=== PATIENT | male | born 1950 | race Hispanic/Latino ===

== ENCOUNTER 2023-05-03 08:29 | Emergency (ER) | payer OTHER ==
--- OUTSIDE RECORDS SUMMARY | 2023-05-03 08:41 | XMS REPORT | Continuity of Care Document ---
:1950 Author Organization [facility] t Address [address] [address]. [address] [place] [address] Care Team Providers Name Role Phone MAGUI ZAFAR Primary Care Physician Unavailable HEMAL BARRIOS Attending Clinician Unavailable Rubi Chan Attending Clinician Unavailable Zuleika Adan MD Attending Clinician Malaika Cotter Attending Clinician Unavailable KURT MONTALVO Attending Clinician Unavailable Kurt Wray Attending Clinician Anthony BULLARD, Day Benavides Attending Clinician Unavailable Bam Gonzales MD Attending Clinician BAM GONZALES Attending Clinician Unavailable Naomi Cruz MD Attending Clinician [phone] NAOMI CRUZ Attending Clinician Unavailable Veronica Crespo Attending Clinician Unavailable Lisa Sheffield Attending Clinician Unavailable MARCELO ROBERTS Attending Clinician Unavailable Nurse, Adc Pob Immunization Attending Clinician Unavailable Marcelo Roberts DO Attending Clinician Catarina KAYE, León Mcdermotth Attending Clinician Marc Rodriguez MD Attending Clinician MARC RODRIGUEZ Attending Clinician Unavailable MATEUSZ CACERES Attending Clinician Unavailable Only, Adc Test Attending Clinician Unavailable Jacobo Hester MD Attending Clinician JACOBO HESTER Attending Clinician Unavailable Doctor Unassigned, Balta Attending Clinician Unavailable Bui_Q Attending Clinician Unavailable Rajesh Attending Clinician Unavailable Bui_Q_WAG Attending Clinician Unavailable LITA HYMAN Attending Clinician Unavailable HEMAL BARRIOS Admitting Clinician Unavailable NAOMI CRUZ Admitting Clinician Unavailable MARC RODRIGUEZ Admitting Clinician Unavailable Bui_Q Admitting Clinician Unavailable Tino_JESUS Admitting Clinician Unavailable Bui_Q_WAG Admitting Clinician Unavailable Payers Payer Name Policy Type Policy Number Effective Date Expiration Date S erik MEDICARE A B [id number] 2016 00:00:00 MEDICARE PART A [id number] 2016 \\T\\ B 00:00:00 [place]IC[place] B-[place]: [id number] [address] 00:00:00 Problems Condition Condition Condition Status Onset Resolution Last Treating Co mments Source Name Details Category Date Date Treatment Clinician Date Arrhythmia Arrhythmia Disease Active 2021-[address] [facility] Atrial Atrial Disease Active [facility] fibrillati fibrillati 3-29 [facility] on 00:00: Hospita 00 l CHF CHF Disease Recurre 2020-[address] exacerbati exacerbati nce 2-27 Samreen kes on on 00:00: Medical 00 Hallie COVID-19 COVID-19 Disease Active 2019[facility]10 [facility] Pneumonia Pneumonia Disease Active 2019-[address] [facility] [address] [facility] 00 [facility] Depressive Depressive Problem Active [facility] disorder Disorder 10-27 Family 00:00: Practic 00 e Hypertensi Hypertensi Problem Active [facility] ve heart ve Heart 10-27 Family disease Disease 00:00: Practic without without 00 e congestive Congestive heart Heart failure Failure Edema of Edema of Problem Active [facility] lower Lower 1-23 Family extremity Extremity 00:00: Prac tic 00 e CHF CHF Disease Recurre 2018-[address] [facility] [address] (congestiv (congestiv nce 2-13 Samreen kes e heart e heart 00:00: Medical failure) failure) 00 Center SOB SOB Disease Active 2018-[address] [facility] (shortness (shortness 2-13 Samreen kes of breath) of breath) 00:00: Me dical 00 Center Acute Acute Disease Active 2018-[address] [facility] chest pain chest pain 2-12 Samreen kes 00:00: Medical 00 Center Morbid Morbid Problem [facility] obesity Obesity 0-11 Family 00:00: Practic 00 e History of History of Problem Active 2018-10 [facility] myocardial Myocardial 0-11 Fa kaz infarction Infarction 00:00: Pr actic 00 e Chronic Chronic Problem Active [facility] kidney Kidney 6-22 Family disease Disease 00:00: Practic stage 3 Stage 3 00 e Prediabete Prediabete Problem Active 2017-10 [facility] s s 1-29 Family 00:00: Practic 00 e Osteoarthr Osteoarthr Problem Active [facility] itis of itis of 6-04 Family knee Knee 00:00: Practic 00 e Slow Slow Disease Active 2016-10 [facility] transit transit 0-05 st constipati constipati 00:00: Ho spita on on 00 l 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[facility] post total post total 0-04 st right knee right knee 00:00: Ho spita replacemen replacemen 00 l t t Essential Essential Disease Active 2016-10 Met [facility]odi hypertensi hypertensi 0-04 st on on 00:00: Hospita 00 l Acute on Acute on Disease Active 2016-10 Meth[facility] di chronic chronic 0-04 st systolic systolic 00:00: Hospit a CHF CHF 00 l (congestiv (congestiv e heart e heart failure) failure) Coronary Coronary Disease Active 2016-10 [facility] di artery artery 0-04 st disease disease 00:00: Hospita involving involving 00 l augustine augustine coronary coronary artery of artery of augustine augustine heart heart without without angina angina pectoris pectoris Coronary Coronary Disease Active 2016-10 [facility] di artery artery 0-04 st disease disease 00:00: Hospita involving involving 00 l augustine augustine coronary coronary artery of artery of augustine augustine heart heart without without angina angina pectoris pectoris Primary Primary Disease Active Overview: Meth alex osteoarthr osteoarthr 8-[address] itis of itis of 00:00: g of this Hospi ta right knee right knee 00 note l might be different from the original. Added automatic ally from request for surgery [id number] Hyperlipid Hyperlipid Problem Active [facility] emia emia 8-18 Family 00:00: Practic 00 e Hypokalemi Hypokalemi Problem Active [facility] a a 8-18 Family 00:00: Practic 00 e Body mass Body Mass Problem Active Sujit andrew index 30+ Index 30+ 8-18 Fami ly - obesity - Obesity 00:00: Prac tic 00 e Stented Stented Problem Active [facility] coronary Coronary 05-22 Family artery Artery 00:00: Practic 00 e Cellulitis Cellulitis Disease Active U [facility]ivers 4-29 ity of 00:00: [place] [facility] Cellulitis Cellulitis Disease Active U nivers and and 4-27 ity of abscess of [place] leg[place] leg, 00 Medical except except Branch foot foot CAD CAD Disease Active [facility] (coronary (coronary 3-13 Luke s artery artery 00:00: Medical disease) disease) 00 Center Cardiomyop Cardiomyop Disease Active [facility] athy athy 3-13 [facility] Shortness Shortness Disease Active [facility] of breath of breath 1-13 Luke s 00:00: Medical 00 Center Cough Cough Disease Active [facility] 1[facility] Center Chest pain Chest pain Disease Active [facility] 1[facility]13 [facility] 00 Center Allergies, Adverse Reactions, Alerts Allergy Allergy Status Severity Reaction(s) Onset Inactive Treating Comm ents Source Name Type Date Date Clinician NO KNOWN Drug Active Univers ALLERGIE Class ity of S [facility] NO KNOWN Allergy Active [facility] ALLERGIE S Family History Family Member Diagnosis Comments Start Date Stop Date Source Natural brother Cancer [facility] Natural brother Cancer [facility] Natural father Asthma [facility] Natural father No Known Problems Met [facility] Natural mother No Known Problems Met [facility] sister Lupus [facility] Natural sister Rheum arthritis [facility] Social History Social Habit Start Date Stop Date Quantity Comments Source History of tobacco Current smoker [facility] History SDOH [facility] Std Drinks Hospit al History SDOH [facility] Binge Hospital History SDOH Worship Alcohol Frequency Hospita l History of Social 2022-12-29 2022-12-[address] function 00:00:00 00:00:00 Hospital Alcohol intake 2022-09-12 2022-09-[address] [facility] 00:00:00 00:00:00 non-drinker of Medical Ce nter alcohol (finding) Tobacco use and 2022-07-18 2022-07-18 Smokeless tobacco [facility]odist exposure 00:00:00 00:00:00 non-user Hospital Alcohol Comment 2017-07-01 2017-07-01 stopped heavy Method ist 00:00:00 00:00:00 drinking 2007- Hospital occasional drink now Tobacco Comment 2016-01-30 2016-01-30 quit 20 yrs ago Univ ersity of 00:00:00 00:00:00 [facility] Sex Ass[birth year] At [birth year] BLU Khanna kes 00:00:00 00:00:00 Medical Center Smoking Status Start Date Stop Date Source Ex-smoker 2022-07-18 00:00:00 2022-07-18 00:00:00 [facility] Medications Ordered Filled Start Stop Current Ordering Indication Dosage Frequency Signature Comments Components Source Medication Medication Date Date Medication? Clinician (SIG) Name Name potassium Yes Take 1 Method i chloride 04-[address] (K-DUR) 20 00:00: mouth once H ospita MEQ CR 00 daily l tablet atorvastati Yes Take 1 Meth alex n (LIPITOR) 04-[address] 40 mg 00:00: mouth once Hospit a tablet 00 daily l HYDROcodone 2022- No 1{tbl} 1 tablet, Univers -acetaminop 04-03 Oral, ity of hen (NORCO 19:30: 18:46 ONCE, 1 Valentín as 5) 5-325 mg 00 :00 dose, On Medi kristin tablet 1 Fri Branch tablet 04/03/23 at 1430, Routine traMADoL 50 Yes [id number] 50mg Take 1 Univ ers mg tablet 6-30 tablet by ity o f 00:00: mouth [place] 00 every 6 Medical (six) Branch hours as needed for Pain (scale 7-10). Indication s: acute pain amoxicillin 2022- Yes [id number] 1{tbl} Take 1 Univers -clavulanat 6-30 07-08 tablet by it y of e 875-125 00:00: 04:59 mouth [place] mg per 00 :00 every 12 Medical tablet (twelve) Branch hours for 7 days. valsartan Yes Take [address] [facility] (DIOVAN) 40 6-01 tablet by Michelle es MG tablet 00:00: mouth once Me dical 00 daily for Center 90 days torsemide Yes Take [address] [facility] (DEMADEX) 6-01 tablet by [facility] 20 MG 00:00: mouth once Medica l tablet 00 daily for Center 90 days valsartan Yes Take [address] [facility] (DIOVAN) 40 6-01 tablet by Michelle es MG tablet 00:00: mouth once Me dical 00 daily for Center 90 days torsemide Yes Take [address] (DEMADEX) 6-01 tablet by [facility] 20 MG 00:00: mouth once Medica l tablet 00 daily for Center 90 days torsemide 2022- Yes 20mg QD Take 1 [facility] t (DEMADEX) 6- 08-30 tablet (20 Michelle es 20 MG 00:00: 23:59 mg total) Medica l tablet 00 :00 by mouth Center in the morning for 90 days. valsartan 2022- Yes 40mg QD Take 1 [facility] (DIOVAN) 40 6- 08-30 tablet (40 L ukes MG tablet 00:00: 23:59 mg total) Me dical 00 :00 by mouth Center in the morning for 90 days. torsemide 2022- Yes 20mg QD Take 1 [facility] (DEMADEX) 6- 08-30 tablet (20 Michelle es 20 MG 00:00: 23:59 mg total) Medica l tablet 00 :00 by mouth Center in the morning for 90 days. valsartan 2022- Yes 40mg QD Take 1 [facility] (DIOVAN) 40 6- 08-30 tablet (40 L ukes MG tablet 00:00: 23:59 mg total) Me dical 00 :00 by mouth Center in the morning for 90 days. valsartan 2023-0 Yes 40mg QD Take 1 Method i (DIOVAN) 40 3-27 tablet (40 st MG tablet 09:43: mg total) Hos luly 08 by mouth l daily. torsemide 2023-0 Yes 20mg Q.5D Take 1 Method i (DEMADEX) 3-27 tablet (20 st 20 MG 09:41: mg total) Hospita tablet 59 by mouth 2 l (two) times a day. furosemide 2023-0 2023- No 40mg Q.5D Take [address] [facility] (LASIX) 20 2-24 02-24 by mouth 2 Samreen kes MG tablet 11:00: 00:00 (two) Medica l 00 :00 times Center daily. furosemide 2023-0 2023- No 40mg Q.5D Take [address] [facility] (LASIX) 20 2-24 02-24 by mouth 2 Samreen kes MG tablet 11:00: 00:00 (two) Medica l 00 :00 times Center daily. warfarin 2023-0 Yes 5mg QD Take [address] (COUMADIN, 2-24 by mouth [facility] JANTOVEN) 5 10:29: daily. Medi kristin MG tablet 51 Center warfarin 3-0 Yes 5mg QD Take [address] (COUMADIN, 2-24 by mouth [facility] JANTOVEN) 5 10:29: daily. Medi kristin MG tablet 51 Center valsartan 2023-0 2023- No 40mg QD Take 1 [facility] (DIOVAN) 40 2-24 06-01 tablet (40 L ukes MG tablet 00:00: 00:00 mg total) Me dical 00 :00 by mouth Center daily for 90 days. torsemide 2023-0 2023- No 20mg QD Take 1 [facility] (DEMADEX) 2-24 06-01 tablet (20 Michelle es 20 MG 00:00: 00:00 mg total) Medica l tablet 00 :00 by mouth Center daily for 90 days. valsartan 2023-0 2023- No 40mg QD Take 1 [facility] (DIOVAN) 40 2-24 06-01 tablet (40 L ukes MG tablet 00:00: 00:00 mg total) Me dical 00 :00 by mouth Center daily for 90 days. torsemide 2022-0 2023- No 20mg QD Take 1 [facility] (DEMADEX) 11-28 tablet (20 Michelle es 20 MG 00:00: 00:00 mg total) Medica l tablet 00 :00 by mouth Center daily for 90 days. pantoprazol 2022-0 2023- No 40mg QD Take [address] [facility] e -25 02-25 tablet (40 [facility] (PROTONIX) 00:00: 23:59 mg total) M edical 40 MG 00 :00 by mouth Center tablet daily for 90 days. pantoprazol 2022-0 2023- No 40mg QD Take [address] [facility] e 11-28 05-25 tablet (40 [facility] (PROTONIX) 00:00: 23:59 mg total) M edical 40 MG 00 :00 by mouth Center tablet daily for 90 days. metoclopram 2022-0 2023- No 10mg Take [address] ayah HCl 11-28- tablet (10 [facility] (Reglan) 10 00:00: 23:59 mg total) Medical MG tablet 00 :00 by mouth 4 Cent er (four) times daily as needed for Nausea for up to 30 days. metoclopram 2022-0 3- No 10mg Take [address] ayah HCl 11-28- tablet (10 [facility] (Reglan) 10 00:00: 23:59 mg total) Medical MG tablet 00 :00 by mouth 4 Cent er (four) times daily as needed for Nausea for up to 30 days. mINOCYCLine 2022-0 2023- No 100mg Q.5D Take [address] (Minocin) 11-28- capsule [facility] 100 MG 00:00: 23:59 (100 mg Medical capsule 00 :00 total) by Center mouth 2 (two) times daily for 5 days. mINOCYCLine 2023-0 2023- No 100mg Q.5D Take [address] (Minocin) -26 12- capsule [facility] 100 MG 00:00: 23:59 (100 mg Medical capsule 00 :00 total) by Center mouth 2 (two) times daily for 5 days. sacubitriL- 2022-0 Yes 1{tbl} Q.5D Take [address] valsartan 2-13 tablet by [facility] (Entresto) 00:00: mouth 2 Medi kristin 49-51 mg 00 (two) Center tablet times daily. sacubitriL- Yes 1{tbl} Q.5D Take [address] valsartan 2-13 tablet by [facility] (Entresto) 00:00: mouth 2 Medi kristin 49-51 mg 00 (two) Center tablet times daily. sacubitriL- 2022- No 1{tbl} Q.5D Take 1 M ethodi valsartan 2-15 12-[address] (Entresto) 00:00: 00:00 mouth 2 Hos luly 49-51 mg 00 :00 (two) l tablet per times a tablet day. apixaban 2022- No 5mg Q.5D Take 1 Method i (Eliquis) 5 11-17-16 tablet (5 st mg tablet 00:00: 04:59 mg total) Ho spita 00 :00 by mouth 2 l (two) times a day for 30 days. mINOCYCLine 2021-10- No 100mg Q.5D Take [address] (MINOCIN,DY 1-30 12-09 capsule Luke s NACIN) 100 00:00: 00:00 (100 mg Med ical MG capsule 00 :00 total) by Cent er mouth 2 (two) times daily. mINOCYCLine 2021-10- No 100mg Take [address] (MINOCIN,DY 1-30 12-09 capsule Luke s NACIN) 100 00:00: 00:00 (100 mg Med ical MG capsule 00 :00 total) by Cent er mouth every 12 (twelve) hours. mINOCYCLine 2021-10- No 100mg Q.5D Take [address] (MINOCIN,DY 1-30 12-09 capsule Luke s NACIN) 100 00:00: 00:00 (100 mg Med ical MG capsule 00 :00 total) by Cent er mouth 2 (two) times daily. mINOCYCLine 2021-10- No 100mg Take [address] (MINOCIN,DY 1-30 12-09 capsule Luke s NACIN) 100 00:00: 00:00 (100 mg Med ical MG capsule 00 :00 total) by Cent er mouth every 12 (twelve) hours. warfarin 2021-10 Yes 5mg QD Take [address] (COUMADIN, 1-29 by mouth [facility] JANTOVEN) 5 10:01: daily. Medi kristin MG tablet 24 Center potassium 2021-10 Yes 20meq QD Take [address] chloride SA 1-22 mEq by [facility]ukes (K-DUR,KLOR 00:00: mouth Medic al -CON-M) 20 00 daily. Center MEQ tablet potassium 2021-10 Yes 20meq QD Take [address] chloride SA 1-22 mEq by [facility]ukes (K-DUR,KLOR 00:00: mouth Medic al -CON-M) 20 00 daily. Center MEQ tablet metoprolol 2021-10 Yes 25mg Q.5D Take 1 Metho di tartrate 1-22 tablet (25 st (LOPRESSOR) 00:00: mg total) H ospita 25 mg 00 by mouth 2 l tablet (two) times a day. potassium 2021-10 No Take 1 Metho di chloride -22 07-[address] (K-DUR) 20 00:00: 00:00 mouth once Hospita MEQ CR 00 :00 daily l tablet atorvastati 2021-10- No 40mg QD Take 1 Met hodi n (LIPITOR) 1-22 07-06 tablet (40 s t 40 mg 00:00: 00:00 mg total) Hospit a tablet 00 :00 by mouth l daily. furosemide 2021-10- No 40mg Q.5D Take 1 Meth alex (LASIX) 40 1-10 03-27 tablet (40 st mg tablet 00:00: 00:00 mg total) Ho spita 00 :00 by mouth 2 l (two) times a day. furosemide 2021-10- No 40mg Q.5D Take 1 Meth alex (LASIX) 40 1-09 11-10 tablet (40 st mg tablet 00:00: 00:00 mg total) Ho spita 00 :00 by mouth 2 l (two) times a day. And 20mg in the evening. furosemide 2021-10- No 40mg QD Take 2 Meth alex (LASIX) 20 0-14 11-[address] mg tablet 00:00: 00:00 (40 mg Hospi ta 00 :00 total) by l mouth every morning. And 20mg in the evening. warfarin 2021-10- No Take 2 Method i (COUMADIN) 0-10 02-[address] 2.5 MG 00:00: 00:00 (5mg) on Hospit a tablet 00 :00 Mon. & l 2.5mg the rest of the week as directed by Physician. furosemide 2021-10- No 20mg QD Take 1 Meth alex (LASIX) 20 0-10 10-14 tablet (20 st mg tablet 00:00: 00:00 mg total) Ho spita 00 :00 by mouth l every morning. losartan 2022- No 100mg QD Take [address] (COZAAR) 9-26 02-24 mg by [facility] 100 MG 00:00: 00:00 mouth Medical tablet 00 :00 daily. Center losartan 2021-2022- No 100mg QD Take [address] (COZAAR) 9-26 02-24 mg by [facility] 100 MG 00:00: 00:00 mouth Medical tablet 00 :00 daily. Hallie warfarin 2021- No Take 2 Method i (COUMADIN) 7-21 10-[address] 2.5 MG 00:00: 00:00 (5mg) on Hospit a tablet 00 :00 Mon. & l 2.5mg the rest of the week as directed by Physician. furosemide 2020-10- No 40mg QD Take [address] (LASIX) 40 2-31 12-31 tablet (40 Samreen kes MG tablet 00:00: 23:59 mg total) Me dical 00 :00 by mouth Center daily. furosemide 2020-10- No 40mg QD Take [address] (LASIX) 40 2-31 12-31 tablet (40 Samreen kes MG tablet 00:00: 23:59 mg total) Me dical 00 :00 by mouth Center daily. furosemide 2020-10- No 40mg QD Take [address] (LASIX) 40 2-31 12-31 tablet (40 Samreen kes MG tablet 00:00: 23:59 mg total) Me dical 00 :00 by mouth Center daily. furosemide 2020-10- No 40mg QD Take [address] (LASIX) 40 2-31 12-31 tablet (40 Samreen kes MG tablet 00:00: 23:59 mg total) Me dical 00 :00 by mouth Center daily. furosemide 2020-10- No 40mg QD Take [address] (LASIX) 40 2-31 12-31 tablet (40 Samreen kes MG tablet 00:00: 23:59 mg total) Me dical 00 :00 by mouth Center daily. furosemide 2020-10- No 40mg QD Take [address] (LASIX) 40 2-31 12-31 tablet (40 Samreen kes MG tablet 00:00: 23:59 mg total) Me dical 00 :00 by mouth Center daily. furosemide 2020-10- No 40mg QD Take [address] (LASIX) 40 2-31 12-31 tablet (40 Samreen kes MG tablet 00:00: 23:59 mg total) Me dical 00 :00 by mouth Center daily. warfarin 2020-10 Yes 5mg QD Take [address] (COUMADIN, 2-30 by mouth [facility] JANTOVEN) 5 11:37: daily. Medi kristin MG tablet 08 Hallie warfarin 2020-10 Yes 5mg QD Take [address] (COUMADIN, 2-30 by mouth [facility] JANTOVEN) 5 11:37: daily. Medi kristin MG tablet 08 Hallie warfarin 2020-10 Yes 5mg QD Take [address] (COUMADIN, 2-30 by mouth [facility] JANTOVEN) 5 11:37: daily. Medi kristin MG tablet 08 Hallie warfarin 2020-10 Yes 5mg QD Take [address] (COUMADIN, 2-30 by mouth [facility] JANTOVEN) 5 11:37: daily. Medi kristin MG tablet 08 Hallie furosemide 2018-10- No 20mg QD Take [address] [address] (LASIX) 20 2-14 12-30 tablet (20 Samreen kes MG tablet 00:00: 00:00 mg total) Me dical 00 :00 by mouth Center daily. furosemide 2018-10- No 20mg QD Take [address] (LASIX) 20 2-14 12-30 tablet (20 Samreen kes MG tablet 00:00: 00:00 mg total) Me dical 00 :00 by mouth Center daily. furosemide 2018-10- No 20mg QD Take [address] (LASIX) 20 2-14 12-30 tablet (20 Samreen kes MG tablet 00:00: 00:00 mg total) Me dical 00 :00 by mouth Center daily. furosemide 2018-10- No 20mg QD Take [address] (LASIX) 20 2-14 12-30 tablet (20 Samreen kes MG tablet 00:00: 00:00 mg total) Me dical 00 :00 by mouth Center daily. furosemide 2018-10- No 20mg QD Take [address] (LASIX) 20 2-14 12-30 tablet (20 Samreen kes MG tablet 00:00: 00:00 mg total) Me dical 00 :00 by mouth Center daily. aspirin 2016-10 Yes Resume Methodi (ECOTRIN) 0-[address] 81 MG 00:00: tablet Hospita enteric 00 daily l coated after you tablet have completed taking the 325 mg aspirin dosing given to you by orthopedic surgery aspirin 2016-10 Yes Resume Methodi (ECOTRIN) 0-[address] 81 MG 00:00: tablet Hospita enteric 00 daily l coated after you tablet have completed taking the 325 mg aspirin dosing given to you by orthopedic surgery polyethylen 2016-10 Yes Take 17 g M ethodi e glycol 0-04 1-[address] (MIRALAX) 00:00: a day, per Ho spita 17 gram 00 package l packet instructio ns. Is over-the-c ounter. magnesium 2016-10 Yes Use as Method i hydroxide 0-[address] 400 mg/5 mL 00:00: package Hos luly suspension 00 instructio l ns. Is over-the-c ounter. aspirin 2016-10 Yes Resume Methodi (ECOTRIN) 0-[address] 81 MG 00:00: tablet Hospita enteric 00 daily l coated after you tablet have completed taking the 325 mg aspirin dosing given to you by orthopedic surgery polyethylen 2016-10 Yes Take 17 g M ethodi e glycol 0-04 1-[address] (MIRALAX) 00:00: a day, per Ho spita 17 gram 00 package l packet instructio ns. Is over-the-c ounter. magnesium 2016-10 Yes Use as Method i hydroxide 0-[address] 400 mg/5 mL 00:00: package Hos luly suspension 00 instructio l ns. Is over-the-c ounter. polyethylen 2016-10- No Take 17 g Methodi e glycol 0-04 02-13 1-[address] (MIRALAX) 00:00: 00:00 a day, per H ospita 17 gram 00 :00 package l packet instructio ns. Is over-the-c ounter. magnesium 2016-10- No Use as Metho di hydroxide 11-[address] 400 mg/5 mL 00:00: 00:00 package Ho spita suspension 00 :00 instructio l ns. Is over-the-c ounter. metoprolol Yes 25mg Take 25 mg U nivers succinate 6-29 by mouth ity of XL (TOPROL 19:36: daily. [place] XL) 25 mg 38 Medical 24 hr Branch tablet lovastatin Yes 40mg Take 40 mg U nivers (MEVACOR) 6-29 by mouth ity of 40 mg 19:36: at [place] tablet 38 bedtime. [facility] Branch losartan Yes 50mg Take 50 mg Uni vers (COZAAR) 50 6-29 by mouth ity of mg tablet 19:36: daily. [address] POTASSIUM Yes Univers CHLORIDE, 6-29 ity of BULK, MISC 19:36: [address] aspirin 81 Yes 81mg Take 81 mg U nivers mg chewable 6-29 by mouth ity of tablet 19:36: daily. [address] metoprolol Yes 25mg Take 25 mg U nivers succinate 6-29 by mouth ity of XL (TOPROL 19:36: daily. [place] XL) 25 mg 38 Medical 24 hr Branch tablet lovastatin Yes 40mg Take 40 mg U nivers (MEVACOR) 6-29 by mouth ity of 40 mg 19:36: at [place] tablet 38 bedtime. [facility] losartan Yes 50mg Take 50 mg Uni vers (COZAAR) 50 6-29 by mouth ity of mg tablet 19:36: daily. [address] POTASSIUM 2016-0 Yes Univers CHLORIDE, 6-29 ity of BULK, MISC 19:36: [address] aspirin 81 Yes 81mg Take 81 mg U nivers mg chewable 6-29 by mouth ity of tablet 19:36: daily. [address] metoprolol Yes 25mg Take 25 mg U nivers succinate 6-29 by mouth ity of XL (TOPROL 14:36: daily. [place] XL) 25 mg 38 Medical 24 hr Branch tablet lovastatin 2017 Yes 40mg Take 40 mg U nivers (MEVACOR) 6-29 by mouth ity of 40 mg 14:36: at [place] tablet 38 bedtime. Medical Branch losartan Yes 50mg Take 50 mg Uni vers (COZAAR) 50 6-29 by mouth ity of mg tablet 14:36: daily. [address] POTASSIUM Yes Univers CHLORIDE, 6-29 ity of BULK, MISC 14:36: [address] aspirin 81 Yes 81mg Take 81 mg U nivers mg chewable 6-29 by mouth ity of tablet 14:36: daily. [address] metoprolol Yes 25mg Take 25 mg U nivers succinate 6-29 by mouth ity of XL (TOPROL 14:36: daily. [place] XL) 25 mg 38 Medical 24 hr Branch tablet lovastatin Yes 40mg Take 40 mg U nivers (MEVACOR) 6-29 by mouth ity of 40 mg 14:36: at [place] tablet 38 bedtime. [facility] Branch losartan Yes 50mg Take 50 mg Uni vers (COZAAR) 50 6-29 by mouth ity of mg tablet 14:36: daily. [address] POTASSIUM Yes Univers CHLORIDE, 6-29 ity of BULK, MISC 14:36: [address] aspirin 81 Yes 81mg Take 81 mg U nivers mg chewable 6-29 by mouth ity of tablet 14:36: daily. [address] potassium Yes 8meq QD Take 8 mEq Me thodi chloride 1-[address] (KLOR-CON) 00:00: daily. Hospi ta 8 MEQ CR 00 l tablet atorvastati Yes 40mg Take 40 mg Methodi n (LIPITOR) 1-[address] 40 MG 00:00: Hospita tablet 00 l furosemide Yes 20mg QD Take 20 mg M ethodi (LASIX) 20 1-[address] mg tablet 00:00: every Hospita 00 morning. l atorvastati Yes 40mg QD Take [address] n (LIPITOR) 1-11 tablet (40 Samreen kes 40 MG 00:00: mg total) Medical tablet 00 by mouth Center daily. metoprolol 2017 Yes 25mg Q.5D Take 1 [facility]-11 tablet (25 Samreen kes 25 MG 00:00: mg total) Medical tablet 00 by mouth 2 Center (two) times daily. aspirin 81 Yes 81mg QD Take 1 [facility] -[facility] ([facility] 00:[facility]: mg total) Medica l 00 by mouth Center daily. losartan Yes 50mg QD Take 50 mg [facility] (COZAAR) 50 1-[address] MG tablet 00:00: every Hospita 00 morning. l metoprolol Yes 25mg Q.5D Take 25 mg M ethodi tartrate -[address] (LOPRESSOR) 00:00: (two) Hospi ta 25 mg 00 times a l tablet day. potassium Yes 8meq QD Take 8 mEq Me thodi chloride [address] (KLOR-CON) 00:00: daily. Hospi ta 8 MEQ CR 00 l tablet aspirin,buf aspirin,buf No 81mg aspirin,bu [place] [facility] fered 11 ffered Family (calcium (calcium 00:00: (calcium P ractic carb-mag-al carb-mag-al 00 carb-mag-a e uminum) 81 uminum) 81 luminum) mg oral del mg oral del 81 mg oral rel tablet rel tablet del rel 81 mg by 81 mg by tablet 81 oral route. oral route. mg by oral route. potassium potassium No 8meq potassium [facility] chloride ER chloride ER 11 chloride Family 8 mEq 8 mEq 00:00: ER 8 mEq Practic tablet,exte tablet,exte 00 tablet,ext e nded nded ended release 8 release 8 release 8 milliequiva milliequiva milliequiv lents by alfredo by ronald by oral route. oral route. oral route. losartan Yes 50mg QD Take [address] [facility] [address] (COZAAR) 50 1-11 tablet (50 Samreen kes MG tablet 00:00: mg total) Med ical 00 by mouth Center daily. atorvastati Yes 40mg QD Take [address] [facility] [facility] (LIPITOR) 1-11 tablet (40 Samreen kes 40 MG 00:00: mg total) Medical tablet 00 by mouth Center daily. metoprolol 2017-0 Yes 25mg Q.5D Take 1 [facility] 1-11 tablet (25 Samreen kes 25 MG 00:00: mg total) Medical tablet 00 by mouth 2 Center (two) times daily. potassium 2017-0 Yes 8meq QD Take [address] [facility] [address] chloride 1-11 tablet (8 [facility] (KLOR-CON) 00:00: mEq total) M edical 8 MEQ CR 00 by mouth Center tablet daily. aspirin 81 2017-0 Yes 81mg QD Take 1 [facility] 1-[facility] tablet (81 [facility] tablet 00:00: mg total) Medica l 00 by mouth Center daily. losartan 2017-0 Yes 50mg QD Take [address] [facility] [address] (COZAAR) 50 1-11 tablet (50 Samreen kes MG tablet 00:00: mg total) Med ical 00 by mouth Center daily. atorvastati 2017-0 Yes 40mg QD Take [address] [facility] [address] [facility] (LIPITOR) 1-11 tablet (40 Samreen kes 40 MG 00:00: mg total) Medical tablet 00 by mouth Center daily. metoprolol 2017-0 Yes 25mg Q.5D Take [facility] 1-11 tablet (25 Samreen kes 25 MG 00:00: mg total) Medical tablet 00 by mouth 2 Center (two) times daily. potassium 2017-0 Yes 8meq QD Take [address] [facility] [address] chloride 1-11 tablet (8 [facility] (KLOR-CON) 00:00: mEq total) M edical 8 MEQ CR 00 by mouth Center tablet daily. aspirin 81 2017-0 Yes 81mg QD Take 1 [facility] 1-[facility] tablet (81 [facility] tablet 00:00: mg total) Medica l 00 by mouth Center daily. losartan 2017-0 Yes 50mg QD Take [address] [facility] [address] (COZAAR) 50 1-11 tablet (50 Samreen kes MG tablet 00:00: mg total) Med ical 00 by mouth Center daily. atorvastati 2017-0 Yes 40mg QD Take [address] [facility] [address] [facility] (LIPITOR) 1-11 tablet (40 Samreen kes 40 MG 00:00: mg total) Medical tablet 00 by mouth Center daily. metoprolol 2017-0 Yes 25mg Q.5D Take 1 [facility] 1-11 tablet (25 Samreen kes 25 MG 00:00: mg total) Medical tablet 00 by mouth 2 Center (two) times daily. potassium 2017-0 Yes 8meq QD Take [address] [facility] chloride 1-11 tablet (8 [facility] (KLOR-CON) 00:00: mEq total) M edical 8 MEQ CR 00 by mouth Center tablet daily. aspirin 81 2017-0 Yes 81mg QD Take 1 [facility] 1-[facility] tablet (81 [facility] 00:00: mg total) Medica l 00 by mouth Center daily. losartan 2017-0 Yes 50mg QD Take [address] [facility] [address] (COZAAR) 50 1-11 tablet (50 Samreen kes MG tablet 00:00: mg total) Med ical 00 by mouth Center daily. atorvastati 2017-0 Yes 40mg QD Take [address] [facility] [address] [facility] (LIPITOR) 1-11 tablet (40 Samreen kes 40 MG 00:00: mg total) Medical tablet 00 by mouth Center daily. metoprolol 2017-0 Yes 25mg Q.5D Take 1 [facility] ([facility] 1-11 tablet (25 Samreen kes 25 MG 00:00: mg total) Medical tablet 00 by mouth 2 Center (two) times daily. potassium 2017-0 Yes 8meq QD Take [address] [facility] [address] chloride 1-11 tablet (8 [facility] (KLOR-CON) 00:00: mEq total) M edical 8 MEQ CR 00 by mouth Center tablet daily. aspirin 81 2017-0 Yes 81mg QD Take 1 [facility] 1-[facility] tablet (81 [facility] tablet 00:00: mg total) Medica l 00 by mouth Center daily. losartan 2017-0 Yes 50mg QD Take [address] [facility] [address] (COZAAR) 50 1-11 tablet (50 Samreen kes MG tablet 00:00: mg total) Med ical 00 by mouth Center daily. atorvastati 2017-0 Yes 40mg QD Take [address] [facility] (LIPITOR) 1-11 tablet (40 Samreen kes 40 MG 00:00: mg total) Medical tablet 00 by mouth Center daily. metoprolol 2017-0 Yes 25mg Q.5D Take 1 [facility] ([facility] 1-11 tablet (25 Samreen kes 25 MG 00:00: mg total) Medical tablet 00 by mouth 2 Center (two) times daily. potassium 2017- Yes 8meq QD Take [address] [facility] [address] chloride 1-11 tablet (8 [facility] (KLOR-CON) 00:00: mEq total) M edical 8 MEQ CR 00 by mouth Center tablet daily. aspirin 81 20170 Yes 81mg QD Take 1 [facility] 1-[facility] (81 [facility] 00:00: mg total) Medica l 00 by mouth Center daily. atorvastati 2017-0 Yes 40mg QD Take [address] [facility] [address] [facility] (LIPITOR) 1-11 tablet (40 Samreen kes 40 MG 00:00: mg total) Medical tablet 00 by mouth Center daily. metoprolol 2017 Yes 25mg Q.5D Take 1 [facility] ([facility] 1-11 tablet (25 Samreen kes 25 MG 00:00: mg total) Medical tablet 00 by mouth 2 Center (two) times daily. aspirin 81 2016- Yes 81mg QD Take 1 [facility] 1-[facility] (81 [facility] 00:00: mg total) Medica l 00 by mouth Center daily. atorvastati 20170 Yes 40mg Take 40 mg [facility] (LIPITOR) 1-[address] 40 MG 00:00: Hospita tablet 00 l furosemide 2016- Yes 20mg QD Take 20 mg M ethodi (LASIX) 20 -[address] mg tablet 00:00: every Hospita 00 morning. l losartan Yes 50mg QD Take 50 mg [facility] (COZAAR) 50 -[address] MG tablet 00:00: every Hospita 00 morning. l metoprolol 2017 Yes 25mg Q.5D Take 25 mg M ethodi tartrate -[address] (LOPRESSOR) 00:00: (two) Hospi ta 25 mg 00 times a l tablet day. losartan 2022- No 50mg QD Take 1 Method i (COZAAR) 50 10-15 tablet (50 s t MG tablet 00:00: 00:00 mg total) Ho spita 00 :00 by mouth l every morning. potassium 2016-2022- No 8meq QD Take 1 [facility] chloride 10-15- tablet (8 st (KLOR-CON) 00:00: 00:00 mEq total) Hospita 8 MEQ CR 00 :00 by mouth l tablet daily. losartan 2021- No 50mg QD Take [address] [facility] [address] (COZAAR) 50 10-15 tablet (50 L [facility] MG tablet 00:00: 00:00 mg total) Me dical 00 :00 by mouth Center daily. potassium 2021- No 8meq QD Take 1 [facility] chloride 10-15 tablet (8 [facility] (KLOR-CON) 00:00: 00:00 mEq total) Medical 8 MEQ CR 00 :00 by mouth Center tablet daily. losartan 2021- No 50mg QD Take [address] [facility] (COZAAR) 50 10-15 tablet (50 [facility] MG tablet 00:00: 00:00 mg total) Me dical 00 :00 by mouth Center daily. potassium No 8meq QD Take 1 [facility] chloride 10-15 tablet (8 [facility] (KLOR-CON) 00:00: 00:00 mEq total) Medical 8 MEQ CR 00 :00 by mouth Center tablet daily. atorvastati 2021- No 40mg Take 40 mg [facility] (LIPITOR) 10-[address] 40 MG 00:00: 00:00 Hospita tablet 00 :00 l metoprolol 2021- No 25mg Q.5D Take 25 mg [facility] tartrate 10-[address] (LOPRESSOR) 00:00: 00:00 (two) Hosp eunice 25 mg 00 :00 times a l tablet day. furosemide 2021- No 20mg QD Take 20 mg [facility] (LASIX) 20 10-[address] mg tablet 00:00: 00:00 every Hospit a 00 :00 morning. l HYDROcodone Yes 1{tbl} Take 1 Un gabbie -acetaminop 5-04 tablet by ity aguilar coronel (NORCO 00:00: mouth [place] 5) 5-325 mg 00 every 4 Medic al tablet (four) Branch hours as needed for Pain (scale 4-6) or Pain (scale 7-10). ondansetron Yes 4mg Take 1 Univ ers (ZOFRAN) 4 5-04 tablet by ity of mg tablet 00:00: mouth [place] 00 every 6 Medical (six) Branch hours as needed for Nausea and Vomiting (N/V). HYDROcodone 2016-0 Yes 1{tbl} Take 1 Un gabbie -acetaminop 5-04 tablet by ity of hen (NORCO 00:00: mouth [place] 5) 5-325 mg 00 every 4 Medic al tablet (four) Branch hours as needed for Pain (scale 4-6) or Pain (scale 7-10). ondansetron 2016-0 Yes 4mg Take 1 Univ ers (ZOFRAN) 4 5-04 tablet by ity of mg tablet 00:00: mouth [place] 00 every 6 Medical (six) Branch hours as needed for Nausea and Vomiting (N/V). HYDROcodone 2016-0 Yes 1{tbl} Take 1 Un gabbie -acetaminop 5-04 tablet by ity of hen (NORCO 00:00: mouth [place] 5) 5-325 mg 00 every 4 Medic al tablet (four) Branch hours as needed for Pain (scale 4-6) or Pain (scale 7-10). ondansetron 2016-0 Yes 4mg Take 1 Univ ers (ZOFRAN) 4 5-04 tablet by ity of mg tablet 00:00: mouth [place] 00 every 6 Medical (six) Branch hours as needed for Nausea and Vomiting (N/V). HYDROcodone 2016-0 Yes 1{tbl} Take 1 Un gabbie -acetaminop 5-04 tablet by ity of hen (NORCO 00:00: mouth [place] 5) 5-325 mg 00 every 4 Medic al tablet (four) Branch hours as needed for Pain (scale 4-6) or Pain (scale 7-10). ondansetron 2016-0 Yes 4mg Take 1 Univ ers (ZOFRAN) 4 5-04 tablet by ity of mg tablet 00:00: mouth [place] 00 every 6 Medical (six) Branch hours as needed for Nausea and Vomiting (N/V). atorvastati atorvastati No atorvastat [place] n 40 mg n 40 mg in 40 mg Famil y tablet TAKE tablet TAKE tablet Practic 1 TABLET BY 1 TABLET BY TAKE 1 e MOUTH ONCE MOUTH ONCE TABLET BY DAILY IN DAILY IN MOUTH ONCE THE EVENING THE EVENING DAILY IN THE EVENING cyclobenzap cyclobenzap No cyclobenza [place] rine 10 mg rine 10 mg elizabeth 10 Family tablet Take tablet Take mg tablet Practic 1/2 - 1 1/2 - 1 Take 1/2 - e tablet po tablet po 1 tablet bid PRN and bid PRN and po bid PRN q bedtime q bedtime and q may cause may cause bedtime drowsiness drowsiness may cause drowsiness escitalopra escitalopra No 1 Q1D escitalopr [facility] m 10 mg m 10 mg am 10 mg Famil y tablet Take tablet Take tablet Practic 1 tablet 1 tablet Take 1 e every day every day tablet by oral by oral every day route. route. by oral route. ibuprofen ibuprofen No 1 TID ibuprofen [facility] 600 mg 600 mg 600 mg Family tablet Take tablet Take tablet Practic 1 tablet 3 1 tablet 3 Take 1 e times a day times a day tablet 3 by oral by oral times a route with route with day by meals. as meals. as oral route needed for needed for with pain, pain, meals. as needed for pain, Klor-Con 10 Klor-Con 10 No 1 Q1D Klor-Con [facility] mEq mEq 10 mEq Family tablet,exte tablet,exte tablet,ext Practic nded nded ended e release release release Take 1 Take 1 Take 1 tablet tablet tablet every day every day every day by oral by oral by oral route. due route. due route. due for appt for appt for appt 09/2019 ProAir HFA ProAir HFA No 2puff(s Q4H ProAir HFA [facility] 90 90 ) 90 Family mcg/actuati mcg/actuati mcg/actuat Practic on aerosol on aerosol ion e inhaler inhaler aerosol Inhale 2 Inhale 2 inhaler puffs every puffs every Inhale 2 4 hours by 4 hours by puffs inhalation inhalation every 4 route as route as hours by needed. needed. inhalation route as needed. Immunizations Ordered Immunization Filled Immunization Date Status Commen ts Source Name Name SARS-COV-2 COVID-2021-10-29 Completed Unive rsity of MODERNA [facility]ER 00:00:00 [place] [facility] VACCINE [facility] SARS-COV-2 COVID-19 2021-10-29 Completed Unive rsity of MODERNA 0.25ML 00:00:00 [place] Medi kristin BOOSTER VACCINE Branch SARS-COV-2 COVID-19 2020-12-04 Completed Unive rsity of MODERNA VACCINE 00:00:00 [facility] SARS-COV-2 COVID-19 2020-12-04 Completed Unive rsity of MODERNA 12+ YRS 00:00:00 [facility] SARS-COV-2 COVID-19 2020-11-06 Completed Unive rsity of MODERNA VACCINE 00:00:00 [facility] SARS-COV-2 COVID-19 2020-11-06 Completed Unive rsity of MODERNA 12+ YRS 00:00:00 [facility] INFLUENZA TRIVALENT 2019-09-17 [facility] 00:00:00 [facility] INFLUENZA TRIVALENT 2019-09-17 [facility] 00:00:00 [facility] INFLUENZA TRIVALENT 2019-09-17 [facility] 00:00:00 [facility] INFLUENZA TRIVALENT 2019-09-17 [facility] 00:00:00 [facility] INFLUENZA TRIVALENT 2019-09-17 [facility] 00:00:00 [facility] INFLUENZA TRIVALENT 2019-09-17 [facility] 00:00:00 [facility] INFLUENZA TRIVALENT 2019-09-17 [facility] 00:00:00 [facility] influenza, high dose influenza, high dose 2018-09-01 Completed [facility] seasonal seasonal 16:05:00 Practice pneumococcal pneumococcal 2018-09-01 Completed [facility] polysaccharide PPV23 polysaccharide PPV23 16:05:00 Practice influenza, high dose influenza, high dose 2017-06-22 Completed [facility] seasonal seasonal 13:03:00 Practice pneumococcal pneumococcal 2017-05-22 Completed [facility] conjugate PCV 13 conjugate PCV 13 13:33:33 Pr actice Influenza TIV (IM) 2014-12-[address] [facility] 00:00:00 [facility] Influenza TIV (IM) 2014-12-[address] [facility] 00:00:00 [facility] Influenza TIV (IM) 2014-12-[address] [facility] 00:00:00 [facility] Influenza TIV (IM) 2014-12-[address] [facility] 00:00:00 [facility] Influenza TIV (IM) 2014-12-[address] [facility] 00:00:00 [facility] Influenza TIV (IM) 2014-12-[address] [facility] 00:00:00 [facility] Influenza TIV (IM) 2014-12-[address] [facility] 00:00:00 [facility] Vital Signs Vital Name Observation Time Observation Value Comments Source HEIGHT 2020-10-04 00:00:00 172.7 cm WEIGHT 2020-10-04 00:00:00 113.4 kg Systolic blood 2023-04-03 18:14:00 143 mm[Hg] [facility] Diastolic blood 2023-04-03 18:14:00 77 mm[Hg] Unive rsity [facility] Heart rate 2023-04-03 18:14:00 102 /min [facility] Body temperature 2023-04-03 18:14:00 37.22 Gabriela [facility] Res[facility] 2023-04-03 18:14:00 18 /min [facility] Body weight 2023-04-03 18:14:00 110.678 kg [facility] BMI 2023-04-03 18:14:00 37.10 kg/m2 [facility] Oxygen saturation in 2023-04-03 18:14:00 99 /min [facility] blood by [facility] Pulse oximetry Branch HEIGHT 2022-11-28 10:25:00 172.7 cm WEIGHT 2022-11-28 10:25:00 102.513 kg HEIGHT 2022-11-28 10:25:00 172.7 cm WEIGHT 2022-11-28 10:25:00 102.513 kg HEIGHT 2022-11-28 10:25:00 172.7 cm WEIGHT 2022-11-28 10:25:00 102.513 kg HEIGHT 2022-09-12 11:17:00 172.7 cm WEIGHT 2022-09-12 11:17:00 104.781 kg HEIGHT 2022-09-12 11:17:00 172.7 cm WEIGHT 2022-09-12 11:17:00 104.781 kg HEIGHT 2022-09-12 11:17:00 172.7 cm WEIGHT 2022-09-12 11:17:00 104.781 kg HEIGHT 2022-09-02 05:22:00 172.7 cm WEIGHT 2022-09-02 05:22:00 104.327 kg HEIGHT 2022-09-02 05:22:00 172.7 cm WEIGHT 2022-09-02 05:22:00 104.327 kg HEIGHT 2022-09-02 05:22:00 172.7 cm WEIGHT 2022-09-02 05:22:00 104.327 kg HEIGHT 2021-09-30 11:23:00 162.6 cm WEIGHT 2021-09-30 11:23:00 111.585 kg HEIGHT 2021-09-30 11:23:00 162.6 cm WEIGHT 2021-09-30 11:23:00 111.585 kg HEIGHT 2020-10-04 00:00:00 172.7 cm WEIGHT 2020-10-04 00:00:00 113.4 kg BP Diastolic 2019-10-27 00:00:00 92 mm[Hg] [facility] Height 2019-10-27 00:00:00 67.5 [in_i] [facility] BMI (Body Mass 2019-10-27 00:00:00 [facility] BP Systolic 2019-10-27 00:00:00 132 mm[Hg] [facility] Body Weight 2019-10-27 00:00:00 242 [lb_av] [facility] BP Diastolic 2019-03-25 00:00:00 70 mm[Hg] [facility] Height 2019-03-25 00:00:00 67.5 [in_i] [facility] BMI (Body Mass 2019-03-25 00:00:00 37.8 kg/m2 [facility] e Family Index) Practice BP Systolic 2019-03-25 00:00:00 122 mm[Hg] [facility] Body Weight 2019-03-25 00:00:00 245 [lb_av] [facility] Systolic blood 2022-12-29 14:15:00 126 mm[Hg] [facility] pressure Diastolic blood 2022-12-29 14:15:00 92 mm[Hg] [facility] pressure Heart rate 2022-12-29 14:15:00 116 /min [facility] Respiratory rate 2022-12-29 14:15:00 12 /min [facility] Body height 2022-12-29 14:15:00 172.7 cm [facility] Body weight 2022-12-29 14:15:00 102.241 kg [facility] BMI 2022-12-29 14:15:00 34.27 kg/m2 [facility] Oxygen saturation in 2022-12-29 14:15:00 98 /min [facility] Arterial blood by Pulse oximetry Systolic blood 2022-11-28 10:25:00 150 mm[Hg] [facility] Diastolic blood 2022-11-28 10:25:00 71 mm[Hg] [facility] Heart rate 2022-11-28 10:25:00 94 /min [facility] Body temperature 2022-11-28 10:25:00 36.56 Gabriela [facility] Respiratory rate 2022-11-28 10:25:00 20 /min [facility] Body height 2022-11-28 10:25:00 172.7 cm [facility] Body weight 2022-11-28 10:25:00 102.513 kg [facility] BMI 2022-11-28 10:25:00 34.36 kg/m2 [facility] Oxygen saturation in 2022-11-28 10:25:00 95 /min [facility] Arterial blood by Medical Ce nter Pulse oximetry Heart rate 2022-09-02 11:59:00 80 /min [facility] Systolic blood 2022-09-02 11:54:00 121 mm[Hg] [facility] Diastolic blood 2022-09-02 11:54:00 81 mm[Hg] [facility] Body temperature 2022-09-02 11:54:00 36.22 Gabriela [facility] Respiratory rate 2022-09-02 11:54:00 18 /min [facility] Oxygen saturation in 2022-09-02 11:54:00 97 /min [facility] Arterial blood by Medical Ce nter Pulse oximetry Body height 2022-09-02 05:22:00 172.7 cm [facility] Body weight 2022-09-02 05:22:00 104.327 kg [facility] BMI 2022-09-02 05:22:00 34.97 kg/m2 [facility] Systolic blood 2021-10-03 10:50:00 145 mm[Hg] [facility] Diastolic blood 2021-10-03 10:50:00 87 mm[Hg] [facility] Heart rate 2021-10-03 10:50:00 85 /min [facility] Body temperature 2021-10-03 10:50:00 36.5 Gabriela [facility] Respiratory rate 2021-10-03 10:50:00 17 /min [facility] Oxygen saturation in 2021-10-03 10:50:00 95 /min [facility] Arterial blood by Medical Ce nter Pulse oximetry Body height 2021-09-30 11:23:00 162.6 cm [facility] Body weight 2021-09-30 11:23:00 111.585 kg [facility] BMI 2021-09-30 11:23:00 42.23 kg/m2 [facility] Procedures Procedure Date / Time Performing Source Performed Clinician PROTHROMBIN TIME WITH INR 2023-04-28 Zuleika Adan 17:46:00 Hospital PROTHROMBIN TIME WITH INR 2023-04-20 Zuleika Adan 19:05:00 Hospital PROTHROMBIN TIME WITH INR 2023-04-13 Zuleika Adan 14:05:00 Hospital ASSIGNMENT OF BENEFITS 2023-04-03 Doctor Mumtaz [facility] miranda of 19:03:59 Balta [facility] CONSENT/REFUSAL FOR DIAGNOSIS AND 2023-04-03 Doctor Ev young [facility] 18:10:35 Balta [facility] PROTHROMBIN TIME WITH INR 2023-03-30 Zuleika Adan 13:56:00 Hospital PROTHROMBIN TIME WITH INR 2023-03-05 Zuleika Adan 14:16:00 Hospital PROTHROMBIN TIME WITH INR 2023-02-06 Zuleika Adan 14:09:00 Hospital PROTHROMBIN TIME WITH INR 2023-01-19 Younis, Zuleika A. [facility] 14:35:00 Hospital PROTHROMBIN TIME WITH INR 2023-01-05 Zuleika Adan [facility] 15:10:00 Hospital PROTHROMBIN TIME WITH INR 2022-12-22 Zuleika Adan [facility]ist 14:32:00 Hospital PROTHROMBIN TIME WITH INR 2022-12-15 Zuleika Adan [facility]ist 14:09:00 Hospital PROTHROMBIN TIME WITH INR 2022-12-08 Zuleika Adan Meth [facility]ist 15:33:00 Hospital PROTHROMBIN TIME WITH INR 2022-12-01 Zuleika Adan Meth [facility]ist 15:07:00 Hospital PROTHROMBIN TIME WITH INR 2022-11-25 Zuleika Adan [facility]ist 15:05:00 Hospital ECG 12-LEAD 2022-11-17 Zuleika Adan [facility] 20:32:00 Hospital PROTHROMBIN TIME WITH INR 2022-11-14 Zuleika Adan [facility] 16:09:00 Hospital PROTHROMBIN TIME WITH INR 2022-10-24 Zuleika Adan Meth [facility]ist 15:45:00 Hospital PROTHROMBIN TIME WITH INR 2022-10-08 Zuleika Adan Meth [facility]ist 15:57:00 Hospital PROTHROMBIN TIME WITH INR 2022-09-23 Zuleika Adan [facility]ist 15:46:00 Hospital CBC W/PLT COUNT & AUTO 2022-09-12 Constantinmiaida, Bam [facility] DIFFERENTIAL 12:08:00 Medical Center COMPREHENSIVE METABOLIC PANEL 2022-09-12 [facility] 12:08:00 Medical Center HEMOGLOBIN A1C 2022-09-12 [facility] 12:08:00 Medical Center LIPID PANEL 2022-09-12 [facility], Bam [facility] 12:08:00 Medical Center URIC ACID 2022-09-12 Constantinmiaida, Bam [facility] 12:08:00 Medical Center TSH/FREE T4 IF INDICATED 2022-09-12 [facility] 12:08:00 Medical Center CBC W/PLT COUNT & AUTO 2022-09-12 [facility] DIFFERENTIAL 12:08:00 Medical Center PROTHROMBIN TIME WITH INR 2022-09-09 Zuleika Adan 15:27:00 Hospital XR CHEST 1 VIEW PORTABLE / BEDSIDE 2022-09-03 Arab [facility] 05:57:00 [facility] XR CHEST 1 VIEW PORTABLE / BEDSIDE 2022-09-02 Munguia [facility] 10:29:00 [facility] INSERTION, ELECTRODE LEAD AND 2022-09-02 Brett uGtiérrez, [facility] PULSE GENERATOR, ICD, WITH 07:52:00 [facility] FUNCTION TESTING PROTHROMBIN TIME/INR 2022-09-02 Munguia [facility] 06:11:00 [facility] ECG 12-LEAD 2022-09-02 Unknown, Hl7 [facility] 05:48:19 [facility] ECG 12-LEAD 2022-09-02 Arab [facility] 05:48:19 [facility] ECG 12-LEAD 2022-09-02 Unknown, Hl7 [facility] 05:48:19 [facility] ARRYTHMIA IMPLANT REPORT - SCAN 2022-09-02 Provider, Williaml t [facility] 00:00:00 [facility] CARDIAC CATH REPORT - SCAN 2022-09-02 Provider, Default [facility] 00:00:00 [facility] PROTHROMBIN TIME WITH INR 2022-08-21 Zuleika Adan 15:32:00 Hospital CBC HEMOGRAM 2022-08-21 Zuleika Adan 15:30:00 Hospital BASIC METABOLIC PANEL W/O EGFR 2022-08-21 Zuleika Adan 15:30:00 Hospital LIPID PANEL 2022-08-21 Zuleika Adan 15:30:00 Hospital TRANSTHORACIC ECHOCARDIOGRAM 2022-08-14 Zuleika Adan ethodist COMPLETE W CONT STRAIN 3D IF 15:46:29 Hos pital NEEDED PROTHROMBIN TIME WITH INR 2022-08-06 Zuleika Adan 13:59:00 Hospital CV CARDIAC PET MYOCARDIAL 2022-08-05 Zuleika Adan PERFUSION IMAGING 13:49:01 Hospital PROTHROMBIN TIME WITH INR 2022-07-28 Zuleika Adan 13:27:00 Hospital PROTHROMBIN TIME WITH INR 2022-07-16 Zuleika Adan [facility]ist 15:10:00 Hospital PROTHROMBIN TIME WITH INR 2022-07-02 Zuleika Adan Meth [facility]ist 14:10:00 Hospital PROTHROMBIN TIME WITH INR 2022-06-16 Zuleika Adan Meth [facility]ist 15:05:00 Hospital PROTHROMBIN TIME WITH INR 2022-06-02 Zuleika Adan Meth [facility]ist 19:14:00 Hospital PROTHROMBIN TIME WITH INR 2022-05-23 Zuleika Adan Meth [facility]ist 19:21:00 Hospital PROTHROMBIN TIME WITH INR 2022-05-12 Zuleika Adan [facility]ist 15:11:00 Hospital ESOPHAGOGASTRODUODENOSCOPY (EGD) 2021-11-28 Amaratyolanda [facility] 20:00:00 [facility] COLONOSCOPY 2021-11-28 Amaratungjoselo [facility]orship 20:00:00 [facility] SARS-COV-2 COVID-19 VACCINE 2021-10-29 Doctor Unassigned, U niversity of BOOSTER,0.25ML,IM (MODERNA) 18:50:23 Balta [facility] BASIC METABOLIC PANEL 2021-10-03 Michael, Marc [facility] 04:55:00 [facility] Center PROTHROMBIN TIME/INR 2021-10-[address] [facility] 04:55:[address] [facility] CT ABDOMEN/PELVIS WITHOUT IV 2021-10-[address] [facility] CONTRAST 22:26:00 [facility] US ABDOMEN COMPLETE 2021-10-[address] [facility] 08:10:00 [facility] Center PROTHROMBIN TIME/INR 2021-10-[address] [facility] 04:00:00 [facility] BASIC METABOLIC PANEL 2021-10-01 Rodriguez, Bernabean [facility] 19:[facility]:00 [facility] XR ABDOMEN/KUB 1 VIEW PORTABLE 2021-10-[address] [facility] 09[facility]35:00 [facility] CBC W/PLT COUNT & AUTO 2021-10-[address] [facility] DIFFERENTIAL 04:02:00 [facility] BASIC METABOLIC PANEL 2021-10-[address] [facility] 04:02:00 [facility] URIC ACID 2021-10-[address] [facility] 04:02:00 [facility] CBC W/PLT COUNT & AUTO 2021-10-[address] [facility] DIFFERENTIAL 04:02:00 [facility] SARS-COV2/RT-PCR ([facility]) 2021-09-30 Elmore, León Meg [facility] 17:40:00 [facility] ECG 12-LEAD 2021-09-30 Unknown, Hl7 [facility] 15:41:22 [facility] ECG 12-LEAD 2021-09-30 Unknown, Hl7 [facility] 15:41:22 [facility] COMPREHENSIVE METABOLIC PANEL 2021-09-30 Elmore, León Meg [facility] 15:32:00 [facility] LIPASE 2021-09-30 Elmore, León Meg [facility] 15:32:00 [facility] MAGNESIUM 2021-09-30 Elmore, León Meg [facility] 15:32:00 [facility] B-TYPE NATRIURETIC FACTOR (BNP) 2021-09-30 Elmore, León Meg [facility] 15:32:00 [facility] HIGH SENSITIVITY TROPONIN I 2021-09-30 Elmore, León Meg [facility] 15:32:00 [facility] CBC W/PLT COUNT & AUTO 2021-09-30 Elmore, León Meg [facility] DIFFERENTIAL 15:32:00 [facility] PROTHROMBIN TIME/INR 2021-09-30 Elmore, León Meg [facility] 15:32:00 [facility] CBC W/PLT COUNT & AUTO 2021-09-30 Elmore, León Meg [facility] DIFFERENTIAL 15:32:00 [facility] XR CHEST 1 VIEW PORTABLE / BEDSIDE 2021-09-30 Elmore, León Meg [facility] 13:20:00 [facility] XR FOOT 3 VIEWS LEFT 2021-09-30 Elmore, León Meg [facility] 13:20:00 [facility] EKG-SCANNED 2021-09-30 Provider, Default [facility] 00:00:00 [facility] Center ASSIGNMENT OF BENEFITS 2020-10-25 Doctor Unassigned, Univer sity of 15:34:28 [facility] Orthopedic Surgery 2016-10-05 [facility] Cardiac [facility] 2013-10-05 [facility] 2011-10-05 [facility]00 Practice Heart Revascularize (Tmr) Skinny joselo [facility] Practice Plan of Care Planned Activity Planned Date Details Comments Source Future Scheduled Test 2023-06-05 Influenza Vaccine (#1) [facility] 00:00:00 [code = Influenza Medical Ce nter Vaccine (#1)] Future Scheduled Test 2023-06-05 INFL[address]ZA VACC[address] [facility] 00:00:00 (Season Ended) [code = [facility] INFLUENZA VACCINE (Season Ended)] Future Scheduled Test 2023-05-01 Screening for Metho dist 11:42:32 malignant neoplasm of Hospit al colon (procedure) [code = 491470903] Future Scheduled Test 2023-05-01 Screening for Metho dist 11:42:32 malignant neoplasm of Hospit al colon (procedure) [code = 102015046] Future Scheduled Test 2023-05-01 Hepatitis C screening Worship 11:42:32 (procedure) [code = [facility] 609236338] Future Scheduled Test 2023-05-01 Screening for Metho dist 11:42:32 malignant neoplasm of Hospit al colon (procedure) [code = 128256134] Future Scheduled Test 2023-05-01 SHINGLES VACCINES (1 Worship 11:42:32 of 2) [code = SHINGLES Hospi nick VACCINES (1 of 2)] Future Scheduled Test 2023-05-01 COVID-19 VACCINE (4 - Worship 11:42:32 Moderna series) [code Hospit al = COVID-19 VACCINE (4 - Moderna series)] Future Scheduled Test 2023-05-01 Screening for Metho dist 11:42:32 malignant neoplasm of Hospit al colon (procedure) [code = 312040492] Future Scheduled Test 2023-05-01 Screening for Metho dist 11:42:32 malignant neoplasm of Hospit al colon (procedure) [code = 926657929] Future Scheduled Test 2023-05-01 INFLUENZA VACCINE M ethodist 11:42:32 [code = INFLUENZA Hospital VACCINE] Future Scheduled Test 2022-10-[address] [facility] 00:00:00 (12+) [code = Medical Center DEPRESSION SCREENING (12+)] Future Scheduled Test 2022-10-[address] [facility] 00:00:00 (12+) [code = Medical Center DEPRESSION SCREENING (12+)] Future Scheduled Test 2022-09-30 Tobacco Cessation [facility] 00:00:00 Counseling and Medical Cente r Screening (12+) [code = Tobacco Cessation Counseling and Screening (12+)] Future Scheduled Test 2022-06-05 INFLUENZA VACCINE (#1) [facility] 00:00:00 [code = INFLUENZA Medical Ce nter VACCINE (#1)] Future Scheduled Test 2022-06-05 INFLUENZA VACCINE (#1) [facility] 00:00:00 [code = INFLUENZA Medical Ce nter VACCINE (#1)] Future Scheduled Test 2022-06-05 INFLUENZA VACCINE (#1) [facility] 00:00:00 [code = INFLUENZA Medical Ce nter VACCINE (#1)] Future Scheduled Test 2022-02-26 COVID-19 VACCINE (4 - [facility] 00:00:00 Booster for [facility] series) [code = COVID-19 VACCINE (4 - Booster for Moderna series)] Future Scheduled Test 2021-12-24 COVID-19 VACCINE (4 - [facility] 00:00:00 [facility]oster for [facility] series) [code = COVID-19 VACCINE (4 - Booster for Moderna series)] Future Scheduled Test 2021-12-24 COVID-19 VACCINE (4 - [facility] 00:00:00 Booster for [facility] series) [code = COVID-19 VACCINE (4 - Booster for Moderna series)] Future Scheduled Test 2021-11-13 COVID-19 VACCINE (1) Worship 14:15:49 [code = COVID-19 Hospital VACCINE (1)] Future Scheduled Test 2021-11-13 Hepatitis C screening Worship 14:15:49 (procedure) [code = Hospital [id number]] Future Scheduled Test 2021-11-13 COLONOSCOPY SCREENING Worship 14:15:49 [code = COLONOSCOPY Hospital SCREENING] Future Scheduled Test 2021-11-13 SHINGLES VACCINES (#1) Worship 14:15:49 [code = SHINGLES Hospital VACCINES (#1)] Future Scheduled Test 2021-11-13 INFLUENZA VACCINE M ethodist 14:15:49 [code = INFLUENZA Hospital VACCINE] Future Scheduled Test 2021-10-[address] [facility] 00:00:00 (12+) [code = Medical Center DEPRESSION SCREENING (12+)] Future Scheduled Test 2021-10-05 FALLS RISK SCREENING [facility] 00:00:00 [code = FALLS RISK Medical C enter SCREENING] Future Scheduled Test 2021-10-[address] [facility] 00:00:00 (12+) [code = Medical Center DEPRESSION SCREENING (12+)] Future Scheduled Test 2021-10-05 FALLS RISK SCREENING [facility] 00:00:00 [code = FALLS RISK Medical C enter SCREENING] Future Scheduled Test 2021-10-[address] [facility] 00:00:00 (12+) [code = Medical Center DEPRESSION SCREENING (12+)] Future Scheduled Test 2021-10-05 FALLS RISK SCREENING [facility] 00:00:00 [code = FALLS RISK Medical C enter SCREENING] Future Scheduled Test 2021-10-[address] [facility] 00:00:00 (12+) [code = Medical Center DEPRESSION SCREENING (12+)] Future Scheduled Test 2021-10-05 F[address]S RISK SCREENING [facility] 00:00:00 [code = FALLS RISK Medical C enter SCREENING] Future Scheduled Test 2021-10-[address] [facility] 00:00:00 (12+) [code = Medical Center DEPRESSION SCREENING (12+)] Future Scheduled Test 2021-10-05 FALLS RISK SCREENING [facility] 00:00:00 [code = FALLS RISK Medical C enter SCREENING] Future Scheduled Test 2021-09-19 COVID-19 VACCINE (1) Worship 01:32:34 [code = COVID-19 Hospital VACCINE (1)] Future Scheduled Test 2021-09-19 Hepatitis C screening Worship 01:32:34 (procedure) [code = Hospital [id number]] Future Scheduled Test 2021-09-19 COLONOSCOPY SCREENING Worship 01:32:34 [code = COLONOSCOPY Hospital SCREENING] Future Scheduled Test 2021-09-19 SHINGLES VACCINES (#1) Worship 01:32:34 [code = SHINGLES Hospital VACCINES (#1)] Future Scheduled Test 2021-09-19 INFLUENZA VACCINE M ethodist 01:32:34 [code = INFLUENZA Hospital VACCINE] Future Scheduled Test 2021-06-06 COVID-19 VACCINE (3 - [facility] 00:00:00 Booster for [facility] series) [code = COVID-19 VACCINE (3 - Booster for Moderna series)] Future Scheduled Test 2021-06-06 COVID-19 VACCINE (3 - [facility] 00:00:00 Booster for [facility] series) [code = COVID-19 VACCINE (3 - Booster for Moderna series)] Future Scheduled Test 2021-06-05 INFLUENZA VACCINE (#1) [facility] 00:00:00 [code = INFLUENZA Medical Ce nter VACCINE (#1)] Future Scheduled Test 2021-06-05 INFLUENZA VACCINE (#1) [facility] 00:00:00 [code = INFLUENZA Medical Ce nter VACCINE (#1)] Future Scheduled Test 2021-05-06 COVID-19 VACCINE (3 - [facility] 00:00:00 Booster for [facility] series) [code = COVID-19 VACCINE (3 - Booster for Moderna series)] Future Scheduled Test 2021-05-06 COVID-19 VACCINE (3 - [facility] 00:00:00 Booster for [facility] series) [code = COVID-19 VACCINE (3 - Booster for Moderna series)] Diagnostic Test 2019-10-27 HbA1c (hemoglobin [facility] 00:00:00 A1c), blood [code = Practice HbA1c (hemoglobin A1c), blood] Diagnostic Test 2019-10-27 CMP, serum or plasma [facility] 00:00:00 [code = CMP, serum or Practi ce plasma] Diagnostic Test 2019-10-27 lipid panel, serum [facility] 00:00:00 [code = lipid panel, Practic e serum] Diagnostic Test 2019-10-27 PSA, serum or plasma [facility] 00:00:00 [code = PSA, serum or Practi ce plasma] Diagnostic Test 2019-10-27 colon cancer [facility] Pending 00:00:00 screening, stool [code Pract ice = colon cancer screening, stool] Diagnostic Test 2019-10-27 pro BNP (pro B-type [facility] Pending 00:00:00 natriuretic peptide), Practi ce serum or plasma [code = pro BNP (pro B-type natriuretic peptide), serum or plasma] Future Scheduled Test 2017-12-[address] [facility] 00:00:00 WELLNESS (YEAR 2 or Medical Center FIRST YEAR if no IPPE) [code = MEDICARE ANNUAL WELLNESS (YEAR 2 or FIRST YEAR if no IPPE)] Future Scheduled Test 2017-12-[address] [facility] 00:00:00 WELLNESS (YEAR 2 or Medical Center FIRST YEAR if no IPPE) [code = MEDICARE ANNUAL WELLNESS (YEAR 2 or FIRST YEAR if no IPPE)] Future Scheduled Test 2017-12-[address] [facility] 00:00:00 WELLNESS (YEAR 2 or Medical Center FIRST YEAR if no IPPE) [code = MEDICARE ANNUAL WELLNESS (YEAR 2 or FIRST YEAR if no IPPE)] Future Scheduled Test 2017-12-[address] [facility] 00:00:00 WELLNESS (YEAR 2 or Medical Center FIRST YEAR if no IPPE) [code = MEDICARE ANNUAL WELLNESS (YEAR 2 or FIRST YEAR if no IPPE)] Future Scheduled Test 2017-12-[address] [facility] 00:00:00 WELLNESS (YEAR 2 or Medical Center FIRST YEAR if no IPPE) [code = MEDICARE ANNUAL WELLNESS (YEAR 2 or FIRST YEAR if no IPPE)] Future Scheduled Test 2017-12-[address] [facility] 00:00:00 WELLNESS (YEAR 2 or Medical Center FIRST YEAR if no IPPE) [code = MEDICARE ANNUAL WELLNESS (YEAR 2 or FIRST YEAR if no IPPE)] Future Scheduled Test 2017-12-[address] [facility] 00:00:00 WELLNESS (YEAR 2 or Medical Center FIRST YEAR if no IPPE) [code = MEDICARE ANNUAL WELLNESS (YEAR 2 or FIRST YEAR if no IPPE)] Future Scheduled Test 2016-12-29 [facility] [facility] aneurysm screening Medical C enter (procedure) [code = 385960924] Future Scheduled Test 2016-12-[address] [facility]:00 aneurysm screening Medical C enter (procedure) [code = 009384604] Future Scheduled Test 2016-12-[address] [facility]:00 aneurysm screening Medical C enter (procedure) [code = 841178343] Future Scheduled Test 2016-12-[address] [facility]:00 aneurysm screening Medical C enter (procedure) [code = 799124236] Future Scheduled Test 2016-12-[address] [facility] 00:[facility]:00 aneurysm screening Medical C enter (procedure) [code = 802981281] Future Scheduled Test 2016-12-[address] [facility] 00:[facility]:00 aneurysm screening Medical C enter (procedure) [code = 650001050] Future Scheduled Test 2016-12-[address] [address] [facility] 00:[facility]:00 aneurysm screening Medical C enter (procedure) [code = 497002678] Future Scheduled Test 2001-12-29 SHINGLES VACCINES ([address] [facility] 00:00:00 of 2) [code = SHINGLES Medic al Center VACCINES (1 of 2)] Future Scheduled Test 2001-12-29 SHINGLES VACCINES ([address] [facility] 00:00:00 of 2) [code = SHINGLES Medic al Center VACCINES (1 of 2)] Future Scheduled Test 2001-12-29 SHINGLES VACCINES ([address] [facility] 00:00:00 of 2) [code = SHINGLES Medic al Center VACCINES (1 of 2)] Future Scheduled Test 2001-12-29 SHINGLES VACCINES ([address] [facility] 00:00:00 of 2) [code = SHINGLES Medic al Center VACCINES (1 of 2)] Future Scheduled Test 2001-12-29 SHINGLES VACCINES ([address] [facility] 00:00:00 of 2) [code = SHINGLES Medic al Center VACCINES (1 of 2)] Future Scheduled Test 2001-12-29 SHINGLES VACCINES ([address] [facility] 00:00:00 of 2) [code = SHINGLES Medic al Center VACCINES (1 of 2)] Future Scheduled Test 2001-12-29 SHINGLES VACCINES ([address] [facility] 00:00:00 of 2) [code = SHINGLES Medic al Center VACCINES (1 of 2)] Future Scheduled Test 1970-12-29 DTAP/TDAP/TD VACCINES [facility] 00:00:00 (1 - Tdap) [code = Medical C enter DTAP/TDAP/TD VACCINES (1 - Tdap)] Future Scheduled Test 1970-12-29 DTAP/TDAP/TD VACCINES [facility] 00:00:00 (1 - Tdap) [code = Medical C enter DTAP/TDAP/TD VACCINES (1 - Tdap)] Future Scheduled Test 1970-12-29 DTAP/TDAP/TD VACCINES [facility] 00:00:00 (1 - Tdap) [code = Medical C enter DTAP/TDAP/TD VACCINES (1 - Tdap)] Future Scheduled Test 1970-12-29 DTAP/TDAP/TD VACCINES [facility] 00:00:00 (1 - Tdap) [code = Medical C enter DTAP/TDAP/TD VACCINES (1 - Tdap)] Future Scheduled Test 1970-12-29 DTAP/TDAP/TD VACCINES [facility] 00:00:00 (1 - Tdap) [code = Medical C enter DTAP/TDAP/TD VACCINES (1 - Tdap)] Future Scheduled Test 1970-12-29 DTAP/TDAP/TD VACCINES [facility] 00:00:00 (1 - Tdap) [code = Medical C enter DTAP/TDAP/TD VACCINES (1 - Tdap)] Future Scheduled Test 1970-12-29 DTAP/TDAP/TD VACCINES [facility] 00:00:00 (1 - Tdap) [code = Medical C enter DTAP/TDAP/TD VACCINES (1 - Tdap)] Future Scheduled Test 1969-12-29 HEPATITIS C SCREENING [facility] 00:00:00 [code = HEPATITIS C Medical Center SCREENING] Future Scheduled Test 1969-12-29 HEPATITIS C SCREENING [facility] 00:00:00 [code = HEPATITIS C Medical Center SCREENING] Future Scheduled Test 1969-12-29 HEPATITIS C SCREENING [facility] 00:00:00 [code = HEPATITIS C Medical Center SCREENING] Future Scheduled Test 1969-12-29 HEPATITIS C SCREENING [facility] 00:00:00 [code = HEPATITIS C Medical Center SCREENING] Future Scheduled Test 1969-12-29 HEPATITIS C SCREENING [facility] 00:00:00 [code = HEPATITIS C Medical Center SCREENING] Future Scheduled Test 1969-12-29 HEPATITIS C SCREENING [facility] 00:00:00 [code = HEPATITIS C Medical Center SCREENING] Future Scheduled Test 1969-12-29 HEPATITIS C SCREENING [facility] 00:00:00 [code = HEPATITIS C Medical Center SCREENING] Future Scheduled Test [address] Cess[facility] 00:00:00 Counseling and Medical Cente r Screening (12+) [code = Tobacco Cessation Counseling and Screening (12+)] Future Scheduled Test [address] [facility] 00:00:00 Counseling and Medical Cente r Screening (12+) [code = Tobacco Cessation Counseling and Screening (12+)] Future Scheduled Test [address] [facility] 00:00:00 (combo) [code = CT Medical C enter Colonography (combo)] Future Scheduled Test [facility] malignant neoplasm of Medica l Center colon (procedure) [code = 835733508] Future Scheduled Test 1951 [facility] malignant neoplasm of Medica l Center colon (procedure) [code = 096206088] Future Scheduled Test 1951 [facility] malignant neoplasm of Medica l Center colon (procedure) [code = 103377663] Future Scheduled Test 1951 [facility] malignant neoplasm of Medica l Center colon (procedure) [code = 088606036] Future Scheduled Test 1951 Sigmoidoscopy [code = [facility] 00:00:00 Sigmoidoscopy] Medical Cente r Future Scheduled Test 1951 [facility] malignant neoplasm of Medica l Center colon (procedure) [code = 908849368] Future Scheduled Test [address] [facility] 00:00:00 (combo) [code = CT Medical C enter Colonography (combo)] Future Scheduled Test 1951 [facility] malignant neoplasm of Medica l Center colon (procedure) [code = 282438733] Future Scheduled Test 1951 [facility] malignant neoplasm of Medica l Center colon (procedure) [code = 451639822] Future Scheduled Test 1951 [facility] malignant neoplasm of Medica l Center colon (procedure) [code = 214719408] Future Scheduled Test 1951 [facility] malignant neoplasm of Medica l Center colon (procedure) [code = 283818185] Future Scheduled Test 1951 Sigmoidoscopy [code = [facility] 00:00:00 Sigmoidoscopy] Medical Chelsy galeana Future Scheduled Test [address] [facility] 00:00:00 (combo) [code = CT Medical C enter Colonography (combo)] Future Scheduled Test 1951 [facility] malignant neoplasm of Medica l Center colon (procedure) [code = 867521127] Future Scheduled Test 1951 [facility] malignant neoplasm of Medica l Center colon (procedure) [code = 123894062] Future Scheduled Test 1951 [facility] malignant neoplasm of Medica l Center colon (procedure) [code = 558368281] Future Scheduled Test 1951 [facility] malignant neoplasm of Medica l Center colon (procedure) [code = 557032182] Future Scheduled Test 1951 Sigmoidoscopy [code = [facility] 00:00:00 Sigmoidoscopy] Medical Chelsy r Future Scheduled Test [address] [facility] 00:00:00 (combo) [code = CT Medical C enter Colonography (combo)] Future Scheduled Test 1951 [facility] malignant neoplasm of Medica l Center colon (procedure) [code = 346067039] Future Scheduled Test 1951 [facility] malignant neoplasm of Medica l Center colon (procedure) [code = 962405270] Future Scheduled Test 1951 [facility] malignant neoplasm of Medica l Center colon (procedure) [code = 579129085] Future Scheduled Test 1951 [facility] malignant neoplasm of Medica l Center colon (procedure) [code = 078066628] Future Scheduled Test 1951 Sigmoidoscopy [code = [facility] 00:00:00 Sigmoidoscopy] Medical [facility] r Future Scheduled Test [address] [facility] 00:00:00 (combo) [code = CT Medical C enter Colonography (combo)] Future Scheduled Test 1951 [facility] malignant neoplasm of Medica l Center colon (procedure) [code = 646472757] Future Scheduled Test 1951 [facility] malignant neoplasm of Medica l Center colon (procedure) [code = 149058917] Future Scheduled Test 1951 [facility] malignant neoplasm of Medica l Center colon (procedure) [code = 568156136] Future Scheduled Test 1951 [facility] malignant neoplasm of Medica l Center colon (procedure) [code = 749827822] Future Scheduled Test 1951 Sigmoidoscopy [code = [facility] 00:00:00 Sigmoidoscopy] Medical [facility] r Future Scheduled Test 1951 [facility]:00 malignant neoplasm of Medica l Center colon (procedure) [code = 804054074] [facility] Encounters Start End Encounter Admission Attending Care Care Encounter Source Date/Time Date/Time Type Type Clinicians Facility Department ID 2020-09-28 Inpatient ER [facility] [id number] [facility] 18:26:00 [facility] 2023-04-29 2023-04-29 Telephone Rocio, 1.2.840.1 [id number] Sandra 00:00:00 00:00:[address] 3.430.2.7 Hospit a .3.571841 l .8 2023-04-28 2023-04-28 Telephone Loco, 1.2.840.1 [id number] Methodi 00:00:00 00:00:00 [address]Betina [address] 3.430.2.7 Hospit a .3.291054 l .8 2023-04-28 2023-04-28 Telephone Young, 1.2.840.1 [id number] Methodi 00:00:00 00:00:[address] 3.430.2.7 Hospit a .3.412790 l .8 2023-04-21 2023-04-21 Telephone Rocio, 1.2.840.1 [id number] Methodi 00:00:00 00:00:[address] 3.430.2.7 Hospit a .3.890309 l .8 2023-04-20 2023-04-20 Telephone Loco, 1.2.840.1 [id number] Methodi 00:00:00 00:00:00 Z[address]Betina [address] 3.430.2.7 Hospit a .3.784535 l .8 2023-04-14 2023-04-14 Telephone Giveon, 1.2.840.1 [id number] Methodi 00:00:00 00:00:[address] 3.430.2.7 Hospit a .3.238588 l .8 2023-04-09 2023-04-09 Refill Mary Anneandreea, 1.2.840.1 [id number] Methodi 00:00:00 00:00:00 Zuleika Lim 75206.1.[address] 3.430.2.7 Hospit a .3.489660 l .8 2023-04-03 2023-04-03 [email or web address] ERT [id number] Univers 13:15:00 14:36:00 KURT teran [facility] 2023-04-03 2023-04-03 [facility].114 [id number] [facility] 13:15:00 14:36:00 Kurt LOW 350.1.13.10 [facility] 4.2.7.2.686 [facility] [id number] [place] [address] [place] 2023-03-31 2023-03-31 Telephone Giveon, 1.2.840.1 [id number] Methodi 00:00:00 00:00:[address] 3.430.2.7 Hospit a .3.283999 l .8 2023-03-06 2023-03-06 Refill Cruz, [facility] [id number] 00:00:00 00:00:00 [facility] 2023-03-06 2023-03-06 Refill Cruz, [facility] [id number] 00:00:00 00:00:00 [facility] 2023-03-06 2023-03-06 Telephone Giveon, 1.2.840.1 [id number] Methodi 00:00:00 00:00:[address] 3.430.2.7 Hospit a .3.307576 l .8 2023-03-05 2023-03-05 Refill Cruz, [facility] [id number] 00:00:00 00:00:00 [facility] 2023-03-05 2023-03-05 Refill Cruz, [facility] [id number] 00:00:00 00:00:00 [facility] 2023-03-04 2023-03-04 Refill Cruz, [facility] [id number] 00:00:00 00:00:00 [facility] 2023-03-04 2023-03-04 Refill Cruz, [facility] [id number] 00:00:00 00:00:00 [facility] 2023-02-26 2023-02-26 Refill Janet, [facility] [id number] 00:00:00 00:00:00 [facility] 2023-02-26 2023-02-26 Refill Janet, [facility] [id number] 00:00:00 00:00:00 [facility] 2023-02-22 2023-02-22 Refill Janet, [facility] [id number] 00:00:00 00:00:00 [facility] 2023-02-22 2023-02-22 Refill Janet, [facility] [id number] 00:00:00 00:00:00 [facility] 2023-02-08 2023-02-08 Telephone Giveon, 1.2.840.1 [id number] Methodi 00:00:00 00:00:[address] 3.430.2.7 Hospit a .3.107493 l .8 2023-01-20 2023-01-20 Telephone Giveon, 1.2.840.1 [id number] Methodi 00:00:00 00:00:[address] 3.430.2.7 Hospit a .3.198363 l .8 2023-01-06 2023-01-06 Telephone Giveon, 1.2.840.1 [id number] Methodi 00:00:00 00:00:[address] 3.430.2.7 Hospit a .3.042675 l .8 2022-12-29 2022-12-29 Office Loco, 1.2.840.1 [id number] Methodi 09:20:00 09:47:10 Visit Zuleika Lim 19658.1.[address] 3.430.2.7 Hospit a .3.391230 l .8 2022-12-29 2022-12-29 Outpatient [facility] [id number] [place] 00:00:00 00:00:00 ZULEIKA Villegas [facility] 2022-12-29 2022-12-29 Travel 1.2.840.1 1.2.605.836 [id number] Methodi 00:00:00 00:00:[address] 3.430.2.7 0.2.7.3.698 Ho spita .3.505613 084.8 l .8 2022-12-26 2022-12-26 [facility] [id number] SLE 00:00:00 00:00:00 BAM 2022-12-23 2022-12-23 Telephone Giveon, 1.2.840.1 [id number] 21 [id number] Methodi 00:00:00 00:00:[address] 3.430.2.7 Hospit a .3.019137 l .8 2022-12-16 2022-12-16 Telephone Giveon, 1.2.840.1 [id number] 21 [id number] Methodi 00:00:00 00:00:[address] 3.430.2.7 Hospit a .3.139332 l .8 2022-12-09 2022-12-09 Telephone Giveon, 1.2.840.1 [id number] 21 [id number] Methodi 00:00:00 00:00:[address] 3.430.2.7 Hospit a .3.580427 l .8 2022-12-02 2022-12-02 Telephone Giveon, 1.2.840.1 [id number] 21 [id number] Methodi 00:00:00 00:00:[address] 3.430.2.7 Hospit a .3.399228 l .8 2022-11-28 2022-11-28 Office Janet [facility] [id number] [id number] 11:15:00 11:30:00 Visit [facility] 2022-11-28 2022-11-28 Office Janet [facility] [id number] 2055 [id number] [facility] St 11:15:00 11:30:00 Visit [facility] 2022-11-28 2022-11-28 Outpatient [facility] 2055 [id number] [facility] 10:16:44 10:16:44 BAM 2022-11-26 2022-11-26 Telephone Giveon, 1.2.840.1 [id number] Methodi 00:00:00 00:00:[address] 3.430.2.7 Hospit a .3.938242 l .8 2022-11-17 2022-11-17 Office Younandreea, 1.2.840.1 [id number] 2100 [id number] Methodi 14:00:00 15:10:26 Visit Zuleika Marshall50.1.[address] 3.430.2.7 Hospit a .3.925664 l .8 2022-11-17 2022-11-17 [facility] [id number] [address] [place] 00:00:00 00:00:00 ZULEIKA [address] 2022-11-17 2022-11-17 Travel 1.2.840.1 1.2.664.176 1059 [id number] Methodi 00:00:00 00:00:[address] 3.430.2.7 0.2.7.3.698 spita .3.052684 084.8 l .8 2022-11-17 2022-11-17 Telephone Giveon, 1.2.840.1 [id number] Methodi 00:00:00 00:00:[address] 3.430.2.7 Hospit a .3.821057 l .8 2022-10-25 2022-10-25 Telephone Giveon, 1.2.840.1 [id number] Methodi 00:00:00 00:00:[address] 3.430.2.7 Hospit a .3.725217 l .8 2022-10-09 2022-10-09 Telephone Giveon, 1.2.840.1 [id number] 21 [id number] Methodi 00:00:00 00:00:[address] 3.430.2.7 Hospit a .3.297043 l .8 2022-09-24 2022-09-24 Telephone Giveon, 1.2.840.1 [id number] Methodi 00:00:00 00:00:[address] 3.430.2.7 Hospit a .3.691862 l .8 2022-09-12 2022-09-12 [facility] [id number] [id number] 11:15:00 11:45:00 Visit [facility] 2022-09-12 2022-09-12 Office [facility] [id number] [facility] 11:15:00 11:45:00 Visit [facility] 2022-09-12 2022-09-12 [facility] [id number] [facility] 11:02:18 11:02:18 [facility] 2022-09-10 2022-09-10 Telephone Giveon, 1.2.840.1 [id number] Methodi 00:00:00 00:00:[address] 3.430.2.7 Hospit a .3.842068 l .8 2022-09-02 2022-09-03 [facility] [id number] 05:06:00 10:30:00 Encounter [facility] 2022-09-02 2022-09-03 [facility] [id number] [address] 05:06:00 10:30:00 Encounter [facility] 2022-09-02 2022-09-03 Outpatient [facility] [id number] SLE 05:06:00 10:30:00 NAOMI GUTIÉRREZ 2022-09-02 2022-09-02 Surgery [facility] [id number] [address] 07:35:00 10:49:00 [facility] 2022-09-02 2022-09-02 Surgery [facility] [id number] 07:35:00 10:49:00 [facility] 2022-09-02 2022-09-02 Orders [facility] [id number] [address] 00:00:00 00:00:00 Only [facility] 2022-09-02 2022-09-02 Orders [facility] [id number] [address] 00:00:00 00:00:00 Only [facility] 2022-08-26 2022-08-26 Refill Loco, 1.2.840.1 [id number] 2099 [id number] Methodi 00:00:00 00:00:00 Zuleika Lim [address]185.1.[address] 3.430.2.7 Hospit a .3.683904 l .8 2022-08-22 2022-08-22 Telephone Rocio, 1.2.840.1 [id number] 21 [id number] Methodi 00:00:00 00:00:[address] 3.430.2.7 Hospit a .3.192284 l .8 2022-08-15 2022-08-15 Telephone Rocio, 1.2.840.1 [id number] 21 [id number] Methodi 00:00:00 00:00:[address] 3.430.2.7 Hospit a .3.401805 l .8 2022-08-14 2022-08-14 Telephone Zak, 1.2.840.1 [id number] 21 [id number] Methodi 00:00:00 00:00:[address] 3.430.2.7 Hospit a .3.944899 l .8 2022-08-14 2022-08-14 Orders Younis, 1.2.840.1 [id number] 2099 [id number] Methodi 00:00:00 00:00:00 Only Zuleika Lim 41077.1.[address] 3.430.2.7 Hospit a .3.982126 l .8 2022-08-13 2022-08-13 Office Younis, 1.2.840.1 [id number] Methodi 11:20:00 12:00:14 Visit Zuleika Lim 93471.1.[address] 3.430.2.7 Hospit a .3.787100 l .8 2022-08-13 2022-08-13 Outpatient [facility] [id number] [address] [place] 00:00:00 00:00:[address] 2022-08-13 2022-08-13 Outpatient YOUNIS, [facility] [id number] [address] [place] 00:00:00 00:00:00 ZULEIKA [address] 2022-08-13 2022-08-13 Travel 1.2.840.1 1.2.135.343 0081 [id number] Methodi 00:00:00 00:00:[address] 3.430.2.7 0.2.7.3.698 Ho spita .3.232232 084.8 l .8 2022-08-07 2022-08-07 Telephone Rocio, 1.2.840.1 [id number] 21 [id number] Methodi 00:00:00 00:00:[address] 3.430.2.7 Hospit a .3.955566 l .8 2022-08-05 2022-08-05 Orders Younis, 1.2.840.1 [id number] 2100 [id number] Methodi 00:00:00 00:00:00 Only Zuleika Lim 91528.1.[address] 3.430.2.7 Hospit a .3.309619 l .8 2022-08-012022-08-01 Outpatient [facility] [id number] [address] [place] 00:00:00 00:00:[address] 2022-08-01 2022-08-01 Travel 1.2.840.1 1.2.312.623 6092 [id number] Methodi 00:00:00 00:00:[address] 3.430.2.7 0.2.7.3.698 Ho spita .3.674651 084.8 l .8 2022-07-29 2022-07-29 Telephone Giveon, 1.2.840.1 [id number] 21 [id number] Methodi 00:00:00 00:00:[address] 3.430.2.7 Hospit a .3.410983 l .8 2022-07-18 2022-07-18 Office Younandreea, 1.2.840.1 2099 037143 Methodi 14:40:00 15:55:20 Visit Zuleika Marshall50.1.[address] 3.430.2.7 Hospit a .3.934762 l .8 2022-07-18 2022-07-18 Outpatient [facility], [facility] [id number] [address] [place] 00:00:00 00:00:[address] 2022-07-18 2022-07-18 Travel 1.2.840.1 1.2.873.470 3340 [id number] Methodi 00:00:00 00:00:[address] 3.430.2.7 0.2.7.3.698 Ho spita .3.603952 084.8 l .8 2022-07-17 2022-07-17 Telephone Giveon, 1.2.840.1 [id number] 21 [id number] Methodi 00:00:00 00:00:[address] 3.430.2.7 Hospit a .3.623681 l .8 2022-07-14 2022-07-14 Travel 1.2.840.1 1.2.108.107 3851 [id number] Methodi 00:00:00 00:00:[address] 3.430.2.7 0.2.7.3.698 Ho spita .3.140463 084.8 l .8 2022-07-14 2022-07-14 Lisa Arora 1.2.840.1 [id number] Methodi 00:00:00 00:00:[address] 3.430.2.7 Hospit a .3.755995 l .8 2022-07-03 2022-07-03 Telephone Giveon, 1.2.840.1 [id number] Methodi 00:00:00 00:00:[address] 3.430.2.7 Hospit a .3.169539 l .8 2022-06-17 2022-06-17 Telephone Giveon, 1.2.840.1 [id number] 21 [id number] Methodi 00:00:00 00:00:[address] 3.430.2.7 Hospit a .3.373069 l .8 2022-06-03 2022-06-03 Telephone Giveon, 1.2.840.1 [id number] 21 [id number] Methodi 00:00:00 00:00:[address] 3.430.2.7 Hospit a .3.028287 l .8 2022-05-26 2022-05-26 Telephone Giveon, 1.2.840.1 [id number] 21 [id number] Methodi 00:00:00 00:00:[address] 3.430.2.7 Hospit a .3.002673 l .8 2022-05-13 2022-05-13 Telephone Giveon, 1.2.840.1 [id number] 21 [id number] Methodi 00:00:00 00:00:[address] 3.430.2.7 Hospit a .3.256659 l .8 2021-10-29 2021-10-29 Outpatient Kervin ROBERTS [facility] [id number] Univers 13:00:00 13:00:00 MARCELO pat [facility] 2021-10-29 2021-10-29 Imm/Inj Nurse, Adc Pob Immunization [facility] 1.2.840.114 [id number] Univers 13:00:00 13:00:00 Visit [facility] [id number] [address] 2021-09-30 2021-10-03 Hospital ER León Elmore [facility] [id number] 12:40:00 11:37:00 Encounter Marc Rodriguez [facility] 2021-09-30 2021-10-03 Inpatient ER MICHAEL [facility] Emergency [id number] [facility] 12:40:00 11:37:00 [facility] 2021-09-30 2021-09-30 Orders [facility] [id number] 00:00:00 00:00:00 Only [facility] 2021-09-30 2021-09-[address] [facility] [id number] [facility] 00:00:00 00:00:00 [facility] 2020-12-04 2020-12-04 Outpatient Kervin CACERES [facility] [id number] Univers 10:20:00 10:20:00 MATEUSZ [facility] 2020-11-06 2020-11-06 Outpatient Kervin CACERES [facility] [id number] Univers 10:20:00 10:20:00 [facility] 2020-10-25 2020-10-25 Laboratory Only, Jude Test [facility] 1.2.840. 114 [id number] Univers 09:35:36 09:50:36 Only [facility]2.686 [facility] [id number] [facility] [address] 2020-10-25 2020-10-25 Outpatient Kervin HESTER [facility] [id number] [facility] 09:30:00 09:30:00 JACOBO teran of [facility] 2020-10-25 2020-10-25 Orders Doctor LITA 1.2.840.114 [id number] Univers 00:00:00 00:00:00 Only Unassigned, FRANKIE 350.1.13.10 ity of Balta [facility] 4.2.7.2.686 [facility] [id number] [facility] [address] 2020-10-16 2020-10-16 Outpatient Bui_Q [facility]FP [facility] [id number] [facility] 04:14:00 04:14:00 55671 Family Practic e 2020-08-23 2020-08-23 Outpatient Ye_M_ VFP VFP 308 91 [facility] 09:49:00 09:49:00 [facility] [address] Family Practic e 2020-02-14 2020-02-14 Outpatient LOCO [facility] [id number] [address] [place] [address] 00:00:00 00:00:00 ZULEIKA [address] 2019-11-26 2019-11-26 Outpatient Bui_Q_WAG VFP VFP [id number] [facility] 01:41:00 01:41:00 41749 Family Practic e 2019-11-01 2019-11-01 Outpatient Bui_Q VFP VFP [id number] [address] [place] 01:59:00 01:59:00 42841 Family Practic e 2019-10-27 2019-10-27 Magui O Bui_Q_WAG VFP [place] - [id number] [facility] 00:00:00 00:00:00 [place] [address] Vianca ospina MD: [id number] Medical - Pract [facility] , [place] [address], ([facility]) [place] [address] , Ph. 2019-08-10 2019-08-10 Outpatient Bui_Q VFP VFP [id number] [facility] 11:20:00 11:20:00 09918 Family Practic e 2019-03-25 2019-03-25 Magui O VFP [place] - [id number] [place] [address] 00:00:00 00:00:00 Ye, [facility] [address] Vianca ospina MD: 0366 [facility] - e [address], [facility] [address] , Ph. Results Test Description Test Time Test Comments Results Result Comments Source Prothrombin time with INR 2023-04-29 07:54:00 Test Item Value Reference Range Interpretation Comme nts INR (test code = 1.2 H Reference R ramos 6301-6) 0.9-1.1Moderate -intensity Warfarin Therap y 2.0-3.0Higher-i ntensity Warfarin Therapy 3.0-4.0 Prothrombin time (test 12.3 See_Comm H For a dditional information, code = 5902-2) ent please refer tohttp://educat ion.SeeJay.com/faq/FAQ1 04(This link is being provided for informational/e ducational purposes only.) [Automated message] The sy stem which generated this result transmitted reference range : 9.0 - 11.5 sec. The reference r ramos was not used to interpret th is result as normal/abnormal . LIANA (test code = RAC) Performing Organization Information: Site ID: RGA Name: [facility] Address: [address] [place] [address] Director: Tesha Mann Lab Interpretation Abnormal (test code = 15567-2) [facility] [id number] 20:02:43 Test Item Value Reference Range Interpretation Comments HEMOGLOBIN A1C 5.8 % See_Comment H [Automated m essage] ELECTROPHORESIS (BEAKER) The system which (test code = 3811) generated this result transmitted ref erence range: <=5.6%. The reference range was not used to int erpret this result as normal/abnormal . "The A1c is measured using a NGSP-certified method. HbA1c value equal to or greater than 6.5% as thediagnosis cutoff for diabetes. An HbA1c value of 5.7- 6.4% indicates increased risk for diabetes (prediabetes)."Sliding Joint Maker ID - ADM TSH/FREE T4 IF [id number] 12:53:43 Test Item Value Reference Range Interpretation Comments THYROID STIMULATING HORMONE 1.506 uIU/mL 0.350-4.940 (BEAKER) (test code = 772) Sliding Joint Maker ID - MARCOCOMPREHENSIVE METABOLIC [id number] 12:34:20 Test Item Value Reference Range Interpretation Comments TOTAL PROTEIN 7.2 gm/dL 6.0-8.3 (BEAKER) (test code = 770) ALBUMIN (BEAKER) 4.1 g/dL 3.5-5.0 (test code = 1145) ALKALINE 36 U/L 40-150 L PHOSPHATASE (BEAKER) (test code = 346) BILIRUBIN TOTAL 1.2 mg/dL 0.2-1.2 (BEAKER) (test code = 377) SODIUM (BEAKER) 143 meq/L 136-145 (test code = 381) POTASSIUM (BEAKER) 4.4 meq/L 3.5-5.1 (test code = 379) CHLORIDE (BEAKER) 105 meq/L 98-107 (test code = 382) CO2 (BEAKER) (test 34 meq/L 22-29 H code = 355) BLOOD UREA 15 mg/dL 7-21 NITROGEN (BEAKER) (test code = 354) CREATININE 1.23 mg/dL 0.57-1.25 (BEAKER) (test code = 358) GLUCOSE RANDOM 91 mg/dL 70-105 (BEAKER) (test code = 652) CALCIUM (BEAKER) 9.2 mg/dL 8.4-10.2 (test code = 697) AST (SGOT) 26 U/L 5-34 (BEAKER) (test code = 353) ALT (SGPT) 24 U/L 6-55 (BEAKER) (test code = 347) EGFR (BEAKER) 64 Interpretatio n of eGFR (test code = 1092) mL/min/1.[address] age Description sq m Result G1 Marilyn l or high >=90 G2 Mildly decreased 60-89 G3a Mildl y to moderately 45-5 9 G3b Moderately to s everely 30-44 G4 Sever ly decreased 15-29 G5 Kidney failure <15Repo rted eGFR is based on the CKD-EPI 2020 equation t hat does not use a race coefficientEsti mated GFR is not as accur ate as Creatinine Radha renee in predicting glom erular filtration rate . Estimated GFR is not appl icable for dialysis patien ts Sliding Joint Maker ID - MARCOURIC [id number] 12:34:20 Test Item Value Reference Range Interpretation Comments URIC ACID (BEAKER) (test code = 8.9 mg/dL 2.6-7.2 H 773) Sliding Joint Maker ID - MARCOLIPID [id number] 12:34:20 Test Item Value Reference Range Interpretation Comments TRIGLYCERIDES (BEAKER) (test code = 74 mg/dL 540) CHOLESTEROL (BEAKER) (test code = 105 mg/dL 631) HDL CHOLESTEROL (BEAKER) (test code 30 mg/dL = 976) LDL CHOLESTEROL CALCULATED (BEAKER) 60 mg/dL (test code = 633) Triglyceride Reference Range: Low Risk <150 Borderline 150-199 High Risk 200- 499 Very High Risk >=500Cholesterol Reference Range: Low Risk <200 Borderline 200-239 High Risk >240HDL Cholesterol Reference Range: Low Risk >=60 High Risk <40LDL Cholesterol Reference Range: Optimal <100 Near Optimal 100-129 Borderline 130-159 High 160-189 Very High >=190 Sliding Joint Maker ID - MARCOCBC W/PLT COUNT & AUTO [id number] 12:15:33 Test Item Value Reference Range Interpretation Comments WHITE BLOOD CELL COUNT (BEAKER) 6.5 K/ L 3.5-10.5 (test code = 775) RED BLOOD CELL COUNT (BEAKER) 4.82 M/ L 4.63-6.08 (test code = 761) HEMOGLOBIN (BEAKER) (test code = 14.8 GM/DL 13.7-17.5 410) HEMATOCRIT (BEAKER) (test code = 46.5 % 40.1-51.0 411) MEAN CORPUSCULAR VOLUME (BEAKER) 97 fL 79-92 H (test code = 753) MEAN CORPUSCULAR HEMOGLOBIN 30.7 pg 25.7-32.2 (BEAKER) (test code = 751) MEAN CORPUSCULAR HEMOGLOBIN CONC 31.8 GM/DL 32.3-36.5 L (BEAKER) (test code = 752) RED CELL DISTRIBUTION WIDTH 14.3 % 11.6-14.4 (BEAKER) (test code = 412) PLATELET COUNT (BEAKER) (test 158 K/CU MM 150-450 code = 756) MEAN PLATELET VOLUME (BEAKER) 10.6 fL 9.4-12.4 (test code = 754) NUCLEATED RED BLOOD CELLS 0 /100 WBC 0-0 (BEAKER) (test code = 413) NEUTROPHILS RELATIVE PERCENT 56 % (BEAKER) (test code = 429) LYMPHOCYTES RELATIVE PERCENT 25 % (BEAKER) (test code = 430) MONOCYTES RELATIVE PERCENT 14 % (BEAKER) (test code = 431) EOSINOPHILS RELATIVE PERCENT 5 % (BEAKER) (test code = 432) BASOPHILS RELATIVE PERCENT 1 % (BEAKER) (test code = 437) NEUTROPHILS ABSOLUTE COUNT 3.62 K/ L 1.78-5.38 (BEAKER) (test code = 670) LYMPHOCYTES ABSOLUTE COUNT 1.59 K/ L 1.32-3.57 (BEAKER) (test code = 414) MONOCYTES ABSOLUTE COUNT (BEAKER) 0.89 K/ L 0.30-0.82 H (test code = 415) EOSINOPHILS ABSOLUTE COUNT 0.34 K/ L 0.04-0.54 (BEAKER) (test code = 416) BASOPHILS ABSOLUTE COUNT (BEAKER) 0.03 K/ L 0.01-0.08 (test code = 417) IMMATURE GRANULOCYTES-RELATIVE 0.20 % 0.00-1.00 PERCENT (BEAKER) (test code = 2801) RAD, CHEST, 1 VIEW, NON [id number] 09:51:00Reason for exam:->icdShould this be performed at the bedside?->Yes [facility] 1950 Sex: MFINAL REPORT RAD, CHEST, 1 VIEW, NON DEPT INDICATION: icd COMPARISON: Prior day's exam TECHNIQUE: Portable frontal view of the chest. FINDINGS: Support Lines and Devices: Stable. Lungsand pleura: Unchanged airspace and pleural opacities. No pneumothorax identified. Heart and mediastinum: Stable contours. Stable surgical changes. Additional findings: Mild spondylosis and facet arthropathy are present within the spine. IMPRESSION: 1.No significant change from prior exam.2.Blunting ofthe left costophrenic sulcus, which may represent pleural thickening/scarring or small pleural effusion.3.Stable cardiomegaly. Signed: Abhijit Lindsay Verified Date/Time: 09/03/2022 09:51:18 Reading Location: [address] Reading Room Electronically signed by: Radha SANCHEZ 09/03/2022 09:51 AMRAD, CHEST, 1 VIEW, NON [id number] 10:54:00Reason for exam:->icdShould this be performed at the bedside?->Yes[facility] Ruben : 1950 Sex: MFINAL REPORT Chest, 1 view, 09/02/2022 10:48 AM. History: ICD placement. Comparison: 09/30/2021. Discussion: The cardiac silhouette is enlarged but stable. Bilateral linear opacities are unchanged. A new left subclavian ICD is present. There is no pneumothorax or pleural effusion. Median sternotomy wires and mediastinal surgical clips are again noted. The soft tissues and osseous structures are intact. IMPRESSION: No evidence of complication post left subclavian ICD placement. Cardiomegaly and bilateral atelectasis are again noted. Signed: Chad Oliverepapoorva Verified Date/Time: 09/02/2022 10:54:38 Reading Location: [facility] Radiology Reading Room PROTHROMBIN [id number] 06:27:28 Test Item Value Reference Range Interpretation Comments PROTIME (BEAKER) 18.5 seconds 11.9-14.2 H (test code = 759) INR (BEAKER) (test 1.58 See_Comment [Automat ed message] code = 370) The system [employer] generated this result transmitted ref erence range: <=5.90. The reference range was not used to int erpret this result as normal/abnormal . RECOMMENDED COUMADIN/WARFARIN INR THERAPY RANGESSTANDARD DOSE: 2.0 - 3.0 Includes: PROPHYLAXIS for venous thrombosis, systemic embolization; TREATMENT for venous thrombosis and/or pulmonary embolus.HIGH RISK: Target INR is 2.5-3.5 for patients with mechanical heart valves.Lipid [id number] 04:17:00 Test Item Value Reference Range Interpretation Comments Cholesterol, total 98 mg/dL <=200 (test code = 2093-3) HDL cholesterol 31 mg/dL See_Comment L [Automated (test code = 2085-9) message ] The system which generated this result transmitted reference range : > OR = 40. The reference range was not used to interpret this result as normal/abnormal . Triglycerides (test 56 mg/dL <=150 code = 2571-8) LDL cholesterol 53 mg/dL (calc) Reference ra nge: calculated (test <100 Desira ble code = 95389-6) range <100 m g/dL for primary prevention; <70 mg/dL for patients with C HD or diabetic patients with > or = 2 CHD risk factors. LDL-C is now calculated using the Praneeth-Nemo calculation, which is a validated novel method levin g better accuracy than the Friedewald equation in the estimation of LDL-C. Praneeth Benavides S et al. GISSELLE. 2013;310(19): 3758-9064 (http://educati on .CyantoDiagnost9158 Julur.com .com/faq/THW760 ) Cholesterol/HDL 3.2 See_Comment [Automated ratio (test code = message] The 9830-1) system which generated this result transmitted reference range : <5.0 (calc). Th e reference range was not used to interpret this result as normal/abnormal . Non-HDL cholesterol 67 See_Comment For trung ents with (test code = diabetes plus 1 71446-1) major ASCVD ris k factor, treatin g to a non-HDL-C goal of <100 mg/dL (LDL-C of <70 mg/dL) is considered a therapeutic option. [Automated message] The system which generated this result transmitted reference range : <130 mg/dL (calc). The reference range was not used to interpret this result as normal/abnormal . PAWAN (test code = FASTING:YES PAWAN) FASTING: YES RAC (test code = Performing RAC) Organization Information: Site ID: [id number] Name: [facility] Address: [address] [place] [id number] Director: Stas Loco [facility] Interpretation Abnormal (test code = 13372-8) [facility] [id number] 04:17:00 Test Item Value Reference Range Interpretation Comments WBC (test code = 5.3 See_Comment [Automated 5787-2) message] The system which generated this result transmit gabrielle reference range : 3.8 - 10.8 Thousand/uL. Th e reference range was not used to interpret this result as normal/abnormal . RBC (test code = 4.80 See_Comment [Automated 033-8) message] The system which generated this result transmit gabrielle reference range : 4.20 - 5.80 Million/uL. The reference range was not used to interpret this result as normal/abnormal . HGB (test code = 15.1 g/dL 13.2-17.1 718-7) HCT (test code = 45.7 % 38.5-50.0 4544-3) MCV (test code = 95.2 fL 80.0-100.0 787-2) MCH (test code = 31.5 pg 27.0-33.0 785-6) MCHC (test code 33.0 g/dL 32.0-36.0 = 786-4) RDW (test code = 13.3 % 11.0-15.0 788-0) Platelet count 177 See_Comment [Automated (test code = message] The 777-3) system which generated this result transmit gabrielle reference range : 140 - 400 Thousand/uL. Th e reference range was not used to interpret this result as normal/abnormal . MPV (test code = 11.5 fL 7.5-12.5 776-5) PAWAN (test code = FASTING:YES FASTING: PAWAN) YES RAC (test code = Performing RAC) Organization Information: Site ID: A Name: [facility] Address: [address] [place] [id number] Director: Stas Loco [facility] metabolic panel w/o [id number] 04:17:00 Test Item Value Reference Interpretation Comments Range Glucose (test code 108 mg/dL 65-99 H Fasting reference = 2345-7) interval For so meone without known diabetes, a glu cose valuebetween 10 0 and 125 mg/dL is consistent withprediabetes and should be confi rmed with afollow-up test. BUN (test code = 19 mg/dL 7-25 3094-0) Creatinine (test 0.99 mg/dL 0.70-1.28 code = 2160-0) BUN/creatinine NOT APPLICABLE See_Comment [Automated message] ratio (test code = The syste m which 3097-3) generated this result transmit gabrielle reference range : 6 - 22 (calc). The reference range was not used to interpret this result as normal/abnormal . Sodium (test code = 144 mmol/L 904-779 1647-2) Potassium (test 4.7 mmol/L 3.5-5.3 code = 2823-3) Chloride (test code 110 mmol/L 98-110 = 2075-0) CO2 (test code = 27 mmol/L 20-32 2028-9) Calcium (test code 9.5 mg/dL 8.6-10.3 = 52737-9) PAWAN (test code = FASTING:YES PAWAN) FASTING: YES RAC (test code = Performing RAC) Organization Information: Site ID: RGA Name: [facility] Address: [address] [place] [id number] Director: Stas Loco Lab Interpretation Abnormal (test code = 75999-3) [facility], [id number] 09:54:00Unlisted Reason for Exam - Click Yes and Enter Reason Below->NoIs this for enterography?->NoWill this procedure require oral contrast?->Yes [facility] : 1950 Sex: MFINAL REPORT TECHNIQUE: CT of the abdomen and pelvis WITHOUT intravenous contrast and WITH oral contrast. Dose modulation, iterative reconstruction, and/or weight-based adjustment of the mA/kV was utilized to reduce the radiation dose to as low as reasonably achievable. INDICATION: 70-year-old man with abdominal pain. COMPARISON: Abdomen ultrasound from 14 hours prior, chest, abdomen, and pelvis CT 12/09/2014. FINDINGS: ABSENCE OF INTRAVENOUS CONTRAST DECREASES SENSITIVITY FOR DETECTION OF FOCAL LESIONS AND VASCULAR PATHOLOGY. LOWER THORAX: Cardiomegaly. HEPATOBILIARY: No focal hepatic lesion. Stones in the otherwise unremarkable gallbladder. No biliary ductal dilatation.SPLEEN: No splenomegaly.PANCREAS: No focal mass or ductal dilatation. ADRENALS: No adrenal nodule.KIDNEYS/URETERS: No hydronephrosis, calculus, or mass.PELVIC ORGANS/BLADDER: Prominent prostate. Bladder is underdistended. PERITONEUM/RETROPERITONEUM: No free air or fluid.LYMPH NODES: No lymphadenopathy.VESSELS: Atherosclerotic calcifications, most prominent in the abdominal aorta, without aneurysm. GI TRACT: No distention or wall thickening. Few colonic diverticula. Small periampullary duodenal diverticulum. Normal appendix. BONES AND SOFT TISSUES: No acute osseous abnormality. Degenerative changes of the visualized spine. Sacralization of L5. Mild subcutaneous fat stranding and emphysema in the left abdominalwall, likely related to recent medication injection. Small fat-containing umbilical hernia. IMPRESSION:No acute abnormality in the abdomen or pelvis. Cholelithiasis. Prostatomegaly. Signed: Jasson Doweport Verified Date/Time: 10/03/2021 09:54:17 Reading Location: [facility] Diagnostic Imaging Reading Room - [place] [address] 1129 Basic Metabolic Panel 2021-10-03 05:55:06 Test Item Value Reference Range Interpretation Comments Sodium (test code = 139 meq/L 361-205 9018-2) Potassium (test code = 4.2 meq/L 3.5-5.1 2823-3) Chloride (test code = 100 meq/L 98-107 5-0) CO2 (test code = 30 meq/L 22-29 H 2027-) BUN (test code = 29 mg/dL 7-21 H 3094-0) Creatinine (test code 1.13 mg/dL 0.57-1.25 = 2160-0) Glucose (test code = 164 mg/dL 70-105 H 2345-7) Calcium (test code = 9.6 mg/dL 8.4-10.2 52959-4) EGFR (test code = 64 mL/min/1.73 [place] [address]-0) NOT ACCURATE CREATININE CLEARANCE IN PREDICTING GLOMERULAR FILTRATION RATE . ESTIMATED GFR I S NOT APPLICABLE FOR DIALYSIS PATIENTS. PAWAN (test code = PAWAN) Sliding Joint Maker ID - PIAYA L Lab Interpretation Abnormal (test code = 71155-1) [facility] [id number] 05:55:06 Test Item Value Reference Range Interpretation Comments Sodium (test code = 139 meq/L 578-562 4080-2) Potassium (test code = 4.2 meq/L 3.5-5.1 2823-3) Chloride (test code = 100 meq/L 98-107 5-0) CO2 (test code = 30 meq/L 22-29 H 2027-9) BUN (test code = 29 mg/dL 7-21 H 3094-0) Creatinine (test code 1.13 mg/dL 0.57-1.25 = 2160-0) Glucose (test code = 164 mg/dL 70-105 H 2345-7) Calcium (test code = 9.6 mg/dL 8.4-10.2 12586-9) EGFR (test code = 64 mL/min/1.73 [place] [address]-6) NOT ACCURATE CREATININE CLEARANCE IN PREDICTING GLOMERULAR FILTRATION RATE . ESTIMATED GFR I S NOT APPLICABLE FOR DIALYSIS PATIENTS. PAWAN (test code = PAWAN) Sliding Joint Maker ID - PIAYA L Lab Interpretation Abnormal (test code = 51457-9) [facility] Metabolic [id number] 05:55:06 Test Item Value Reference Range Interpretation Comments Sodium (test code = 139 meq/L 600-740 1789-2) Potassium (test code = 4.2 meq/L 3.5-5.1 2823-3) Chloride (test code = 100 meq/L 98-107 5-0) CO2 (test code = 30 meq/L 22-29 H 2027-) BUN (test code = 29 mg/dL 7-21 H 3094-0) Creatinine (test code 1.13 mg/dL 0.57-1.25 = 2160-0) Glucose (test code = 164 mg/dL 70-105 H 2345-7) Calcium (test code = 9.6 mg/dL 8.4-10.2 52118-3) EGFR (test code = 64 mL/min/1.73 [place] [address]-8) NOT ACCURATE CREATININE CLEARANCE IN PREDICTING GLOMERULAR FILTRATION RATE . ESTIMATED GFR I S NOT APPLICABLE FOR DIALYSIS PATIENTS. PAWAN (test code = PAWAN) Sliding Joint Maker ID - PIAYA L Lab Interpretation Abnormal (test code = 31524-9) [facility] Metabolic [id number] 05:55:06 Test Item Value Reference Range Interpretation Comments Sodium (test code = 139 meq/L 480-788 1009-2) Potassium (test code = 4.2 meq/L 3.5-5.1 2823-3) Chloride (test code = 100 meq/L 98-107 5-0) CO2 (test code = 30 meq/L 22-29 H 2027-9) BUN (test code = 29 mg/dL 7-21 H 3094-0) Creatinine (test code 1.13 mg/dL 0.57-1.25 = 2160-0) Glucose (test code = 164 mg/dL 70-105 H 2345-7) Calcium (test code = 9.6 mg/dL 8.4-10.2 74017-1) EGFR (test code = 64 mL/min/1.73 [place] [address]-1) NOT ACCURATE CREATININE CLEARANCE IN PREDICTING GLOMERULAR FILTRATION RATE . ESTIMATED GFR I S NOT APPLICABLE FOR DIALYSIS PATIENTS. PAWAN (test code = PAWAN) Sliding Joint Maker ID - PIAYA L Lab Interpretation Abnormal (test code = 02149-9) [facility] Metabolic [id number] 05:55:06 Test Item Value Reference Range Interpretation Comments Sodium (test code = 139 meq/L 100-441 6341-2) Potassium (test code = 4.2 meq/L 3.5-5.1 2823-3) Chloride (test code = 100 meq/L 98-107 2075-0) CO2 (test code = 30 meq/L 22-29 H 8-9) BUN (test code = 29 mg/dL 7-21 H 3094-0) Creatinine (test code 1.13 mg/dL 0.57-1.25 = 2160-0) Glucose (test code = 164 mg/dL 70-105 H 2345-7) Calcium (test code = 9.6 mg/dL 8.4-10.2 77977-0) EGFR (test code = 64 mL/min/1.73 [place] [address]-8) NOT ACCURATE CREATININE CLEARANCE IN PREDICTING GLOMERULAR FILTRATION RATE . ESTIMATED GFR I S NOT APPLICABLE FOR DIALYSIS PATIENTS. PAWAN (test code = PAWAN) Sliding Joint Maker ID - PIAYA L Lab Interpretation Abnormal (test code = 41014-7) [facility] METABOLIC [id number] 05:55:06 Test Item Value Reference Range Interpretation Comments SODIUM (BEAKER) 139 meq/L 136-145 (test code = 381) POTASSIUM (BEAKER) 4.2 meq/L 3.5-5.1 (test code = 379) CHLORIDE (BEAKER) 100 meq/L 98-107 (test code = 382) CO2 (BEAKER) (test 30 meq/L 22-29 H code = 355) BLOOD UREA NITROGEN 29 mg/dL 7-21 H (BEAKER) (test code = 354) CREATININE (BEAKER) 1.13 mg/dL 0.57-1.25 (test code = 358) GLUCOSE RANDOM 164 mg/dL 70-105 H (BEAKER) (test code = 652) CALCIUM (BEAKER) 9.6 mg/dL 8.4-10.2 (test code = 697) EGFR (BEAKER) (test 64 mL/min/1.73 ESTIMA GABRIELLE GFR IS code = 1092) sq m NOT ACCURATE CREATININE CLEARANCE IN PREDICTING GLOMERULAR FILTRATION RATE . ESTIMATED GFR I S NOT APPLICABLE FOR DIALYSIS PATISHAHLA MEYERS. Sliding Joint Maker ID - PIAYA Kiesha Prothrombin time/INR while on [id number] 05:22:35 Test Item Value Reference Interpretation Comments Range Protime (test code = 26.7 See_Comment H [Autom ated 5902-2) message] The system which generated this result transmitted reference range : 11.9 - 14.2 seconds. The reference range was not used to interpret this result as normal/abnormal . INR (test code = 2.50 See_Comment [Automated 6301-6) message] The system which generated this result transmitted reference range : <=5.90. The reference range was not used to interpret this result as normal/abnormal . PAWAN (test code = RECOMMENDED PAWAN) COUMADIN/WARFARIN INR THERAPY RANGESSTANDARD DOSE: 2.0 - 3.0 Includes: PROPHYLAXIS for venous thrombosis, systemic embolization; TREATMENT for venous thrombosis and/or pulmonary embolus.HIGH RISK: Target INR is 2.5-3.5 for patients with mechanical heart valves. Lab Interpretation Abnormal (test code = 50913-9) [facility] Prothrombin time/INR while on warfarin 2021-10-03 05:22:35 Test Item Value Reference Interpretation Comments Range Protime (test code = 26.7 See_Comment H [Autom ated 5902-2) message] The system which generated this result transmitted reference range : 11.9 - 14.2 seconds. The reference range was not used to interpret this result as normal/abnormal . INR (test code = 2.50 See_Comment [Automated 6301-6) message] The system which generated this result transmitted reference range : <=5.90. The reference range was not used to interpret this result as normal/abnormal . PAWAN (test code = RECOMMENDED PAWAN) COUMADIN/WARFARIN INR THERAPY RANGESSTANDARD DOSE: 2.0 - 3.0 Includes: PROPHYLAXIS for venous thrombosis, systemic embolization; TREATMENT for venous thrombosis and/or pulmonary embolus.HIGH RISK: Target INR is 2.5-3.5 for patients with mechanical heart valves. Lab Interpretation Abnormal (test code = 42667-8) [facility] Prothrombin time/INR while on warfarin 2021-10-03 05:22:35 Test Item Value Reference Interpretation Comments Range Protime (test code = 26.7 See_Comment H [Autom ated 5902-2) message] The system which generated this result transmitted reference range : 11.9 - 14.2 seconds. The reference range was not used to interpret this result as normal/abnormal . INR (test code = 2.50 See_Comment [Automated 6301-6) message] The system which generated this result transmitted reference range : <=5.90. The reference range was not used to interpret this result as normal/abnormal . PAWAN (test code = RECOMMENDED PAWAN) COUMADIN/WARFARIN INR THERAPY RANGESSTANDARD DOSE: 2.0 - 3.0 Includes: PROPHYLAXIS for venous thrombosis, systemic embolization; TREATMENT for venous thrombosis and/or pulmonary embolus.HIGH RISK: Target INR is 2.5-3.5 for patients with mechanical heart valves. Lab Interpretation Abnormal (test code = 53682-8) [facility] Prothrombin time/INR while on warfarin 2021-10-03 05:22:35 Test Item Value Reference Interpretation Comments Range Protime (test code = 26.7 See_Comment H [Autom ated 5902-2) message] The system which generated this result transmitted reference range : 11.9 - 14.2 seconds. The reference range was not used to interpret this result as normal/abnormal . INR (test code = 2.50 See_Comment [Automated 6301-6) message] The system which generated this result transmitted reference range : <=5.90. The reference range was not used to interpret this result as normal/abnormal . PAWAN (test code = RECOMMENDED PAWAN) COUMADIN/WARFARIN INR THERAPY RANGESSTANDARD DOSE: 2.0 - 3.0 Includes: PROPHYLAXIS for venous thrombosis, systemic embolization; TREATMENT for venous thrombosis and/or pulmonary embolus.HIGH RISK: Target INR is 2.5-3.5 for patients with mechanical heart valves. Lab Interpretation Abnormal (test code = 46542-2) [facility]/[id number] 05:22:35 Test Item Value Reference Range Interpretation Comments PROTIME (HARIS) 26.7 seconds 11.9-14.2 H (test code = 759) INR (HARIS) (test 2.50 See_Comment [Automat ed message] code = 370) The system [employer] generated this result transmitted ref erence range: <=5.90. The reference range was not used to int erpret this result as normal/abnormal . RECOMMENDED COUMADIN/WARFARIN INR THERAPY RANGESSTANDARD DOSE: 2.0 - 3.0 Includes: PROPHYLAXIS for venous thrombosis, systemic embolization; TREATMENT for venous thrombosis and/or pulmonary embolus.HIGH RISK: Target INR is 2.5-3.5 for patients with mechanical heart valves.U/S, ABDOMINAL, [id number] 13:17:00Reason for exam:->post-prandial abdominal discomfort, bloating, in morbidly obese man [facility] Ruben : 1950 Sex: MFINAL REPORT TECHNIQUE: Grayscale ultrasound of the abdomen. INDICATION: post-prandial abdominal discomfort, bloating, in morbidly obese man COMPARISON: None. FINDINGS: MIDLINE VASCULATURE: The visualized inferior vena cava is patent. Portal vein is patent and measures 1.1 cm in diameter. The bowel aorta is obscured by overlying bowel gas. LIVER: The liver is normal in size and echogenicity with smooth contour. The liver measures 18.5 cm in length. No focal lesions. BILIARY:Gallbladder: Multiple calculi.. No gallbladder wall thickening, pericholecystic fluid, or distention. Negative sonographic Pa sign.Common bile duct measures 0.7 cm, within normal limits. No intrahepatic biliary ductal dilatation. PANCREAS: Obscured by overlying bowel gas.. SPLEEN: No splenomegaly. The spleen measures 9.3 cm in length. PERITONEUM: No free fluid. KIDNEYS: The kidneys are normal in size. No hydronephrosis. No sonographically evident solid mass lesion. The right kidney measures 10.1 cm in length. The left kidney measures 11.3 cm in length. IMPRESSION:Cholelithiasis without sonographic eviden ce of acute cholecystitis.. Signed: Gmóez Hernandez Verified Date/Time: 10/02/2021 13:17:45 PROTHROMBIN TIME/[id number] 04:52:29 Test Item Value Reference Range Interpretation Comments PROTIME (BEAKER) 22.3 seconds 11.9-14.2 H (test code = 759) INR (BEAKER) (test 1.99 See_Comment [Automat ed message] code = 370) The system [employer] generated this result transmitted ref erence range: <=5.90. The reference range was not used to int erpret this result as normal/abnormal . RECOMMENDED COUMADIN/WARFARIN INR THERAPY RANGESSTANDARD DOSE: 2.0 - 3.0 Includes: PROPHYLAXIS for venous thrombosis, systemic embolization; TREATMENT for venous thrombosis and/or pulmonary embolus.HIGH RISK: Target INR is 2.5-3.5 for patients with mechanical heart valves.BASIC METABOLIC [id number] 19:34:20 Test Item Value Reference Range Interpretation Comments SODIUM (BEAKER) 141 meq/L 136-145 (test code = 381) POTASSIUM (BEAKER) 4.3 meq/L 3.5-5.1 Specimen slightly (test code = 379) hemolyzed CHLORIDE (BEAKER) 103 meq/L 98-107 (test code = 382) CO2 (BEAKER) (test 28 meq/L - code = 355) BLOOD UREA NITROGEN 23 mg/dL 7-21 H (BEAKER) (test code = 354) CREATININE (BEAKER) 1.27 mg/dL 0.57-1.25 H Specimen slightly (test code = 358) hemolyzed GLUCOSE RANDOM 168 mg/dL 70-105 H (BEAKER) (test code = 652) CALCIUM (BEAKER) 9.8 mg/dL 8.4-10.2 (test code = 697) EGFR (BEAKER) (test 56 mL/min/1.73 ESTIMA GABRIELLE GFR IS code = 1092) sq m NOT ACCURATE CREATININE CLEARANCE IN PREDICTING GLOMERULAR FILTRATION RATE . ESTIMATED GFR I S NOT APPLICABLE FOR DIALYSIS PATIEN TS. Sliding Joint Maker ID - BSRAD, ABDOMEN/KUB, 1 VIEW [id number] 12:20:00Reason for exam:- >abdominal bloating [facility] : 1950 Sex: MFINAL REPORT RAD, ABDOMEN/KUB, 1 VIEW AP CLINICAL INDICATION: abdominal bloating COMPARISON: None TECHNIQUE: Single, frontal radiograph of the abdomen. IMPRESSION: The bowel gas pattern is nonspecific, but nonobstructive. Moderate colonic stool burden. No visible pneumatosis. The regional skeleton is intact. Signed: JR Garay Robert MDReport Verified Date/Time: 10/01/2021 12: 20:31 Reading Location: [facility] Radiology Reading Room Uric [id number] 11:54:13 Test Item Value Reference Range Interpretation Comments Uric Acid (test code = 9.7 mg/dL 2.6-7.2 H 3084-1) PAWAN (test code = PAWAN) Sliding Joint Maker ID - PIAYA LSpecimen slightly icteric Lab Interpretation (test Abnormal code = 63514-7) [facility] [id number] 11:54:13 Test Item Value Reference Range Interpretation Comments Uric Acid (test code = 9.7 mg/dL 2.6-7.2 H 3084-1) PAWAN (test code = PAWAN) Sliding Joint Maker ID - KAILA MARIEpecimen slightly icteric Lab Interpretation (test Abnormal code = 67076-0) [facility] [id number] 11:54:13 Test Item Value Reference Range Interpretation Comments Uric Acid (test code = 9.7 mg/dL 2.6-7.2 H 3084-1) PAWAN (test code = PAWAN) Sliding Joint Maker ID - KAILA LSpecimen slightly icteric Lab Interpretation (test Abnormal code = 25081-8) [facility] [id number] 11:54:13 Test Item Value Reference Range Interpretation Comments Uric Acid (test code = 9.7 mg/dL 2.6-7.2 H 3084-1) PAWAN (test code = PAWAN) Sliding Joint Maker ID - KAILA LSpecimen slightly icteric Lab Interpretation (test Abnormal code = 65105-5) [facility] [id number] 11:54:13 Test Item Value Reference Range Interpretation Comments Uric Acid (test code = 9.7 mg/dL 2.6-7.2 H 3084-1) PAWAN (test code = PAWAN) Sliding Joint Maker ID - KAILA LSpecimen slightly icteric Lab Interpretation (test Abnormal code = 70794-1) [facility] [id number] 11:54:13 Test Item Value Reference Range Interpretation Comments URIC ACID (BEAKER) (test code = 9.7 mg/dL 2.6-7.2 H 773) Sliding Joint Maker ID - KAILA LSpecimen slightly ictericBASIC METABOLIC [id number] 07:15:06 Test Item Value Reference Range Interpretation Comments SODIUM (BEAKER) 139 meq/L 136-145 (test code = 381) POTASSIUM (BEAKER) 4.2 meq/L 3.5-5.1 (test code = 379) CHLORIDE (BEAKER) 103 meq/L 98-107 (test code = 382) CO2 (BEAKER) (test 27 meq/L 22-29 code = 355) BLOOD UREA NITROGEN 21 mg/dL 7-21 (BEAKER) (test code = 354) CREATININE (BEAKER) 1.08 mg/dL 0.57-1.25 (test code = 358) GLUCOSE RANDOM 110 mg/dL 70-105 H (BEAKER) (test code = 652) CALCIUM (BEAKER) 8.8 mg/dL 8.4-10.2 (test code = 697) EGFR (BEAKER) (test 68 mL/min/1.73 ESTIMA GABRIELLE GFR IS code = 1092) sq m NOT ACCURATE CREATININE CLEARANCE IN PREDICTING GLOMERULAR FILTRATION RATE . ESTIMATED GFR I S NOT APPLICABLE FOR DIALYSIS PATIEN TS. Sliding Joint Maker ID - PIAYA LSpecimen slightly ictericCBC with platelet count + automated [id number] 04:56:53 Test Item Value Reference Range Interpretation Comments WBC (test code = 6690-2) 6.6 See_Comment [A utomated message] The system [employer] generated this result transmitted ref erence range: 3.5 - 10 .5 K/L. The refe rence range was not u sed to interpret this result as normal/abnor mal. RBC (test code = 789-8) 4.07 See_Comment L [Au tomated message] The system [employer] generated this result transmitted ref erence range: 4.63 - 6 .08 M/L. The refe rence range was not u sed to interpret this result as normal/abnor mal. MCHC (test code = 786-4) 32.3 See_Comment L [A utomated message] The system [employer] generated this result transmitted ref erence range: 32.3 - 3 6.5 GM/DL. The refe rence range was not u sed to interpret this result as normal/abnor mal. Hematocrit (test code = 38.7 % 40.1-51.0 L 4544-3) MCV (test code = 787-2) 95.1 fL 79.0-92.2 H MCH (test code = 785-6) 30.7 pg 25.7-32.2 RDW (test code = 788-0) 14.4 % 11.6-14.4 Platelets (test code = 160 See_Comment [Aut omated message] 257-3) The system [employer] generated this result transmitted ref erence range: 150 - 45 0 K/CU MM. The referen ce range was not u sed to interpret this result as normal/abnor mal. MPV (test code = 11.2 fL 9.4-12.4 43676-3) nRBC (test code = 413) 0 See_Comment [Aut omated message] The system [employer] generated this result transmitted ref erence range: 0 - 0 /1 00 WBC. The refere nce range was not u sed to interpret this result as normal/abnor mal. % Neutros (test code = 62 % 429) % Lymphs (test code = 19 % 430) % Monos (test code = 14 % 431) % Eos (test code = 432) 5 % % Baso (test code = 437) 0 % # Neutros (test code = 4.06 See_Comment [Aut omated message] 670) The system [employer] generated this result transmitted ref erence range: 1.78 - 5 .38 K/L. The refe rence range was not u sed to interpret this result as normal/abnor mal. # Lymphs (test code = 1.25 See_Comment L [Auto mated message] 414) The system [employer] generated this result transmitted ref erence range: 1.32 - 3 .57 K/L. The refe rence range was not u sed to interpret this result as normal/abnor mal. # Monos (test code = 0.90 See_Comment H [Autom ated message] 415) The system [employer] generated this result transmitted ref erence range: 0.30 - 0 .82 K/L. The refe rence range was not u sed to interpret this result as normal/abnor mal. # Eos (test code = 416) 0.36 See_Comment [Au tomated message] The system [employer] generated this result transmitted ref erence range: 0.04 - 0 .54 K/L. The refe rence range was not u sed to interpret this result as normal/abnor mal. # Baso (test code = 417) 0.02 See_Comment [A utomated message] The system [employer] generated this result transmitted ref erence range: 0.01 - 0 .08 K/L. The refe rence range was not u sed to interpret this result as normal/abnor mal. Immature 0 % 0-1 Granulocytes-Relative (test code = 2801) Lab Interpretation (test Abnormal code = 16628-1) [facility] with platelet count + automated [id number] 04:56:53 Test Item Value Reference Range Interpretation Comments WBC (test code = 6690-2) 6.6 See_Comment [A utomated message] The system [employer] generated this result transmitted ref erence range: 3.5 - 10 .5 K/L. The refe rence range was not u sed to interpret this result as normal/abnor mal. RBC (test code = 789-8) 4.07 See_Comment L [Au tomated message] The system [employer] generated this result transmitted ref erence range: 4.63 - 6 .08 M/L. The refe rence range was not u sed to interpret this result as normal/abnor mal. MCHC (test code = 786-4) 32.3 See_Comment L [A utomated message] The system [employer] generated this result transmitted ref erence range: 32.3 - 3 6.5 GM/DL. The refe rence range was not u sed to interpret this result as normal/abnor mal. Hematocrit (test code = 38.7 % 40.1-51.0 L 4544-3) MCV (test code = 787-2) 95.1 fL 79.0-92.2 H MCH (test code = 785-6) 30.7 pg 25.7-32.2 RDW (test code = 788-0) 14.4 % 11.6-14.4 Platelets (test code = 160 See_Comment [Aut omated message] 777-3) The system [employer] generated this result transmitted ref erence range: 150 - 45 0 K/CU MM. The referen ce range was not u sed to interpret this result as normal/abnor mal. MPV (test code = 11.2 fL 9.4-12.4 25514-8) nRBC (test code = 413) 0 See_Comment [Aut omated message] The system [employer] generated this result transmitted ref erence range: 0 - 0 /1 00 WBC. The refere nce range was not u sed to interpret this result as normal/abnor mal. % Neutros (test code = 62 % 429) % Lymphs (test code = 19 % 430) % Monos (test code = 14 % 431) % Eos (test code = 432) 5 % % Baso (test code = 437) 0 % # Neutros (test code = 4.06 See_Comment [Aut omated message] 670) The system [employer] generated this result transmitted ref erence range: 1.78 - 5 .38 K/L. The refe rence range was not u sed to interpret this result as normal/abnor mal. # Lymphs (test code = 1.25 See_Comment L [Auto mated message] 414) The system [employer] generated this result transmitted ref erence range: 1.32 - 3 .57 K/L. The refe rence range was not u sed to interpret this result as normal/abnor mal. # Monos (test code = 0.90 See_Comment H [Autom ated message] 415) The system [employer] generated this result transmitted ref erence range: 0.30 - 0 .82 K/L. The refe rence range was not u sed to interpret this result as normal/abnor mal. # Eos (test code = 416) 0.36 See_Comment [Au tomated message] The system [employer] generated this result transmitted ref erence range: 0.04 - 0 .54 K/L. The refe rence range was not u sed to interpret this result as normal/abnor mal. # Baso (test code = 417) 0.02 See_Comment [A utomated message] The system [employer] generated this result transmitted ref erence range: 0.01 - 0 .08 K/L. The refe rence range was not u sed to interpret this result as normal/abnor mal. Immature 0 % 0-1 Granulocytes-Relative (test code = 2801) Lab Interpretation (test Abnormal code = 23379-0) [facility] with platelet count + automated [id number] 04:56:53 Test Item Value Reference Range Interpretation Comments WBC (test code = 6690-2) 6.6 See_Comment [A utomated message] The system [employer] generated this result transmitted ref erence range: 3.5 - 10 .5 K/L. The refe rence range was not u sed to interpret this result as normal/abnor mal. RBC (test code = 789-8) 4.07 See_Comment L [Au tomated message] The system [employer] generated this result transmitted ref erence range: 4.63 - 6 .08 M/L. The refe rence range was not u sed to interpret this result as normal/abnor mal. MCHC (test code = 786-4) 32.3 See_Comment L [A utomated message] The system [employer] generated this result transmitted ref erence range: 32.3 - 3 6.5 GM/DL. The refe rence range was not u sed to interpret this result as normal/abnor mal. Hematocrit (test code = 38.7 % 40.1-51.0 L 4544-3) MCV (test code = 787-2) 95.1 fL 79.0-92.2 H MCH (test code = 785-6) 30.7 pg 25.7-32.2 RDW (test code = 788-0) 14.4 % 11.6-14.4 Platelets (test code = 160 See_Comment [Aut omated message] 777-3) The system [employer] generated this result transmitted ref erence range: 150 - 45 0 K/CU MM. The referen ce range was not u sed to interpret this result as normal/abnor mal. MPV (test code = 11.2 fL 9.4-12.4 23715-6) nRBC (test code = 413) 0 See_Comment [Aut omated message] The system [employer] generated this result transmitted ref erence range: 0 - 0 /1 00 WBC. The refere nce range was not u sed to interpret this result as normal/abnor mal. % Neutros (test code = 62 % 429) % Lymphs (test code = 19 % 430) % Monos (test code = 14 % 431) % Eos (test code = 432) 5 % % Baso (test code = 437) 0 % # Neutros (test code = 4.06 See_Comment [Aut omated message] 670) The system [employer] generated this result transmitted ref erence range: 1.78 - 5 .38 K/L. The refe rence range was not u sed to interpret this result as normal/abnor mal. # Lymphs (test code = 1.25 See_Comment L [Auto mated message] 414) The system [employer] generated this result transmitted ref erence range: 1.32 - 3 .57 K/L. The refe rence range was not u sed to interpret this result as normal/abnor mal. # Monos (test code = 0.90 See_Comment H [Autom ated message] 415) The system [employer] generated this result transmitted ref erence range: 0.30 - 0 .82 K/L. The refe rence range was not u sed to interpret this result as normal/abnor mal. # Eos (test code = 416) 0.36 See_Comment [Au tomated message] The system [employer] generated this result transmitted ref erence range: 0.04 - 0 .54 K/L. The refe rence range was not u sed to interpret this result as normal/abnor mal. # Baso (test code = 417) 0.02 See_Comment [A utomated message] The system [employer] generated this result transmitted ref erence range: 0.01 - 0 .08 K/L. The refe rence range was not u sed to interpret this result as normal/abnor mal. Immature 0 % 0-1 Granulocytes-Relative (test code = 2801) Lab Interpretation (test Abnormal code = 76714-1) [facility] with platelet count + automated [id number] 04:56:53 Test Item Value Reference Range Interpretation Comments WBC (test code = 6690-2) 6.6 See_Comment [A utomated message] The system [employer] generated this result transmitted ref erence range: 3.5 - 10 .5 K/L. The refe rence range was not u sed to interpret this result as normal/abnor mal. RBC (test code = 789-8) 4.07 See_Comment L [Au tomated message] The system [employer] generated this result transmitted ref erence range: 4.63 - 6 .08 M/L. The refe rence range was not u sed to interpret this result as normal/abnor mal. MCHC (test code = 786-4) 32.3 See_Comment L [A utomated message] The system [employer] generated this result transmitted ref erence range: 32.3 - 3 6.5 GM/DL. The refe rence range was not u sed to interpret this result as normal/abnor mal. Hematocrit (test code = 38.7 % 40.1-51.0 L 4544-3) MCV (test code = 787-2) 95.1 fL 79.0-92.2 H MCH (test code = 785-6) 30.7 pg 25.7-32.2 RDW (test code = 788-0) 14.4 % 11.6-14.4 Platelets (test code = 160 See_Comment [Aut omated message] 777-3) The system [employer] generated this result transmitted ref erence range: 150 - 45 0 K/CU MM. The referen ce range was not u sed to interpret this result as normal/abnor mal. MPV (test code = 11.2 fL 9.4-12.4 36421-1) nRBC (test code = 413) 0 See_Comment [Aut omated message] The system [employer] generated this result transmitted ref erence range: 0 - 0 /1 00 WBC. The refere nce range was not u sed to interpret this result as normal/abnor mal. % Neutros (test code = 62 % 429) % Lymphs (test code = 19 % 430) % Monos (test code = 14 % 431) % Eos (test code = 432) 5 % % Baso (test code = 437) 0 % # Neutros (test code = 4.06 See_Comment [Aut omated message] 670) The system [employer] generated this result transmitted ref erence range: 1.78 - 5 .38 K/L. The refe rence range was not u sed to interpret this result as normal/abnor mal. # Lymphs (test code = 1.25 See_Comment L [Auto mated message] 414) The system [employer] generated this result transmitted ref erence range: 1.32 - 3 .57 K/L. The refe rence range was not u sed to interpret this result as normal/abnor mal. # Monos (test code = 0.90 See_Comment H [Autom ated message] 415) The system [employer] generated this result transmitted ref erence range: 0.30 - 0 .82 K/L. The refe rence range was not u sed to interpret this result as normal/abnor mal. # Eos (test code = 416) 0.36 See_Comment [Au tomated message] The system [employer] generated this result transmitted ref erence range: 0.04 - 0 .54 K/L. The refe rence range was not u sed to interpret this result as normal/abnor mal. # Baso (test code = 417) 0.02 See_Comment [A utomated message] The system [employer] generated this result transmitted ref erence range: 0.01 - 0 .08 K/L. The refe rence range was not u sed to interpret this result as normal/abnor mal. Immature 0 % 0-1 Granulocytes-Relative (test code = 2801) Lab Interpretation (test Abnormal code = 06404-7) [facility] [id number] 04:56:53 Test Item Value Reference Range Interpretation Comments WBC (test code = 6690-2) 6.6 See_Comment [A utomated message] The system [employer] generated this result transmitted ref erence range: 3.5 - 10 .5 K/L. The refe rence range was not u sed to interpret this result as normal/abnor mal. RBC (test code = 789-8) 4.07 See_Comment L [Au tomated message] The system [employer] generated this result transmitted ref erence range: 4.63 - 6 .08 M/L. The refe rence range was not u sed to interpret this result as normal/abnor mal. MCHC (test code = 786-4) 32.3 See_Comment L [A utomated message] The system [employer] generated this result transmitted ref erence range: 32.3 - 3 6.5 GM/DL. The refe rence range was not u sed to interpret this result as normal/abnor mal. Hematocrit (test code = 38.7 % 40.1-51.0 L 4544-3) MCV (test code = 787-2) 95.1 fL 79.0-92.2 H MCH (test code = 785-6) 30.7 pg 25.7-32.2 RDW (test code = 788-0) 14.4 % 11.6-14.4 Platelets (test code = 160 See_Comment [Aut omated message] 777-3) The system [employer] generated this result transmitted ref erence range: 150 - 45 0 K/CU MM. The referen ce range was not u sed to interpret this result as normal/abnor mal. MPV (test code = 11.2 fL 9.4-12.4 95313-8) nRBC (test code = 413) 0 See_Comment [Aut omated message] The system [employer] generated this result transmitted ref erence range: 0 - 0 /1 00 WBC. The refere nce range was not u sed to interpret this result as normal/abnor mal. % Neutros (test code = 62 % 429) % Lymphs (test code = 19 % 430) % Monos (test code = 14 % 431) % Eos (test code = 432) 5 % % Baso (test code = 437) 0 % # Neutros (test code = 4.06 See_Comment [Aut omated message] 670) The system [employer] generated this result transmitted ref erence range: 1.78 - 5 .38 K/L. The refe rence range was not u sed to interpret this result as normal/abnor mal. # Lymphs (test code = 1.25 See_Comment L [Auto mated message] 414) The system [employer] generated this result transmitted ref erence range: 1.32 - 3 .57 K/L. The refe rence range was not u sed to interpret this result as normal/abnor mal. # Monos (test code = 0.90 See_Comment H [Autom ated message] 415) The system [employer] generated this result transmitted ref erence range: 0.30 - 0 .82 K/L. The refe rence range was not u sed to interpret this result as normal/abnor mal. # Eos (test code = 416) 0.36 See_Comment [Au tomated message] The system [employer] generated this result transmitted ref erence range: 0.04 - 0 .54 K/L. The refe rence range was not u sed to interpret this result as normal/abnor mal. # Baso (test code = 417) 0.02 See_Comment [A utomated message] The system [employer] generated this result transmitted ref erence range: 0.01 - 0 .08 K/L. The refe rence range was not u sed to interpret this result as normal/abnor mal. Immature 0 % 0-1 Granulocytes-Relative (test code = 2801) Lab Interpretation (test Abnormal code = 15479-9) [facility] W/PLT COUNT & AUTO [id number] 04:56:53 Test Item Value Reference Range Interpretation Comments WHITE BLOOD CELL COUNT (BEAKER) 6.6 K/ L 3.5-10.5 (test code = 775) RED BLOOD CELL COUNT (BEAKER) 4.07 M/ L 4.63-6.08 L (test code = 761) HEMOGLOBIN (BEAKER) (test code = 12.5 GM/DL 13.7-17.5 L 410) HEMATOCRIT (BEAKER) (test code = 38.7 % 40.1-51.0 L 411) MEAN CORPUSCULAR VOLUME (BEAKER) 95.1 fL 79.0-92.2 H (test code = 753) MEAN CORPUSCULAR HEMOGLOBIN 30.7 pg 25.7-32.2 (BEAKER) (test code = 751) MEAN CORPUSCULAR HEMOGLOBIN CONC 32.3 GM/DL 32.3-36.5 (BEAKER) (test code = 752) RED CELL DISTRIBUTION WIDTH 14.4 % 11.6-14.4 (BEAKER) (test code = 412) PLATELET COUNT (BEAKER) (test 160 K/CU MM 150-450 code = 756) MEAN PLATELET VOLUME (BEAKER) 11.2 fL 9.4-12.4 (test code = 754) NUCLEATED RED BLOOD CELLS 0 /100 WBC 0-0 (BEAKER) (test code = 413) NEUTROPHILS RELATIVE PERCENT 62 % (BEAKER) (test code = 429) LYMPHOCYTES RELATIVE PERCENT 19 % (BEAKER) (test code = 430) MONOCYTES RELATIVE PERCENT 14 % (BEAKER) (test code = 431) EOSINOPHILS RELATIVE PERCENT 5 % (BEAKER) (test code = 432) BASOPHILS RELATIVE PERCENT 0 % (BEAKER) (test code = 437) NEUTROPHILS ABSOLUTE COUNT 4.06 K/ L 1.78-5.38 (BEAKER) (test code = 670) LYMPHOCYTES ABSOLUTE COUNT 1.25 K/ L 1.32-3.57 L (BEAKER) (test code = 414) MONOCYTES ABSOLUTE COUNT (BEAKER) 0.90 K/ L 0.30-0.82 H (test code = 415) EOSINOPHILS ABSOLUTE COUNT 0.36 K/ L 0.04-0.54 (BEAKER) (test code = 416) BASOPHILS ABSOLUTE COUNT (BEAKER) 0.02 K/ L 0.01-0.08 (test code = 417) IMMATURE GRANULOCYTES-RELATIVE 0 % 0-1 PERCENT (BEAKER) (test code = 2801) SARS-CoV2/RT-PCR (Asymptomatic ONLY)2021-09-30 19:37:19 Test Item Value Reference Interpretation Comments Range SARS-COV2/RT-PCR Negative Negative The SARS-Co V-2 (test code = target nucleic 47810-3) acids are not detected in thi s specimen. Negat susan results do not preclude SARS-C oV-2 infection and should not be u sed as the sole bas is for patient management decisions. Nega tive results must be combined with clinical observations, patient history , and epidemiolog ical information. A false negative result may occu r if a specimen is improperly collected, transported or handled. This S ARS CoV-2 test is a rapid, real-ene e RT-PCR test intended for th e qualitative detection of nucleic acid fr om SARS-CoV-2 in a nasopharyngeal swab specimen [facility] from individual s suspected of COVID-19 by the ir healthcare provider. PAWAN (test code = This test has been PAWAN) authorized by FDA under an EUA for use by authorized laboratories. This test is only authorized for the duration of the declaration that circumstances exist justifying the authorization of emergency use of in vitro diagnostic tests for detection and/or diagnosis of COVID-19 under Section 564(b)(1) of the Federal Food, Drug and Cosmetic Act, 21 U.S.C. 360bbb-3(b)(1), unless the authorization is terminated or revoked sooner. Fact Sheet for Healthcare Providers: https://www.[employer]/Documents/Xp ert%20Xpress%20SAR S%20CoV-2/Fact%20S heets/302-3802%20S ARS-COV-2%20HEALTH CARE%20PROVIDERS%2 0FACT%20SHEET.pdf Fact Sheet for Healthcare Patients: https://www.[employer]/Documents/Xp ert%20Xpress%20SAR S%20CoV-2/Fact%20S heets/302-3801%20S ARS-COV-2%20PATIEN T%20FACT%20SHEET.p df Lab Interpretation Normal (test code = 71634-6) [facility] 19:37:19 Test Item Value Reference Interpretation Comments Range SARS-COV2/RT-PCR Negative Negative The SARS-Co V-2 (test code = target nucleic 29804-8) acids are not detected in thi s specimen. Negat susan results do not preclude SARS-C oV-2 infection and should not be u sed as the sole bas is for patient management decisions. Nega tive results must be combined with clinical observations, patient history , and epidemiolog ical information. A false negative result may occu r if a specimen is improperly collected, transported or handled. This S ARS CoV-2 test is a rapid, real-ene e RT-PCR test intended for th e qualitative detection of nucleic acid fr om SARS-CoV-2 in a nasopharyngeal swab specimen colle gabrielle from individual s suspected of COVID-19 by the ir healthcare provider. PAWAN (test code = This test has been PAWAN) authorized by FDA under an EUA for use by authorized laboratories. This test is only authorized for the duration of the declaration that circumstances exist justifying the authorization of emergency use of in vitro diagnostic tests for detection and/or diagnosis of COVID-19 under Section 564(b)(1) of the Federal Food, Drug and Cosmetic Act, 21 U.S.C. 360bbb-3(b)(1), unless the authorization is terminated or revoked sooner. Fact Sheet for Healthcare Providers: https://www.[employer]/Documents/Xp ert%20Xpress%20SAR S%20CoV-2/Fact%20S heets/302-3802%20S ARS-COV-2%20HEALTH CARE%20PROVIDERS%2 0FACT%20SHEET.pdf Fact Sheet for Healthcare Patients: https://www.[employer]/Documents/Xp ert%20Xpress%20SAR S%20CoV-2/Fact%20S heets/302-3801%20S ARS-COV-2%20PATIEN T%20FACT%20SHEET.p df Lab Interpretation Normal (test code = 56332-6) [facility]21[facility]30 19:37:19 Test Item Value Reference Interpretation Comments Range SARS-COV2/RT-PCR Negative Negative The SARS-Co V-2 (test code = target nucleic 91797-2) acids are not detected in thi s specimen. Negat susan results do not preclude SARS-C oV-2 infection and should not be u sed as the sole bas is for patient management decisions. Nega tive results must be combined with clinical observations, patient history , and epidemiolog ical information. A false negative result may occu r if a specimen is improperly collected, transported or handled. This S ARS CoV-2 test is a rapid, real-ene e RT-PCR test intended for th e qualitative detection of nucleic acid fr om SARS-CoV-2 in a nasopharyngeal swab specimen collec gabrielle from individual s suspected of COVID-19 by the ir healthcare provider. PAWAN (test code = This test has been PAWAN) authorized by FDA under an EUA for use by authorized laboratories. This test is only authorized for the duration of the declaration that circumstances exist justifying the authorization of emergency use of in vitro diagnostic tests for detection and/or diagnosis of COVID-19 under Section 564(b)(1) of the Federal Food, Drug and Cosmetic Act, 21 U.S.C. 360bbb-3(b)(1), unless the authorization is terminated or revoked sooner. Fact Sheet for Healthcare Providers: https://www.[employer]/Documents/Xp ert%20Xpress%20SAR S%20CoV-2/Fact%20S heets/302-3802%20S ARS-COV-2%20HEALTH CARE%20PROVIDERS%2 0FACT%20SHEET.pdf Fact Sheet for Healthcare Patients: https://www.[employer]/Documents/Xp ert%20Xpress%20SAR S%20CoV-2/Fact%20S heets/3023801%20S ARS-COV-2%20PATIEN T%20FACT%20SHEET.p df Lab Interpretation Normal (test code = 47264-9) [facility]21[facility]30 19:37:19 Test Item Value Reference Interpretation Comments Range SARS-COV2/RT-PCR Negative Negative The SARS-Co V-2 (test code = target nucleic 32628-2) acids are not detected in thi s specimen. Negat susan results do not preclude SARS-C oV-2 infection and should not be u sed as the sole bas is for patient management decisions. Nega tive results must be combined with clinical observations, patient history , and epidemiolog ical information. A false negative result may occu r if a specimen is improperly collected, transported or handled. This S ARS CoV-2 test is a rapid, real-ene e RT-PCR test intended for th e qualitative detection of nucleic acid fr om SARS-CoV-2 in a nasopharyngeal swab specimen colle gabrielle from individual s suspected of COVID-19 by the ir healthcare provider. PAWAN (test code = This test has been PAWAN) authorized by FDA under an EUA for use by authorized laboratories. This test is only authorized for the duration of the declaration that circumstances exist justifying the authorization of emergency use of in vitro diagnostic tests for detection and/or diagnosis of COVID-19 under Section 564(b)(1) of the Federal Food, Drug and Cosmetic Act, 21 U.S.C. 360bbb-3(b)(1), unless the authorization is terminated or revoked sooner. Fact Sheet for Healthcare Providers: https://www.[employer]/Documents/Xp ert%20Xpress%20SAR S%20CoV-2/Fact%20S heets/3023802%20S ARS-COV-2%20HEALTH CARE%20PROVIDERS%2 0FACT%20SHEET.pdf Fact Sheet for Healthcare Patients: https://www.[employer]/Documents/Xp ert%20Xpress%20SAR S%20CoV-2/Fact%20S heets/302-3801%20S ARS-COV-2%20PATIEN T%20FACT%20SHEET.p df Lab Interpretation Normal (test code = 27158-0) [facility]21[facility]30 19:37:19 Test Item Value Reference Interpretation Comments Range SARS-COV2/RT-PCR Negative Negative The SARS-Co V-2 (test code = target nucleic 12357-8) acids are not detected in thi s specimen. Negat susan results do not preclude SARS-C oV-2 infection and should not be u sed as the sole bas is for patient management decisions. Nega tive results must be combined with clinical observations, patient history , and epidemiolog ical information. A false negative result may occu r if a specimen is improperly collected, transported or handled. This S ARS CoV-2 test is a rapid, real-ene e RT-PCR test intended for th e qualitative detection of nucleic acid fr om SARS-CoV-2 in a nasopharyngeal swab specimen collec gabrielle from individual s suspected of COVID-19 by the ir healthcare provider. PAWAN (test code = This test has been PAWAN) authorized by FDA under an EUA for use by authorized laboratories. This test is only authorized for the duration of the declaration that circumstances exist justifying the authorization of emergency use of in vitro diagnostic tests for detection and/or diagnosis of COVID-19 under Section 564(b)(1) of the Federal Food, Drug and Cosmetic Act, 21 U.S.C. 360bbb-3(b)(1), unless the authorization is terminated or revoked sooner. Fact Sheet for Healthcare Providers: https://www.[employer]/Documents/Xp ert%20Xpress%20SAR S%20CoV-2/Fact%20S heets/302-3802%20S ARS-COV-2%20HEALTH CARE%20PROVIDERS%2 0FACT%20SHEET.pdf Fact Sheet for Healthcare Patients: https://www.[employer]/Documents/Xp ert%20Xpress%20SAR S%20CoV-2/Fact%20S heets/302-3801%20S ARS-COV-2%20PATIEN T%20FACT%20SHEET.p df Lab Interpretation Normal (test code = 72337-4) [facility]2021-09-30 19:37:19 Test Item Value Reference Range Interpretation Comments SARS-COV2/RT-PCR Negative Negative The SARS-Co V-2 target (test code = nucleic acids a re not 7617402) detected in thi s specimen. Negative result s do not preclude SARS-C oV-2 infection and s hould not be used as the patricia e basis for patient managem ent decisions. Nega tive results must be combine d with clinical observ ations, patient history , and epidemiological information. A false negativ e result may occur if a spec imen is improperly isreal ected, transported or handled. This SARS CoV-2 test is a rapid, real-time RT-PC R test intended for th e qualitative detection of nu cleic acid from SARS-CoV-2 in a nasopharyngeal swab specimen collected from individuals suspected of CO VID-19 by their healthcar e provider. This test has been authorized by FDA under an EUA for use by authorized laboratories. This test is only authorized for the duration of the declaration that circumstances exist justifying the authorization of emergency use of in vitro diagnostic tests for detection and/or diagnosis of COVID-19 under Section 564(b)(1) of the Federal Food, Drug and Cosmetic Act, 21 U.S.C. 360bbb-3(b)(1), unless the authorization is terminated or revoked sooner. Fact Sheet for Healthcare Providers: https://www.[employer].co m/Documents/Xpert%20Xpress%20SARS%20CoV-2/Fact%20Sheets/302-3802%11EXCP-SHK-3%20 HEALTHCARE%20PROVIDERS%20FACT%20SHEET.pdf Fact Sheet for Healthcare Patients: https://www.[employer]/Documents/Xpert%20Xp ress%20SARS%20CoV-2/Fact%20Sheets/302-3801%38DYJB-UFV-9%20PATIENT%20FACT%20SHEET .pdfHigh Sens Trop I ([facility] Only)2021-09-30 16:07:03 Test Item Value Reference Range Interpretation Comments Troponin I HS (test 12 pg/ml See_Comment [Automa gabrielle code = 39680-3) message] The system which generated this result transmitted reference range : <=35. The reference range was not used to interpret this result as normal/abnormal . PAWAN (test code = Sliding Joint Maker ID - PAWAN) FSEThe PROFESSOR OF MEDICINE STAT High Sensitivity Troponin-I results should be used in conjunction with other diagnostic information such as ECG, clinical observations and information, and patient symptoms to aid in the diagnosis of [place]. Lab Interpretation Normal (test code = 91139-4) [facility] 16:07:03 Test Item Value Reference Range Interpretation Comments Troponin I HS (test 12 pg/ml See_Comment [Automa gabrielle code = 33944-0) message] The system which generated this result transmitted reference range : <=35. The reference range was not used to interpret this result as normal/abnormal . PAWAN (test code = Sliding Joint Maker ID - PAWAN) FSEThe PROFESSOR OF MEDICINE STAT High Sensitivity Troponin-I results should be used in conjunction with other diagnostic information such as ECG, clinical observations and information, and patient symptoms to aid in the diagnosis of [place]. Lab Interpretation Normal (test code = 24976-8) [facility]2021-09-30 16:07:03 Test Item Value Reference Range Interpretation Comments Troponin I HS (test 12 pg/ml See_Comment [Automa gabrielle code = 83965-0) message] The system which generated this result transmitted reference range : <=35. The reference range was not used to interpret this result as normal/abnormal . PAWAN (test code = Sliding Joint Maker ID - PAWAN) FSEThe PROFESSOR OF MEDICINE STAT High Sensitivity Troponin-I results should be used in conjunction with other diagnostic information such as ECG, clinical observations and information, and patient symptoms to aid in the diagnosis of [place]. Lab Interpretation Normal (test code = 61865-6) [facility]2021-09-30 16:07:03 Test Item Value Reference Range Interpretation Comments Troponin I HS (test 12 pg/ml See_Comment [Automa gabrielle code = 92724-2) message] The system which generated this result transmitted reference range : <=35. The reference range was not used to interpret this result as normal/abnormal . PAWAN (test code = Sliding Joint Maker ID - PAWAN) FSEThe PROFESSOR OF MEDICINE STAT High Sensitivity Troponin-I results should be used in conjunction with other diagnostic information such as ECG, clinical observations and information, and patient symptoms to aid in the diagnosis of [place]. Lab Interpretation Normal (test code = 92075-6) [facility]2021-09-30 16:07:03 Test Item Value Reference Range Interpretation Comments Troponin I HS (test 12 pg/ml See_Comment [Automa gabrielle code = 22171-8) message] The system which generated this result transmitted reference range : <=35. The reference range was not used to interpret this result as normal/abnormal . PAWAN (test code = Sliding Joint Maker ID - PAWAN) FSEThe PROFESSOR OF MEDICINE STAT High Sensitivity Troponin-I results should be used in conjunction with other diagnostic information such as ECG, clinical observations and information, and patient symptoms to aid in the diagnosis of [place]. Lab Interpretation Normal (test code = 02330-0) [facility] TROPONIN [id number] 16:07:03 Test Item Value Reference Range Interpretation Comments HIGH SENSITIVITY 12 pg/ml See_Comment [Automated message] TROPONIN I (test code = The system which 4347861) generated this result transmitted ref erence range: <=35. Th e reference range was not used to int erpret this result as normal/abnormal . Sliding Joint Maker ID - FSEThe PROFESSOR OF MEDICINE STAT High Sensitivity Troponin-I results should be used in conjunction with other diagnostic information such as ECG, clinical observations and information, and patient symptoms to aid in the diagnosis of [place].B-type Natriuretic Factor (BNP)2021-09-30 16:06:38 Test Item Value Reference Range Interpretation Comments BNP (test code = 17927-5) 232 pg/mL 0-100 H PAWAN (test code = APWAN) Sliding Joint Maker ID - FSE Lab Interpretation (test Abnormal code = 70677-1) [facility]2021-09-30 16:06:38 Test Item Value Reference Range Interpretation Comments BNP (test code = 19478-6) 232 pg/mL 0-100 H PAWAN (test code = PAWAN) Sliding Joint Maker ID - FSE Lab Interpretation (test Abnormal code = 67045-7) [facility]2021-09-30 16:06:38 Test Item Value Reference Range Interpretation Comments BNP (test code = 53897-6) 232 pg/mL 0-100 H PAWAN (test code = PAWAN) Sliding Joint Maker ID - FSE Lab Interpretation (test Abnormal code = 57953-8) [facility]2021-09-30 16:06:38 Test Item Value Reference Range Interpretation Comments BNP (test code = 12679-2) 232 pg/mL 0-100 H PAWAN (test code = PAWAN) Sliding Joint Maker ID - FSE Lab Interpretation (test Abnormal code = 98706-1) [facility]2021-09-30 16:06:38 Test Item Value Reference Range Interpretation Comments BNP (test code = 58797-8) 232 pg/mL 0-100 H PAWAN (test code = PAWAN) Sliding Joint Maker ID - FSE Lab Interpretation (test Abnormal code = 81686-5) [facility] (BNP)2021-09-30 16:06:38 Test Item Value Reference Range Interpretation Comments B-TYPE NATRIURETIC PEPTIDE (BEAKER) 232 pg/mL 0-100 H (test code = 700) Sliding Joint Maker ID - FSEPROTHROMBIN TIME/[id number] 16:04:38 Test Item Value Reference Range Interpretation Comments PROTIME (BEAKER) 23.8 seconds 11.9-14.2 H (test code = 759) INR (BEAKER) (test 2.16 See_Comment [Automat ed message] code = 370) The system [employer] generated this result transmitted ref erence range: <=5.90. The reference range was not used to int erpret this result as normal/abnormal . RECOMMENDED COUMADIN/WARFARIN INR THERAPY RANGESSTANDARD DOSE: 2.0 - 3.0 Includes: PROPHYLAXIS for venous thrombosis, systemic embolization; TREATMENT for venous thrombosis and/or pulmonary embolus.HIGH RISK: Target INR is 2.5-3.5 for patients with mechanical heart valves.[id number] 16:04:00 Test Item Value Reference Range Interpretation Comments Lipase (test code = 3040-3) 60 U/L 8-78 PAWAN (test code = PAWAN) Sliding Joint Maker ID - FSE Lab Interpretation (test Normal code = 57641-1) [facility]2021[facility] 16:04:00 Test Item Value Reference Range Interpretation Comments Lipase (test code = 3040-3) 60 U/L 8-78 PAWAN (test code = PAWAN) Sliding Joint Maker ID - FSE Lab Interpretation (test Normal code = 21767-0) [facility]2021[facility] 16:04:00 Test Item Value Reference Range Interpretation Comments Lipase (test code = 3040-3) 60 U/L 8-78 PAWAN (test code = PAWAN) Sliding Joint Maker ID - FSE Lab Interpretation (test Normal code = 35406-1) [facility]21[facility] 16:04:00 Test Item Value Reference Range Interpretation Comments Lipase (test code = 3040-3) 60 U/L 8-78 PAWAN (test code = PAWAN) Sliding Joint Maker ID - FSE Lab Interpretation (test Normal code = 52363-9) [facility] 16:04:00 Test Item Value Reference Range Interpretation Comments Lipase (test code = 3040-3) 60 U/L 8-78 PAWAN (test code = PAWAN) Sliding Joint Maker ID - FSE Lab Interpretation (test Normal code = 03236-6) [facility] 16:04:00 Test Item Value Reference Range Interpretation Comments LIPASE (BEAKER) (test code = 749) 60 U/L 8-78 Sliding Joint Maker ID - FSEComprehensive metabolic [id number] 16:03:59 Test Item Value Reference Range Interpretation Comments Protein, Total (test 7.7 See_Comment Specime n code = 2885-2) moderately hemolyzed [Automated message] The system which generated this result transmit gabrielle reference range : 6.0 - 8.3 gm/dL . The reference range was not u sed to interpret th is result as normal/abnormal . Albumin (test code = 4.0 g/dL 3.5-5.0 [place] n [address]-7) moderately hemolyzed Alkaline Phosphatase 20 U/L 40-150 L (test code = 6768-6) Total Bilirubin (test 1.4 mg/dL 0.2-1.2 H Specim en code = 1974-) moderately hemolyzed Sodium (test code = 142 meq/L 221-903 5369-2) Potassium (test code 5.1 meq/L 3.5-5.1 Specime n = 2823-3) moderately hemolyzed Chloride (test code = 104 meq/L 98-107 2075-0) CO2 (test code = 29 meq/L 22-29 2027-9) BUN (test code = 23 mg/dL 7-21 H 3094-0) Creatinine (test code 1.27 mg/dL 0.57-1.25 H Specim en = 2160-0) moderately hemolyzed Glucose (test code = 93 mg/dL 70-105 2345-7) Calcium (test code = 9.2 mg/dL 8.4-10.2 42491-9) AST (test code = 29 U/L 5-34 Specimen 1920-8) moderately hemolyzed ALT (test code = 23 U/L 6-55 Specimen 1742-6) moderately hemolyzed EGFR (test code = 56 mL/min/1.73 [place] [address]-9) NOT ACCURATE CREATININE CLEARANCE IN PREDICTING GLOMERULAR FILTRATION RATE . ESTIMATED GFR I S NOT APPLICABLE FOR DIALYSIS PATIEN TS. PAWAN (test code = PAWAN) Sliding Joint Maker ID - FSE Lab Interpretation Abnormal (test code = 84542-0) [facility]Magnesium2021-[facility]-27 16:03:59 Test Item Value Reference Range Interpretation Comments Magnesium (test code = 2.3 mg/dL 1.6-2.6 Speci men 97211-8) moderately hemolyzed PAWAN (test code = PAWAN) Sliding Joint Maker ID - FSE Lab Interpretation Normal (test code = 31885-0) [facility] HospitalComprehensive metabolic [id number] 16:03:59 Test Item Value Reference Range Interpretation Comments Protein, Total (test 7.7 See_Comment Specime n code = 3965-2) moderately hemolyzed [Automated message] The system which generated this result transmit gabrielle reference range : 6.0 - 8.3 gm/dL . The reference range was not u sed to interpret th is result as normal/abnormal . Albumin (test code = 4.0 g/dL 3.5-5.0 [place] [address]-8) moderately hemolyzed Alkaline Phosphatase 20 U/L 40-150 L (test code = 6768-6) Total Bilirubin (test 1.4 mg/dL 0.2-1.2 H Specim en code = 1975-2) moderately hemolyzed Sodium (test code = 142 meq/L 197-548 0302-2) Potassium (test code 5.1 meq/L 3.5-5.1 Specime n = 2823-3) moderately hemolyzed Chloride (test code = 104 meq/L 98-107 2075-0) CO2 (test code = 29 meq/L 22-29 8-9) BUN (test code = 23 mg/dL 7-21 H 3094-0) Creatinine (test code 1.27 mg/dL 0.57-1.25 H Specim en = 2160-0) moderately hemolyzed Glucose (test code = 93 mg/dL 70-105 2345-7) Calcium (test code = 9.2 mg/dL 8.4-10.2 28686-6) AST (test code = 29 U/L 5-34 Specimen 1920-8) moderately hemolyzed ALT (test code = 23 U/L 6-55 Specimen 1742-6) moderately hemolyzed EGFR (test code = 56 mL/min/1.73 [place] [address]-1) NOT ACCURATE CREATININE CLEARANCE IN PREDICTING GLOMERULAR FILTRATION RATE . ESTIMATED GFR I S NOT APPLICABLE FOR DIALYSIS PATIEN TS. PAWAN (test code = PAWAN) Sliding Joint Maker ID - FSE Lab Interpretation Abnormal (test code = 34346-8) [facility] HospitalMagnesium2021-12-27 16:03:59 Test Item Value Reference Range Interpretation Comments Magnesium (test code = 2.3 mg/dL 1.6-2.6 Speci men 56855-4) moderately hemolyzed PAWAN (test code = PAWAN) Sliding Joint Maker ID - FSE Lab Interpretation Normal (test code = 21871-4) [facility]Com[facility] metabolic [id number] 16:03:59 Test Item Value Reference Range Interpretation Comments Protein, Total (test 7.7 See_Comment Specime n code = 2885-2) moderately hemolyzed [Automated message] The system which generated this result transmit gabrielle reference range : 6.0 - 8.3 gm/dL . The reference range was not u sed to interpret th is result as normal/abnormal . Albumin (test code = 4.0 g/dL 3.5-5.0 [place] [address]-4) moderately hemolyzed Alkaline Phosphatase 20 U/L 40-150 L (test code = 6768-6) Total Bilirubin (test 1.4 mg/dL 0.2-1.2 H Specim en code = 1974-2) moderately hemolyzed Sodium (test code = 142 meq/L 671-310 1333-2) Potassium (test code 5.1 meq/L 3.5-5.1 Specime n = 2823-3) moderately hemolyzed Chloride (test code = 104 meq/L 98-107 2075-0) CO2 (test code = 29 meq/L 22-29 8-9) BUN (test code = 23 mg/dL 7-21 H 3094-0) Creatinine (test code 1.27 mg/dL 0.57-1.25 H Specim en = 2160-0) moderately hemolyzed Glucose (test code = 93 mg/dL 70-105 2345-7) Calcium (test code = 9.2 mg/dL 8.4-10.2 29502-7) AST (test code = 29 U/L 5-34 Specimen 1920-8) moderately hemolyzed ALT (test code = 23 U/L 6-55 Specimen 1742-6) moderately hemolyzed EGFR (test code = 56 mL/min/1.73 [place] [address]-3) NOT ACCURATE CREATININE CLEARANCE IN PREDICTING GLOMERULAR FILTRATION RATE . ESTIMATED GFR I S NOT APPLICABLE FOR DIALYSIS PATIEN TS. PAWAN (test code = PAWAN) Sliding Joint Maker ID - FSE Lab Interpretation Abnormal (test code = 47192-1) [facility]esium2021-[facility] 16:03:59 Test Item Value Reference Range Interpretation Comments Magnesium (test code = 2.3 mg/dL 1.6-2.6 Speci men 96562-0) moderately hemolyzed PAWAN (test code = PAWAN) Sliding Joint Maker ID - FSE Lab Interpretation Normal (test code = 71552-1) [facility]Com[facility] metabolic [id number] 16:03:59 Test Item Value Reference Range Interpretation Comments Protein, Total (test 7.7 See_Comment Specime n code = 2885-2) moderately hemolyzed [Automated message] The system which generated this result transmit gabrielle reference range : 6.0 - 8.3 gm/dL . The reference range was not u sed to interpret th is result as normal/abnormal . Albumin (test code = 4.0 g/dL 3.5-5.0 [place] n [address]-1) moderately hemolyzed Alkaline Phosphatase 20 U/L 40-150 L (test code = 6768-6) Total Bilirubin (test 1.4 mg/dL 0.2-1.2 H Specim en code = 1975-2) moderately hemolyzed Sodium (test code = 142 meq/L 763-615 9950-2) Potassium (test code 5.1 meq/L 3.5-5.1 Specime n = 2823-3) moderately hemolyzed Chloride (test code = 104 meq/L 98-107 2075-0) CO2 (test code = 29 meq/L 22-29 2028-9) BUN (test code = 23 mg/dL 7-21 H 3094-0) Creatinine (test code 1.27 mg/dL 0.57-1.25 H Specim en = 2160-0) moderately hemolyzed Glucose (test code = 93 mg/dL 70-105 2345-7) Calcium (test code = 9.2 mg/dL 8.4-10.2 52025-5) AST (test code = 29 U/L 5-34 Specimen 1920-8) moderately hemolyzed ALT (test code = 23 U/L 6-55 Specimen 1742-6) moderately hemolyzed EGFR (test code = 56 mL/min/1.73 [place] [address]-7) NOT ACCURATE CREATININE CLEARANCE IN PREDICTING GLOMERULAR FILTRATION RATE . ESTIMATED GFR I S NOT APPLICABLE FOR DIALYSIS PATIEN TSBetina PAWAN (test code = PAWAN) Sliding Joint Maker ID - FSE Lab Interpretation Abnormal (test code = 48314-2) [facility]esium2021-[facility]27 16:03:59 Test Item Value Reference Range Interpretation Comments Magnesium (test code = 2.3 mg/dL 1.6-2.6 Speci men 88139-7) moderately hemolyzed PAWAN (test code = PAWAN) Sliding Joint Maker ID - FSE Lab Interpretation Normal (test code = 86491-8) [facility]Com[facility] [id number] 16:03:59 Test Item Value Reference Range Interpretation Comments Protein, Total (test 7.7 See_Comment Specime n code = 2885-2) moderately hemolyzed [Automated message] The system which generated this result transmit gabrielle reference range : 6.0 - 8.3 gm/dL . The reference range was not u sed to interpret th is result as normal/abnormal . Albumin (test code = 4.0 g/dL 3.5-5.0 [place] n [address]-2) moderately hemolyzed Alkaline Phosphatase 20 U/L 40-150 L (test code = 6768-6) Total Bilirubin (test 1.4 mg/dL 0.2-1.2 H Specim en code = 1974-2) moderately hemolyzed Sodium (test code = 142 meq/L 130-799 7074-2) Potassium (test code 5.1 meq/L 3.5-5.1 Specime n = 2823-3) moderately hemolyzed Chloride (test code = 104 meq/L 98-107 5-0) CO2 (test code = 29 meq/L 22-29 2027-9) BUN (test code = 23 mg/dL 7-21 H 3094-0) Creatinine (test code 1.27 mg/dL 0.57-1.25 H Specim en = 2160-0) moderately hemolyzed Glucose (test code = 93 mg/dL 70-105 2345-7) Calcium (test code = 9.2 mg/dL 8.4-10.2 95706-5) AST (test code = 29 U/L 5-34 Specimen 1920-8) moderately hemolyzed ALT (test code = 23 U/L 6-55 Specimen 1742-6) moderately hemolyzed EGFR (test code = 56 mL/min/1.73 [place] [address]-2) NOT ACCURATE CREATININE CLEARANCE IN PREDICTING GLOMERULAR FILTRATION RATE . ESTIMATED GFR I S NOT APPLICABLE FOR DIALYSIS PATIEN TS. PAWAN (test code = PAWAN) Sliding Joint Maker ID - FSE Lab Interpretation Abnormal (test code = 58500-4) [facility]esium2021[facility] 16:03:59 Test Item Value Reference Range Interpretation Comments Magnesium (test code = 2.3 mg/dL 1.6-2.6 Speci men 16845-0) moderately hemolyzed PAWAN (test code = PAWAN) Sliding Joint Maker ID - FSE Lab Interpretation Normal (test code = 60404-5) [facility]UM2021[facility] 16:03:59 Test Item Value Reference Range Interpretation Comments MAGNESIUM (BEAKER) 2.3 mg/dL 1.6-2.6 Specimen moderately (test code = 627) hemolyzed Sliding Joint Maker ID - FSECOMPREHENSIVE METABOLIC [id number] 16:03:59 Test Item Value Reference Range Interpretation Comments TOTAL PROTEIN 7.7 gm/dL 6.0-8.3 Specimen moder ately (BEAKER) (test code = hemoly zed 770) ALBUMIN (BEAKER) 4.0 g/dL 3.5-5.0 Specimen mo derately (test code = 1145) hemolyzed ALKALINE PHOSPHATASE 20 U/L 40-150 L (BEAKER) (test code = 346) BILIRUBIN TOTAL 1.4 mg/dL 0.2-1.2 H Specimen mod erately (BEAKER) (test code = hemoly zed 377) SODIUM (BEAKER) (test 142 meq/L 136-145 code = 381) POTASSIUM (BEAKER) 5.1 meq/L 3.5-5.1 Specimen moderately (test code = 379) hemolyzed CHLORIDE (BEAKER) 104 meq/L 98-107 (test code = 382) CO2 (BEAKER) (test 29 meq/L 22-29 code = 355) BLOOD UREA NITROGEN 23 mg/dL 7-21 H (BEAKER) (test code = 354) CREATININE (BEAKER) 1.27 mg/dL 0.57-1.25 H Specimen moderately (test code = 358) hemolyzed GLUCOSE RANDOM 93 mg/dL 70-105 (BEAKER) (test code = 652) CALCIUM (BEAKER) 9.2 mg/dL 8.4-10.2 (test code = 697) AST (SGOT) (BEAKER) 29 U/L 5-34 Specimen moderately (test code = 353) hemolyzed ALT (SGPT) (BEAKER) 23 U/L 6-55 Specimen moderately (test code = 347) hemolyzed EGFR (BEAKER) (test 56 mL/min/1.73 ESTIMA GABRIELLE GFR IS code = 1092) sq m NOT ACCURATE CREATININE CLEARANCE IN PREDICTING GLOMERULAR FILTRATION RATE . ESTIMATED GFR I S NOT APPLICABLE FOR DIALYSIS PATIEN TS. Sliding Joint Maker ID - FSECBC W/PLT COUNT & AUTO [id number] 15:46:55 Test Item Value Reference Range Interpretation Comments WHITE BLOOD CELL COUNT (BEAKER) 7.2 K/ L 3.5-10.5 (test code = 775) RED BLOOD CELL COUNT (BEAKER) 4.32 M/ L 4.63-6.08 L (test code = 761) HEMOGLOBIN (BEAKER) (test code = 13.2 GM/DL 13.7-17.5 L 410) HEMATOCRIT (BEAKER) (test code = 40.0 % 40.1-51.0 L 411) MEAN CORPUSCULAR VOLUME (BEAKER) 92.6 fL 79.0-92.2 H (test code = 753) MEAN CORPUSCULAR HEMOGLOBIN 30.6 pg 25.7-32.2 (BEAKER) (test code = 751) MEAN CORPUSCULAR HEMOGLOBIN CONC 33.0 GM/DL 32.3-36.5 (BEAKER) (test code = 752) RED CELL DISTRIBUTION WIDTH 14.5 % 11.6-14.4 H (BEAKER) (test code = 412) PLATELET COUNT (BEAKER) (test 170 K/CU MM 150-450 code = 756) MEAN PLATELET VOLUME (BEAKER) 10.6 fL 9.4-12.4 (test code = 754) NUCLEATED RED BLOOD CELLS 0 /100 WBC 0-0 (BEAKER) (test code = 413) NEUTROPHILS RELATIVE PERCENT 68 % (BEAKER) (test code = 429) LYMPHOCYTES RELATIVE PERCENT 16 % (BEAKER) (test code = 430) MONOCYTES RELATIVE PERCENT 13 % (BEAKER) (test code = 431) EOSINOPHILS RELATIVE PERCENT 3 % (BEAKER) (test code = 432) BASOPHILS RELATIVE PERCENT 0 % (BEAKER) (test code = 437) NEUTROPHILS ABSOLUTE COUNT 4.84 K/ L 1.78-5.38 (BEAKER) (test code = 670) LYMPHOCYTES ABSOLUTE COUNT 1.14 K/ L 1.32-3.57 L (BEAKER) (test code = 414) MONOCYTES ABSOLUTE COUNT (BEAKER) 0.94 K/ L 0.30-0.82 H (test code = 415) EOSINOPHILS ABSOLUTE COUNT 0.20 K/ L 0.04-0.54 (BEAKER) (test code = 416) BASOPHILS ABSOLUTE COUNT (BEAKER) 0.02 K/ L 0.01-0.08 (test code = 417) IMMATURE GRANULOCYTES-RELATIVE 0 % 0-1 PERCENT (BEAKER) (test code = 2801) RAD, FOOT, MIN 3 VIEWS, [id number] 13:41:00Reason for exam:->[facility] D[facility] Ruben : 1950 Sex: MFINAL REPORT RAD, FOOT, MIN 3 VIEWS, LEFT CLINICAL INDICATION: Left foot pain COMPARISON: None FINDINGS: Frontal, oblique and lateral views of the left foot. No fracture is identified.The joint spaces appear preserved. Surrounding soft tissues are unremarkable. IMPRESSION: No acute abnormality of the left foot. Signed: JR Garay Robert MDReport Verified Date/Time: 09/30/2021 13:41:30 Reading Location: [facility] Radiology Reading Room RAD, CHEST, 1 VIEW, NON [id number] 13:40:00Reason for exam:->Abdominal bloatingShould this be performed at the bedside?->Yes [facility]ENTERName[facility]FONZO DYER : 1950 Sex: MFINAL REPORT INDICATION: Abdominal bloating COMPARISON: None TECHNIQUE: Single frontal view of the chest. IMPRESSION:Lungs and pleura: Scattered interstitial congestion. No lobar consolidation. No effusion.Heart and mediastinum: Prominent cardiac size. Sternotomy wires are intact.Osseous structures: No acute abnormality.Other: None. Signed: JR Garay Robert MDReport Verified Date/Time: 09/30/2021 13:40:51 Reading Location: [facility] Radiology Reading Room POCT-GLUCOSE [id number] 11:51:00 Test Item Value Reference Range Interpretation Comments POC-GLUCOSE METER 113 mg/dL 70-110 H : TESTED A T [facility] 6720 (BEAKER) (test code [facility], = 1538) 80468: Sliding Joint Maker/Techni caden ID = [id number] for LEWI S, [place] POCT-GLUCOSE [id number] 07:37:00 Test Item Value Reference Range Interpretation Comments POC-GLUCOSE METER 100 mg/dL 70-110 : TESTED A T [facility] 67[facility] (BEAKER) (test code [facility], = 1538) 57714: Sliding Joint Maker/Techni caden ID = [id number] for LEWI S, [place] COMPREHENSIVE METABOLIC [id number] 06:13:00 Test Item Value Reference Range Interpretation Comments TOTAL PROTEIN 5.6 gm/dL 6.0-8.3 L (BEAKER) (test code = 770) ALBUMIN (BEAKER) 2.8 g/dL 3.5-5.0 L (test code = 1145) ALKALINE PHOSPHATASE 35 U/L 40-150 L (BEAKER) (test code = 346) BILIRUBIN TOTAL 0.5 mg/dL 0.2-1.2 (BEAKER) (test code = 377) SODIUM (BEAKER) (test 140 meq/L 136-145 code = 381) POTASSIUM (BEAKER) 4.6 meq/L 3.5-5.1 (test code = 379) CHLORIDE (BEAKER) 106 meq/L 98-107 (test code = 382) CO2 (BEAKER) (test 29 meq/L 22-29 code = 355) BLOOD UREA NITROGEN 16 mg/dL 7-21 (BEAKER) (test code = 354) CREATININE (BEAKER) 0.81 mg/dL 0.57-1.25 (test code = 358) GLUCOSE RANDOM 104 mg/dL 70-105 (BEAKER) (test code = 652) CALCIUM (BEAKER) 8.0 mg/dL 8.4-10.2 L (test code = 697) AST (SGOT) (BEAKER) 21 U/L 5-34 (test code = 353) ALT (SGPT) (BEAKER) 25 U/L 6-55 (test code = 347) EGFR (BEAKER) (test 95 mL/min/1.73 ESTIMA GABRIELLE GFR IS code = 1092) sq m NOT ACCURATE CREATININE CLEARANCE IN PREDICTING GLOMERULAR FILTRATION RATE . ESTIMATED GFR I S NOT APPLICABLE FOR DIALYSIS PATIEN TS. Sliding Joint Maker ID - [id number] 06:13:00 Test Item Value Reference Range Interpretation Comments MAGNESIUM (BEAKER) (test code = 2.2 mg/dL 1.6-2.6 627) Sliding Joint Maker ID - EDASIPROTHROMBIN TIME/[id number] 06:04:00 Test Item Value Reference Range Interpretation Comments PROTIME (BEAKER) (test code = 26.4 seconds 11.9-14.2 H 759) INR (BEAKER) (test code = 370) 2.53 <=5.90 Effective 03/02/2019: PT Reference Range ChangeNew: 11.9-14.2 Previous: 11.7- 14.7RECOMMENDED COUMADIN/WARFARIN INR THERAPY RANGESSTANDARD DOSE: 2.0-3.0 Includes: PROPHYLAXIS for venous thrombosis, systemic embolization; TREATMENT for venous thrombosis and/or pulmonary embolus.HIGH RISK: Target INR is 2.5-3.5 for patients wiht mechanical heart valves.While on warfarin.PROTHROMBIN TIME/INR 2020-10-14 06:04:00 Test Item Value Reference Range Interpretation Comments PROTIME (BEAKER) (test code = 26.5 seconds 11.9-14.2 H 759) INR (BEAKER) (test code = 370) 2.54 <=5.90 Effective 03/02/2019: PT Reference Range ChangeNew: 11.9-14.2 Previous: 11.7- 14.7RECOMMENDED COUMADIN/WARFARIN INR THERAPY RANGESSTANDARD DOSE: 2.0-3.0 Includes: PROPHYLAXIS for venous thrombosis, systemic embolization; TREATMENT for venous thrombosis and/or pulmonary embolus.HIGH RISK: Target INR is 2.5-3.5 for patients wiht mechanical heart valves.CBC W/PLT COUNT & AUTO [id number] 05:52:00 Test Item Value Reference Range Interpretation Comments WHITE BLOOD CELL COUNT (BEAKER) 6.4 K/ L 3.5-10.5 (test code = 775) RED BLOOD CELL COUNT (BEAKER) 3.87 M/ L 4.63-6.08 L (test code = 761) HEMOGLOBIN (BEAKER) (test code = 11.5 GM/DL 13.7-17.5 L 410) HEMATOCRIT (BEAKER) (test code = 36.2 % 40.1-51.0 L 411) MEAN CORPUSCULAR VOLUME (BEAKER) 93.5 fL 79.0-92.2 H (test code = 753) MEAN CORPUSCULAR HEMOGLOBIN 29.7 pg 25.7-32.2 (BEAKER) (test code = 751) MEAN CORPUSCULAR HEMOGLOBIN CONC 31.8 GM/DL 32.3-36.5 L (BEAKER) (test code = 752) RED CELL DISTRIBUTION WIDTH 14.4 % 11.6-14.4 (BEAKER) (test code = 412) PLATELET COUNT (BEAKER) (test 197 K/CU MM 150-450 code = 756) MEAN PLATELET VOLUME (BEAKER) 9.7 fL 9.4-12.4 (test code = 754) NUCLEATED RED BLOOD CELLS 0 /100 WBC 0-0 (BEAKER) (test code = 413) NEUTROPHILS RELATIVE PERCENT 64 % (BEAKER) (test code = 429) LYMPHOCYTES RELATIVE PERCENT 19 % (BEAKER) (test code = 430) MONOCYTES RELATIVE PERCENT 14 % (BEAKER) (test code = 431) EOSINOPHILS RELATIVE PERCENT 3 % (BEAKER) (test code = 432) BASOPHILS RELATIVE PERCENT 0 % (BEAKER) (test code = 437) NEUTROPHILS ABSOLUTE COUNT 4.11 K/ L 1.78-5.38 (BEAKER) (test code = 670) LYMPHOCYTES ABSOLUTE COUNT 1.21 K/ L 1.32-3.57 L (BEAKER) (test code = 414) MONOCYTES ABSOLUTE COUNT (BEAKER) 0.87 K/ L 0.30-0.82 H (test code = 415) EOSINOPHILS ABSOLUTE COUNT 0.16 K/ L 0.04-0.54 (BEAKER) (test code = 416) BASOPHILS ABSOLUTE COUNT (BEAKER) 0.01 K/ L 0.01-0.08 (test code = 417) IMMATURE GRANULOCYTES-RELATIVE 1 % 0-1 PERCENT (BEAKER) (test code = 2801) POCT-GLUCOSE [id number] 02:31:00 Test Item Value Reference Range Interpretation Comments POC-GLUCOSE METER 146 mg/dL 70-110 H : TESTED A T [facility] 6720 (BEAKER) (test code = [facility], 153) [id number]: Sliding Joint Maker/Techni caden ID = [id number] for ELIF SANCHEZ POCT-GLUCOSE [id number] 16:26:00 Test Item Value Reference Range Interpretation Comments POC-GLUCOSE METER 109 mg/dL 70-110 : TESTED A T [facility] 6720 (BEAKER) (test code = [facility], 153) 59628: Sliding Joint Maker/Techni caden ID = [id number] for ST [facility], NADA POCT-GLUCOSE [id number] 10:56:00 Test Item Value Reference Range Interpretation Comments POC-GLUCOSE METER 128 mg/dL 70-110 H : TESTED A T [facility] 6720 (BEAKER) (test code = [facility], 153) 41481: Sliding Joint Maker/Techni caden ID = [id number] for ST [facility]JC[facility], NADA POCT-GLUCOSE [id number] 07:27:00 Test Item Value Reference Range Interpretation Comments POC-GLUCOSE METER 102 mg/dL 70-110 : TESTED A T [facility] 6720 (BEAKER) (test code = [facility] [place], 1538) 23118: Sliding Joint Maker/Techni caden ID = [id number] for COLEEN AYOUB COMPREHENSIVE METABOLIC [id number] 05:14:00 Test Item Value Reference Range Interpretation Comments TOTAL PROTEIN 5.6 gm/dL 6.0-8.3 L (BEAKER) (test code = 770) ALBUMIN (BEAKER) 2.7 g/dL 3.5-5.0 L (test code = 1145) ALKALINE PHOSPHATASE 29 U/L 40-150 L (BEAKER) (test code = 346) BILIRUBIN TOTAL 0.6 mg/dL 0.2-1.2 (BEAKER) (test code = 377) SODIUM (BEAKER) (test 139 meq/L 136-145 code = 381) POTASSIUM (BEAKER) 4.7 meq/L 3.5-5.1 (test code = 379) CHLORIDE (BEAKER) 104 meq/L 98-107 (test code = 382) CO2 (BEAKER) (test 31 meq/L 22-29 H code = 355) BLOOD UREA NITROGEN 17 mg/dL 7-21 (BEAKER) (test code = 354) CREATININE (BEAKER) 0.76 mg/dL 0.57-1.25 (test code = 358) GLUCOSE RANDOM 109 mg/dL 70-105 H (BEAKER) (test code = 652) CALCIUM (BEAKER) 7.8 mg/dL 8.4-10.2 L (test code = 697) AST (SGOT) (BEAKER) 20 U/L 5-34 (test code = 353) ALT (SGPT) (BEAKER) 27 U/L 6-55 (test code = 347) EGFR (BEAKER) (test 102 ESTIMATE D GFR IS code = 1092) mL/min/1.73 sq NOT ACCURA TE m CREATININE CLEARANCE IN PREDICTING GLOMERULAR FILTRATION RATE . ESTIMATED GFR I S NOT APPLICABLE FOR DIALYSIS PATIEN TS. Sliding Joint Maker ID - [id number] 05:09:00 Test Item Value Reference Range Interpretation Comments MAGNESIUM (BEAKER) (test code = 2.1 mg/dL 1.6-2.6 627) Sliding Joint Maker ID - EDASIPROTHROMBIN TIME/[id number] 04:54:00 Test Item Value Reference Range Interpretation Comments PROTIME (BEAKER) (test code = 26.2 seconds 11.9-14.2 H 759) INR (BEAKER) (test code = 370) 2.48 <=5.90 Effective 03/02/2019: PT Reference Range ChangeNew: 11.9-14.2 Previous: 11.7- 14.7RECOMMENDED COUMADIN/WARFARIN INR THERAPY RANGESSTANDARD DOSE: 2.0-3.0 Includes: PROPHYLAXIS for venous thrombosis, systemic embolization; TREATMENT for venous thrombosis and/or pulmonary embolus.HIGH RISK: Target INR is 2.5-3.5 for patients wiht mechanical heart valves.PROTHROMBIN TIME/[id number] 04:49:00 Test Item Value Reference Range Interpretation Comments PROTIME (BEAKER) (test code = 25.8 seconds 11.9-14.2 H 759) INR (BEAKER) (test code = 370) 2.43 <=5.90 Effective 03/02/2019: PT Reference Range ChangeNew: 11.9-14.2 Previous: 11.7- 14.7RECOMMENDED COUMADIN/WARFARIN INR THERAPY RANGESSTANDARD DOSE: 2.0-3.0 Includes: PROPHYLAXIS for venous thrombosis, systemic embolization; TREATMENT for venous thrombosis and/or pulmonary embolus.HIGH RISK: Target INR is 2.5-3.5 for patients wiht mechanical heart valves.While on warfarin.CBC W/PLT COUNT & AUTO [id number] 04:38:00 Test Item Value Reference Range Interpretation Comments WHITE BLOOD CELL COUNT (BEAKER) 7.8 K/ L 3.5-10.5 (test code = 775) RED BLOOD CELL COUNT (BEAKER) 4.05 M/ L 4.63-6.08 L (test code = 761) HEMOGLOBIN (BEAKER) (test code = 12.1 GM/DL 13.7-17.5 L 410) HEMATOCRIT (BEAKER) (test code = 37.7 % 40.1-51.0 L 411) MEAN CORPUSCULAR VOLUME (BEAKER) 93.1 fL 79.0-92.2 H (test code = 753) MEAN CORPUSCULAR HEMOGLOBIN 29.9 pg 25.7-32.2 (BEAKER) (test code = 751) MEAN CORPUSCULAR HEMOGLOBIN CONC 32.1 GM/DL 32.3-36.5 L (BEAKER) (test code = 752) RED CELL DISTRIBUTION WIDTH 14.3 % 11.6-14.4 (BEAKER) (test code = 412) PLATELET COUNT (BEAKER) (test 189 K/CU MM 150-450 code = 756) MEAN PLATELET VOLUME (BEAKER) 9.9 fL 9.4-12.4 (test code = 754) NUCLEATED RED BLOOD CELLS 0 /100 WBC 0-0 (BEAKER) (test code = 413) NEUTROPHILS RELATIVE PERCENT 65 % (BEAKER) (test code = 429) LYMPHOCYTES RELATIVE PERCENT 19 % (BEAKER) (test code = 430) MONOCYTES RELATIVE PERCENT 13 % (BEAKER) (test code = 431) EOSINOPHILS RELATIVE PERCENT 2 % (BEAKER) (test code = 432) BASOPHILS RELATIVE PERCENT 0 % (BEAKER) (test code = 437) NEUTROPHILS ABSOLUTE COUNT 5.03 K/ L 1.78-5.38 (BEAKER) (test code = 670) LYMPHOCYTES ABSOLUTE COUNT 1.49 K/ L 1.32-3.57 (BEAKER) (test code = 414) MONOCYTES ABSOLUTE COUNT (BEAKER) 0.98 K/ L 0.30-0.82 H (test code = 415) EOSINOPHILS ABSOLUTE COUNT 0.18 K/ L 0.04-0.54 (BEAKER) (test code = 416) BASOPHILS ABSOLUTE COUNT (BEAKER) 0.02 K/ L 0.01-0.08 (test code = 417) IMMATURE GRANULOCYTES-RELATIVE 1 % 0-1 PERCENT (BEAKER) (test code = 2801) POCT-GLUCOSE [id number] 22:37:00 Test Item Value Reference Range Interpretation Comments POC-GLUCOSE METER 165 mg/dL 70-110 H : TESTED A T [facility] 6720 (BEAKER) (test code = [place], 1538) 8[address]: Sliding Joint Maker/Techni caden ID = [id number] for ELIF SANCHEZ POCT-GLUCOSE [id number] 16:29:00 Test Item Value Reference Range Interpretation Comments POC-GLUCOSE METER 101 mg/dL 70-110 : TESTED A T [facility] 6720 (BEAKER) (test code = [facility], 1538) 412[address]: Sliding Joint Maker/Techni caden ID = [id number] for COLEEN AYOUB POCT-GLUCOSE [id number] 11:06:00 Test Item Value Reference Range Interpretation Comments POC-GLUCOSE METER 166 mg/dL 70-110 H : TESTED A T [facility] 6720 (BEAKER) (test code = [facility], 1538) 920[address]: Sliding Joint Maker/Techni caden ID = [id number] for COLEEN AYOUB POCT-GLUCOSE [id number] 08:31:00 Test Item Value Reference Range Interpretation Comments POC-GLUCOSE METER 91 mg/dL 70-110 : TESTED A T [facility] 6720 (BEAKER) (test code = [facility], 1538) 67598: Sliding Joint Maker/Techni caden ID = [id number] for BIANCA WEBSTER NADKelsey COMPREHENSIVE METABOLIC [id number] 07:07:00 Test Item Value Reference Range Interpretation Comments TOTAL PROTEIN 5.8 gm/dL 6.0-8.3 L (BEAKER) (test code = 770) ALBUMIN (BEAKER) 2.9 g/dL 3.5-5.0 L (test code = 1145) ALKALINE PHOSPHATASE 25 U/L 40-150 L (BEAKER) (test code = 346) BILIRUBIN TOTAL 0.8 mg/dL 0.2-1.2 (BEAKER) (test code = 377) SODIUM (BEAKER) (test 136 meq/L 136-145 code = 381) POTASSIUM (BEAKER) 4.9 meq/L 3.5-5.1 (test code = 379) CHLORIDE (BEAKER) 101 meq/L 98-107 (test code = 382) CO2 (BEAKER) (test 30 meq/L 22-29 H code = 355) BLOOD UREA NITROGEN 18 mg/dL 7-21 (BEAKER) (test code = 354) CREATININE (BEAKER) 0.80 mg/dL 0.57-1.25 (test code = 358) GLUCOSE RANDOM 108 mg/dL 70-105 H (BEAKER) (test code = 652) CALCIUM (BEAKER) 8.1 mg/dL 8.4-10.2 L (test code = 697) AST (SGOT) (BEAKER) 20 U/L 5-34 (test code = 353) ALT (SGPT) (BEAKER) 28 U/L 6-55 (test code = 347) EGFR (BEAKER) (test 96 mL/min/1.73 ESTIMA GABRIELLE GFR IS code = 1092) sq m NOT ACCURATE CREATININE CLEARANCE IN PREDICTING GLOMERULAR FILTRATION RATE . ESTIMATED GFR I S NOT APPLICABLE FOR DIALYSIS PATIEN TS. Sliding Joint Maker ID - [id number] 07:07:00 Test Item Value Reference Range Interpretation Comments MAGNESIUM (BEAKER) (test code = 2.1 mg/dL 1.6-2.6 627) Sliding Joint Maker ID - EDASICBC W/PLT COUNT & AUTO [id number] 06:50:00 Test Item Value Reference Range Interpretation Comments WHITE BLOOD CELL COUNT 8.9 K/ L 3.5-10.5 (BEAKER) (test code = 775) RED BLOOD CELL COUNT 4.33 M/ L 4.63-6.08 L (BEAKER) (test code = 761) HEMOGLOBIN (BEAKER) 12.9 GM/DL 13.7-17.5 L (test code = 410) HEMATOCRIT (BEAKER) 40.1 % 40.1-51.0 (test code = 411) MEAN CORPUSCULAR 92.6 fL 79.0-92.2 H Discordant MCV VOLUME (BEAKER) (test result s compared to code = 753) previous result s; clinical correl ation required. MEAN CORPUSCULAR 29.8 pg 25.7-32.2 HEMOGLOBIN (BEAKER) (test code = 751) MEAN CORPUSCULAR 32.2 GM/DL 32.3-36.5 L HEMOGLOBIN CONC (BEAKER) (test code = 752) RED CELL DISTRIBUTION 14.1 % 11.6-14.4 WIDTH (BEAKER) (test code = 412) PLATELET COUNT 208 K/CU MM 150-450 (BEAKER) (test code = 756) MEAN PLATELET VOLUME 9.9 fL 9.4-12.4 (BEAKER) (test code = 754) NUCLEATED RED BLOOD 0 /100 WBC 0-0 CELLS (BEAKER) (test code = 413) NEUTROPHILS RELATIVE 70 % PERCENT (BEAKER) (test code = 429) LYMPHOCYTES RELATIVE 16 % PERCENT (BEAKER) (test code = 430) MONOCYTES RELATIVE 12 % PERCENT (BEAKER) (test code = 431) EOSINOPHILS RELATIVE 2 % PERCENT (BEAKER) (test code = 432) BASOPHILS RELATIVE 0 % PERCENT (BEAKER) (test code = 437) NEUTROPHILS ABSOLUTE 6.27 K/ L 1.78-5.38 H COUNT (BEAKER) (test code = 670) LYMPHOCYTES ABSOLUTE 1.42 K/ L 1.32-3.57 COUNT (BEAKER) (test code = 414) MONOCYTES ABSOLUTE 1.03 K/ L 0.30-0.82 H COUNT (BEAKER) (test code = 415) EOSINOPHILS ABSOLUTE 0.15 K/ L 0.04-0.54 COUNT (BEAKER) (test code = 416) BASOPHILS ABSOLUTE 0.02 K/ L 0.01-0.08 COUNT (BEAKER) (test code = 417) IMMATURE 1 % 0-1 GRANULOCYTES-RELATIVE PERCENT (BEAKER) (test code = 2801) PROTHROMBIN TIME/[id number] 06:24:00 Test Item Value Reference Range Interpretation Comments PROTIME (BEAKER) (test code = 26.2 seconds 11.9-14.2 H 759) INR (BEAKER) (test code = 370) 2.48 <=5.90 Effective 03/02/2019: PT Reference Range ChangeNew: 11.9-14.2 Previous: 11.7- 14.7RECOMMENDED COUMADIN/WARFARIN INR THERAPY RANGESSTANDARD DOSE: 2.0-3.0 Includes: PROPHYLAXIS for venous thrombosis, systemic embolization; TREATMENT for venous thrombosis and/or pulmonary embolus.HIGH RISK: Target INR is 2.5-3.5 for patients wiht mechanical heart valves.While on warfarin.POCT-GLUCOSE METER 2020-10-11 20:03:00 Test Item Value Reference Range Interpretation Comments POC-GLUCOSE METER 173 mg/dL 70-110 H : TESTED A T [facility] 6720 ([facility]) (test code = [place], 1538) 956[address]: Sliding Joint Maker/Techni caden ID = [id number] for Lam villanueva (contract)Janae POCT-GLUCOSE [id number] 17:02:00 Test Item Value Reference Range Interpretation Comments POC-GLUCOSE METER 102 mg/dL 70-110 : TESTED A T [facility] 6720 (ShowMeAKER) (test code = [place], 1538) 85[address]: Sliding Joint Maker/Techni caden ID = [id number] for Eli Houston POCT-GLUCOSE [id number] 12:11:00 Test Item Value Reference Range Interpretation Comments POC-GLUCOSE METER 153 mg/dL 70-110 H : TESTED A T [facility] 6720 (BESPENCER) (test code = [place], 1538) 280[address]: Sliding Joint Maker/Techni caden ID = [id number] for Eli Houston PROTHROMBIN TIME/[id number] 10:16:00 Test Item Value Reference Range Interpretation Comments PROTIME (BEAKER) (test code = 26.8 seconds 11.9-14.2 H 759) INR (BEAKER) (test code = 370) 2.55 <=5.90 Effective 03/02/2019: PT Reference Range ChangeNew: 11.9-14.2 Previous: 11.7- 14.7RECOMMENDED COUMADIN/WARFARIN INR THERAPY RANGESSTANDARD DOSE: 2.0-3.0 Includes: PROPHYLAXIS for venous thrombosis, systemic embolization; TREATMENT for venous thrombosis and/or pulmonary embolus.HIGH RISK: Target INR is 2.5-3.5 for patients wiht mechanical heart valves.While on warfarin.COMPREHENSIVE METABOLIC [id number] 09:54:00 Test Item Value Reference Range Interpretation Comments TOTAL PROTEIN 6.1 gm/dL 6.0-8.3 (BEAKER) (test code = 770) ALBUMIN (BEAKER) 2.9 g/dL 3.5-5.0 L (test code = 1145) ALKALINE PHOSPHATASE 21 U/L 40-150 L (BEAKER) (test code = 346) BILIRUBIN TOTAL 1.1 mg/dL 0.2-1.2 (BEAKER) (test code = 377) SODIUM (BEAKER) (test 137 meq/L 136-145 code = 381) POTASSIUM (BEAKER) 4.2 meq/L 3.5-5.1 (test code = 379) CHLORIDE (BEAKER) 100 meq/L 98-107 (test code = 382) CO2 (BEAKER) (test 32 meq/L 22-29 H code = 355) BLOOD UREA NITROGEN 21 mg/dL 7-21 (BEAKER) (test code = 354) CREATININE (BEAKER) 0.82 mg/dL 0.57-1.25 (test code = 358) GLUCOSE RANDOM 150 mg/dL 70-105 H (BEAKER) (test code = 652) CALCIUM (BEAKER) 8.2 mg/dL 8.4-10.2 L (test code = 697) AST (SGOT) (BEAKER) 23 U/L 5-34 (test code = 353) ALT (SGPT) (BEAKER) 32 U/L 6-55 (test code = 347) EGFR (BEAKER) (test 93 mL/min/1.73 ESTIMA GABRIELLE GFR IS code = 1092) sq m NOT ACCURATE CREATININE CLEARANCE IN PREDICTING GLOMERULAR FILTRATION RATE . ESTIMATED GFR I S NOT APPLICABLE FOR DIALYSIS PATIEN TS. Sliding Joint Maker ID - NICOLAS [id number] 09:54:00 Test Item Value Reference Range Interpretation Comments MAGNESIUM (BEAKER) (test code = 2.1 mg/dL 1.6-2.6 627) Sliding Joint Maker ID - NICOLAS MLACTIC ACID, [id number] 09:40:00 Test Item Value Reference Range Interpretation Comments LACTATE BLOOD VENOUS 2.01 mmol/L 0.50-2.20 Specime n markedly (2) (BEAKER) (test hemolyzed code = 2492) Sliding Joint Maker ID - NICOLAS MPOCT-GLUCOSE [id number] 07:39:00 Test Item Value Reference Range Interpretation Comments POC-GLUCOSE METER 97 mg/dL 70-110 : TESTED A T [facility] 6720 (BEAKER) (test code = [place], 1538) 724[address]: Sliding Joint Maker/Techni caden ID = [id number] for Eli Martinez PROTHROMBIN TIME/[id number] 07:04:00 Test Item Value Reference Range Interpretation Comments PROTIME (BEAKER) (test code = 26.4 seconds 11.9-14.2 H 759) INR (BEAKER) (test code = 370) 2.53 <=5.90 Effective 03/02/2019: PT Reference Range ChangeNew: 11.9-14.2 Previous: 11.7- 14.7RECOMMENDED COUMADIN/WARFARIN INR THERAPY RANGESSTANDARD DOSE: 2.0-3.0 Includes: PROPHYLAXIS for venous thrombosis, systemic embolization; TREATMENT for venous thrombosis and/or pulmonary embolus.HIGH RISK: Target INR is 2.5-3.5 for patients wiht mechanical heart valves.CBC W/PLT COUNT & AUTO [id number] 06:59:00 Test Item Value Reference Range Interpretation Comments WHITE BLOOD CELL COUNT 10.0 K/ L 3.5-10.5 (BEAKER) (test code = 775) RED BLOOD CELL COUNT 4.65 M/ L 4.63-6.08 (BEAKER) (test code = 761) HEMOGLOBIN (BEAKER) 13.8 GM/DL 13.7-17.5 (test code = 410) HEMATOCRIT (BEAKER) 45.5 % 40.1-51.0 (test code = 411) MEAN CORPUSCULAR 97.8 fL 79.0-92.2 H Discordant result VOLUME (BEAKER) (test compar ed to code = 753) previous, clini kristin correlation required. MEAN CORPUSCULAR 29.7 pg 25.7-32.2 HEMOGLOBIN (BEAKER) (test code = 751) MEAN CORPUSCULAR 30.3 GM/DL 32.3-36.5 L HEMOGLOBIN CONC (BEAKER) (test code = 752) RED CELL DISTRIBUTION 14.4 % 11.6-14.4 WIDTH (BEAKER) (test code = 412) PLATELET COUNT 171 K/CU MM 150-450 (BEAKER) (test code = 756) MEAN PLATELET VOLUME 10.6 fL 9.4-12.4 (BEAKER) (test code = 754) NUCLEATED RED BLOOD 0 /100 WBC 0-0 CELLS (BEAKER) (test code = 413) NEUTROPHILS RELATIVE 72 % PERCENT (BEAKER) (test code = 429) LYMPHOCYTES RELATIVE 16 % PERCENT (BEAKER) (test code = 430) MONOCYTES RELATIVE 10 % PERCENT (BEAKER) (test code = 431) EOSINOPHILS RELATIVE 2 % PERCENT (BEAKER) (test code = 432) BASOPHILS RELATIVE 0 % PERCENT (BEAKER) (test code = 437) NEUTROPHILS ABSOLUTE 7.23 K/ L 1.78-5.38 H COUNT (BEAKER) (test code = 670) LYMPHOCYTES ABSOLUTE 1.58 K/ L 1.32-3.57 COUNT (BEAKER) (test code = 414) MONOCYTES ABSOLUTE 1.00 K/ L 0.30-0.82 H COUNT (BEAKER) (test code = 415) EOSINOPHILS ABSOLUTE 0.15 K/ L 0.04-0.54 COUNT (BEAKER) (test code = 416) BASOPHILS ABSOLUTE 0.03 K/ L 0.01-0.08 COUNT (BEAKER) (test code = 417) IMMATURE 1 % 0-1 GRANULOCYTES-RELATIVE PERCENT (BEAKER) (test code = 2801) POCT-GLUCOSE [id number] 20:21:00 Test Item Value Reference Range Interpretation Comments POC-GLUCOSE METER 105 mg/dL 70-110 : TESTED A T [facility] 6720 (BEAKER) (test code = [facility], 1538) 968[address]: Sliding Joint Maker/Techni caden ID = [id number] for Lam beltran (contract)Janae POCT-GLUCOSE [id number] 15:30:00 Test Item Value Reference Range Interpretation Comments POC-GLUCOSE METER 164 mg/dL 70-110 H : TESTED A T [facility] 6720 (AKER) (test code [facility], = 1538) 39053: Sliding Joint Maker/Techni caden ID = [id number] for LEWI S, [place] POCT-GLUCOSE [id number] 13:06:00 Test Item Value Reference Range Interpretation Comments POC-GLUCOSE METER 105 mg/dL 70-110 : TESTED A T [facility] 6720 (BEAKER) (test code [facility], = 1538) 76600: Sliding Joint Maker/Techni caden ID = [id number] for LEWI S, [place] POCT-GLUCOSE [id number] 09:38:00 Test Item Value Reference Range Interpretation Comments POC-GLUCOSE METER 95 mg/dL 70-110 : TESTED A T [facility] 6720 (BEAKER) (test code = [facility], 1538) 76498: Sliding Joint Maker/Techni caden ID = [id number] for LEWI S, [place] COMPREHENSIVE METABOLIC [id number] 06:01:00 Test Item Value Reference Range Interpretation Comments TOTAL PROTEIN 5.7 gm/dL 6.0-8.3 L (BEAKER) (test code = 770) ALBUMIN (BEAKER) 2.8 g/dL 3.5-5.0 L (test code = 1145) ALKALINE PHOSPHATASE 25 U/L 40-150 L (BEAKER) (test code = 346) BILIRUBIN TOTAL 0.7 mg/dL 0.2-1.2 (BEAKER) (test code = 377) SODIUM (BEAKER) (test 138 meq/L 136-145 code = 381) POTASSIUM (BEAKER) 4.3 meq/L 3.5-5.1 (test code = 379) CHLORIDE (BEAKER) 102 meq/L 98-107 (test code = 382) CO2 (BEAKER) (test 28 meq/L 22-29 code = 355) BLOOD UREA NITROGEN 26 mg/dL 7-21 H (BEAKER) (test code = 354) CREATININE (BEAKER) 0.88 mg/dL 0.57-1.25 (test code = 358) GLUCOSE RANDOM 105 mg/dL 70-105 (BEAKER) (test code = 652) CALCIUM (BEAKER) 8.1 mg/dL 8.4-10.2 L (test code = 697) AST (SGOT) (BEAKER) 24 U/L 5-34 (test code = 353) ALT (SGPT) (BEAKER) 35 U/L 6-55 (test code = 347) EGFR (BEAKER) (test 86 mL/min/1.73 ESTIMA GABRIELLE GFR IS code = 1092) sq m NOT ACCURATE CREATININE CLEARANCE IN PREDICTING GLOMERULAR FILTRATION RATE . ESTIMATED GFR I S NOT APPLICABLE FOR DIALYSIS PATIEN TS. Sliding Joint Maker ID - NICOLAS [id number] 06:01:00 Test Item Value Reference Range Interpretation Comments MAGNESIUM (BEAKER) (test code = 2.1 mg/dL 1.6-2.6 627) Sliding Joint Maker ID - NICOLAS MPROTHROMBIN TIME/[id number] 05:40:00 Test Item Value Reference Range Interpretation Comments PROTIME (BEAKER) (test code = 29.8 seconds 11.9-14.2 H 759) INR (BEAKER) (test code = 370) 2.92 <=5.90 Effective 03/02/2019: PT Reference Range ChangeNew: 11.9-14.2 Previous: 11.7- 14.7RECOMMENDED COUMADIN/WARFARIN INR THERAPY RANGESSTANDARD DOSE: 2.0-3.0 Includes: PROPHYLAXIS for venous thrombosis, systemic embolization; TREATMENT for venous thrombosis and/or pulmonary embolus.HIGH RISK: Target INR is 2.5-3.5 for patients wiht mechanical heart valves.CBC W/PLT COUNT & AUTO [id number] 05:33:00 Test Item Value Reference Range Interpretation Comments WHITE BLOOD CELL COUNT (BEAKER) 10.2 K/ L 3.5-10.5 (test code = 775) RED BLOOD CELL COUNT (BEAKER) 4.58 M/ L 4.63-6.08 L (test code = 761) HEMOGLOBIN (BEAKER) (test code = 13.6 GM/DL 13.7-17.5 L 410) HEMATOCRIT (BEAKER) (test code = 42.0 % 40.1-51.0 411) MEAN CORPUSCULAR VOLUME (BEAKER) 91.7 fL 79.0-92.2 (test code = 753) MEAN CORPUSCULAR HEMOGLOBIN 29.7 pg 25.7-32.2 (BEAKER) (test code = 751) MEAN CORPUSCULAR HEMOGLOBIN CONC 32.4 GM/DL 32.3-36.5 (BEAKER) (test code = 752) RED CELL DISTRIBUTION WIDTH 14.1 % 11.6-14.4 (BEAKER) (test code = 412) PLATELET COUNT (BEAKER) (test 190 K/CU MM 150-450 code = 756) MEAN PLATELET VOLUME (BEAKER) 9.5 fL 9.4-12.4 (test code = 754) NUCLEATED RED BLOOD CELLS 0 /100 WBC 0-0 (BEAKER) (test code = 413) NEUTROPHILS RELATIVE PERCENT 74 % (BEAKER) (test code = 429) LYMPHOCYTES RELATIVE PERCENT 16 % (BEAKER) (test code = 430) MONOCYTES RELATIVE PERCENT 9 % (BEAKER) (test code = 431) EOSINOPHILS RELATIVE PERCENT 1 % (BEAKER) (test code = 432) BASOPHILS RELATIVE PERCENT 0 % (BEAKER) (test code = 437) NEUTROPHILS ABSOLUTE COUNT 7.52 K/ L 1.78-5.38 H (BEAKER) (test code = 670) LYMPHOCYTES ABSOLUTE COUNT 1.60 K/ L 1.32-3.57 (BEAKER) (test code = 414) MONOCYTES ABSOLUTE COUNT (BEAKER) 0.89 K/ L 0.30-0.82 H (test code = 415) EOSINOPHILS ABSOLUTE COUNT 0.13 K/ L 0.04-0.54 (BEAKER) (test code = 416) BASOPHILS ABSOLUTE COUNT (BEAKER) 0.01 K/ L 0.01-0.08 (test code = 417) IMMATURE GRANULOCYTES-RELATIVE 1 % 0-1 PERCENT (BEAKER) (test code = 2801) POCT-GLUCOSE [id number] 23:19:00 Test Item Value Reference Range Interpretation Comments POC-GLUCOSE METER 96 mg/dL 70-110 : TESTED A T [facility] 6720 (BEAKER) (test code = [facility], 1538) 26814: Sliding Joint Maker/Techni caden ID = [id number] for EVELYN TRISTAN POCT-GLUCOSE [id number] 16:51:00 Test Item Value Reference Range Interpretation Comments POC-GLUCOSE METER 83 mg/dL 70-110 : TESTED A T [facility] 6720 (BEAKER) (test code = [facility], 1538) 38251: Sliding Joint Maker/Techni caden ID = [id number] for Eli Martinez POCT-GLUCOSE [id number] 12:47:00 Test Item Value Reference Range Interpretation Comments POC-GLUCOSE METER 90 mg/dL 70-110 : TESTED A T [facility] 6720 (BEAKER) (test code = [facility], 1538) 74423: Sliding Joint Maker/Techni caden ID = [id number] for Myranda daphney Kala RAD, CHEST, 1 VIEW, NON [id number] 12:32:00Reason for exam:->respiratory failure, covidShould this be performed at the bedside?->Yes [facility] : 1950 Sex: MFINAL REPORT RAD, CHEST, 1 VIEW, NON DEPT INDICATION: respiratory failure, covid COMPARISON: October 05, 2020 FINDINGS: Portable frontal view of the chest. IMPRESSION: Support Lines: None Lungs and pleura: No significant improvement in scattered interstitial and airspace disease. No pne umothorax.Heart and mediastinum: Stable contours. Stable surgical changes.Additional findings: None.Signed: JR Garay Robert MDReport Verified Date/Time: 10/09/2020 12:32:40 Reading Location: [facility] Radiology Reading Room POCT-GLUCOSE [id number] 12:10:00 Test Item Value Reference Range Interpretation Comments POC-GLUCOSE METER 74 mg/dL 70-110 : TESTED A T [facility] 6720 (BEAKER) (test code = [place], 1538) [id number]: Sliding Joint Maker/Techni caden ID = [id number] for Kala Higgins [id number] 05:39:00 Test Item Value Reference Range Interpretation Comments MAGNESIUM (BEAKER) 2.0 mg/dL 1.6-2.6 Specimen slightly (test code = 627) hemolyzed Sliding Joint Maker ID - VANESSA WCOMPREHENSIVE METABOLIC [id number] 05:39:00 Test Item Value Reference Range Interpretation Comments TOTAL PROTEIN 5.7 gm/dL 6.0-8.3 L Specimen sligh tly (BEAKER) (test code = hemoly zed 770) ALBUMIN (BEAKER) 2.7 g/dL 3.5-5.0 L Specimen sl ightly (test code = 1145) hemolyzed ALKALINE PHOSPHATASE 31 U/L 40-150 L (BEAKER) (test code = 346) BILIRUBIN TOTAL 0.5 mg/dL 0.2-1.2 Specimen sli ghtly (BEAKER) (test code = hemoly zed 377) SODIUM (BEAKER) (test 138 meq/L 136-145 code = 381) POTASSIUM (BEAKER) 5.0 meq/L 3.5-5.1 Specimen slightly (test code = 379) hemolyzed CHLORIDE (BEAKER) 102 meq/L 98-107 (test code = 382) CO2 (BEAKER) (test 29 meq/L 22-29 code = 355) BLOOD UREA NITROGEN 25 mg/dL 7-21 H (BEAKER) (test code = 354) CREATININE (BEAKER) 0.76 mg/dL 0.57-1.25 Specimen slightly (test code = 358) hemolyzed GLUCOSE RANDOM 117 mg/dL 70-105 H (BEAKER) (test code = 652) CALCIUM (BEAKER) 8.1 mg/dL 8.4-10.2 L (test code = 697) AST (SGOT) (BEAKER) 27 U/L 5-34 Specimen slightly (test code = 353) hemolyzed ALT (SGPT) (BEAKER) 40 U/L 6-55 Specimen slightly (test code = 347) hemolyzed EGFR (BEAKER) (test 102 ESTIMATE D GFR IS code = 1092) mL/min/1.73 sq NOT ACCURA TE m CREATININE CLEARANCE IN PREDICTING GLOMERULAR FILTRATION RATE . ESTIMATED GFR I S NOT APPLICABLE FOR DIALYSIS PATIEN TS. Sliding Joint Maker ID - VANESSA [facility] (HEMOGRAM ONLY)2020-10-09 03:35:00 Test Item Value Reference Range Interpretation Comments WHITE BLOOD CELL COUNT (BEAKER) 9.2 K/ L 3.5-10.5 (test code = 775) RED BLOOD CELL COUNT (BEAKER) 4.51 M/ L 4.63-6.08 L (test code = 761) HEMOGLOBIN (BEAKER) (test code = 13.4 GM/DL 13.7-17.5 L 410) HEMATOCRIT (BEAKER) (test code = 41.2 % 40.1-51.0 411) MEAN CORPUSCULAR VOLUME (BEAKER) 91.4 fL 79.0-92.2 (test code = 753) MEAN CORPUSCULAR HEMOGLOBIN 29.7 pg 25.7-32.2 (BEAKER) (test code = 751) MEAN CORPUSCULAR HEMOGLOBIN CONC 32.5 GM/DL 32.3-36.5 (BEAKER) (test code = 752) RED CELL DISTRIBUTION WIDTH 14.1 % 11.6-14.4 (BEAKER) (test code = 412) PLATELET COUNT (BEAKER) (test 197 K/CU MM 150-450 code = 756) MEAN PLATELET VOLUME (BEAKER) 9.7 fL 9.4-12.4 (test code = 754) NUCLEATED RED BLOOD CELLS 0 /100 WBC 0-0 (BEAKER) (test code = 413) PROTHROMBIN [id number] 03:21:00 Test Item Value Reference Range Interpretation Comments PROTIME (BEAKER) (test code = 29.4 seconds 11.9-14.2 H 759) INR (BEAKER) (test code = 370) 2.87 <=5.90 Effective 03/02/2019: PT Reference Range ChangeNew: 11.9-14.2 Previous: 11.7- 14.7RECOMMENDED COUMADIN/WARFARIN INR THERAPY RANGESSTANDARD DOSE: 2.0-3.0 Includes: PROPHYLAXIS for venous thrombosis, systemic embolization; TREATMENT for venous thrombosis and/or pulmonary embolus.HIGH RISK: Target INR is 2.5-3.5 for patients wiht mechanical heart valves.POCT-GLUCOSE [id number] 21:41:00 Test Item Value Reference Range Interpretation Comments POC-GLUCOSE METER 105 mg/dL 70-110 : TESTED A T [facility] 6720 (BEAKER) (test code = [facility], 1538) [id number]: Sliding Joint Maker/Techni caden ID = [id number] for INOCENCIA MCCAULEY POCT-GLUCOSE [id number] 16:41:00 Test Item Value Reference Range Interpretation Comments POC-GLUCOSE METER 103 mg/dL 70-110 : TESTED A T [facility] 6720 (BECollisionable) (test code = [facility], 1538) [address]: Sliding Joint Maker/Techni caden ID = [id number] for GISELLA ENGLISH [id number] 14:12:00 Test Item Value Reference Range Interpretation Comments PROCALCITONIN (BEAKER) (test code = < ng/mL <0.05 3036) SEPSIS RISK (ng/mL)Low: 0.05-0.50Intermediate: 0.51-2.00High: >=2.01FERRITIN 2020-10-08 14:11:00 Test Item Value Reference Range Interpretation Comments FERRITIN (BEAKER) (test code = 586.08 ng/mL 5.00-275.00 H 361) Sliding Joint Maker ID - KAILA [id number] 13:49:00 Test Item Value Reference Range Interpretation Comments D-DIMER QUANTITATIVE (ABELAKER) 19.66 MG/L FEU <0.50 H (test code = 671) Intended Use: The D-Dimer Assay can be used to aid in the diagnosis of Deep Vein Thrombosis (DVT) and Pulmonary Embolism Disease (PED).In patients with low pre- test probability, various studies concerning STA Liatest D-dimer test have reported that with a cutoff value of 0.50 MG/L FEU, the Negative Predictive Value (NPV) regarding the exclusion of thrombosis is within 95-100% range.While on warfarin.LACTATE DEHYDROGENASE (LDH)2020-10-08 13:47:00 Test Item Value Reference Range Interpretation Comments LACTATE DEHYDROGENASE (ABELAKER) (test 312 U/L 125-220 H code = 635) Sliding Joint Maker ID - NICOLAS MPROTHROMBIN TIME/[id number] 13:40:00 Test Item Value Reference Range Interpretation Comments PROTIME (HARIS) (test code = 25.8 seconds 11.9-14.2 H 759) INR (ShowMeAKER) (test code = 370) 2.43 <=5.90 Effective 03/02/2019: PT Reference Range ChangeNew: 11.9-14.2 Previous: 11.7- 14.7RECOMMENDED COUMADIN/WARFARIN INR THERAPY RANGESSTANDARD DOSE: 2.0-3.0 Includes: PROPHYLAXIS for venous thrombosis, systemic embolization; TREATMENT for venous thrombosis and/or pulmonary embolus.HIGH RISK: Target INR is 2.5-3.5 for patients wiht mechanical heart valves.While on warfarin.POCT-GLUCOSE METER 2020-10-08 11:45:00 Test Item Value Reference Range Interpretation Comments POC-GLUCOSE METER 124 mg/dL 70-110 H : TESTED A T [facility] 6720 (BEAKER) (test code = [employer] [facility], 1538) [address]: Sliding Joint Maker/Techni caden ID = [id number] for LO SOCO, GISELLA POCT-GLUCOSE [id number] 09:02:00 Test Item Value Reference Range Interpretation Comments POC-GLUCOSE METER 114 mg/dL 70-110 H : TESTED A T [facility] 6720 (BEAKER) (test code = [facility] [employer] [facility], 1538) [address]: Sliding Joint Maker/Techni caden ID = [id number] for GISELLA ENGLISH POCT-GLUCOSE [id number] 07:30:00 Test Item Value Reference Range Interpretation Comments POC-GLUCOSE METER 113 mg/dL 70-110 H : TESTED A T [facility] 6720 (BEAKER) (test code = [facility] [place], 1538) [address]: Sliding Joint Maker/Techni caden ID = [id number] for Dahiana an (contract), Nos haba COMPREHENSIVE METABOLIC [id number] 06:05:00 Test Item Value Reference Range Interpretation Comments TOTAL PROTEIN 5.6 gm/dL 6.0-8.3 L (BEAKER) (test code = 770) ALBUMIN (BEAKER) 2.7 g/dL 3.5-5.0 L (test code = 1145) ALKALINE PHOSPHATASE 22 U/L 40-150 L (BEAKER) (test code = 346) BILIRUBIN TOTAL 0.6 mg/dL 0.2-1.2 (BEAKER) (test code = 377) SODIUM (BEAKER) (test 135 meq/L 136-145 L code = 381) POTASSIUM (BEAKER) 5.0 meq/L 3.5-5.1 (test code = 379) CHLORIDE (BEAKER) 102 meq/L 98-107 (test code = 382) CO2 (BEAKER) (test 25 meq/L 22-29 code = 355) BLOOD UREA NITROGEN 22 mg/dL 7-21 H (BEAKER) (test code = 354) CREATININE (BEAKER) 0.72 mg/dL 0.57-1.25 (test code = 358) GLUCOSE RANDOM 171 mg/dL 70-105 H (BEAKER) (test code = 652) CALCIUM (BEAKER) 8.1 mg/dL 8.4-10.2 L (test code = 697) AST (SGOT) (BEAKER) 26 U/L 5-34 (test code = 353) ALT (SGPT) (BEAKER) 44 U/L 6-55 (test code = 347) EGFR (BEAKER) (test 109 ESTIMATE D GFR IS code = 1092) mL/min/1.73 sq NOT ACCURA TE m CREATININE CLEARANCE IN PREDICTING GLOMERULAR FILTRATION RATE . ESTIMATED GFR I S NOT APPLICABLE FOR DIALYSIS PATIEN TS. Sliding Joint Maker ID - PIAYA [id number] 06:05:00 Test Item Value Reference Range Interpretation Comments MAGNESIUM (BEAKER) (test code = 2.0 mg/dL 1.6-2.6 627) Sliding Joint Maker ID - PIAYA LCBC W/PLT COUNT & AUTO [id number] 04:32:00 Test Item Value Reference Range Interpretation Comments WHITE BLOOD CELL COUNT (BEAKER) 8.9 K/ L 3.5-10.5 (test code = 775) RED BLOOD CELL COUNT (BEAKER) 4.33 M/ L 4.63-6.08 L (test code = 761) HEMOGLOBIN (BEAKER) (test code = 12.9 GM/DL 13.7-17.5 L 410) HEMATOCRIT (BEAKER) (test code = 39.5 % 40.1-51.0 L 411) MEAN CORPUSCULAR VOLUME (BEAKER) 91.2 fL 79.0-92.2 (test code = 753) MEAN CORPUSCULAR HEMOGLOBIN 29.8 pg 25.7-32.2 (BEAKER) (test code = 751) MEAN CORPUSCULAR HEMOGLOBIN CONC 32.7 GM/DL 32.3-36.5 (BEAKER) (test code = 752) RED CELL DISTRIBUTION WIDTH 13.9 % 11.6-14.4 (BEAKER) (test code = 412) PLATELET COUNT (BEAKER) (test 181 K/CU MM 150-450 code = 756) MEAN PLATELET VOLUME (BEAKER) 10.1 fL 9.4-12.4 (test code = 754) NUCLEATED RED BLOOD CELLS 0 /100 WBC 0-0 (BEAKER) (test code = 413) NEUTROPHILS RELATIVE PERCENT 87 % (BEAKER) (test code = 429) LYMPHOCYTES RELATIVE PERCENT 9 % (BEAKER) (test code = 430) MONOCYTES RELATIVE PERCENT 3 % (BEAKER) (test code = 431) EOSINOPHILS RELATIVE PERCENT 0 % (BEAKER) (test code = 432) BASOPHILS RELATIVE PERCENT 0 % (BEAKER) (test code = 437) NEUTROPHILS ABSOLUTE COUNT 7.74 K/ L 1.78-5.38 H (BEAKER) (test code = 670) LYMPHOCYTES ABSOLUTE COUNT 0.81 K/ L 1.32-3.57 L (BEAKER) (test code = 414) MONOCYTES ABSOLUTE COUNT (BEAKER) 0.27 K/ L 0.30-0.82 L (test code = 415) EOSINOPHILS ABSOLUTE COUNT 0.01 K/ L 0.04-0.54 L (BEAKER) (test code = 416) BASOPHILS ABSOLUTE COUNT (BEAKER) 0.00 K/ L 0.01-0.08 L (test code = 417) IMMATURE GRANULOCYTES-RELATIVE 1 % 0-1 PERCENT (BEAKER) (test code = 2801) PROTHROMBIN [id number] 04:25:00 Test Item Value Reference Range Interpretation Comments PROTIME (BEAKER) (test code = 27.4 seconds 11.9-14.2 H 759) INR (BEAKER) (test code = 370) 2.62 <=5.90 Effective 03/02/2019: PT Reference Range ChangeNew: 11.9-14.2 Previous: 11.7- 14.7RECOMMENDED COUMADIN/WARFARIN INR THERAPY RANGESSTANDARD DOSE: 2.0-3.0 Includes: PROPHYLAXIS for venous thrombosis, systemic embolization; TREATMENT for venous thrombosis and/or pulmonary embolus.HIGH RISK: Target INR is 2.5-3.5 for patients wiht mechanical heart valves.POCT-GLUCOSE [id number] 22:38:00 Test Item Value Reference Range Interpretation Comments POC-GLUCOSE METER 120 mg/dL 70-110 H : TESTED A T [facility] 6720 (We Heart It) (test code = [facility], 153) [address]: Sliding Joint Maker/Techni caden ID = [id number] for LYNDON SHIN-JOYCELYN POCT-GLUCOSE [id number] 17:00:00 Test Item Value Reference Range Interpretation Comments POC-GLUCOSE METER 101 mg/dL 70-110 : TESTED A T [facility] 6720 (ShowMeAKER) (test code = [facility], 1538) 35[address]: Sliding Joint Maker/Techni caden ID = [id number] for Hernan gentile, Vannesa POCT-GLUCOSE [id number] 12:27:00 Test Item Value Reference Range Interpretation Comments POC-GLUCOSE METER 149 mg/dL 70-110 H : TESTED A T [facility] 6720 (BEAKER) (test code = [facility], 1538) [address]61[address]: Sliding Joint Maker/Techni caden ID = [id number] for Sw krupa, Vannesa POCT-GLUCOSE [id number] 08:48:00 Test Item Value Reference Range Interpretation Comments POC-GLUCOSE METER 110 mg/dL 70-110 : TESTED A T [facility] 6720 (BEAKER) (test code = [facility] [place], 1538) [address]: Sliding Joint Maker/Techni caden ID = [id number] for Vannesa Osman COMPREHENSIVE METABOLIC [id number] 04:32:00 Test Item Value Reference Range Interpretation Comments TOTAL PROTEIN 5.7 gm/dL 6.0-8.3 L (BEAKER) (test code = 770) ALBUMIN (BEAKER) 2.7 g/dL 3.5-5.0 L (test code = 1145) ALKALINE PHOSPHATASE 28 U/L 40-150 L (BEAKER) (test code = 346) BILIRUBIN TOTAL 0.5 mg/dL 0.2-1.2 (BEAKER) (test code = 377) SODIUM (BEAKER) (test 139 meq/L 136-145 code = 381) POTASSIUM (BEAKER) 4.6 meq/L 3.5-5.1 (test code = 379) CHLORIDE (BEAKER) 104 meq/L 98-107 (test code = 382) CO2 (BEAKER) (test 28 meq/L 22-29 code = 355) BLOOD UREA NITROGEN 27 mg/dL 7-21 H (BEAKER) (test code = 354) CREATININE (BEAKER) 0.72 mg/dL 0.57-1.25 (test code = 358) GLUCOSE RANDOM 162 mg/dL 70-105 H (BEAKER) (test code = 652) CALCIUM (BEAKER) 8.0 mg/dL 8.4-10.2 L (test code = 697) AST (SGOT) (BEAKER) 24 U/L 5-34 (test code = 353) ALT (SGPT) (BEAKER) 46 U/L 6-55 (test code = 347) EGFR (BEAKER) (test 109 ESTIMATE D GFR IS code = 1092) mL/min/1.73 sq NOT ACCURA TE m CREATININE CLEARANCE IN PREDICTING GLOMERULAR FILTRATION RATE . ESTIMATED GFR I S NOT APPLICABLE FOR DIALYSIS PATIEN TS. Sliding Joint Maker ID - NICOLAS [id number] 04:32:00 Test Item Value Reference Range Interpretation Comments MAGNESIUM (BEAKER) (test code = 2.1 mg/dL 1.6-2.6 627) Sliding Joint Maker ID - NICOLAS MPROTHROMBIN TIME/[id number] 04:25:00 Test Item Value Reference Range Interpretation Comments PROTIME (BEAKER) (test code = 25.1 seconds 11.9-14.2 H 759) INR (BEAKER) (test code = 370) 2.34 <=5.90 Effective 03/02/2019: PT Reference Range ChangeNew: 11.9-14.2 Previous: 11.7- 14.7RECOMMENDED COUMADIN/WARFARIN INR THERAPY RANGESSTANDARD DOSE: 2.0-3.0 Includes: PROPHYLAXIS for venous thrombosis, systemic embolization; TREATMENT for venous thrombosis and/or pulmonary embolus.HIGH RISK: Target INR is 2.5-3.5 for patients wiht mechanical heart valves.BLOOD GAS, [id number] 04:18:00 Test Item Value Reference Range Interpretation Comments PH VENOUS (BEAKER) (test code = 7.40 7.32-7.42 701) PCO2 VENOUS (BEAKER) (test code = 49 mm Hg 41-51 755) PO2 VENOUS (BEAKER) (test code = 53 mm Hg 25-40 H 702) O2 SATURATION VENOUS (BEAKER) 87.1 % 40.0-70.0 H (test code = 703) HCO3 VENOUS (BEAKER) (test code = 29 mmol/L 21-29 705) BASE EXCESS VENOUS (BEAKER) (test 3.7 mmol/L -2.0-3.0 H code = 704) PATIENT TEMPERATURE (BEAKER) (test 37.0 code = 1818) POCT-GLUCOSE [id number] 21:21:00 Test Item Value Reference Range Interpretation Comments POC-GLUCOSE METER 167 mg/dL 70-110 H : TESTED A T [facility] 6720 (BEAKER) (test code = [facility], 1538) 709[address]: Sliding Joint Maker/Techni caden ID = [id number] for CATHLEEN SCHERER [id number] 19:51:00 Test Item Value Reference Range Interpretation Comments PROCALCITONIN (BEAKER) (test code = < ng/mL <0.05 3036) SEPSIS RISK (ng/mL)Low: 0.05-0.50Intermediate: 0.51-2.00High: >=2.01FERRITIN 2020-10-06 19:09:00 Test Item Value Reference Range Interpretation Comments FERRITIN (HARIS) (test code = 708.08 ng/mL 5.00-275.00 H 361) Sliding Joint Maker ID - [id number] 18:55:00 Test Item Value Reference Range Interpretation Comments D-DIMER QUANTITATIVE (HARIS) > MG/L FEU <0.50 H (test code = 671) Intended Use: The D-Dimer Assay can be used to aid in the diagnosis of Deep Vein Thrombosis (DVT) and Pulmonary Embolism Disease (PED).In patients with low pre- test probability, various studies concerning STA Liatest D-dimer test have reported that with a cutoff value of 0.50 MG/L FEU, the Negative Predictive Value (NPV) regarding the exclusion of thrombosis is within 95-100% range. LACTATE DEHYDROGENASE (LDH)2020-10-06 18:48:00 Test Item Value Reference Range Interpretation Comments LACTATE DEHYDROGENASE 538 U/L 125-220 H Specim en moderately (HARIS) (test code = hemoly zed 635) Sliding Joint Maker ID - DBPOCT-GLUCOSE [id number] 18:12:00 Test Item Value Reference Range Interpretation Comments POC-GLUCOSE METER 94 mg/dL 70-110 : TESTED A T [facility] 6720 (ShowMeAKER) (test code = [facility], 1538) 270[address]: Sliding Joint Maker/Techni caden ID = [id number] for MCQU AY, SKYLA POCT-GLUCOSE [id number] 14:30:00 Test Item Value Reference Range Interpretation Comments POC-GLUCOSE METER 128 mg/dL 70-110 H : TESTED A T [facility] 6720 (BEAKER) (test code = [facility], 1538) 46524: Sliding Joint Maker/Techni caden ID = [id number] for MC BERTO, SKYLA POCT-GLUCOSE [id number] 10:02:00 Test Item Value Reference Range Interpretation Comments POC-GLUCOSE METER 92 mg/dL 70-110 : TESTED A T [facility] 6720 (BEAKER) (test code = [facility], 1538) 15232: Sliding Joint Maker/Techni caden ID = [id number] for MCQU AY, SKYLA [id number] 04:44:00 Test Item Value Reference Range Interpretation Comments MAGNESIUM (BEAKER) 2.2 mg/dL 1.6-2.6 Specimen slightly (test code = 627) hemolyzed Sliding Joint Maker ID - EDASICOMPREHENSIVE METABOLIC [id number] 04:44:00 Test Item Value Reference Range Interpretation Comments TOTAL PROTEIN 6.1 gm/dL 6.0-8.3 Specimen sligh tly (BEAKER) (test code = hemoly zed 770) ALBUMIN (BEAKER) 2.8 g/dL 3.5-5.0 L Specimen sl ightly (test code = 1145) hemolyzed ALKALINE PHOSPHATASE 23 U/L 40-150 L (BEAKER) (test code = 346) BILIRUBIN TOTAL 0.6 mg/dL 0.2-1.2 Specimen sli ghtly (BEAKER) (test code = hemoly zed 377) SODIUM (BEAKER) (test 138 meq/L 136-145 code = 381) POTASSIUM (BEAKER) 4.9 meq/L 3.5-5.1 Specimen slightly (test code = 379) hemolyzed CHLORIDE (BEAKER) 101 meq/L 98-107 (test code = 382) CO2 (BEAKER) (test 28 meq/L 22-29 code = 355) BLOOD UREA NITROGEN 30 mg/dL 7-21 H (BEAKER) (test code = 354) CREATININE (BEAKER) 0.79 mg/dL 0.57-1.25 Specimen slightly (test code = 358) hemolyzed GLUCOSE RANDOM 156 mg/dL 70-105 H (BEAKER) (test code = 652) CALCIUM (BEAKER) 8.3 mg/dL 8.4-10.2 L (test code = 697) AST (SGOT) (BEAKER) 30 U/L 5-34 Specimen slightly (test code = 353) hemolyzed ALT (SGPT) (BEAKER) 46 U/L 6-55 Specimen slightly (test code = 347) hemolyzed EGFR (BEAKER) (test 98 mL/min/1.73 ESTIMA GABRIELLE GFR IS code = 1092) sq m NOT ACCURATE CREATININE CLEARANCE IN PREDICTING GLOMERULAR FILTRATION RATE . ESTIMATED GFR I S NOT APPLICABLE FOR DIALYSIS PATIEN TS. Sliding Joint Maker ID - EDASICBC W/PLT COUNT & AUTO [id number] 04:43:00 Test Item Value Reference Range Interpretation Comments WHITE BLOOD CELL COUNT (BEAKER) 13.9 K/ L 3.5-10.5 H (test code = 775) RED BLOOD CELL COUNT (BEAKER) 4.64 M/ L 4.63-6.08 (test code = 761) HEMOGLOBIN (BEAKER) (test code = 13.6 GM/DL 13.7-17.5 L 410) HEMATOCRIT (BEAKER) (test code = 42.3 % 40.1-51.0 411) MEAN CORPUSCULAR VOLUME (BEAKER) 91.2 fL 79.0-92.2 (test code = 753) MEAN CORPUSCULAR HEMOGLOBIN 29.3 pg 25.7-32.2 (BEAKER) (test code = 751) MEAN CORPUSCULAR HEMOGLOBIN CONC 32.2 GM/DL 32.3-36.5 L (BEAKER) (test code = 752) RED CELL DISTRIBUTION WIDTH 14.3 % 11.6-14.4 (BEAKER) (test code = 412) PLATELET COUNT (BEAKER) (test 182 K/CU MM 150-450 code = 756) MEAN PLATELET VOLUME (BEAKER) 9.9 fL 9.4-12.4 (test code = 754) NUCLEATED RED BLOOD CELLS 0 /100 WBC 0-0 (BEAKER) (test code = 413) NEUTROPHILS RELATIVE PERCENT 87 % (BEAKER) (test code = 429) LYMPHOCYTES RELATIVE PERCENT 7 % (BEAKER) (test code = 430) MONOCYTES RELATIVE PERCENT 5 % (BEAKER) (test code = 431) EOSINOPHILS RELATIVE PERCENT 0 % (BEAKER) (test code = 432) BASOPHILS RELATIVE PERCENT 0 % (BEAKER) (test code = 437) NEUTROPHILS ABSOLUTE COUNT 12.08 K/ L 1.78-5.38 H (BEAKER) (test code = 670) LYMPHOCYTES ABSOLUTE COUNT 0.94 K/ L 1.32-3.57 L (BEAKER) (test code = 414) MONOCYTES ABSOLUTE COUNT (BEAKER) 0.68 K/ L 0.30-0.82 (test code = 415) EOSINOPHILS ABSOLUTE COUNT 0.02 K/ L 0.04-0.54 L (BEAKER) (test code = 416) BASOPHILS ABSOLUTE COUNT (BEAKER) 0.01 K/ L 0.01-0.08 (test code = 417) IMMATURE GRANULOCYTES-RELATIVE 1 % 0-1 PERCENT (BEAKER) (test code = 2801) PROTHROMBIN [id number] 04:29:00 Test Item Value Reference Range Interpretation Comments PROTIME (BESPENCER) (test code = 21.4 seconds 11.9-14.2 H 759) INR (BESPENCER) (test code = 370) 1.93 <=5.90 Effective 03/02/2019: PT Reference Range ChangeNew: 11.9-14.2 Previous: 11.7- 14.7RECOMMENDED COUMADIN/WARFARIN INR THERAPY RANGESSTANDARD DOSE: 2.0-3.0 Includes: PROPHYLAXIS for venous thrombosis, systemic embolization; TREATMENT for venous thrombosis and/or pulmonary embolus.HIGH RISK: Target INR is 2.5-3.5 for patients wiht mechanical heart valves.POCT-GLUCOSE [id number] 19:27:00 Test Item Value Reference Range Interpretation Comments POC-GLUCOSE METER 101 mg/dL 70-110 : TESTED A T [facility] 6720 (HARIS) (test code = [facility], 1538) [address]: Sliding Joint Maker/Techni caden ID = [id number] for ROBB JACKSON POCT-GLUCOSE [id number] 13:51:00 Test Item Value Reference Range Interpretation Comments POC-GLUCOSE METER 147 mg/dL 70-110 H : TESTED A T [facility] 6720 (HARIS) (test code = [facility], 1538) 126[address]: Sliding Joint Maker/Techni caden ID = [id number] for ROBB JACKSON PROTHROMBIN [id number] 06:05:00 Test Item Value Reference Range Interpretation Comments PROTIME (HARIS) (test code = 19.8 seconds 11.9-14.2 H 759) INR (HARIS) (test code = 370) 1.73 <=5.90 Effective 03/02/2019: PT Reference Range ChangeNew: 11.9-14.2 Previous: 11.7- 14.7RECOMMENDED COUMADIN/WARFARIN INR THERAPY RANGESSTANDARD DOSE: 2.0-3.0 Includes: PROPHYLAXIS for venous thrombosis, systemic embolization; TREATMENT for venous thrombosis and/or pulmonary embolus.HIGH RISK: Target INR is 2.5-3.5 for patients wiht mechanical heart valves.COMPREHENSIVE METABOLIC PANEL 2020-10-05 05:41:00 Test Item Value Reference Range Interpretation Comments TOTAL PROTEIN 6.4 gm/dL 6.0-8.3 (BEAKER) (test code = 770) ALBUMIN (BEAKER) 3.0 g/dL 3.5-5.0 L (test code = 1145) ALKALINE PHOSPHATASE 22 U/L 40-150 L (BEAKER) (test code = 346) BILIRUBIN TOTAL 0.8 mg/dL 0.2-1.2 (BEAKER) (test code = 377) SODIUM (BEAKER) (test 139 meq/L 136-145 code = 381) POTASSIUM (BEAKER) 4.6 meq/L 3.5-5.1 (test code = 379) CHLORIDE (BEAKER) 100 meq/L 98-107 (test code = 382) CO2 (BEAKER) (test 29 meq/L 22-29 code = 355) BLOOD UREA NITROGEN 32 mg/dL 7-21 H (BEAKER) (test code = 354) CREATININE (BEAKER) 0.86 mg/dL 0.57-1.25 (test code = 358) GLUCOSE RANDOM 163 mg/dL 70-105 H (BEAKER) (test code = 652) CALCIUM (BEAKER) 8.5 mg/dL 8.4-10.2 (test code = 697) AST (SGOT) (BEAKER) 26 U/L 5-34 (test code = 353) ALT (SGPT) (BEAKER) 46 U/L 6-55 (test code = 347) EGFR (BEAKER) (test 88 mL/min/1.73 ESTIMA GABRIELLE GFR IS code = 1092) sq m NOT ACCURATE CREATININE CLEARANCE IN PREDICTING GLOMERULAR FILTRATION RATE . ESTIMATED GFR I S NOT APPLICABLE FOR DIALYSIS PATIEN TS. Sliding Joint Maker ID - VANESSA [id number] 05:41:00 Test Item Value Reference Range Interpretation Comments MAGNESIUM (BEAKER) (test code = 2.1 mg/dL 1.6-2.6 627) Sliding Joint Maker ID Shawn MENDEZ WCBC W/PLT COUNT & AUTO [id number] 05:40:00 Test Item Value Reference Range Interpretation Comments WHITE BLOOD CELL COUNT (BEAKER) 12.9 K/ L 3.5-10.5 H (test code = 775) RED BLOOD CELL COUNT (BEAKER) 4.72 M/ L 4.63-6.08 (test code = 761) HEMOGLOBIN (BEAKER) (test code = 14.2 GM/DL 13.7-17.5 410) HEMATOCRIT (BEAKER) (test code = 42.7 % 40.1-51.0 411) MEAN CORPUSCULAR VOLUME (BEAKER) 90.5 fL 79.0-92.2 (test code = 753) MEAN CORPUSCULAR HEMOGLOBIN 30.1 pg 25.7-32.2 (BEAKER) (test code = 751) MEAN CORPUSCULAR HEMOGLOBIN CONC 33.3 GM/DL 32.3-36.5 (BEAKER) (test code = 752) RED CELL DISTRIBUTION WIDTH 14.0 % 11.6-14.4 (BEAKER) (test code = 412) PLATELET COUNT (BEAKER) (test 182 K/CU MM 150-450 code = 756) MEAN PLATELET VOLUME (BEAKER) 10.0 fL 9.4-12.4 (test code = 754) NUCLEATED RED BLOOD CELLS 0 /100 WBC 0-0 (BEAKER) (test code = 413) NEUTROPHILS RELATIVE PERCENT 89 % (BEAKER) (test code = 429) LYMPHOCYTES RELATIVE PERCENT 6 % (BEAKER) (test code = 430) MONOCYTES RELATIVE PERCENT 4 % (BEAKER) (test code = 431) EOSINOPHILS RELATIVE PERCENT 0 % (BEAKER) (test code = 432) BASOPHILS RELATIVE PERCENT 0 % (BEAKER) (test code = 437) NEUTROPHILS ABSOLUTE COUNT 11.45 K/ L 1.78-5.38 H (BEAKER) (test code = 670) LYMPHOCYTES ABSOLUTE COUNT 0.82 K/ L 1.32-3.57 L (BEAKER) (test code = 414) MONOCYTES ABSOLUTE COUNT (BEAKER) 0.45 K/ L 0.30-0.82 (test code = 415) EOSINOPHILS ABSOLUTE COUNT 0.02 K/ L 0.04-0.54 L (BEAKER) (test code = 416) BASOPHILS ABSOLUTE COUNT (BEAKER) 0.02 K/ L 0.01-0.08 (test code = 417) IMMATURE GRANULOCYTES-RELATIVE 1 % 0-1 PERCENT (BEAKER) (test code = 2801) RAD, CHEST, 1 VIEW, NON [id number] 04:18:00Reason for exam:->COVID changesShould this be performed at the bedside?->Yes [facility] 1950 Sex: MFINAL REPORT CLINICAL INDICATION: "COVID" Comparison: 10/03/2020 The cardiomediastinal contours are stable. The lung volumes remain low. Bilateral parenchymal opacities are unchanged.There is no pneumothorax. Signed: Zulma Watkins Verified Date/Time: 10/05/2020 04:18:55 POCT-GLUCOSE [id number] 22:23:00 Test Item Value Reference Range Interpretation Comments POC-GLUCOSE METER 104 mg/dL 70-110 : TESTED A T [facility] 6720 (We Heart It) (test code = [facility], 1538) [address]: Sliding Joint Maker/Techni caden ID = [id number] for [facility] (co ntract), Ene POCT-GLUCOSE [id number] 17:40:00 Test Item Value Reference Range Interpretation Comments POC-GLUCOSE METER 118 mg/dL 70-110 H : TESTED A T [facility] 6720 (ShowMeAKER) (test code = [facility], 1538) [address]: Sliding Joint Maker/Techni caden ID = [id number] for Sadaf smith (contract), Tammy mbola THROMBOELASTOGRAPH (TEG)2020-10-04 14:46:00 Test Item Value Reference Range Interpretation Comments TEG ACTIVATED CLOTTING TIME 4.6 minutes 4.0-7.0 (ShowMeAKER) (test code = 1407) TEG FIBRINOGEN ACTIVITY (BEAKER) 65.6 degrees 61.0-73.0 (test code = 1408) TEG PLT. AGGREGATION (BEAKER) 66.2 MM 55.0-65.0 H (test code = 1409) TGH ACTIVATED CLOTTING TIME 4.6 minutes 4.0-7.0 (BEAKER) (test code = 1411) TGH FIBRINOGEN ACTIVITY (BEAKER) 67.3 degrees 61.0-73.0 (test code = 1412) TGH PLT. AGGREGATION (BEAKER) 60.9 MM 55.0-65.0 (test code = 1413) PROTHROMBIN [id number] 14:16:00 Test Item Value Reference Range Interpretation Comments PROTIME (BEAKER) (test code = 20.1 seconds 11.9-14.2 H 759) INR (BEAKER) (test code = 370) 1.78 <=5.90 Effective 03/02/2019: PT Reference Range ChangeNew: 11.9-14.2 Previous: 11.7- 14.7RECOMMENDED COUMADIN/WARFARIN INR THERAPY RANGESSTANDARD DOSE: 2.0-3.0 Includes: PROPHYLAXIS for venous thrombosis, systemic embolization; TREATMENT for venous thrombosis and/or pulmonary embolus.HIGH RISK: Target INR is 2.5-3.5 for patients wiht mechanical heart valves.POCT-GLUCOSE [id number] 13:07:00 Test Item Value Reference Range Interpretation Comments POC-GLUCOSE METER 176 mg/dL 70-110 H : TESTED A T [facility] 6720 ([employer] [facility]) (test code = [facility] [place] [facility], 1538) [address]: Sliding Joint Maker/Techni caden ID = [id number] for Kh an (contract), Nos haba POCT-GLUCOSE [id number] 07:35:00 Test Item Value Reference Range Interpretation Comments POC-GLUCOSE METER 122 mg/dL 70-110 H : TESTED A T [facility] 6720 (BEAKER) (test code [facility], = 1538) [address]: Sliding Joint Maker/Techni caden ID = [id number] for MARIANELA ARREDONDO BASIC METABOLIC [id number] 07:04:00 Test Item Value Reference Range Interpretation Comments SODIUM (BEAKER) 133 meq/L 136-145 L (test code = 381) POTASSIUM (BEAKER) 4.6 meq/L 3.5-5.1 (test code = 379) CHLORIDE (BEAKER) 100 meq/L 98-107 (test code = 382) CO2 (BEAKER) (test 24 meq/L 22-29 code = 355) BLOOD UREA NITROGEN 25 mg/dL 7-21 H (BEAKER) (test code = 354) CREATININE (BEAKER) 0.82 mg/dL 0.57-1.25 (test code = 358) GLUCOSE RANDOM 163 mg/dL 70-105 H (BEAKER) (test code = 652) CALCIUM (BEAKER) 8.2 mg/dL 8.4-10.2 L (test code = 697) EGFR (BEAKER) (test 93 mL/min/1.73 ESTIMA GABRIELLE GFR IS code = 1092) sq m NOT ACCURATE CREATININE CLEARANCE IN PREDICTING GLOMERULAR FILTRATION RATE . ESTIMATED GFR I S NOT APPLICABLE FOR DIALYSIS PATIEN TS. Sliding Joint Maker ID - KAILA [id number] 07:04:00 Test Item Value Reference Range Interpretation Comments MAGNESIUM (BEAKER) (test code = 1.9 mg/dL 1.6-2.6 627) Sliding Joint Maker ID - KAILA LLACTATE DEHYDROGENASE (LDH)2020-10-04 07:04:00 Test Item Value Reference Range Interpretation Comments LACTATE DEHYDROGENASE (BEAKER) (test 552 U/L 125-220 H code = 635) Sliding Joint Maker ID - KAILA LC-REACTIVE [id number] 07:04:00 Test Item Value Reference Range Interpretation Comments C-REACTIVE PROTEIN (BEAKER) (test 9.81 mg/dL 0.00-0.50 H code = 676) Sliding Joint Maker ID - KAILA LCBC W/PLT COUNT & AUTO [id number] 05:51:00 Test Item Value Reference Range Interpretation Comments WHITE BLOOD CELL COUNT (BEAKER) 11.8 K/ L 3.5-10.5 H (test code = 775) RED BLOOD CELL COUNT (BEAKER) 4.61 M/ L 4.63-6.08 L (test code = 761) HEMOGLOBIN (BEAKER) (test code = 13.7 GM/DL 13.7-17.5 410) HEMATOCRIT (BEAKER) (test code = 41.6 % 40.1-51.0 411) MEAN CORPUSCULAR VOLUME (BEAKER) 90.2 fL 79.0-92.2 (test code = 753) MEAN CORPUSCULAR HEMOGLOBIN 29.7 pg 25.7-32.2 (BEAKER) (test code = 751) MEAN CORPUSCULAR HEMOGLOBIN CONC 32.9 GM/DL 32.3-36.5 (BEAKER) (test code = 752) RED CELL DISTRIBUTION WIDTH 14.1 % 11.6-14.4 (BEAKER) (test code = 412) PLATELET COUNT (BEAKER) (test 158 K/CU MM 150-450 code = 756) MEAN PLATELET VOLUME (BEAKER) 10.1 fL 9.4-12.4 (test code = 754) NUCLEATED RED BLOOD CELLS 0 /100 WBC 0-0 (BEAKER) (test code = 413) NEUTROPHILS RELATIVE PERCENT 88 % (BEAKER) (test code = 429) LYMPHOCYTES RELATIVE PERCENT 7 % (BEAKER) (test code = 430) MONOCYTES RELATIVE PERCENT 4 % (BEAKER) (test code = 431) EOSINOPHILS RELATIVE PERCENT 0 % (BEAKER) (test code = 432) BASOPHILS RELATIVE PERCENT 0 % (BEAKER) (test code = 437) NEUTROPHILS ABSOLUTE COUNT 10.39 K/ L 1.78-5.38 H (BEAKER) (test code = 670) LYMPHOCYTES ABSOLUTE COUNT 0.87 K/ L 1.32-3.57 L (BEAKER) (test code = 414) MONOCYTES ABSOLUTE COUNT (BEAKER) 0.43 K/ L 0.30-0.82 (test code = 415) EOSINOPHILS ABSOLUTE COUNT 0.01 K/ L 0.04-0.54 L (BEAKER) (test code = 416) BASOPHILS ABSOLUTE COUNT (BEAKER) 0.01 K/ L 0.01-0.08 (test code = 417) IMMATURE GRANULOCYTES-RELATIVE 1 % 0-1 PERCENT (BEAKER) (test code = 2801) [id number] 05:33:00 Test Item Value Reference Range Interpretation Comments D-DIMER QUANTITATIVE (BEAKER) > MG/L FEU <0.50 H (test code = 671) Intended Use: The D-Dimer Assay can be used to aid in the diagnosis of Deep Vein Thrombosis (DVT) and Pulmonary Embolism Disease (PED).In patients with low pre- test probability, various studies concerning STA Liatest D-dimer test have reported that with a cutoff value of 0.50 MG/L FEU, the Negative Predictive Value (NPV) regarding the exclusion of thrombosis is within 95-100% range. [id number] 05:15:00 Test Item Value Reference Range Interpretation Comments FIBRINOGEN LEVEL (BEAKER) (test 408 mg/dl 225-434 code = 658) BLOOD GAS, [id number] 04:42:00 Test Item Value Reference Range Interpretation Comments PH ARTERIAL (BEAKER) (test code = 7.50 7.35-7.45 H 383) PCO2 ARTERIAL (BEAKER) (test code 35 mm Hg 35-45 = 384) PO2 ARTERIAL (BEAKER) (test code = 111 mm Hg 80-90 H 385) O2 SATURATION ARTERIAL (BEAKER) 98.5 % 96.0-97.0 H (test code = 386) HCO3 ARTERIAL (BEAKER) (test code 27 mmol/L 21-29 = 388) BASE EXCESS ARTERIAL (BEAKER) 3.8 mmol/L -2.0-3.0 H (test code = 387) PATIENT TEMPERATURE (BEAKER) (test 36.3 code = 1818) FIO2 (BEAKER) (test code = 1819) 80.0 [id number] 03:11:00 Test Item Value Reference Range Interpretation Comments FERRITIN (BEAKER) (test code = 900.87 ng/mL 5.00-275.00 H 361) Sliding Joint Maker ID - NICOLAS MB-TYPE NATRIURETIC FACTOR (BNP)2020-10-04 00:34:00 Test Item Value Reference Range Interpretation Comments B-TYPE NATRIURETIC PEPTIDE (BEAKER) 291 pg/mL 0-100 H (test code = 700) TROPONIN [id number] 23:42:00 Test Item Value Reference Range Interpretation Comments TROPONIN I (BEAKER) (test code = 397) < ng/mL 0.00-0.03 Troponin I (TnI) levels must be interpreted in the context of the presenting symptoms and the clinical findings. Elevated TnI levels indicate myocardial damage, but are not specific for ischemic heart disease. Elevated TnI levels are seen in patients with other cardiac conditions (including myocarditis and congestive heart failure), and slight TnI elevations occur in patients with other conditions, including sepsis, renal failure, acidosis, acute neurological disease, and persistent tachyarrhythmia.Sliding Joint Maker ID - KAILA LPROTHROMBIN TIME/[id number] 23:42:00 Test Item Value Reference Range Interpretation Comments PROTIME (BEAKER) (test code = 23.2 seconds 11.9-14.2 H 759) INR (BEAKER) (test code = 370) 2.12 <=5.90 Effective 03/02/2019: PT Reference Range ChangeNew: 11.9-14.2 Previous: 11.7- 14.7RECOMMENDED COUMADIN/WARFARIN INR THERAPY RANGESSTANDARD DOSE: 2.0-3.0 Includes: PROPHYLAXIS for venous thrombosis, systemic embolization; TREATMENT for venous thrombosis and/or pulmonary embolus.HIGH RISK: Target INR is 2.5-3.5 for patients wiht mechanical heart valves.C-REACTIVE [id number] 23:33:00 Test Item Value Reference Range Interpretation Comments C-REACTIVE PROTEIN (ABELAKER) (test 9.25 mg/dL 0.00-0.50 H code = 676) Sliding Joint Maker ID - KAILA LRAD, CHEST, 1 VIEW, NON [id number] 22:48:00Reason for exam:->increased dyspnea and increased O2 requirement in covid-19 pnaShould this be performed at the bedside?->Yes [facility] CENTERName: ALFONZO DYER : 1950 Sex: MFINAL REPORT History: Hypoxia and dyspnea, history of COVID 19 infection. Comparison: 09/30/2020 Findings: A single view of the chest is submitted. There is stable enlargement of the cardiac silhouette. Atherosclerotic calcification is present in the elongated aorta. Sternotomy wires are in place. The lung volumes remain low. Extensive bilateral pulmonary opacities are grossly stablefrom previous within variation of lung volumes and acquisition technique. Given the patient's history, the appearance could reflect multifocal pneumonitis. A component of superimposed pulmonary edema should be excluded clinically. There is no pneumothorax or acute bony abnormality. Impression: No significant interval change. Signed: Zulma Watkins MDReport Verified Date/Time: 10/03/2020 22:48:45 LACTIC ACID, [id number] 22:13:00 Test Item Value Reference Range Interpretation Comments LACTATE BLOOD 1.2 mmol/L 0.5-2.2 Specimen moder ately ARTERIAL (2) (BEAKER) hemoly zed (test code = 2874) Sliding Joint Maker ID - BSPOCT-BLOOD GASES, [id number] 21:41:00 Test Item Value Reference Range Interpretation Comments TEMP, CELSIUS-POC 98.0 (BEAKER) (test code = 1834) FIO2-POC (BEAKER) 40 (test code = 1835) PH, ARTERIAL-POC 7.447 7.350-7.450 (BEAKER) (test code = 1836) PCO2, ARTERIAL-POC 38.8 mm Hg 35.0-45.0 If pO2 is >180, pCO2 may (BEAKER) (test code be posit ively biased = 1837) PO2, ARTERIAL-POC 58.0 mm Hg 80.0-90.0 L (BEAKER) (test code = 1838) SO2, ARTERIAL-POC 91.0 % 96.0-97.0 L (BEAKER) (test code = 1839) HCO3, ARTERIAL-POC 26.9 meq/L 21.0-29.0 (BEAKER) (test code = 1840) BASE EXCESS, 3.0 meq/L -2.0-3.0 : TESTED AT [facility] 6720 ARTERIAL-POC [facility], (BEAKER) (test code 154[address]: = 1841) Sliding Joint Maker/Techni caden ID = [id number] for URCI A, FAMELA [id number] 21:41:00 Test Item Value Reference Range Interpretation Comments POC-SODIUM (BEAKER) 136 meq/L 135-148 : TESTED AT [facility] 6720 (test code = 1542) [facility] [facility] [address]: Sliding Joint Maker/Techni acden ID = [id number] for URCI A, FAMELA [id number] 21:41:00 Test Item Value Reference Range Interpretation Comments POC-POTASSIUM 4.3 meq/L 3.6-5.5 : TESTED AT [place] [address] ([facility]) (test code [facility], = 1540) [address]: Sliding Joint Maker/Techni caden ID = [id number] for URCI A, FAMELA [id number] 21:41:00 Test Item Value Reference Range Interpretation Comments POC-HEMOGLOBIN 13.6 g/dL 13.0-16.8 : TESTED AT [place] [address] ([facility]) (test code [facility], = 1856) [address]: Sliding Joint Maker/Techni caden ID = [id number] for URCI A, FAMELA [id number] 21:41:00 Test Item Value Reference Range Interpretation Comments POC-HEMATOCRIT 40 % 40-50 : Sliding Joint Maker/Te chnician ID = ([facility]) (test code = 264085 for URCIA, FAMELA 1857) POCT-CALCIUM [id number] 21:41:00 Test Item Value Reference Range Interpretation Comments POC-CALCIUM IONIZED 1.18 mmol/L 1.12-1.27 : TESTED AT [facility] ([facility]) (test code = B [facility] 1536) [place], [address]: Sliding Joint Maker/Techni caden ID = [id number] for URCIA, FAMELA [id number] 21:41:00 Test Item Value Reference Range Interpretation Comments POC-GLUCOSE ([facility]) 99 mg/dL 70-110 : TESTE D AT [place] [address] (test code = 1855) [place], [address]: Sliding Joint Maker/Techni caden ID = [id number] for URCI A, FAMELA POCT-GLUCOSE [id number] 20:55:00 Test Item Value Reference Range Interpretation Comments POC-GLUCOSE METER 113 mg/dL 70-110 H : TESTED A T [place] [address] ([facility]) (test code = [facility] [place] [facility], 1538) [address]: Sliding Joint Maker/Techni caden ID = [id number] for ANIKA SAM POCT-GLUCOSE [id number] 14:57:00 Test Item Value Reference Range Interpretation Comments POC-GLUCOSE METER 101 mg/dL 70-110 : TESTED A T [facility] 6720 (BEAKER) (test code [facility], = 1538) [address]: Sliding Joint Maker/Techni caden ID = [id number] for MARIANELA ARREDONDO POCT-GLUCOSE [id number] 07:40:00 Test Item Value Reference Range Interpretation Comments POC-GLUCOSE METER 126 mg/dL 70-110 H : TESTED A T [facility] 6720 (BEAKER) (test code [facility], = 1538) [address]: Sliding Joint Maker/Techni caden ID = [id number] for MARIANELA ARREDONDO BASIC METABOLIC [id number] 06:45:00 Test Item Value Reference Range Interpretation Comments SODIUM (BEAKER) 136 meq/L 136-145 (test code = 381) POTASSIUM (BEAKER) 4.7 meq/L 3.5-5.1 (test code = 379) CHLORIDE (BEAKER) 103 meq/L 98-107 (test code = 382) CO2 (BEAKER) (test 25 meq/L 22-29 code = 355) BLOOD UREA NITROGEN 23 mg/dL 7-21 H (BEAKER) (test code = 354) CREATININE (BEAKER) 0.76 mg/dL 0.57-1.25 (test code = 358) GLUCOSE RANDOM 131 mg/dL 70-105 H (BEAKER) (test code = 652) CALCIUM (BEAKER) 8.2 mg/dL 8.4-10.2 L (test code = 697) EGFR (BEAKER) (test 102 mL/min/1.73 ESTIM ATED GFR IS code = 1092) sq m NOT ACCURATE CREATININE CLEARANCE IN PREDICTING GLOMERULAR FILTRATION RATE . ESTIMATED GFR I S NOT APPLICABLE FOR DIALYSIS PATIEN TS. Sliding Joint Maker ID - BSCBC W/PLT COUNT & AUTO [id number] 06:30:00 Test Item Value Reference Range Interpretation Comments WHITE BLOOD CELL COUNT (BEAKER) 12.8 K/ L 3.5-10.5 H (test code = 775) RED BLOOD CELL COUNT (BEAKER) 4.43 M/ L 4.63-6.08 L (test code = 761) HEMOGLOBIN (BEAKER) (test code = 13.1 GM/DL 13.7-17.5 L 410) HEMATOCRIT (BEAKER) (test code = 40.4 % 40.1-51.0 411) MEAN CORPUSCULAR VOLUME (BEAKER) 91.2 fL 79.0-92.2 (test code = 753) MEAN CORPUSCULAR HEMOGLOBIN 29.6 pg 25.7-32.2 (BEAKER) (test code = 751) MEAN CORPUSCULAR HEMOGLOBIN CONC 32.4 GM/DL 32.3-36.5 (BEAKER) (test code = 752) RED CELL DISTRIBUTION WIDTH 14.2 % 11.6-14.4 (BEAKER) (test code = 412) PLATELET COUNT (BEAKER) (test 165 K/CU MM 150-450 code = 756) MEAN PLATELET VOLUME (BEAKER) 9.9 fL 9.4-12.4 (test code = 754) NUCLEATED RED BLOOD CELLS 0 /100 WBC 0-0 (BEAKER) (test code = 413) NEUTROPHILS RELATIVE PERCENT 87 % (BEAKER) (test code = 429) LYMPHOCYTES RELATIVE PERCENT 7 % (BEAKER) (test code = 430) MONOCYTES RELATIVE PERCENT 6 % (BEAKER) (test code = 431) EOSINOPHILS RELATIVE PERCENT 0 % (BEAKER) (test code = 432) BASOPHILS RELATIVE PERCENT 0 % (BEAKER) (test code = 437) NEUTROPHILS ABSOLUTE COUNT 11.16 K/ L 1.78-5.38 H (BEAKER) (test code = 670) LYMPHOCYTES ABSOLUTE COUNT 0.83 K/ L 1.32-3.57 L (BEAKER) (test code = 414) MONOCYTES ABSOLUTE COUNT (BEAKER) 0.76 K/ L 0.30-0.82 (test code = 415) EOSINOPHILS ABSOLUTE COUNT 0.00 K/ L 0.04-0.54 L (BEAKER) (test code = 416) BASOPHILS ABSOLUTE COUNT (BEAKER) 0.01 K/ L 0.01-0.08 (test code = 417) IMMATURE GRANULOCYTES-RELATIVE 0 % 0-1 PERCENT (BEAKER) (test code = 2801) POCT-GLUCOSE [id number] 21:34:00 Test Item Value Reference Range Interpretation Comments POC-GLUCOSE METER 129 mg/dL 70-110 H : TESTED A T [facility] 6720 (BEAKER) (test code = [place] [facility], 1538) [address]: Sliding Joint Maker/Techni caden ID = [id number] for SWATHI FERRER POCT-GLUCOSE [id number] 15:36:00 Test Item Value Reference Range Interpretation Comments POC-GLUCOSE METER 142 mg/dL 70-110 H : TESTED A T [facility] 6720 (BEAKER) (test code [facility], = 1538) [address]: Sliding Joint Maker/Techni caden ID = [id number] for LEWI S, [place] POCT-GLUCOSE [id number] 11:56:00 Test Item Value Reference Range Interpretation Comments POC-GLUCOSE METER 162 mg/dL 70-110 H : TESTED A T [facility] 6720 (BEAKER) (test code [facility], = 1538) [address]: Sliding Joint Maker/Techni caden ID = [id number] for LEWI S, [place] POCT-GLUCOSE [id number] 07:42:00 Test Item Value Reference Range Interpretation Comments POC-GLUCOSE METER 110 mg/dL 70-110 : TESTED A T [facility] 6720 (BEAKER) (test code [facility], = 1538) [address]: Sliding Joint Maker/Techni caden ID = [id number] for LEWI S, [place] BASIC METABOLIC [id number] 05:39:00 Test Item Value Reference Range Interpretation Comments SODIUM (BEAKER) 139 meq/L 136-145 (test code = 381) POTASSIUM (BEAKER) 4.9 meq/L 3.5-5.1 (test code = 379) CHLORIDE (BEAKER) 104 meq/L 98-107 (test code = 382) CO2 (BEAKER) (test 26 meq/L 22-29 code = 355) BLOOD UREA NITROGEN 27 mg/dL 7-21 H (BEAKER) (test code = 354) CREATININE (BEAKER) 0.78 mg/dL 0.57-1.25 (test code = 358) GLUCOSE RANDOM 132 mg/dL 70-105 H (BEAKER) (test code = 652) CALCIUM (BEAKER) 8.3 mg/dL 8.4-10.2 L (test code = 697) EGFR (BEAKER) (test 99 mL/min/1.73 ESTIMA GABRIELLE GFR IS code = 1092) sq m NOT ACCURATE CREATININE CLEARANCE IN PREDICTING GLOMERULAR FILTRATION RATE . ESTIMATED GFR I S NOT APPLICABLE FOR DIALYSIS PATIEN TS. Sliding Joint Maker ID - NICOLAS MCBC W/PLT COUNT & AUTO [id number] 05:03:00 Test Item Value Reference Range Interpretation Comments WHITE BLOOD CELL COUNT (BEAKER) 14.5 K/ L 3.5-10.5 H (test code = 775) RED BLOOD CELL COUNT (BEAKER) 4.28 M/ L 4.63-6.08 L (test code = 761) HEMOGLOBIN (BEAKER) (test code = 12.7 GM/DL 13.7-17.5 L 410) HEMATOCRIT (BEAKER) (test code = 39.7 % 40.1-51.0 L 411) MEAN CORPUSCULAR VOLUME (BEAKER) 92.8 fL 79.0-92.2 H (test code = 753) MEAN CORPUSCULAR HEMOGLOBIN 29.7 pg 25.7-32.2 (BEAKER) (test code = 751) MEAN CORPUSCULAR HEMOGLOBIN CONC 32.0 GM/DL 32.3-36.5 L (BEAKER) (test code = 752) RED CELL DISTRIBUTION WIDTH 14.5 % 11.6-14.4 H (BEAKER) (test code = 412) PLATELET COUNT (BEAKER) (test 199 K/CU MM 150-450 code = 756) MEAN PLATELET VOLUME (BEAKER) 10.2 fL 9.4-12.4 (test code = 754) NUCLEATED RED BLOOD CELLS 0 /100 WBC 0-0 (BEAKER) (test code = 413) NEUTROPHILS RELATIVE PERCENT 91 % (BEAKER) (test code = 429) LYMPHOCYTES RELATIVE PERCENT 5 % (BEAKER) (test code = 430) MONOCYTES RELATIVE PERCENT 4 % (BEAKER) (test code = 431) EOSINOPHILS RELATIVE PERCENT 0 % (BEAKER) (test code = 432) BASOPHILS RELATIVE PERCENT 0 % (BEAKER) (test code = 437) NEUTROPHILS ABSOLUTE COUNT 13.16 K/ L 1.78-5.38 H (BEAKER) (test code = 670) LYMPHOCYTES ABSOLUTE COUNT 0.76 K/ L 1.32-3.57 L (BEAKER) (test code = 414) MONOCYTES ABSOLUTE COUNT (BEAKER) 0.52 K/ L 0.30-0.82 (test code = 415) EOSINOPHILS ABSOLUTE COUNT 0.00 K/ L 0.04-0.54 L (BEAKER) (test code = 416) BASOPHILS ABSOLUTE COUNT (BEAKER) 0.02 K/ L 0.01-0.08 (test code = 417) IMMATURE GRANULOCYTES-RELATIVE 0 % 0-1 PERCENT (BEAKER) (test code = 2801) POCT-GLUCOSE [id number] 20:58:00 Test Item Value Reference Range Interpretation Comments POC-GLUCOSE METER 123 mg/dL 70-110 H : TESTED A T [facility] 6720 (BEAKER) (test code = [facility], 1538) [address]: Sliding Joint Maker/Techni caden ID = [id number] for ELIF SANCHEZ POCT-GLUCOSE [id number] 17:25:00 Test Item Value Reference Range Interpretation Comments POC-GLUCOSE METER 119 mg/dL 70-110 H : TESTED A T [facility] 6720 (BEAKER) (test code = [facility], 1538) [address]: Sliding Joint Maker/Techni caden ID = [id number] for Mayi mcgregor (contract), Nor ma POCT-GLUCOSE [id number] 12:16:00 Test Item Value Reference Range Interpretation Comments POC-GLUCOSE METER 156 mg/dL 70-110 H : TESTED A T [facility] 6720 (BEAKER) (test code = [facility], 1538) [address]: Sliding Joint Maker/Techni caden ID = [id number] for DU SUZANNE, UDAY POCT-GLUCOSE [id number] 08:20:00 Test Item Value Reference Range Interpretation Comments POC-GLUCOSE METER 114 mg/dL 70-110 H : TESTED A T [facility] 6720 (BEAKER) (test code = [facility], 1538) [address]: Sliding Joint Maker/Techni caden ID = [id number] for ISA BENSON BASIC METABOLIC [id number] 05:35:00 Test Item Value Reference Range Interpretation Comments SODIUM (BEAKER) 140 meq/L 136-145 (test code = 381) POTASSIUM (BEAKER) 4.7 meq/L 3.5-5.1 (test code = 379) CHLORIDE (BEAKER) 105 meq/L 98-107 (test code = 382) CO2 (BEAKER) (test 27 meq/L 22-29 code = 355) BLOOD UREA NITROGEN 25 mg/dL 7-21 H (BEAKER) (test code = 354) CREATININE (BEAKER) 0.78 mg/dL 0.57-1.25 (test code = 358) GLUCOSE RANDOM 132 mg/dL 70-105 H (BEAKER) (test code = 652) CALCIUM (BEAKER) 8.4 mg/dL 8.4-10.2 (test code = 697) EGFR (BEAKER) (test 99 mL/min/1.73 ESTIMA GABRIELLE GFR IS code = 1092) sq m NOT ACCURATE CREATININE CLEARANCE IN PREDICTING GLOMERULAR FILTRATION RATE . ESTIMATED GFR I S NOT APPLICABLE FOR DIALYSIS PATIEN TS. Sliding Joint Maker ID - EDASICBC W/PLT COUNT & AUTO [id number] 05:29:00 Test Item Value Reference Range Interpretation Comments WHITE BLOOD CELL COUNT (BEAKER) 16.0 K/ L 3.5-10.5 H (test code = 775) RED BLOOD CELL COUNT (BEAKER) 4.25 M/ L 4.63-6.08 L (test code = 761) HEMOGLOBIN (BEAKER) (test code = 12.7 GM/DL 13.7-17.5 L 410) HEMATOCRIT (BEAKER) (test code = 39.0 % 40.1-51.0 L 411) MEAN CORPUSCULAR VOLUME (BEAKER) 91.8 fL 79.0-92.2 (test code = 753) MEAN CORPUSCULAR HEMOGLOBIN 29.9 pg 25.7-32.2 (BEAKER) (test code = 751) MEAN CORPUSCULAR HEMOGLOBIN CONC 32.6 GM/DL 32.3-36.5 (BEAKER) (test code = 752) RED CELL DISTRIBUTION WIDTH 14.5 % 11.6-14.4 H (BEAKER) (test code = 412) PLATELET COUNT (BEAKER) (test 239 K/CU MM 150-450 code = 756) MEAN PLATELET VOLUME (BEAKER) 10.2 fL 9.4-12.4 (test code = 754) NUCLEATED RED BLOOD CELLS 0 /100 WBC 0-0 (BEAKER) (test code = 413) NEUTROPHILS RELATIVE PERCENT 92 % (BEAKER) (test code = 429) LYMPHOCYTES RELATIVE PERCENT 5 % (BEAKER) (test code = 430) MONOCYTES RELATIVE PERCENT 3 % (BEAKER) (test code = 431) EOSINOPHILS RELATIVE PERCENT 0 % (BEAKER) (test code = 432) BASOPHILS RELATIVE PERCENT 0 % (BEAKER) (test code = 437) NEUTROPHILS ABSOLUTE COUNT 14.66 K/ L 1.78-5.38 H (BEAKER) (test code = 670) LYMPHOCYTES ABSOLUTE COUNT 0.78 K/ L 1.32-3.57 L (BEAKER) (test code = 414) MONOCYTES ABSOLUTE COUNT (BEAKER) 0.46 K/ L 0.30-0.82 (test code = 415) EOSINOPHILS ABSOLUTE COUNT 0.00 K/ L 0.04-0.54 L (BEAKER) (test code = 416) BASOPHILS ABSOLUTE COUNT (BEAKER) 0.02 K/ L 0.01-0.08 (test code = 417) IMMATURE GRANULOCYTES-RELATIVE 1 % 0-1 PERCENT (BEAKER) (test code = 2801) POCT-GLUCOSE [id number] 20:12:00 Test Item Value Reference Range Interpretation Comments POC-GLUCOSE METER 162 mg/dL 70-110 H : TESTED A T [facility] 6720 (BEAKER) (test code = [facility], 1538) [address]: Sliding Joint Maker/Techni caden ID = [id number] for HUGO MARTIN ELIF POCT-GLUCOSE [id number] 16:21:00 Test Item Value Reference Range Interpretation Comments POC-GLUCOSE METER 135 mg/dL 70-110 H : TESTED A T [facility] 6720 (BEAKER) (test code [facility], = 1538) [address]: Sliding Joint Maker/Techni caden ID = [id number] for LEWI S, [place] POCT-GLUCOSE [id number] 13:33:00 Test Item Value Reference Range Interpretation Comments POC-GLUCOSE METER 187 mg/dL 70-110 H : TESTED A T [facility] 6720 (BEAKER) (test code [facility], = 1538) [address]: Sliding Joint Maker/Techni caden ID = [id number] for LEWI S, [place] HEPATIC FUNCTION [id number] 10:52:00 Test Item Value Reference Range Interpretation Comments TOTAL PROTEIN (BEAKER) 6.5 gm/dL 6.0-8.3 Speci men slightly (test code = 770) hemolyzed ALBUMIN (BEAKER) (test 3.1 g/dL 3.5-5.0 L Speci men slightly code = 1145) hemolyzed BILIRUBIN TOTAL 0.5 mg/dL 0.2-1.2 Specimen sli ghtly (BEAKER) (test code = hemoly zed 377) BILIRUBIN DIRECT 0.2 mg/dL 0.1-0.5 Specimen sl ightly (BEAKER) (test code = hemoly zed 706) ALKALINE PHOSPHATASE 18 U/L 40-150 L (BEAKER) (test code = 346) AST (SGOT) (BEAKER) 77 U/L 5-34 H Specimen slightly (test code = 353) hemolyzed ALT (SGPT) (BEAKER) 52 U/L 6-55 Specimen slightly (test code = 347) hemolyzed Sliding Joint Maker ID - EDASICHOLESTEROL, [id number] 10:51:00 Test Item Value Reference Range Interpretation Comments CHOLESTEROL (BEAKER) 99 mg/dL Specime n slightly (test code = 631) hemolyzed Cholesterol Reference Range: Low Risk <200 Borderline 200-239 High Risk >240 Sliding Joint Maker ID - EDASIPOCT-GLUCOSE [id number] 08:58:00 Test Item Value Reference Range Interpretation Comments POC-GLUCOSE METER 124 mg/dL 70-110 H : TESTED A T [facility] 6720 (BEAKER) (test code [facility], = 1538) [address]: Sliding Joint Maker/Techni caden ID = [id number] for MARIANELA ARREDONDO CBC W/PLT COUNT & AUTO [id number] 06:34:00 Test Item Value Reference Range Interpretation Comments WHITE BLOOD CELL COUNT (BEAKER) 16.9 K/ L 3.5-10.5 H (test code = 775) RED BLOOD CELL COUNT (BEAKER) 4.36 M/ L 4.63-6.08 L (test code = 761) HEMOGLOBIN (BEAKER) (test code = 12.9 GM/DL 13.7-17.5 L 410) HEMATOCRIT (BEAKER) (test code = 40.6 % 40.1-51.0 411) MEAN CORPUSCULAR VOLUME (BEAKER) 93.1 fL 79.0-92.2 H (test code = 753) MEAN CORPUSCULAR HEMOGLOBIN 29.6 pg 25.7-32.2 (BEAKER) (test code = 751) MEAN CORPUSCULAR HEMOGLOBIN CONC 31.8 GM/DL 32.3-36.5 L (BEAKER) (test code = 752) RED CELL DISTRIBUTION WIDTH 14.4 % 11.6-14.4 (BEAKER) (test code = 412) PLATELET COUNT (BEAKER) (test 227 K/CU MM 150-450 code = 756) MEAN PLATELET VOLUME (BEAKER) 10.3 fL 9.4-12.4 (test code = 754) NUCLEATED RED BLOOD CELLS 0 /100 WBC 0-0 (BEAKER) (test code = 413) NEUTROPHILS RELATIVE PERCENT 92 % (BEAKER) (test code = 429) LYMPHOCYTES RELATIVE PERCENT 4 % (BEAKER) (test code = 430) MONOCYTES RELATIVE PERCENT 3 % (BEAKER) (test code = 431) EOSINOPHILS RELATIVE PERCENT 0 % (BEAKER) (test code = 432) BASOPHILS RELATIVE PERCENT 0 % (BEAKER) (test code = 437) NEUTROPHILS ABSOLUTE COUNT 15.59 K/ L 1.78-5.38 H (BEAKER) (test code = 670) LYMPHOCYTES ABSOLUTE COUNT 0.75 K/ L 1.32-3.57 L (BEAKER) (test code = 414) MONOCYTES ABSOLUTE COUNT (BEAKER) 0.49 K/ L 0.30-0.82 (test code = 415) EOSINOPHILS ABSOLUTE COUNT 0.00 K/ L 0.04-0.54 L (BEAKER) (test code = 416) BASOPHILS ABSOLUTE COUNT (BEAKER) 0.02 K/ L 0.01-0.08 (test code = 417) IMMATURE GRANULOCYTES-RELATIVE 0 % 0-1 PERCENT (BEAKER) (test code = 2801) BASIC METABOLIC [id number] 06:22:00 Test Item Value Reference Range Interpretation Comments SODIUM (BEAKER) 139 meq/L 136-145 (test code = 381) POTASSIUM (BEAKER) 4.9 meq/L 3.5-5.1 Specimen slightly (test code = 379) hemolyzed CHLORIDE (BEAKER) 108 meq/L 98-107 H (test code = 382) CO2 (BEAKER) (test 21 meq/L 22-29 L code = 355) BLOOD UREA NITROGEN 23 mg/dL 7-21 H (BEAKER) (test code = 354) CREATININE (BEAKER) 0.78 mg/dL 0.57-1.25 Specimen slightly (test code = 358) hemolyzed GLUCOSE RANDOM 127 mg/dL 70-105 H (BEAKER) (test code = 652) CALCIUM (BEAKER) 8.5 mg/dL 8.4-10.2 (test code = 697) EGFR (BEAKER) (test 99 mL/min/1.73 ESTIMA GABRIELLE GFR IS code = 1092) sq m NOT ACCURATE CREATININE CLEARANCE IN PREDICTING GLOMERULAR FILTRATION RATE . ESTIMATED GFR I S NOT APPLICABLE FOR DIALYSIS PATIEN TS. Sliding Joint Maker ID - EDASILACTIC ACID, [id number] 06:06:00 Test Item Value Reference Range Interpretation Comments LACTATE BLOOD VENOUS 1.40 mmol/L 0.50-2.20 Specime n slightly (2) (BEAKER) (test hemolyzed code = 2872) Sliding Joint Maker ID - NICOLAS MRAD, CHEST, 1 VIEW, NON [id number] 05:43:00Reason for exam:->SOBShould this be performed at the bedside?->Yes [facility] : 1950 Sex: MFINAL REPORT RAD, CHEST, 1 VIEW, NON DEPT INDICATION: SOB COMPARISON: September FINDINGS: Portable frontal view of the chest. IMPRESSION: Support Lines: None Lungs and pleura:Bilateral fluffy and nodular opacities most suggestive of pulmonary edema but underlying lesions notexcluded. Follow-up to ensure resolution or correlation with CT chest recommended. No large effusion. No pneumothorax.Heart and mediastinum: Magnified by technique with suggestion of cardiomegaly, similar to prior examination.Additional findings: None. Signed: Kj Mendoza Verified Date/Time: 09/30/2020 05:43:22 POCT-BLOOD GASES, [id number] 05:12:00 Test Item Value Reference Range Interpretation Comments TEMP, CELSIUS-POC 97.5 (BEAKER) (test code = 1834) FIO2-POC (BEAKER) 36 (test code = 1835) PH, ARTERIAL-POC 7.401 7.350-7.450 (BEAKER) (test code = 1836) PCO2, ARTERIAL-POC 40.4 mm Hg 35.0-45.0 If pO2 is >180, pCO2 may (BEAKER) (test code be posit ively biased = 1837) PO2, ARTERIAL-POC 81.0 mm Hg 80.0-90.0 (BEAKER) (test code = 1838) SO2, ARTERIAL-POC 96.0 % 96.0-97.0 (BEAKER) (test code = 1839) HCO3, ARTERIAL-POC 25.2 meq/L 21.0-29.0 (BEAKER) (test code = 1840) BASE EXCESS, 0.0 meq/L -2.0-3.0 : TESTED AT [facility] 6720 ARTERIAL-POC [facility], (BEAKER) (test code [address]: = 1841) Sliding Joint Maker/Techni caden ID = [id number] for RUMB AOA, IVANA [id number] 05:12:00 Test Item Value Reference Range Interpretation Comments POC-SODIUM (BEAKER) 138 meq/L 135-148 : TESTED AT [facility] 6720 (test code = 1542) [facility], [address]: Sliding Joint Maker/Techni caden ID = [id number] for RUMB AOA, IVANA [id number] 05:12:00 Test Item Value Reference Range Interpretation Comments POC-POTASSIUM 4.6 meq/L 3.6-5.5 : TESTED AT [facility] 6720 (BEAKER) (test code [facility], = 1540) [address]: Sliding Joint Maker/Techni caden ID = [id number] for IVANA VILLANUEVA [id number] 05:12:00 Test Item Value Reference Range Interpretation Comments POC-HEMOGLOBIN 12.9 g/dL 13.0-16.8 L : [facility] [place] [address] [facility] (test code [facility], = 1856) [address]: Sliding Joint Maker/Techni caden ID = [id number] for CHONG ZIMMERMAN, IVANA [id number] 05:12:00 Test Item Value Reference Range Interpretation Comments POC-HEMATOCRIT 38 % 40-50 L : Sliding Joint Maker/Te chnician ID = ([facility]) (test code = 997237 for IVANA THOMPSON 1857) POCT-CALCIUM [id number] 05:12:00 Test Item Value Reference Range Interpretation Comments POC-CALCIUM IONIZED 1.19 mmol/L 1.12-1.27 : TESTED AT [facility] ([facility]) (test code = [facility] [address] [facility] 15[address]) [place], [address]: Sliding Joint Maker/Techni caden ID = [id number] for IVANA THOMPSON [id number] 05:12:00 Test Item Value Reference Range Interpretation Comments POC-GLUCOSE ([facility]) 132 mg/dL 70-110 H : TESTE D AT [place] [address] (test code = 1855) [facility] [place] [facility] [place] [place], [address]: Sliding Joint Maker/Techni caden ID = [id number] for IVANA VILLANUEVA POCT-GLUCOSE [id number] 17:05:00 Test Item Value Reference Range Interpretation Comments POC-GLUCOSE METER 176 mg/dL 70-110 H : TESTED A T [place] [address] ([facility]) (test code = [facility], 1538) [address]: Sliding Joint Maker/Techni caden ID = [id number] for Mary Edmond SARS-COV2/RT-PCR ([facility])2020-09-29 13:22:00 Test Item Value Reference Range Interpretation Comments SARS-COV2/RT-PCR (test Positive Not Detected, Negative, AA code = 0477917) See external report for linked test SARS-COV-2 PERFORMING LAB [facility] NISSA (test code = 2492519) Results are for the detection of SARS-CoV-2 RNA. The SARS-CoV-2 RNA is generally detectable in nasopharyngeal swab specimens during the acute phase of infection. Positive results are indicative of active infection with SARS-CoV-2 and the patient is presumed to be contagious. Laboratory test results should always be considered in the clinical correlation with patient history and other epidemiological and diagnostic information that is necessary to determine patient infection status. Patient management decisions should follow current CDC guidelines. Positive results do not rule out bacterial infection or co-infection with other viruses. The agent detected may not be the definite cause of disease. The limit of detection for this assay is 800 copies/mL.This SARS CoV-2 test is a real-time RT-PCR test intended for the qualitative detection of nucleic acid from SARS-CoV-2 in a nasopharyngeal swab specimen collected from individuals suspected of COVID-19 by their healthcare provider.This test has not been Food and Drug Administration (FDA) cleared or approved. This is a modified version of an approvedEmergency Use Authorization (EUA) and is in the process of review by the FDA. Once authorized by theFDA, the issued EUA will be effective until the declaration that circumstances exist justifying the authorization of the emergency use of in vitro diagnostic tests for detection and/or diagnosis of COVID-19 is terminated under Section 564(b)(2) of the Act or the EUA is revoked under Section 564(g) of the Act.Fact Sheet for Healthcare Providers:https://www.[employer].com/sites/default/files/product/documen ts/Hcai_Vjmxm_HG_Diruvpywb_Eaje_HZDX-SeJ-3.pdfFact Sheet for Healthcare Patients:https://www.[employer] /sites/default/files/product/documents/Wlhe_Fsyiu_Evvchglo_Xrcr_IRHJ-ByS-7.pdf Performing Laboratory:[facility], [place] [id number] 12:14:00 Test Item Value Reference Range Interpretation Comments FERRITIN (HARIS) (test code = 3144.93 ng/mL 5.00-275.00 H 361) Sliding Joint Maker ID - EDASIOperator ID - EDASIPROTHROMBIN TIME/[id number] 11:54:00 Test Item Value Reference Range Interpretation Comments PROTIME (BEAKER) (test code = 38.6 seconds 11.9-14.2 H 759) INR (BEAKER) (test code = 370) 4.10 <=5.90 Effective 03/02/2019: PT Reference Range ChangeNew: 11.9-14.2 Previous: 11.7- 14.7RECOMMENDED COUMADIN/WARFARIN INR THERAPY RANGESSTANDARD DOSE: 2.0-3.0 Includes: PROPHYLAXIS for venous thrombosis, systemic embolization; TREATMENT for venous thrombosis and/or pulmonary embolus.HIGH RISK: Target INR is 2.5-3.5 for patients wiht mechanical heart valves.HEPATIC FUNCTION [id number] 11:20:00 Test Item Value Reference Range Interpretation Comments TOTAL PROTEIN (BEAKER) (test code = 6.3 gm/dL 6.0-8.3 770) ALBUMIN (BEAKER) (test code = 1145) 3.2 g/dL 3.5-5.0 L BILIRUBIN TOTAL (BEAKER) (test code 0.6 mg/dL 0.2-1.2 = 377) BILIRUBIN DIRECT (BEAKER) (test 0.3 mg/dL 0.1-0.5 code = 706) ALKALINE PHOSPHATASE (BEAKER) (test 12 U/L 40-150 L code = 346) AST (SGOT) (BEAKER) (test code = 56 U/L 5-34 H 353) ALT (SGPT) (BEAKER) (test code = 43 U/L 6-55 347) Sliding Joint Maker ID - EDASIIRON, TIBC, % SAT. (WITHOUT FERRITIN)2020-09-29 11:15:00 Test Item Value Reference Range Interpretation Comments IRON (BEAKER) (test code = 547) 29.0 ug/dL 40.0-160.0 L TOTAL IRON BINDING CAPACITY 169 ug/dL 250-450 L (BEAKER) (test code = 769) IRON % SATURATION (2) (BEAKER) 17 % 20-55 L (test code = 2590) Sliding Joint Maker ID - EDASIHEMOGLOBIN [id number] 10:34:00 Test Item Value Reference Range Interpretation Comments HEMOGLOBIN A1C (BEAKER) (test code = 6.8 % 4.3-6.1 H 368) BASIC METABOLIC [id number] 07:25:00 Test Item Value Reference Range Interpretation Comments SODIUM (BEAKER) 139 meq/L 136-145 (test code = 381) POTASSIUM (BEAKER) 4.6 meq/L 3.5-5.1 (test code = 379) CHLORIDE (BEAKER) 109 meq/L 98-107 H (test code = 382) CO2 (BEAKER) (test 22 meq/L 22-29 code = 355) BLOOD UREA NITROGEN 16 mg/dL 7-21 (BEAKER) (test code = 354) CREATININE (BEAKER) 0.82 mg/dL 0.57-1.25 (test code = 358) GLUCOSE RANDOM 148 mg/dL 70-105 H (BEAKER) (test code = 652) CALCIUM (BEAKER) 8.3 mg/dL 8.4-10.2 L (test code = 697) EGFR (BEAKER) (test 93 mL/min/1.73 ESTIMA GABRIELLE GFR IS code = 1092) sq m NOT ACCURATE CREATININE CLEARANCE IN PREDICTING GLOMERULAR FILTRATION RATE . ESTIMATED GFR I S NOT APPLICABLE FOR DIALYSIS PATIEN TS. Sliding Joint Maker ID - EDASICBC W/PLT COUNT & AUTO [id number] 07:24:00 Test Item Value Reference Range Interpretation Comments WHITE BLOOD CELL COUNT (BEAKER) 7.7 K/ L 3.5-10.5 (test code = 775) RED BLOOD CELL COUNT (BEAKER) 4.54 M/ L 4.63-6.08 L (test code = 761) HEMOGLOBIN (BEAKER) (test code = 13.8 GM/DL 13.7-17.5 410) HEMATOCRIT (BEAKER) (test code = 41.3 % 40.1-51.0 411) MEAN CORPUSCULAR VOLUME (BEAKER) 91.0 fL 79.0-92.2 (test code = 753) MEAN CORPUSCULAR HEMOGLOBIN 30.4 pg 25.7-32.2 (BEAKER) (test code = 751) MEAN CORPUSCULAR HEMOGLOBIN CONC 33.4 GM/DL 32.3-36.5 (BEAKER) (test code = 752) RED CELL DISTRIBUTION WIDTH 14.5 % 11.6-14.4 H (BEAKER) (test code = 412) PLATELET COUNT (BEAKER) (test 194 K/CU MM 150-450 code = 756) MEAN PLATELET VOLUME (BEAKER) 10.6 fL 9.4-12.4 (test code = 754) NUCLEATED RED BLOOD CELLS 0 /100 WBC 0-0 (BEAKER) (test code = 413) NEUTROPHILS RELATIVE PERCENT 89 % (BEAKER) (test code = 429) LYMPHOCYTES RELATIVE PERCENT 8 % (BEAKER) (test code = 430) MONOCYTES RELATIVE PERCENT 2 % (BEAKER) (test code = 431) EOSINOPHILS RELATIVE PERCENT 0 % (BEAKER) (test code = 432) BASOPHILS RELATIVE PERCENT 0 % (BEAKER) (test code = 437) NEUTROPHILS ABSOLUTE COUNT 6.86 K/ L 1.78-5.38 H (BEAKER) (test code = 670) LYMPHOCYTES ABSOLUTE COUNT 0.63 K/ L 1.32-3.57 L (BEAKER) (test code = 414) MONOCYTES ABSOLUTE COUNT (BEAKER) 0.18 K/ L 0.30-0.82 L (test code = 415) EOSINOPHILS ABSOLUTE COUNT 0.00 K/ L 0.04-0.54 L (BEAKER) (test code = 416) BASOPHILS ABSOLUTE COUNT (BEAKER) 0.00 K/ L 0.01-0.08 L (test code = 417) IMMATURE GRANULOCYTES-RELATIVE 0 % 0-1 PERCENT (BEAKER) (test code = 2801) LACTIC ACID, [id number] 07:21:00 Test Item Value Reference Range Interpretation Comments LACTATE BLOOD VENOUS 1.12 mmol/L 0.50-2.20 Specime n moderately (2) (BEAKER) (test hemolyzed code = 7202) Sliding Joint Maker ID - EDASIPOCT-GLUCOSE [id number] 07:01:00 Test Item Value Reference Range Interpretation Comments POC-GLUCOSE METER 136 mg/dL 70-110 H : TESTED A T [facility] 6720 (BEAKER) (test code = [facility], 1538) [address]: Sliding Joint Maker/Techni caden ID = [id number] for An corneliusjosékat (contract), Danny nna POCT-GLUCOSE [id number] 05:34:00 Test Item Value Reference Range Interpretation Comments POC-GLUCOSE METER 154 mg/dL 70-110 H : TESTED A T [facility] 6720 (BEAKER) (test code = [facility], 1538) [address]: Sliding Joint Maker/Techni caden ID = [id number] for Sharron lind (contract)Danny BASIC METABOLIC [id number] 06:16:00 Test Item Value Reference Range Interpretation Comments SODIUM (BEAKER) 140 meq/L 136-145 (test code = 381) POTASSIUM (BEAKER) 4.1 meq/L 3.5-5.1 (test code = 379) CHLORIDE (BEAKER) 106 meq/L 98-107 (test code = 382) CO2 (BEAKER) (test 28 meq/L 22-29 code = 355) BLOOD UREA NITROGEN 24 mg/dL 7-21 H (BEAKER) (test code = 354) CREATININE (BEAKER) 1.18 mg/dL 0.57-1.25 (test code = 358) GLUCOSE RANDOM 100 mg/dL 70-105 (BEAKER) (test code = 652) CALCIUM (BEAKER) 8.8 mg/dL 8.4-10.2 (test code = 697) EGFR (BEAKER) (test 62 mL/min/1.73 ESTIMA GABRIELLE GFR IS code = 1092) sq m NOT ACCURATE CREATININE CLEARANCE IN PREDICTING GLOMERULAR FILTRATION RATE . ESTIMATED GFR I S NOT APPLICABLE FOR DIALYSIS PATIEN TS. TROPONIN [id number] 15:39:00 Test Item Value Reference Range Interpretation Comments TROPONIN I (BEAKER) (test code = 0.05 ng/mL 0.00-0.03 H 397) Troponin I (TnI) levels must be interpreted in the context of the presenting symptoms and the clinical findings. Elevated TnI levels indicate myocardial damage, but are not specific for ischemic heart disease. Elevated TnI levels are seen in patients with other cardiac conditions (including myocarditis and congestive heart failure), and slight TnI elevations occur in patients with other conditions, including sepsis, renal failure, acidosis, acute neurological disease, and persistent tachyarrhythmia.BASIC METABOLIC [id number] 15:32:00 Test Item Value Reference Range Interpretation Comments SODIUM (BEAKER) 140 meq/L 136-145 (test code = 381) POTASSIUM (BEAKER) 4.3 meq/L 3.5-5.1 (test code = 379) CHLORIDE (BEAKER) 101 meq/L 98-107 (test code = 382) CO2 (BEAKER) (test 29 meq/L 22-29 code = 355) BLOOD UREA NITROGEN 24 mg/dL 7-21 H (BEAKER) (test code = 354) CREATININE (BEAKER) 1.56 mg/dL 0.57-1.25 H (test code = 358) GLUCOSE RANDOM 89 mg/dL 70-105 (BEAKER) (test code = 652) CALCIUM (BEAKER) 9.2 mg/dL 8.4-10.2 (test code = 697) EGFR (BEAKER) (test 45 mL/min/1.73 ESTIMA GABRIELLE GFR IS code = 1092) sq m NOT ACCURATE CREATININE CLEARANCE IN PREDICTING GLOMERULAR FILTRATION RATE . ESTIMATED GFR I S NOT APPLICABLE FOR DIALYSIS PATIEN TS. TROPONIN [id number] 18:20:00 Test Item Value Reference Range Interpretation Comments TROPONIN I (BEAKER) (test code = 0.01 ng/mL 0.00-0.03 397) Troponin I (TnI) levels must be interpreted in the context of the presenting symptoms and the clinical findings. Elevated TnI levels indicate myocardial damage, but are not specific for ischemic heart disease. Elevated TnI levels are seen in patients with other cardiac conditions (including myocarditis and congestive heart failure), and slight TnI elevations occur in patients with other conditions, including sepsis, renal failure, acidosis, acute neurological disease, and persistent tachyarrhythmia.CBC W/PLT COUNT & AUTO DIFFERENTIAL 2019-09-15 13:16:00 Test Item Value Reference Range Interpretation Comments WHITE BLOOD CELL COUNT (BEAKER) 5.1 K/ L 3.5-10.5 (test code = 775) RED BLOOD CELL COUNT (BEAKER) 3.25 M/ L 4.63-6.08 L (test code = 761) HEMOGLOBIN (BEAKER) (test code = 10.4 GM/DL 13.7-17.5 L 410) HEMATOCRIT (BEAKER) (test code = 31.5 % 40.1-51.0 L 411) MEAN CORPUSCULAR VOLUME (BEAKER) 96.9 fL 79.0-92.2 H (test code = 753) MEAN CORPUSCULAR HEMOGLOBIN 32.0 pg 25.7-32.2 (BEAKER) (test code = 751) MEAN CORPUSCULAR HEMOGLOBIN CONC 33.0 GM/DL 32.3-36.5 (BEAKER) (test code = 752) RED CELL DISTRIBUTION WIDTH 13.2 % 11.6-14.4 (BEAKER) (test code = 412) PLATELET COUNT (BEAKER) (test 160 K/CU MM 150-450 code = 756) MEAN PLATELET VOLUME (BEAKER) 10.6 fL 9.4-12.4 (test code = 754) NUCLEATED RED BLOOD CELLS 0 /100 WBC 0-0 (BEAKER) (test code = 413) NEUTROPHILS RELATIVE PERCENT 57 % (BEAKER) (test code = 429) LYMPHOCYTES RELATIVE PERCENT 25 % (BEAKER) (test code = 430) MONOCYTES RELATIVE PERCENT 11 % (BEAKER) (test code = 431) EOSINOPHILS RELATIVE PERCENT 6 % (BEAKER) (test code = 432) BASOPHILS RELATIVE PERCENT 0 % (BEAKER) (test code = 437) NEUTROPHILS ABSOLUTE COUNT 2.93 K/ L 1.78-5.38 (BEAKER) (test code = 670) LYMPHOCYTES ABSOLUTE COUNT 1.27 K/ L 1.32-3.57 L (BEAKER) (test code = 414) MONOCYTES ABSOLUTE COUNT (BEAKER) 0.58 K/ L 0.30-0.82 (test code = 415) EOSINOPHILS ABSOLUTE COUNT 0.29 K/ L 0.04-0.54 (BEAKER) (test code = 416) BASOPHILS ABSOLUTE COUNT (BEAKER) 0.02 K/ L 0.01-0.08 (test code = 417) IMMATURE GRANULOCYTES-RELATIVE 0 % 0-1 PERCENT (BEAKER) (test code = 2801) BASIC METABOLIC [id number] 11:51:00 Test Item Value Reference Range Interpretation Comments SODIUM (BEAKER) 145 meq/L 136-145 (test code = 381) POTASSIUM (BEAKER) 4.1 meq/L 3.5-5.1 (test code = 379) CHLORIDE (BEAKER) 114 meq/L 98-107 H (test code = 382) CO2 (BEAKER) (test 23 meq/L 22-29 code = 355) BLOOD UREA NITROGEN 12 mg/dL 7-21 (BEAKER) (test code = 354) CREATININE (BEAKER) 1.01 mg/dL 0.57-1.25 (test code = 358) GLUCOSE RANDOM 97 mg/dL 70-105 (BEAKER) (test code = 652) CALCIUM (BEAKER) 7.8 mg/dL 8.4-10.2 L (test code = 697) EGFR (BEAKER) (test 74 mL/min/1.73 ESTIMA GABRIELLE GFR IS code = 1092) sq m NOT ACCURATE CREATININE CLEARANCE IN PREDICTING GLOMERULAR FILTRATION RATE . ESTIMATED GFR I S NOT APPLICABLE FOR DIALYSIS PATIEN TS. TROPONIN [id number] 10:55:00 Test Item Value Reference Range Interpretation Comments TROPONIN I (BEAKER) (test code = 397) < ng/mL 0.00-0.03 Troponin I (TnI) levels must be interpreted in the context of the presenting symptoms and the clinical findings. Elevated TnI levels indicate myocardial damage, but are not specific for ischemic heart disease. Elevated TnI levels are seen in patients with other cardiac conditions (including myocarditis and congestive heart failure), and slight TnI elevations occur in patients with other conditions, including sepsis, renal failure, acidosis, acute neurological disease, and persistent tachyarrhythmia.B-TYPE NATRIURETIC FACTOR (BNP) 2019-09-15 10:54:00 Test Item Value Reference Range Interpretation Comments B-TYPE NATRIURETIC PEPTIDE (BEAKER) 244 pg/mL 0-100 H (test code = 700) [id number] 10:47:00 Test Item Value Reference Range Interpretation Comments MAGNESIUM (BEAKER) (test code = 2.0 mg/dL 1.6-2.6 627) RAD, CHEST, 1 VIEW, NON [id number] 10:37:00Reason for exam:->chest pain FINAL REPORT INDICATION: chest pain COMPARISON: October 15, 2016 TECHNIQUE: Single frontal view of the chest. FINDINGS: Lungs and pleura: Lungs are hypoinflated. Mild basilar atelectasis. No effusion.Heart and mediastinum: Normal heart size. Unremarkable mediastinal contours.Osseous structures: No acute abnormality.Other: None. IMPRESSION: Lungs are hypoinflated. Mild basilar atelectasis Signed: Rena Riley Verified Date/Time: 09/15/2019 10:37:09 Reading Location: [facility] Radiology Reading Room PT/[id number] 09:48:00 Test Item Value Reference Range Interpretation Comments PROTIME (BEAKER) (test code = 13.6 seconds 11.9-14.2 759) INR (BEAKER) (test code = 370) 1.1 <=5.9 PARTIAL THROMBOPLASTIN TIME 34.9 seconds 22.5-36.0 (BEAKER) (test code = 760) Effective 03/02/2019: PT Reference Range ChangeNew: 11.9-14.2 Previous: 11.7- 14.7RECOMMENDED COUMADIN/WARFARIN INR THERAPY RANGESSTANDARD DOSE: 2.0-3.0 Includes: PROPHYLAXIS for venous thrombosis, systemic embolization; TREATMENT for venous thrombosis and/or pulmonary embolus.HIGH RISK: Target INR is 2.5-3.5 for patients wiht mechanical heart valves.CBC W/PLT COUNT & AUTO [id number] 09:37:00 Test Item Value Reference Range Interpretation Comments WHITE BLOOD CELL COUNT (BEAKER) 6.3 K/ L 3.5-10.5 (test code = 775) RED BLOOD CELL COUNT (BEAKER) 4.28 M/ L 4.63-6.08 L (test code = 761) HEMOGLOBIN (BEAKER) (test code = 13.2 GM/DL 13.7-17.5 L 410) HEMATOCRIT (BEAKER) (test code = 41.0 % 40.1-51.0 411) MEAN CORPUSCULAR VOLUME (BEAKER) 95.8 fL 79.0-92.2 H (test code = 753) MEAN CORPUSCULAR HEMOGLOBIN 30.8 pg 25.7-32.2 (BEAKER) (test code = 751) MEAN CORPUSCULAR HEMOGLOBIN CONC 32.2 GM/DL 32.3-36.5 L (BEAKER) (test code = 752) RED CELL DISTRIBUTION WIDTH 13.4 % 11.6-14.4 (BEAKER) (test code = 412) PLATELET COUNT (BEAKER) (test 205 K/CU MM 150-450 code = 756) MEAN PLATELET VOLUME (BEAKER) 10.8 fL 9.4-12.4 (test code = 754) NUCLEATED RED BLOOD CELLS 0 /100 WBC 0-0 (BEAKER) (test code = 413) NEUTROPHILS RELATIVE PERCENT 60 % (BEAKER) (test code = 429) LYMPHOCYTES RELATIVE PERCENT 25 % (BEAKER) (test code = 430) MONOCYTES RELATIVE PERCENT 10 % (BEAKER) (test code = 431) EOSINOPHILS RELATIVE PERCENT 5 % (BEAKER) (test code = 432) BASOPHILS RELATIVE PERCENT 0 % (BEAKER) (test code = 437) NEUTROPHILS ABSOLUTE COUNT 3.75 K/ L 1.78-5.38 (BEAKER) (test code = 670) LYMPHOCYTES ABSOLUTE COUNT 1.53 K/ L 1.32-3.57 (BEAKER) (test code = 414) MONOCYTES ABSOLUTE COUNT (BEAKER) 0.61 K/ L 0.30-0.82 (test code = 415) EOSINOPHILS ABSOLUTE COUNT 0.33 K/ L 0.04-0.54 (BEAKER) (test code = 416) BASOPHILS ABSOLUTE COUNT (BEAKER) 0.02 K/ L 0.01-0.08 (test code = 417) IMMATURE GRANULOCYTES-RELATIVE 0 % 0-1 PERCENT (BEAKER) (test code = 2801)
--- NOTE | 2023-05-03 08:54 | EDPHYS ---
Physician Documentation [facility] Name: Juan Carlos Wilson Age: 72 yrs Sex: Male : 1950 Arrival Date: 05/03/2023 Time: 08:29 Bed 6 Private MD: ED Physician Minesh Jernigan HPI: 05/03 08:50 This 72 yrs old Male presents to ER via Ambulatory with complaints of Bleeding ms3 Gums. 08:50 72-year-old male with past medical history of coronary artery disease, hyperlipidemia, ms3 hypertension, myocardial infarction presents for bleeding gum after tooth extraction 6 days prior to arrival. Patient states he began taking his Eliquis 3 days ago. Patient denies pain. Patient denies shortness of breath, nausea, vomiting. Historical: - Allergies: 08:42 No Known Allergies; hb - Home Meds: 08:42 atorvastatin 40 mg Oral tab 1 tab nightly [Active]; metoprolol tartrate 25 mg Oral tab hb 1 tab 2 times per day [Active]; potassium chloride 8 mEq Oral cpER 1 cap once daily [Active]; valsartan 40 mg oral tablet 2 times per day [Active]; Eliquis 5 mg oral tablet 2 times per day [Active]; [place] Oral [Active]; torsemide 20 mg oral tablet daily [Active]; - PMHx: 08:42 CAD; High Cholesterol; Hypertension; Myocardial infarction; hb - Immunization history:: Adult Immunizations up to date. - Social history:: Smoking status: . ROS: 08:50 Constitutional: Negative for fever, and chills. Neck: Negative for injury, pain, and ms3 swelling, Cardiovascular: Negative for chest pain, and palpitations. Respiratory: Negative for shortness of breath, cough, wheezing, and pleuritic chest pain, Abdomen/GI: Negative for abdominal pain, nausea, vomiting, diarrhea, and constipation, MS/Extremity: Negative for injury and deformity. 08:50 ENT: Positive for Bleeding around blood clot and tooth socket. Exam: 08:50 Constitutional: This is a well developed, well nourished patient who is awake, alert, ms3 and in no acute distress. Head/Face: Normocephalic, atraumatic. Neck: Trachea midline, no cervical lymphadenopathy. Supple, full range of motion without nuchal rigidity, or vertebral point tenderness. No Meningismus. Chest/axilla: Normal chest wall appearance and motion. Nontender with no deformity. Cardiovascular: Regular rate and rhythm with a normal S1 and S2. No gallops, murmurs, or rubs. Normal PMI, no JVD. No pulse deficits. Respiratory: Lungs have equal breath sounds bilaterally, clear to auscultation and percussion. No rales, rhonchi or wheezes noted. No increased work of breathing, no retractions or nasal flaring. Abdomen/GI: Soft, non-tender, with normal bowel sounds. No distension or tympany. No guarding or rebound. No evidence of tenderness throughout. Skin: Warm, dry with normal turgor. Normal color with no rashes, no lesions, and no evidence of cellulitis. 08:50 ENT: Mouth: Gums: bleeding, on the upper left first bicuspid. Vital Signs: 08:41 BP 138 / 107; Pulse 62; Resp 16; Temp 98; Pulse Ox 96% on R/A; Weight 104.33 kg; Height hb 5 ft. 9 in. ; Pain 3/10; 08:57 BP 138 / 92; Pulse 95; Resp 18; Pulse Ox 94% on R/A; Pain 0/10; me1 08:41 Body Mass Index 33.96 (104.33 kg, 175.26 cm) hb 08:41 Pain Scale: Adult hb 08:57 Pain Scale: Adult me1 MDM: 08:50 Data reviewed: vital signs, nurses notes, and as a result, I will discharge patient. ms3 Historians other than the Patient: Daughter/Son: Patient's son. Counseling: I had a detailed discussion with the patient and/or guardian regarding: the historical points, exam findings, and any diagnostic results supporting the discharge/admit diagnosis, the need for outpatient follow up, to return to the emergency department if symptoms worsen or persist or if there are any questions or concerns that arise at home. Special discussion: I discussed with the patient/guardian in detail that at this point there is no indication for admission to the hospital. It is understood, however, that if the symptoms persist or worsen the patient needs to return immediately for re-evaluation. ED course: Discussed physical exam finding of blood clot in socket with mild oozing with patient and his son. Patient and son understand agree with plan. All questions were answered. Return precautions discussed include worsening symptoms, or any other concerns. 08:53 Patient medically screened. ms3 Administered Medications: No medications were administered Disposition Summary: 05/03/23 08:54 Discharge Ordered Location: Home ms3 Condition: Stable ms3 Diagnosis - Post Dental Extraction bleeding ms3 - Essential (primary) hypertension ms3 Followup: ms3 - With: Private Physician - When: 2 - 3 days - Reason: Re-evaluation by your physician Discharge Instructions: - Discharge Summary Sheet ms3 - Hypertension, Adult ms3 Forms: - Medication Reconciliation Form ms3 - Thank You Letter ms3 - Antibiotic Education ms3 - Prescription Opioid Use ms3 - Patient Portal Instructions ms3 Signatures: Cheryl Gomez RN RN Minesh Hood DO DO ms3 Corrections: (The following items were deleted from the chart) 08:44 08:42 Home Meds: aspirin 81 mg Oral TbEC 1 tab once daily; hb hb
--- NOTE | 2023-05-03 08:54 | ER ---
Nurse's Notes [facility] Name: Juan Carlos Wilson Age: 72 yrs Sex: Male : 1950 Arrival Date: 05/03/2023 Time: 08:29 Bed 6 Private MD: Diagnosis: Post Dental Extraction bleeding;Essential (primary) hypertension Presentation: 05/03 08:41 Chief complaint: Had three left upper teeth removed 6 days ago, reports bleeding since hb last night. Takes Eliquis. Coronavirus screen: At this time, the client does not indicate any symptoms associated with coronavirus-19. Ebola Screen: No symptoms or risks identified at this time. Initial Sepsis Screen: Does the patient meet any 2 criteria? No. Patient's initial sepsis screen is negative. Does the patient have a suspected source of infection? No. Patient's initial sepsis screen is negative. Risk Assessment: Do you want to hurt yourself or someone else? Patient reports no desire to harm self or others. Onset of symptoms was May 02, 2023. 08:41 Method Of Arrival: Ambulatory hb 08:41 Acuity: BLANCA 3 hb Historical: - Allergies: 08:42 No Known Allergies; hb - Home Meds: 08:42 atorvastatin 40 mg Oral tab 1 tab nightly [Active]; metoprolol tartrate 25 mg Oral tab hb 1 tab 2 times per day [Active]; potassium chloride 8 mEq Oral cpER 1 cap once daily [Active]; valsartan 40 mg oral tablet 2 times per day [Active]; Eliquis 5 mg oral tablet 2 times per day [Active]; [place] Oral [Active]; torsemide 20 mg oral tablet daily [Active]; - PMHx: 08:42 CAD; High Cholesterol; Hypertension; Myocardial infarction; hb - Immunization history:: Adult Immunizations up to date. - Social history:: Smoking status: . Screenin:44 [facility] ED Fall Risk Assessment (Adult) Score/Fall Risk Level 0 - 2 = Low Risk. Abuse me1 screen: Denies threats or abuse. Nutritional screening: No deficits noted. Tuberculosis screening: No symptoms or risk factors identified. Assessment: 08:44 General: Appears in no apparent distress. comfortable, Behavior is calm, cooperative, me1 appropriate for age. General: Reports that he had 3 teeth pulled 6 days ago and that he woke up today with a lot of blood on his pillow. States that he is not bleeding a lot but that the bleeding just doesn't stop. Patient is on eliquis. Pain: Denies pain. Neuro: Level of Consciousness is awake, alert, obeys commands, Oriented to person, place, time, situation. Cardiovascular: Capillary refill < 3 seconds Patient's skin is warm and dry. Respiratory: Respiratory effort is even, unlabored, Respiratory pattern is regular, symmetrical. Vital Signs: 08:41 BP 138 / 107; Pulse 62; Resp 16; Temp 98; Pulse Ox 96% on R/A; Weight 104.33 kg; Height hb 5 ft. 9 in. ; Pain 3/10; 08:57 BP 138 / 92; Pulse 95; Resp 18; Pulse Ox 94% on R/A; Pain 0/10; me1 08:41 Body Mass Index 33.96 (104.33 kg, 175.26 cm) hb 08:41 Pain Scale: Adult hb 08:57 Pain Scale: Adult oh1 ED Course: 08:33 Patient arrived in ED. ts1 08:35 Minesh Jernigan DO is Attending Physician. ms3 08:42 Triage completed. hb 08:42 Arm band placed on. hb 08:44 Nikki Padilla, ALEAH is Primary Nurse. me1 08:44 Patient has correct armband on for positive identification. Fall risk band placed. Bed me1 in low position. Call light in reach. Provided Education on: POC, verbalized understanding. . 08:44 No provider procedures requiring assistance completed. me1 09:00 Patient did not have IV access during this emergency room visit. me1 Administered Medications: No medications were administered Medication: 08:44 VIS not applicable for this client. me1 Outcome: 08:54 Discharge ordered by . ms3 09:00 Discharged to home ambulatory, with family. me1 09:00 Condition: stable 09:00 Discharge instructions given to patient, family, Instructed on discharge instructions, follow up and referral plans. Demonstrated understanding of instructions, follow-up care, medications. 09:01 Patient left the ED. me1 Signatures: Cheryl Gomez RN RN Minesh Jernigan DO DO ms3 Mely Hurtado PAS PAS ts1 Nikki Padilla, ALEAH RN me1 Corrections: (The following items were deleted from the chart) 08:44 08:42 [place] Meds: aspirin 81 mg Oral TbEC 1 tab once daily; hb hb
[2023-05-03 09:22] VITALS: TEMP 98
[2023-05-03 09:23] VITALS: BP 138/92; O2SAT 94
== END 2023-05-03 09:01 | disposition home or self-care (01) ==
LOC: ER 08:29
DX: K91.840 Postprocedural hemorrhage of a digestive system organ or structure following a digestive system procedure (principal); I10 Essential (primary) hypertension
CPT/HCPCS: 99282

== ENCOUNTER 2023-06-05 09:40 | Emergency (ER) | payer OTHER ==
--- OUTSIDE RECORDS SUMMARY | 2023-06-05 09:50 | XMS REPORT | Continuity of Care Document ---
:[address] [facility] t Address [address] [place] [address] [address] [place] [address] Care Team Providers Name Role Phone CARBALLOShawnROSEMARIEMAGUI LENCHOPAT Primary Care Physician Unavailable HEMAL BARRIOS Attending Clinician Unavailable Rubi Chan Attending Clinician Unavailable Zuleika Adan MD Attending Clinician Malaika Cotter Attending Clinician Unavailable KURT MONTALVO Attending Clinician Unavailable Kurt Wray Attending Clinician Day Cruz RN Attending Clinician Unavailable Bam Gonzales MD Attending Clinician BAM GONZALES Attending Clinician Unavailable Naomi Cruz MD Attending Clinician [phone] NAOMI CRUZ Attending Clinician Unavailable Veronica Crespo Attending Clinician Unavailable Lisa Sheffield Attending Clinician Unavailable MARCELO ROBERTS Attending Clinician Unavailable Nurse, Adc Pob Immunization Attending Clinician Unavailable Marcelo Roberts DO Attending Clinician Catarina KAYE, León Morrisonh Attending Clinician Marc Rodriguez MD Attending Clinician MARC RODRIGUEZ Attending Clinician Unavailable MATEUSZ CACERES Attending Clinician Unavailable Only, Adc Test Attending Clinician Unavailable Jacobo Hester MD Attending Clinician JACOBO HESTER Attending Clinician Unavailable Doctor Unassigned, [place] Attending Clinician Unavailable Bui_Q Attending Clinician Unavailable Tino_JESUS Attending Clinician Unavailable Bui_Q_WAG Attending Clinician Unavailable LITA HYMAN Attending Clinician Unavailable HEMAL BARRIOS Admitting Clinician Unavailable NAOMI CRUZ Admitting Clinician Unavailable MARC RODRIGUEZ Admitting Clinician Unavailable Bui_Q Admitting Clinician Unavailable MinervaM_WANanette Admitting Clinician Unavailable Bui_Q_WAG Admitting Clinician Unavailable Payers Payer Name Policy Type Policy Number Effective Date Expiration Date S erik MEDICARE A B [id number] 2016 00:00:00 MEDICARE PART A [id number] 2016 \\T\\ B 00:00:00 MEDICARE B-[place]: [id number] 2016 [employer] 00:00:00 Problems Condition Condition Condition Status Onset Resolution Last Treating Co mments Source Name Details Category Date Date Treatment Clinician Date Arrhythmia Arrhythmia Disease Active 2021-[address] [facility] 00 [place] Atrial Atrial Disease Active [facility] fibrillati fibrillati 3-29 [facility] 00[facility]: Hospita 00 l CHF CHF Disease Recurre 2020-[address] exacerbati exacerbati nce 2-27 [facility] k[facility] on on 00:00: Medical 00 [place] COVID-19 COVID-19 Disease Active 2019[facility]10 [facility] 00 [place] Pneumonia Pneumonia Disease Active 2019-[address] [facility] 00 [place] Depressive Depressive Problem Active [facility] disorder [...] 00 Center Morbid Morbid Problem Active 2018-10 [facility] obesity Obesity 0-11 Family 00:00: Practic 00 e History of History of Problem Active 2018-10 [facility] myocardial Myocardial 0-11 Fa kaz infarction Infarction 00:00: Pr actic 00 e Chronic Chronic Problem Active [facility] kidney Kidney 6-22 Family disease Disease [...] disease 00:00: Hospita involving involving [place] coronary coronary artery of artery of [place] heart heart without without angina angina pectoris pectoris Coronary Coronary Disease Active 2016-10 [facility] di artery artery 0-04 st disease disease 00:00: Hospita involving involving 00 [place] coronary coronary artery of artery of [place] heart heart without without angina angina pectoris pectoris Primary Primary Disease Active Overview: Meth alex osteoarthr osteoarthr 05-[address] itis of itis of 00:00: g of this Hospi ta right knee right knee 00 note l might be different from the original. Added automatic ally from request for surgery [id number] Hyperlipid Hyperlipid Problem Active [facility] emia emia 8-18 Family 00:00: Practic 00 e Hypokalemi Hypokalemi Problem Active [facility] a a 18 Family 00:00: Practic 00 e Body mass Body Mass Problem Active Sujit andrew index 30+ Index 30+ 05-22 Fami ly - obesity - Obesity 00:00: [...] St athy athy 3-13 [facility] Center Shortness Shortness Disease Active [facility] [...] Date Stop Date Source Natural brother Cancer [facility] Natural brother Cancer [facility] Natural sister Lupus [facility] Natural sister Rheum arthritis [facility] Natural father Asthma [facility] Natural father No Known Problems Met [facility] Natural mother No Known Problems Met [facility] Social History Social Habit Start Date Stop Date Quantity Comments Source [facility] Sexual [facility] SDOH [facility] Std Dr[facility] Hospit al History SDOH [facility] History of tobacco Cigarette Smoker [facility] use [facility] History SDOH [facility] Alcohol Frequency Hospita l History of Social 2022-12-29 2022-12-[address] function 00:00:00 00:00:00 Hospital Alcohol intake 2022-09-12 2022-09-[address] [facility] 00:00:00 00:00:00 non-drinker of Medical Ce [...] [facility] [place] Sex Assigned At [birth year] [facility] Center Smoking Status Start Date Stop Date Source Ex-smoker 2022-07-18 00:00:00 2022-07-18 00:00:00 [facility] Medications Ordered Filled Start Stop Current Ordering Indication Dosage Frequency Signature Comments Components Source Medication Medication Date Date Medication? Clinician (SIG) Name Name potassium Yes Take 1 [facility] i chloride 7-[address] (K-DUR) 20 00:00: mouth once H ospita MEQ CR 00 daily l tablet atorvastati Yes Take 1 Meth alex n (LIPITOR) 7-[address] 40 mg 00:00: mouth once Hospit a tablet 00 daily l potassium Yes Take 1 Method i chloride 7-[address] (K-DUR) 20 00:00: mouth once H ospita MEQ CR 00 daily l tablet atorvastati Yes Take 1 Meth alex n (LIPITOR) 7-[address] 40 mg 00:00: mouth once Hospit a tablet 00 daily l HYDROcodone 2023-0 2023- No 1{tbl} 1 tablet, Univers -acetaminop -03 04-30 Oral, ity of hen (NORCO 19:30: 18:46 [...] Indication s: acute pain amoxicillin 2022- Yes [id number] 1{tbl} Take 1 Univers -clavulanat 6-08 tablet by it y of e 875-125 [...] daily for Center 90 days torsemide 2022- No 20mg QD Take 1 [facility] (DEMADEX) 6-01 08-30 tablet (20 Michelle es 20 MG 00:00: 23:59 mg total) Medica l tablet 00 :00 by mouth [place] in the morning for 90 days. valsartan 2023-0 2023- No 40mg QD Take 1 [facility] (DIOVAN) 40 6- 08-30 tablet (40 L ukes MG tablet 00:00: 23:59 mg total) Me dical 00 :00 by mouth Center in the morning for 90 days. torsemide 2023-0 2023- No 20mg QD Take 1 [facility] (DEMADEX) 6- 08-30 tablet (20 Michelle es 20 MG 00:00: 23:59 mg total) Medica l tablet 00 :00 by mouth Center in the morning for 90 days. valsartan 2023-0 2023- No 40mg QD Take 1 [facility] (DIOVAN) 40 6- 08-30 tablet (40 L ukes MG tablet 00:00: 23:59 mg total) Me dical 00 :00 by mouth Center in the morning for 90 days. torsemide 2023-0 2023- No 20mg QD Take 1 [facility] (DEMADEX) 6 08-30 tablet (20 Michelle es 20 MG 00:00: 23:59 mg total) Medica l tablet 00 :00 by mouth Center in the morning for 90 days. valsartan 2023-0 2023- No [...] Hos luly 08 by mouth l daily. valsartan 2023-0 Yes 40mg QD Take 1 Method i (DIOVAN) 40 3-27 tablet (40 st MG tablet 09:43: mg total) Hos luly 08 by mouth l daily. torsemide 2023-0 Yes 20mg Q.5D Take 1 Method i (DEMADEX) 3-27 tablet (20 st 20 MG 09:41: mg total) Hospita tablet 59 by mouth 2 l (two) times a day. torsemide 2023-0 Yes 20mg Q.5D Take 1 [...] l 00 :00 times Center daily. furosemide 3-0 2023- No 40mg Q.5D Take 40 mg [...] Take 1 [facility] (DIOVAN) 40 2-28 03-01 tablet (40 L ukes MG tablet 00:00: [...] mouth Center daily for 90 days. torsemide 3-0 2023- No 20mg QD Take 1 [facility] (DEMADEX) 2-28 03- tablet (20 Michelle [facility] 20 MG 00:00: 00:00 mg total) Medica l tablet 00 :00 by mouth Center daily for 90 days. valsartan 3-0 2023- No 40mg QD Take 1 [facility] (DIOVAN) 40 11-28- tablet (40 L ukes MG tablet 00:00: 00:00 mg total) Me dical 00 :00 by mouth Center daily for 90 days. torsemide 3-0 2023- No 20mg QD Take 1 [facility] (DEMADEX) 2-28 03- tablet (20 Michelle [facility] 20 MG 00:00: 00:00 mg total) Medica l tablet 00 :00 by mouth Center daily for 90 days. pantoprazol 3-0 2023- No 40mg QD Take [address] e 2-24 05-25 tablet (40 [facility] (PROTONIX) 00:00: 23:59 mg total) M edical 40 MG 00 :00 by mouth Center tablet daily for 90 days. pantoprazol 3-0 2023- No 40mg QD Take [address] e 2-24 05-25 tablet (40 [facility] (PROTONIX) 00:00: 23:59 mg total) M edical 40 MG 00 :00 by mouth Center tablet daily for 90 days. pantoprazol 3-0 2023- No 40mg QD Take [address] e 2-24 05-25 tablet (40 [facility] (PROTONIX) 00:00: 23:59 mg total) M edical 40 MG 00 :00 by mouth Center tablet daily for 90 days. metoclopram 2023-0 2023- No 10mg Take [address] ayah HCl 2-24 03-26 tablet (10 [facility] (Reglan) 10 00:00: 23:59 mg total) Medical MG tablet 00 :00 by mouth 4 Cent er (four) times daily as needed for Nausea for up to 30 days. metoclopram 3-0 2023- No 10mg Take [address] ayah HCl 2-24 03-26 tablet (10 [facility] (Reglan) 10 00:00: 23:59 mg total) Medical MG tablet 00 :00 by mouth 4 Cent er (four) times daily as needed for Nausea for up to 30 days. metoclopram 2022-2022- No 10mg Take [address] ayah HCl 11-28- tablet (10 [facility] (Reglan) 10 00:00: 23:59 mg total) Medical MG tablet 00 :00 by mouth 4 Cent er (four) times daily as needed for Nausea for up to 30 days. mINOCYCLine 2022-0 2022- No 100mg Q.5D Take [address] (Minocin) 11-28- capsule [facility] 100 MG 00:00: 23:59 (100 mg Medical capsule 00 :00 total) by Center mouth 2 (two) times daily for 5 days. mINOCYCLine 2022-0 2022- No 100mg Q.5D Take [address] (Minocin) 11-28- capsule [facility] 100 MG 00:00: 23:59 (100 mg Medical capsule 00 :00 total) by Center mouth 2 (two) times daily for 5 days. mINOCYCLine 2022-0 2022- No 100mg Q.5D Take [address] (Minocin) 11-28- capsule [facility] 100 MG 00:00: 23:59 (100 mg Medical capsule 00 :00 total) by Center mouth 2 (two) times daily for 5 days. sacubitriL- 2022-0 Yes 1{tbl} Q.5D Take [address] valsartan 2-13 tablet by [facility] (Entresto) 00:00: mouth 2 Medi kristin 49-51 mg 00 (two) Center tablet times daily. sacubitriL- 2022-0 Yes 1{tbl} Q.5D Take [address] valsartan 2-13 tablet by [facility] (Entresto) 00:00: mouth 2 Medi kristin 49-51 mg 00 (two) Center tablet times daily. sacubitriL- 2022-0 Yes 1{tbl} Q.5D Take [address] valsartan 2-13 tablet by [facility] (Entresto) 00:00: mouth 2 Medi kristin 49-51 mg 00 (two) Center tablet times daily. sacubitriL- 2022-0 2022- No 1{tbl} Q.5D Take 1 M ethodi valsartan 2-13 -[address] (Entresto) 00:00: 00:00 mouth 2 Hos luly 49-51 mg 00 :00 (two) l tablet per times a tablet day. sacubitriL- 2022- No 1{tbl} Q.5D Take 1 M ethodi valsartan 11-[address] (Entresto) 00:00: 00:00 mouth 2 Hos luly 49-51 mg 00 :00 (two) l tablet per times a tablet day. apixaban 2022- No 5mg Q.5D Take 1 Method i (Eliquis) 5 11-1716 tablet (5 st mg tablet 00:00: 04:59 mg total) Ho spita 00 :00 by mouth 2 l (two) times a day for 30 days. apixaban 2022- No 5mg Q.5D Take 1 Method i (Eliquis) 5 11-1716 tablet (5 st mg tablet 00:00: 04:59 [...] Take [address] (MINOCIN,DY 1-30 12- capsule Luke s NACIN) 100 00:00: 00:00 (100 mg Med ical MG capsule 00 :00 total) by Cent er mouth 2 (two) times daily. mINOCYCLine 2021-10- No 100mg Take [address] (MINOCIN,DY 1-30 12- capsule Luke s NACIN) 100 00:00: 00:00 (100 mg Med ical MG capsule 00 :00 total) by Cent er mouth every 12 (twelve) hours. warfarin 2021-10 Yes 5mg QD Take [address] (COUMADIN, 1-29 by mouth [facility] JANTOVEN) 5 10:01: daily. Medi kristin MG tablet 24 Center metoprolol 2021-10 Yes 25mg Q.5D Take 1 Metho di tartrate 1-22 tablet (25 st (LOPRESSOR) 00:00: mg total) H ospita 25 mg 00 by mouth 2 l tablet (two) times a day. potassium 2021-10 Yes 20meq QD Take [address] chloride SA 1-22 mEq by [facility] (K-DUR,KLOR 00:00: mouth Medic al -CON-M) 20 00 daily. Center MEQ tablet metoprolol 2021-10 Yes 25mg Q.5D Take 1 Metho di tartrate 1-22 tablet (25 st (LOPRESSOR) 00:00: mg total) H ospita 25 mg 00 by mouth 2 l tablet (two) times a day. potassium 2021-10 Yes 20meq QD Take [address] chloride SA 1-22 mEq by [facility] (K-DUR,KLOR 00:00: mouth Medic al -CON-M) 20 00 daily. Center MEQ tablet potassium 2021-10 Yes 20meq QD Take [address] chloride SA 1-22 mEq by [facility] (K-DUR,KLOR 00:00: mouth Medic al -CON-M) 20 00 daily. Center MEQ tablet potassium 2021-10- No Take 1 Metho di chloride 1-22 07-[address] (K-DUR) 20 00:00: 00:00 mouth once Hospita MEQ CR 00 :00 daily l tablet atorvastati 2021-10 No 40mg QD Take 1 Met hodi n (LIPITOR) 10-26- tablet (40 s t 40 mg 00:00: 00:00 mg total) Hospit a tablet 00 :00 by mouth l daily. potassium 2021-10 No Take 1 Metho di chloride 10-26- tablet by st (K-DUR) 20 00:00: 00:00 mouth once Hospita MEQ CR 00 :00 daily l tablet atorvastati 2021-10 No 40mg QD Take 1 Met hodi n (LIPITOR) 10-26- tablet (40 s t 40 mg 00:00: 00:00 mg total) Hospit a tablet 00 :00 by mouth l daily. furosemide 2021-10 No 40mg Q.5D Take 1 Meth alex (LASIX) 40 10-14 03-27 tablet (40 st mg tablet 00:00: 00:00 mg total) Ho spita 00 :00 by mouth 2 l (two) times a day. furosemide 2021-10 No 40mg Q.5D Take 1 Meth alex (LASIX) 40 - 03-27 tablet (40 st mg tablet 00:00: 00:00 mg total) Ho spita 00 :00 by mouth 2 l (two) times a day. furosemide 2021-10 No 40mg Q.5D Take 1 Meth alex (LASIX) 40 10-13-10 tablet (40 st mg tablet 00:00: 00:00 mg total) Ho spita 00 :00 by mouth 2 l (two) times a day. And 20mg in the evening. furosemide 2021-10 No 40mg Q.5D Take 1 Meth alex (LASIX) 40 10-13 11-10 tablet (40 st mg tablet 00:00: 00:00 mg total) Ho spita 00 :00 by mouth 2 l (two) times a day. And 20mg in the evening. furosemide 2021-10 No 40mg QD Take 2 Meth alex (LASIX) 20 0-14 11-[address] mg tablet 00:00: 00:00 (40 mg Hospi ta 00 :00 total) by l mouth every morning. And 20mg in the evening. furosemide 2021-10- [...] of the week as directed by Physician. warfarin 2021-10- No Take 2 Method i [...] 00 :00 by mouth l every morning. furosemide 2021-10- No 20mg QD Take 1 Meth alex (LASIX) 20 0-10 10-14 tablet (20 st mg tablet 00:00: 00:00 mg total) Ho spita 00 :00 by mouth l every morning. losartan 2022- No 100mg QD Take [address] (COZAAR) 9-26 02-24 mg by [facility] 100 MG 00:00: 00:00 mouth Medical tablet 00 :00 daily. [place] losartan 2022- No 100mg QD Take [address] (COZAAR) 9-26 02-24 mg by [facility] 100 MG 00:00: 00:00 mouth Medical tablet 00 :00 daily. [place] losartan 2021-2022- No 100mg QD Take [address] (COZAAR) 9-26 02-24 mg by [facility] 100 MG 00:00: 00:00 mouth Medical tablet 00 :00 daily. [place] warfarin 2021- No Take 2 Method i (COUMADIN) 7-21 10-[address] 2.5 MG 00:00: 00:00 (5mg) on Hospit a tablet 00 :00 Mon. & l 2.5mg the rest of the week as directed by Physician. warfarin 2021- No Take 2 Method i [...] 11:37: daily. Medi kristin MG tablet 08 [place] warfarin 2020-10 Yes 5mg QD Take [address] (COUMADIN, 2-30 by mouth [facility] JANTOVEN) 5 11:37: daily. Medi kristin MG tablet 08 [place] warfarin 2020-10 Yes 5mg QD Take [address] (COUMADIN, 2-30 by mouth [facility] JANTOVEN) 5 11:37: daily. Medi kristin MG tablet 08 Center warfarin 2020-10 Yes 5mg QD Take [address] (COUMADIN, 2-30 by mouth [facility] JANTOVEN) 5 11:37: daily. Medi kristin MG tablet 08 [place] furosemide 2018-10- No 20mg QD Take [address] (LASIX) 20 2-14 12-30 tablet (20 Samreen kes MG tablet 00:00: 00:00 mg total) Me dical 00 :00 by mouth Center daily. furosemide 2018-10 No 20mg QD Take [address] [facility] [...] 2016-10- No Use as Metho di hydroxide 0-04 02-[address] 400 mg/5 mL 00:00: 00:00 package Ho spita suspension 00 :00 instructio l ns. Is over-the-c ounter. polyethylen 2016-10- No Take 17 g Methodi e glycol 011-17 1-[address] (MIRALAX) 00:00: 00:00 a day, per H ospita 17 gram 00 :00 package l packet instructio ns. Is over-the-c ounter. magnesium 2016-10- Use as Metho di hydroxide 11-[address] 400 mg/5 mL 00:00: 00:00 package Ho spita suspension 00 :00 instructio l ns. Is over-the-c ounter. metoprolol Yes 25mg Take 25 mg U nivers succinate 6-29 by mouth ity of XL (TOPROL 19:36: daily. [place] XL) 25 mg 38 Medical 24 hr Branch tablet lovastatin Yes 40mg Take 40 mg U nivers (MEVACOR) 6-29 by mouth ity of 40 mg 19:36: at [place] tablet 38 bedtime. [facility] Branch losartan Yes 50mg Take 50 mg Uni vers (COZAAR) 50 6-29 by mouth ity of mg tablet 19:36: daily. [address] POTASSIUM 0 Yes Univers CHLORIDE, 6-29 ity of BULK, MISC 19:36: [address] aspirin 81 Yes 81mg Take 81 mg U nivers mg chewable 6-29 by mouth ity of tablet 19:36: daily. [address] metoprolol Yes 25mg Take 25 mg U nivers succinate 6-29 by mouth ity of XL (TOPROL 19:36: daily. [place] XL) 25 mg 38 Medical 24 hr Branch tablet lovastatin 2017 Yes 40mg Take 40 mg U nivers (MEVACOR) 6-29 by mouth ity of 40 mg 19:36: at [place] tablet 38 bedtime. [facility] losartan Yes 50mg Take 50 mg Uni vers (COZAAR) 50 6-29 by mouth ity of mg tablet 19:36: daily. [address] POTASSIUM 2017-0 Yes Univers CHLORIDE, 6-29 ity of BULK, MISC 19:36: [address] aspirin 81 2017 Yes 81mg Take 81 mg U nivers mg chewable 6-29 by mouth ity of tablet 19:36: daily. [address] Branch metoprolol 2017-0 Yes 25mg Take 25 mg U nivers succinate 6-29 by mouth ity of XL (TOPROL 14:36: daily. [place] XL) 25 mg 38 Medical 24 hr Branch tablet lovastatin 2017-0 Yes 40mg Take 40 mg U nivers (MEVACOR) 6-29 by mouth ity of 40 mg 14:36: at [place] tablet 38 bedtime. Medical Branch losartan 2017-0 Yes 50mg Take 50 mg Uni vers (COZAAR) 50 6-29 by mouth ity of mg tablet 14:36: daily. [address] POTASSIUM 2017-0 Yes Univers CHLORIDE, 6-29 ity of BULK, MISC 14:36: [address] aspirin 81 2017-0 Yes 81mg Take 81 mg U nivers mg chewable 6-29 by mouth ity of tablet 14:36: daily. [address] metoprolol 2017-0 Yes 25mg Take 25 mg U nivers succinate 6-29 by mouth ity of XL (TOPROL 14:36: daily. [place] XL) 25 mg 38 Medical 24 hr Branch tablet lovastatin 20170 Yes 40mg Take 40 mg U nivers (MEVACOR) 6-29 by mouth ity of 40 mg 14:36: at [place] tablet 38 bedtime. [facility] Branch losartan 2017-0 Yes 50mg Take 50 mg Uni vers (COZAAR) 50 6-29 by mouth ity of mg tablet 14:36: daily. [address] POTASSIUM 2017-0 Yes Univers CHLORIDE, 6-29 ity of BULK, MISC 14:36: [address] aspirin 81 2017-0 Yes 81mg Take 81 mg U nivers mg chewable 6-29 by mouth ity of tablet 14:36: daily. [address] atorvastati 2017-0 Yes 40mg QD Take [address] n (LIPITOR) 1-11 tablet (40 Samreen kes 40 MG 00:00: mg total) Medical tablet 00 by mouth Center daily. metoprolol 2017-0 Yes 25mg Q.5D Take 1 [facility] (LOPRESSOR) 1-11 tablet (25 Samreen kes 25 MG 00:00: mg total) Medical tablet 00 by mouth 2 Center (two) times daily. aspirin 81 2017-0 Yes 81mg QD Take 1 [facility] MG EC 1-11 tablet (81 [facility] tablet 00:00: mg total) Medica l 00 by mouth Center daily. atorvastati 2017-0 Yes 40mg Take 40 mg Methodi n (LIPITOR) 1-[address] 40 MG 00:00: Hospita tablet 00 l furosemide 2017-0 Yes 20mg QD Take 20 mg M ethodi (LASIX) 20 1-[address] mg tablet 00:00: every Hospita 00 morning. l losartan 2017-0 Yes 50mg QD Take 50 mg Met hodi (COZAAR) 50 1-[address] MG tablet 00:00: every Hospita 00 morning. l metoprolol 2017-0 Yes 25mg Q.5D Take 25 mg M ethodi tartrate 1-[address] (LOPRESSOR) 00:00: (two) Hospi ta 25 mg 00 times a l tablet day. potassium 2017-0 Yes 8meq QD Take 8 mEq Me thodi chloride 1-[address] (KLOR-CON) 00:00: daily. Hospi ta 8 MEQ CR 00 l tablet atorvastati 2017-0 Yes 40mg Take 40 mg Methodi n (LIPITOR) 1-[address] 40 MG 00:00: Hospita tablet 00 l furosemide 2017-0 Yes 20mg QD Take 20 mg M ethodi (LASIX) 20 1-[address] mg tablet 00:00: every Hospita 00 morning. l losartan 2017-0 Yes 50mg QD Take 50 mg Met hodi (COZAAR) 50 1-[address] MG tablet 00:00: every Hospita 00 morning. l metoprolol 2017-0 Yes 25mg Q.5D Take 25 mg M ethodi tartrate 1-[address] (LOPRESSOR) 00:00: (two) Hospi ta 25 mg 00 times a l tablet day. potassium 2017-0 Yes 8meq QD Take 8 mEq Me thodi chloride 1-[address] (KLOR-CON) 00:00: daily. Hospi ta 8 MEQ CR 00 l tablet losartan 2017-0 Yes 50mg QD Take 1 [...] Medical tablet 00 by mouth Center daily. aspirin,buf aspirin,buf 2017-0 No 81mg aspirin,bu [place] espinoza doran 10-15 ffered Family (calcium (calcium 00:00: (calcium P ractic carb-mag-al carb-mag-al 00 carb-mag-a e uminum) 81 uminum) 81 luminum) mg oral del mg oral del 81 mg oral rel tablet rel tablet del rel 81 mg by 81 mg by tablet 81 oral route. oral route. mg by oral route. metoprolol 2017-0 Yes 25mg Q.5D Take 1 [...] mouth 2 Center (two) times daily. potassium potassium 2017-0 No 8meq potassium [place] chloride ER chloride ER 1-11 chloride Family 8 mEq 8 mEq 00:00: ER 8 mEq Practic tablet,exte tablet,exte 00 tablet,ext e nded nded ended release 8 release 8 release 8 milliequiva milliequiva milliequiv lents by [facility] oral route. oral route. oral route. aspirin 81 2017-0 Yes 81mg QD Take [...] l 00 by mouth Center daily. losartan 2022- No 50mg QD Take 1 Method i (COZAAR) 50 10-15 tablet (50 s t MG tablet 00:00: 00:00 mg total) Ho spita 00 :00 by mouth l every morning. potassium 2022- No 8meq QD Take 1 Metho di chloride 10-15 tablet (8 st (KLOR-CON) 00:00: 00:00 mEq total) Hospita 8 MEQ CR 00 :00 by mouth l tablet daily. losartan No 50mg QD Take 1 Method i (COZAAR) 50 10-15 tablet (50 s t MG tablet 00:00: 00:00 mg total) Ho spita 00 :00 by mouth l every morning. potassium No 8meq QD Take 1 Metho di chloride 10-15 tablet (8 st (KLOR-CON) 00:00: 00:00 mEq [...] 00 :00 times a l tablet day. atorvastati 2021- No 40mg Take 40 mg [...] QD Take 20 mg Methodi (LASIX) 20 - 10-[address] mg tablet 00:00: 00:00 every Hospit a 00 :00 morning. l furosemide 2021- No 20mg QD Take 20 mg Methodi (LASIX) 20 -11 10-[address] mg tablet 00:00: 00:00 every Hospit a 00 :00 morning. l HYDROcodone Yes 1{tbl} Take 1 Un gabbie -acetaminop 5-04 tablet by josh (NORCO 00:00: mouth [place] 5) 5-325 mg [...] IN THE EVENING cyclobenzap cyclobenzap No cyclobenza [facility] rine 10 mg rine 10 mg elizabeth 10 Family tablet Take tablet Take mg tablet Practic 1/2 - 1 1/2 - 1 Take 1/2 - e tablet po tablet po 1 tablet bid PRN and bid PRN and po bid PRN q bedtime q bedtime and q may cause may cause bedtime drowsiness drowsiness may cause drowsiness escitalopra escitalopra No 1 Q1D escitalopr [facility] m 10 mg m 10 mg am 10 mg Famil y tablet Take tablet Take tablet Practic 1 tablet 1 tablet Take 1 e every day every day tablet by oral by oral every day route. route. by oral route. ibuprofen ibuprofen No 1 TID ibuprofen [facility] 600 mg 600 mg 600 mg [...] 10 Klor-Con 10 No 1 Q1D Klor-Con [place] mEq mEq 10 mEq Family tablet,exte tablet,exte tablet,ext Practic nded nded ended e release release release Take 1 Take 1 Take 1 tablet tablet tablet every day every day every day by oral by oral by oral route. due route. due route. due for appt for appt for appt 09/2019 ProAir HFA ProAir HFA No 2puff(s Q4H ProAir HFA [place] 90 90 ) 90 Family mcg/actuati mcg/actuati [...] Status Commen ts Source Name Name SARS-COV-2 COVID-19 2021-10-29 Completed Unive ity of MODERNA BOOSTER 00:00:00 [place] Med ical VACCINE Branch SARS-COV-2 COVID-19 2021-10-29 Completed Unive rsity of MODERNA 0.25ML 00:00:00 [facility] VACCINE Branch SARS-COV-2 COVID-19 2020-12-04 Completed Unive rsity of MODERNA VACCINE [facility] COVID-19 2020-12-04 Completed Unive rsity of MODERNA 12+ YRS 00:00:00 [facility] SARS-COV-2 COVID-19 2020-11-06 Completed Unive rsity of MODERNA VACCINE 00:00:00 [facility] [facility] SARS-COV-2 COVID-19 2020-11-06 Completed Unive rsity of MODERNA 12+ YRS 00:00:00 [facility] VACCINE Branch INFLUENZA TRIVALENT 2019-09-17 Completed [facility] IM 00:00:00 [facility] INFLUENZA TRIVALENT 2019-09-17 Completed [facility] 00:00:00 [facility] INFLUENZA TRIVALENT 2019-09-17 Completed [facility] 00:00:00 [facility] INFLUENZA TRIVALENT 2019-09-17 Completed [facility] 00:00:00 [facility] INFLUENZA TRIVALENT 2019-09-17 Completed [facility] 00:00:00 [facility] INFLUENZA TRIVALENT 2019-09-17 Completed [facility] 00:00:00 [facility] INFLUENZA TRIVALENT 2019-09-17 Completed [facility] 00:00:00 [facility] INFLUENZA TRIVALENT 2019-09-17 Completed [facility] 00:00:00 [facility] influenza, high dose influenza, high dose 2018-09-01 Completed [facility] seasonal seasonal 16:05:00 Practice pneumococcal pneumococcal 2018-09-01 Completed [facility] polysaccharide PPV23 polysaccharide PPV23 16:05:00 Practice influenza, high dose influenza, high dose 2017-06-22 Completed [facility] seasonal seasonal 13:03:00 Practice pneumococcal pneumococcal 2017-05-[address] [facility] kaz conjugate PCV 13 conjugate PCV 13 13:33:33 Pr actice Influenza TIV (IM) 2014-12-[address] [facility] 00:00:00 [facility] Center Influenza TIV (IM) 2014-12-[address] [facility] 00:00:00 [facility] Center Influenza TIV (IM) 2014-12-[address] [facility] 00:00:00 [facility] Center Influenza TIV (IM) 2014-12-[address] [facility] 00:00:00 [facility] Center Influenza TIV (IM) 2014-12-[address] [facility] 00:00:00 [facility] Center Influenza TIV (IM) 2014-12-[address] [facility] 00:00:00 [facility] Center Influenza TIV (IM) 2014-12-[address] [facility] 00:00:00 [facility] Center Influenza TIV (IM) 2014-12-[address] [facility] 00:00:00 [facility] Vital Signs Vital Name Observation Time Observation Value Comments Source HEIGHT 2020-10-04 00:00:00 172.7 cm WEIGHT 2020-10-04 00:00:00 113.4 kg Systolic blood 2023-04-03 18:14:00 143 mm[Hg] Univer sity of pressure [facility] Diastolic blood 2023-04-03 18:14:00 77 mm[Hg] Unive rsity [facility] Heart rate 2023-04-03 18:14:00 102 /min [facility] Body temperature 2023-04-03 18:14:00 37.22 [facility] 2023-04-03 18:14:00 18 /min [facility] weight 2023-04-03 18:14:00 110.678 kg [facility] BMI 2023-04-03 18:14:00 37.10 kg/m2 [facility] Oxygen saturation in 2023-04-03 18:14:00 99 /min [facility] blood by [facility] Pulse oximetry Branch HEIGHT 2022-11-28 10:25:00 172.7 [...] kg BP Diastolic 2019-10-27 00:00:00 92 mm[Hg] [facility] Height 2019-10-27 00:00:00 67.5 [in_i] [facility] BMI (Body Mass 2019-10-27 00:00:00 37.3 kg/m2 [facility] BP Systolic 2019-10-27 00:00:00 132 mm[Hg] [facility] Body Weight 2019-10-27 00:00:00 242 [lb_av] [facility] BP Systolic 2019-03-25 00:00:00 122 mm[Hg] [facility] Body Weight 2019-03-25 00:00:00 245 [lb_av] [facility] BP Diastolic 2019-03-25 00:00:00 70 mm[Hg] [facility] Height 2019-03-25 00:00:00 67.5 [in_i] [facility] BMI (Body Mass 2019-03-25 00:00:00 37.8 kg/m2 [facility]) Practice Systolic blood 2022-12-29 14:15:00 126 mm[Hg] Method ist [facility] pressure Diastolic blood 2022-12-29 14:15:00 92 mm[Hg[facility] pressure Heart rate 2022-12-29 14:15:00 116 /min [facility] Respiratory rate 2022-12-29 14:15:00 12 /min [facility] Body height 2022-12-29 14:15:00 172.7 cm [facility] Body weight 2022-12-29 14:15:00 102.241 kg [facility] BMI 2022-12-29 14:15:00 34.27 kg/m2 [facility] Oxygen saturation in 2022-12-29 14:15:00 98 /min [facility] Arterial blood by Pulse oximetry Systolic blood 2022-11-28 10:25:00 150 mm[Hg] [facility] Diastolic blood 2022-11-28 10:25:00 71 mm[Hg] [facility] Heart rate 2022-11-28 10:25:00 94 /min [facility] Body temperature 2022-11-28 10:25:00 36.56 Gabriela [facility] Respiratory rate 2022-11-28 10:25:00 20 /min [facility] Body height 2022-11-28 10:25:00 172.7 cm [facility] Body weight 2022-11-28 10:25:00 102.513 kg [facility] BMI 2022-11-28 10:25:00 34.36 kg/m2 [facility] Oxygen saturation in 2022-11-28 10:25:00 95 /min [facility] Arterial blood by [facility] Pulse oximetry Heart rate 2022-09-02 11:59:00 80 /min [facility] Systolic blood 2022-09-02 11:54:00 121 mm[Hg] [facility] Diastolic blood 2022-09-02 11:54:00 81 mm[Hg] [facility] Body temperature 2022-09-02 11:54:00 36.22 [facility] Respiratory rate 2022-09-02 11:54:00 18 /min [facility] Oxygen saturation in 2022-09-02 11:54:00 97 /min [facility] Arterial blood by Medical Ce nter Pulse oximetry Body height 2022-09-02 05:22:00 172.7 cm [facility] Body weight 2022-09-02 05:22:00 104.327 kg [facility] BMI 2022-09-02 05:22:00 34.97 kg/m2 [facility] Systolic blood 2021-10-03 10:50:00 145 mm[Hg] [facility] Diastolic blood 2021-10-03 10:50:00 87 mm[Hg] [facility] Heart rate 2021-10-03 10:50:00 85 /min [facility] Body temperature 2021-10-03 10:50:00 36.5 Gabriela [facility] Respiratory rate 2021-10-03 10:50:00 17 /min [facility] Oxygen saturation in 2021-10-03 10:50:00 95 /min [facility] Arterial blood by Medical Ce nter Pulse oximetry Body height 2021-09-30 11:23:00 162.6 cm [facility] Body weight 2021-09-30 11:23:00 111.585 kg [facility] BMI 2021-09-30 11:23:00 42.23 kg/m2 [facility] Procedures Procedure Date / Time Performing Source Performed Clinician PROTHROMBIN TIME WITH INR 2023-04-28 Zuleika Adan 17:46:00 Hospital PROTHROMBIN TIME WITH INR 2023-04-20 Zuleika Adan 19:05:00 Hospital PROTHROMBIN TIME WITH INR 2023-04-13 Zuleika Adan 14:05:00 Hospital ASSIGNMENT OF BENEFITS 2023-04-03 Doctor Unassadán, [facility] sity of 19:03:59 [place] [facility] CONSENT/REFUSAL FOR DIAGNOSIS AND 2023-04-[address] [facility] 18:10:35 [place] [facility] PROTHROMBIN TIME WITH INR 2023-03-30 Zuleika Adan Meth odist 13:56:00 Hospital PROTHROMBIN TIME WITH INR 2023-03-05 Zuleika Adan Meth odist 14:16:00 Hospital PROTHROMBIN TIME WITH INR 2023-02-06 Zuleika Adan Meth odist 14:09:00 Hospital PROTHROMBIN TIME WITH INR 2023-01-19 Zuleika Adan Meth odist 14:35:00 Hospital PROTHROMBIN TIME WITH [...] 15:05:00 Hospital ECG 12-LEAD 2022-11-17 Zuleika Adan [facility] 20:32:00 Hospital PROTHROMBIN TIME WITH INR 2022-11-14 Zuleika Adan Meth odist 16:09:00 Hospital PROTHROMBIN TIME WITH INR 2022-10-24 Zuleika Adan Meth odist 15:45:00 Hospital PROTHROMBIN TIME WITH INR 2022-10-08 Zuleika Adan Meth odist 15:57:00 Hospital PROTHROMBIN TIME WITH INR 2022-09-23 Zuleika Adan Meth odist 15:46:00 Hospital CBC W/PLT COUNT & AUTO 2022-09-12 [facility] DIFFERENTIAL 12:08:00 [facility] COMPREHENSIVE METABOLIC PANEL 2022-09-12 [facility] 12:08:00 [facility] HEMOGLOBIN A1C 2022-09-12 [facility] B[facility] 12:08:00 [facility] LIPID PANEL 2022-09-12 [facility] 12:08:00 [facility] URIC ACID [facility]22-09-[facility] 12:08:00 [facility] TSH/FREE T4 IF INDICATED 2022-09-12 [facility] 12:08:00 [facility] CBC W/PLT COUNT & AUTO 2022-09-[facility] 12:08:00 [facility] PROTHROMBIN TIME WITH INR 2022-09-09 Zuleika Adan 15:27:00 Hospital XR CHEST 1 VIEW PORTABLE / BEDSIDE 2022-09-03 [facility] 05:57:00 [facility] XR CHEST 1 VIEW PORTABLE / BEDSIDE 2022-09-02 [facility] 10:29:00 [facility] INSERTION, ELECTRODE LEAD AND 2022-09-02 Brett Gutiérrez, [facility] PULSE GENERATOR, ICD, WITH 07:52:00 [facility] FUNCTION TESTING PROTHROMBIN TIME/INR 2022-09-02 [facility] 06:11:00 [facility] ECG 12-LEAD 2022-09-02 [facility] 05:48:19 [facility] ECG 12-LEAD 2022-09-02 Unknown, Hl[facility] 05:48:19 [facility] ECG 12-LEAD 2022-09-02 Unknown, Hl7 [facility] 05:48:19 [facility] ARRYTHMIA IMPLANT REPORT - SCAN 2022-09-02 Provider, Defaul t [facility] 00:00:00 [facility] CARDIAC CATH REPORT - SCAN 2022-09-02 Provider, Default [facility] 00:00:00 [facility] PROTHROMBIN TIME WITH INR 2022-08-21 Zuleika Adan 15:32:00 Hospital CBC HEMOGRAM 2022-08-21 Zuleika Adan 15:30:00 [facility] BASIC METABOLIC PANEL W/O EGFR 2022-08-21 Zuleika Adan 15:30:00 Hospital LIPID PANEL 2022-08-21 Zuleika Adan 15:30:00 Hospital TRANSTHORACIC ECHOCARDIOGRAM 2022-08-14 Zuleika Adan ethodist COMPLETE W CONT STRAIN 3D IF 15:46:29 Hos pital NEEDED PROTHROMBIN TIME WITH INR 2022-08-06 Zuleika Adan odist 13:59:00 Hospital CV CARDIAC PET MYOCARDIAL 2022-08-05 Zuleika Adan odarpit PERFUSION IMAGING 13:49:01 Hospital PROTHROMBIN TIME WITH INR 2022-07-28 Zuleika Adan odist 13:27:00 Hospital PROTHROMBIN TIME WITH INR 2022-07-16 Zuleika Adan odist 15:10:00 Hospital PROTHROMBIN TIME WITH INR 2022-07-02 Zuleika Adan odist 14:10:00 Hospital PROTHROMBIN TIME WITH INR 2022-06-16 Zuleika Adan odist 15:05:00 Hospital PROTHROMBIN TIME WITH INR 2022-06-02 Zuleika Adan odist 19:14:00 Hospital PROTHROMBIN TIME WITH INR 2022-05-23 Zuleika Adan odist 19:21:00 Hospital PROTHROMBIN TIME WITH INR 2022-05-12 Zuleika Adan odist 15:11:00 Hospital ESOPHAGOGASTRODUODENOSCOPY (EGD) 2021-11-28 AmKarsten rueda 20:00:00 [facility] COLONOSCOPY 2021-11-28 Karsten Fleming 20:00:00 [facility] SARS-COV-2 COVID-19 VACCINE 2021-10-29 Doctor Unassigned, U niversity of BOOSTER,0.25ML,IM (MODERNA) 18:50:23 [place] [facility] BASIC METABOLIC PANEL 2021-10-03 Rodriguez, Imran [facility] 04:55:00 [facility] PROTHROMBIN TIME/INR 2021-10-03 Gibson, Paula [facility] 04:55:00 [facility] Center CT ABDOMEN/PELVIS WITHOUT IV 2021-10-02 Jenna, Imran [facility] CONTRAST 22:26:00 [facility] US ABDOMEN COMPLETE 2021-10-[address] [facility] 08:10:00 [facility] Center PROTHROMBIN TIME/INR 2021-10-02 Gibson, Paula [facility] 04:00:00 [facility] BASIC METABOLIC PANEL 2021-10-01 Rodriguez, Imran [facility] 19:00:00 [facility] XR ABDOMEN/KUB 1 VIEW PORTABLE 2021-10-[address] [facility] 09:35:00 [facility] CBC W/PLT COUNT & AUTO 2021-10-01 Rodriguez, Marc [facility] DIFFERENTIAL 04:02:00 [facility] BASIC METABOLIC PANEL 2021-10-01 Rodriguez, Bernabean [facility] 04:02:00 [facility] URIC ACID 2021-10-01 Rodriguez, Bernabean [facility] 04:02:00 [facility] CBC W/PLT COUNT & AUTO 2021-10-01 Rodriguez, Marc [facility] DIFFERENTIAL 04:02:00 [facility] SARS-COV2/RT-PCR ([facility]) 2021-09-30 Elmore, León Meg [facility] 17:40:00 [facility] ECG 12-LEAD 2021-09-30 Unknown, Hl7 [facility] 15:41:22 [facility] ECG 12-LEAD 2021-09-30 Unknown, Hl7 [facility] 15:41:22 [facility] COMPREHENSIVE METABOLIC PANEL 2021-09-30 Elmore, León Meg [facility] 15:32:00 [facility] Center LIPASE 2021-09-30 Elmore, León Meg [facility] 15:32:00 Medical Center MAGNESIUM 2021-09-30 Elmore, León Meg [facility] 15:32:00 [facility] Center B-TYPE NATRIURETIC FACTOR (BNP) 2021-09-30 Elmore, León Meg [facility] 15:32:00 [facility] HIGH SENSITIVITY TROPONIN I 2021-09-30 Elmore, León Meg [facility] 15:32:00 [facility] CBC W/PLT COUNT & AUTO 2021-09-30 Elmore, León Meg [facility] DIFFERENTIAL 15:32:00 [facility] PROTHROMBIN TIME/INR 2021-09-30 Elmore, León Meg [facility] 15:32:00 Medical Center CBC W/PLT COUNT & AUTO 2021-09-[address] [facility] DIFFERENTIAL 15:32:00 Medical Center XR CHEST 1 VIEW PORTABLE / BEDSIDE 2021-09-[address] [facility] 13:20:00 Medical Center XR FOOT 3 VIEWS LEFT 2021-09-[address] [facility] 13:20:00 Medical Center EKG-SCANNED 2021-09-30 Provider, Default [facility] 00:00:00 [facility] ASSIGNMENT OF BENEFITS 2020-10-25 Doctor Unassigned, Univer sity of 15:34:28 [place] [facility] Orthopedic Surgery 2016-10-05 [facility] Cardiac Surgery 2013-10-05 [facility] 00:00:00 [facility] Cardiac Surgery 2011-10-05 [facility] 00:00:00 Practice Heart Revascularize (Tmr) Skinny joselo [facility] Plan of Care Planned Activity Planned Date Details Comments Source Future Scheduled Test 2023-06-05 Influenza Vaccine (#1) [facility] 00:00:00 [code = Influenza Medical Ce nter Vaccine (#1)] Future Scheduled Test 2023-06-05 INFL[facility]ZA VACC[address] [facility] 00:00:00 (Season Ended) [code = [facility] Center INFLUENZA VACCINE (Season Ended)] Future Scheduled Test 2023-06-05 Influenza Vaccine (#1) [facility] 00:00:00 [code = Influenza Medical Ce nter Vaccine (#1)] Future Scheduled Test 2023-05-30 Screening for Metho dist 08:39:12 malignant neoplasm of Hospit al colon (procedure) [code = 120543978] Future Scheduled Test 2023-05-30 Screening for Metho dist 08:39:12 malignant neoplasm of Hospit al colon (procedure) [code = 918167430] Future Scheduled Test 2023-05-30 Hepatitis C screening Mosque 08:39:12 (procedure) [code = Hospital 234033451] Future Scheduled Test 2023-05-30 Screening for Metho dist 08:39:12 malignant neoplasm of Hospit al colon (procedure) [code = 362856159] Future Scheduled Test 2023-05-30 SHINGLES VACCINES (1 [facility] 08:39:12 of 2) [code = SHINGLES Hospi nick VACCINES (1 of 2)] Future Scheduled Test 2023-05-30 COVID-19 VACCINE (4 - [facility] 08:39:12 Moderna series) [code Hospit al = COVID-19 VACCINE (4 - Moderna series)] Future Scheduled Test 2023-05-30 Screening for Metho dist 08:39:12 malignant neoplasm of Hospit al colon (procedure) [code = 216150357] Future Scheduled Test 2023-05-30 Screening for Metho dist 08:39:12 malignant neoplasm of Hospit al colon (procedure) [code = 620467975] Future Scheduled Test 2023-05-30 INFLUENZA VACCINE (#1) [facility] 08:39:12 [code = INFLUENZA Hospital VACCINE (#1)] Future Scheduled Test 2023-05-01 Screening for Metho dist 11:42:32 malignant neoplasm of Hospit al colon (procedure) [code = 950495407] Future Scheduled Test 2023-05-01 Screening for Metho dist 11:42:32 malignant neoplasm of Hospit al colon (procedure) [code = 680461821] Future Scheduled Test 2023-05-01 Hepatitis C screening [facility] 11:42:32 (procedure) [code = Hospital 677547337] Future Scheduled Test 2023-05-01 Screening for Metho dist 11:42:32 malignant neoplasm of Hospit al colon (procedure) [code = 272115443] Future Scheduled Test 2023-05-01 SHINGLES VACCINES (1 [facility] 11:42:32 of 2) [code = SHINGLES Hospi nick VACCINES (1 of 2)] Future Scheduled Test 2023-05-01 COVID-19 VACCINE (4 - [facility] 11:42:32 Moderna series) [code Hospit al = COVID-19 VACCINE (4 - Moderna series)] Future Scheduled Test 2023-05-01 Screening for Metho dist 11:42:32 malignant neoplasm of Hospit al colon (procedure) [code = 099030413] Future Scheduled Test 2023-05-01 Screening for Metho dist 11:42:32 malignant neoplasm of Hospit al colon (procedure) [code = 746649101] Future Scheduled Test 2023-05-01 INFLUENZA VACCINE M [...] Future Scheduled Test 2021-11-13 COVID-19 VACCINE (1) [facility] 14:15:49 [code = COVID-19 Hospital VACCINE (1)] Future Scheduled Test 2021-11-13 Hepatitis C screening [facility] 14:15:49 (procedure) [code = Hospital 731226374] Future Scheduled Test 2021-11-13 COLONOSCOPY SCREENING [facility] 14:15:49 [code = COLONOSCOPY Hospital SCREENING] Future Scheduled Test 2021-11-13 SHINGLES VACCINES (#1) [facility] 14:15:49 [code = SHINGLES Hospital VACCINES (#1)] [...] Future Scheduled Test 2021-09-19 COVID-19 VACCINE (1) [facility] 01:32:34 [code = COVID-19 Hospital VACCINE (1)] Future Scheduled Test 2021-09-19 Hepatitis C screening Mosque :32:34 (procedure) [code = Hospital 437330685] Future Scheduled Test 2021-09-19 COLONOSCOPY SCREENING Mosque :32:34 [code = COLONOSCOPY Hospital SCREENING] Future Scheduled Test 2021-09-19 SHINGLES VACCINES (#1) Mosque :32:34 [code = SHINGLES Hospital VACCINES (#1)] Future Scheduled Test 2021-09-19 INFLUENZA VACCINE M ethodist :32:34 [code = INFLUENZA Hospital VACCINE] Future Scheduled [...] ce plasma] Diagnostic Test 2019-10-27 colon cancer [facility] Pending 00:00:00 screening, stool [code Pract ice [...] screening Medical C enter (procedure) [code = 489713587] Future Scheduled Test 2016-12-29 Abdominal aortic [facility] 00:[facility]:00 aneurysm screening Medical C enter (procedure) [code = 755370117] Future Scheduled Test 2016-12-29 [facility] 00:00:00 aneurysm screening Medical C enter (procedure) [code = 670391386] Future Scheduled Test 2016-12-29 [facility] 00:00:00 aneurysm screening Medical C enter (procedure) [code = 206877205] Future Scheduled Test 2016-12-29 [facility] aortic [facility] 00:00:00 aneurysm screening Medical C enter (procedure) [code = 582413564] Future Scheduled Test 2016-12-29 [facility] 00:00:00 aneurysm screening Medical C enter (procedure) [code = 729130442] Future Scheduled Test 2016-12-29 [facility] 00:00:00 aneurysm screening Medical C enter (procedure) [code = 628309319] Future Scheduled Test 2016-12-29 [facility] 00:00:00 aneurysm screening Medical C enter (procedure) [code = 077331630] Future Scheduled Test 2001-12-29 SHINGLES VACCINES (1 [...] Medica l Center colon (procedure) [code = 865625476] Future Scheduled Test 1951 [facility] malignant neoplasm of Medica l Center colon (procedure) [code = 339100527] Future Scheduled Test 1951 [facility]:00 malignant neoplasm of Medica l Center colon (procedure) [code = 006623369] Future Scheduled Test 1951 [facility] 00:[facility]:00 malignant neoplasm of Medica l Center colon (procedure) [code = 621433035] Future Scheduled Test 1951 Sigmoidoscopy [code = [facility] 00:00:00 Sigmoidoscopy] Medical Chelsy r Future Scheduled Test 1951 [facility] 00:[facility]:00 malignant neoplasm of Medica l Center colon (procedure) [code = 823716149] Future Scheduled Test [address] [facility] 00:00:00 (combo) [code = CT Medical C enter Colonography (combo)] Future Scheduled Test 1951 [facility] 00:[facility]:00 malignant neoplasm of Medica l Center colon (procedure) [code = 345400919] Future Scheduled Test 1951 [facility] 00:00:00 malignant neoplasm of Medica l Center colon (procedure) [code = 368430798] Future Scheduled Test 1951 [facility] 00:00:00 malignant neoplasm of Medica l Center colon (procedure) [code = 506859992] Future Scheduled Test 1951 [facility] 00:00:00 malignant neoplasm of Medica l Center colon (procedure) [code = 173935229] Future Scheduled Test 1951 Sigmoidoscopy [code = [facility] 00:00:00 Sigmoidoscopy] Medical Cente r Future Scheduled Test [address] [facility] 00:00:00 (combo) [code = CT Medical C enter Colonography (combo)] Future Scheduled Test 1951 [facility] 00:00:00 malignant neoplasm of Medica l Center colon (procedure) [code = 164628162] Future Scheduled Test 1951 [facility] 00:00:00 malignant neoplasm of Medica l Center colon (procedure) [code = 114846940] Future Scheduled Test 1951 [facility] 00:[facility]:00 malignant neoplasm of Medica l Center colon (procedure) [code = 362687015] Future Scheduled Test 1951 [facility] 00:[facility]:00 malignant neoplasm of Medica l Center colon (procedure) [code = 707439246] Future Scheduled Test 1951 Sigmoidoscopy [code = [facility] 00:00:00 Sigmoidoscopy] Medical Chelsy r Future Scheduled Test [address] [facility] 00:00:00 (combo) [code = CT Medical C enter Colonography (combo)] Future Scheduled Test 1951 [facility] 00:[facility]:00 malignant neoplasm of Medica l Center colon (procedure) [code = 739069220] Future Scheduled Test 1951 [facility] for [facility] 00:00:00 malignant neoplasm of Medica l Center colon (procedure) [code = 708650933] Future Scheduled Test 1951 [facility] 00:00:00 malignant neoplasm of Medica l Center colon (procedure) [code = 302027009] Future Scheduled Test 1951 [facility] 00:00:00 malignant neoplasm of Medica l Center colon (procedure) [code = 737283768] Future Scheduled Test 1951 Sigmoidoscopy [code = [facility] 00:00:00 Sigmoidoscopy] Medical Cente r Future Scheduled Test [address] [facility] 00:00:00 (combo) [code = CT Medical C enter Colonography (combo)] Future Scheduled Test 1951 [facility] 00:00:00 malignant neoplasm of Medica l Center colon (procedure) [code = 288015720] Future Scheduled Test 1951 [facility] 00:00:00 malignant neoplasm of Medica l Center colon (procedure) [code = 676860019] Future Scheduled Test 1951 [facility] 00:00:00 malignant neoplasm of Medica l Center colon (procedure) [code = 057384364] Future Scheduled Test 1951 [facility] 00:00:00 malignant neoplasm of Medica l Center colon (procedure) [code = 353704886] Future Scheduled Test 1951 Sigmoidoscopy [code = [facility] 00:00:00 Sigmoidoscopy] Medical Chelsy galeana Future Scheduled Test [address] [facility] 00:00:00 (combo) [code = CT Medical C enter Colonography (combo)] Future Scheduled Test 1951 [facility] 00:[facility]:00 malignant neoplasm of Medica l Center colon (procedure) [code = [id number]] Future Scheduled Test 1950 Screening for [facility] 00:00:00 [facility] colon (procedure) [code = 537307480] Future Scheduled Test 1950 Screening for [facility] 00:00:00 [facility] colon (procedure) [code = 976512683] Future Scheduled Test 1951 Screening for [facility] 00:00:00 [facility] colon (procedure) [code = 459428839] Future Scheduled Test 1951 Sigmoidoscopy [code = [facility] 00:00:00 Sigmoidoscopy] Medical Chelsy galeana Future Scheduled Test 1951 Screening for [facility] 00:00:00 malignant ne[facility] colon (procedure) [code = 848065835] Instructions [facility] Family Practice Encounters Start End Encounter Admission Attending Care Care Encounter Source Date/Time Date/Time Type Type Clinicians Facility Department ID 2020-09-28 Inpatient ER [facility] [id number] [facility] 18:26:00 [facility] Med 2023-05-04 2023-05-04 Telephone Rocio, 1.2.840.1 [id number] 21 [id number] Methodi 00:00:00 00:00:[address] 3.430.2.7 Hospit a .3.641071 l .8 2023-04-29 2023-04-29 Telephone Giveon, 1.2.840.1 [id number] 21 [id number] Methodi 00:00:00 00:00:[address] 3.430.2.7 Hospit a .3.489602 l .8 2023-04-29 2023-04-29 Telephone Giveon, 1.2.840.1 [id number] 21 [id number] Methodi 00:00:00 00:00:[address] 3.430.2.7 Hospit a .3.239518 l .8 2023-04-28 2023-04-28 Telephone Younis, 1.2.840.1 [id number] 21 [id number] Methodi 00:00:00 00:00:[address] 3.430.2.7 Hospit a .3.747034 l .8 2023-04-28 2023-04-28 Telephone Vahe, 1.2.840.1 [id number] 21 [id number] Methodi 00:00:00 00:00:[address] 3.430.2.7 Hospit a .3.867150 l .8 2023-04-28 2023-04-28 Telephone Younandreea, 1.2.840.1 [id number] 21 [id number] Methodi 00:00:00 00:00:00 [address] 3.430.2.7 Hospit a .3.780426 l .8 2023-04-28 2023-04-28 Telephone Vahe, 1.2.840.1 [id number] 21 [id number] Methodi 00:00:00 00:00:[address] 3.430.2.7 Hospit a .3.894373 l .8 2023-04-21 2023-04-21 Telephone Rocio, 1.2.840.1 [id number] 21 [id number] Methodi 00:00:00 00:00:[address] 3.430.2.7 Hospit a .3.657765 l .8 2023-04-21 2023-04-21 Telephone Giveon, 1.2.840.1 [id number] 21 [id number] Methodi 00:00:00 00:00:[address] 3.430.2.7 Hospit a .3.997268 l .8 2023-04-20 2023-04-20 Telephone Younis, 1.2.840.1 [id number] 69207650 Methodi 00:00:00 00:00:[address] 3.430.2.7 Hospit a .3.731794 l .8 2023-04-20 2023-04-20 Telephone Younis, 1.2.840.1 [id number] 09699370 Methodi 00:00:00 00:00:00 [address] 3.430.2.7 Hospit a .3.860573 l .8 2023-04-14 2023-04-14 Telephone Giveon, 1.2.840.1 [id number] 21 40370616 Methodi 00:00:00 00:00:[address] 3.430.2.7 Hospit a .3.973161 l .8 2023-04-14 2023-04-14 Telephone Giveon, 1.2.840.1 [id number] 21 [id number] Methodi 00:00:00 00:00:[address] 3.430.2.7 Hospit a .3.575403 l .8 2023-04-09 2023-04-09 Refill Younis, 1.2.840.1 [id number] 2100 104715 Methodi 00:00:00 00:00:[address] 3.430.2.7 Hospit a .3.590166 l .8 2023-04-09 2023-04-09 Refill Younis, 1.2.840.1 [id number] 2100 221257 Methodi 00:00:00 00:00:[address] 3.430.2.7 Hospit a .3.310311 l .8 2023-04-03 2023-04-03 Emergency [facility] [id number] 13:15:00 14:36:[address] [facility] 2023-04-03 2023-04-03 Emergency [facility] 1.2.840.114 10 [id number] [facility] 13:15:00 14:36:00 Kurt Anderson [facility] 350.1.13.10 ity [facility] 4.2.7.2.686 [facility] [id number] [address] 2023-03-31 2023-03-31 Telephone Giveon, 1.2.840.1 [id number] Methodi 00:00:00 00:00:[address] 3.430.2.7 Hospit a .3.810846 l .8 2023-03-31 2023-03-31 Telephone Giveon, 1.2.840.1 [id number] Methodi 00:00:00 00:00:[address] 3.430.2.7 Hospit a .3.208672 l .8 2023-03-06 2023-03-06 Telephone Giveon, 1.2.840.1 [id number] Methodi 00:00:00 00:00:[address] 3.430.2.7 Hospit a .3.774094 l .8 2023-03-06 2023-03-[address] [facility] [id number] 00:00[facility]00 00:00:00 [facility] 2023-03-06 2023-03-06 Telephone Giveon, 1.2.840.1 [id number] Methodi 00:00:00 00:00:[address] 3.430.2.7 [facility] .8 2023-03-06 2023-03-06 Refill Anthony, [facility] [id number] [address] 00:00:00 00:00:00 [facility] 2023-03-05 2023-03-05 Refill Anthony, [facility] [id number] 00:00:00 00:00:00 [facility] 2023-03-05 2023-03-05 Refill Anthony, [facility] [id number] [id number] [address] 00:00:00 00:00:00 [facility] 2023-03-04 2023-03-04 Refill Anthony, [facility] [id number] 00:00:00 00:00:00 [facility] 2023-03-04 2023-03-04 Refill Anthony, [facility] [id number] 00:00:00 00:00:00 [facility] 2023-02-26 2023-02-26 Refill Janet, [facility] [id number] [id number] 00:00:00 00:00:00 [facility] 2023-02-26 2023-02-26 Refill Janet, [facility] [id number] [id number] 00:00:00 00:00:00 [facility] 2023-02-22 2023-02-22 Refill Parquang, [facility] [id number] [id number] 00:00:00 00:00:00 [facility] 2023-02-22 2023-02-22 Refill Parquang, [facility] [id number] [id number] 00:00:00 00:00:00 [facility] 2023-02-08 2023-02-08 Telephone Giveon, 1.2.840.1 [id number] Methodi 00:00:00 00:00:[address] 3.430.2.7 Hospit a .3.706511 l .8 2023-02-08 2023-02-08 Telephone Giveon, 1.2.840.1 [id number] [id number] Methodi 00:00:00 00:00:[address] 3.430.2.7 Hospit a .3.722217 l .8 2023-01-20 2023-01-20 Telephone Giveon, 1.2.840.1 [id number] [id number] Methodi 00:00:00 00:00:[address] 3.430.2.7 Hospit a .3.894392 l .8 2023-01-20 2023-01-20 Telephone Giveon, 1.2.840.1 [id number] 21 [id number] Methodi 00:00:00 00:00:[address] 3.430.2.7 Hospit a .3.952871 l .8 2023-01-06 2023-01-06 Telephone Giveon, 1.2.840.1 52406241152 89318604 Methodi 00:00:00 00:00:[address] 3.430.2.7 Hospit a .3.947398 l .8 2023-01-06 2023-01-06 Telephone Giveon, 1.2.840.1 [id number] 21 12112199 Methodi 00:00:00 00:00:[address] 3.430.2.7 Hospit a .3.104491 l .8 2022-12-29 2022-12-29 Office Younis, 1.2.840.1 [id number] 2099 828634 Methodi 09:20:00 09:47:10 Visit Zuleika ColeBetina 71686.1.[address] 3.430.2.7 Hospit a .3.538329 l .8 2022-12-29 2022-12-29 Office Younis, 1.2.840.1 [id number] 2099 070219 Methodi 09:20:00 09:47:10 Visit Zuleika Lim 08032.1.[address] 3.430.2.7 Hospit a .3.854713 l .8 2022-12-29 2022-12-29 Travel 1.2.840.1 1.2.216.756 7219 308669 Methodi 00:00:00 00:00:[address] 3.430.2.7 0.2.7.3.698 Ho spita .3.352875 084.8 l .8 2022-12-29 2022-12-29 Travel 1.2.840.1 1.2.786.319 1311 929303 Methodi 00:00:00 00:00:[address] 3.430.2.7 0.2.7.3.698 Ho spita .3.107589 084.8 l .8 2022-12-26 2022-12-26 Outpatient [facility] [id number] [facility] 00:00:00 00:00:00 BAM 2022-12-23 2022-12-23 Telephone Giveon, 1.2.840.1 [id number] Methodi 00:00:00 00:00:[address] 3.430.2.7 Hospit a .3.660170 l .8 2022-12-23 2022-12-23 Telephone Giveon, 1.2.840.1 [id number] Methodi 00:00:00 00:00:[address] 3.430.2.7 Hospit a .3.158975 l .8 2022-12-16 2022-12-16 Telephone Giveon, 1.2.840.1 [id number] 63481076 Methodi 00:00:00 00:00:[address] 3.430.2.7 Hospit a .3.133491 l .8 2022-12-16 2022-12-16 Telephone Giveon, 1.2.840.1 [id number] 86719342 Methodi 00:00:00 00:00:[address] 3.430.2.7 Hospit a .3.880037 l .8 2022-12-09 2022-12-09 Telephone Giveon, 1.2.840.1 [id number] 21 [id number] Methodi 00:00:00 00:00:[address] 3.430.2.7 Hospit a .3.649448 l .8 2022-12-09 2022-12-09 Telephone Giveon, 1.2.840.1 [id number] 21 [id number] Methodi 00:00:00 00:00:[address] 3.430.2.7 Hospit a .3.010719 l .8 2022-12-02 2022-12-02 Telephone Giveon, 1.2.840.1 [id number] 21 [id number] Methodi 00:00:00 00:00:[address] 3.430.2.7 Hospit a .3.106967 l .8 2022-12-02 2022-12-02 Telephone Giveon, 1.2.840.1 [id number] 12690884 Methodi 00:00:00 00:00:[address] 3.430.2.7 Hospit a .3.631469 l .8 2022-11-28 2022-11-28 [id number] 11:15:00 11:30:00 Visit [facility] 2022-11-28 2022-11-28 [facility] [id number] [facility] 11:15:00 11:30:00 Visit [facility] 2022-11-282022-11-28 Outpatient JANET, [facility] [id number] [facility] 10:16:44 10:16:44 BAM 2022-11-26 2022-11-26 Telephone Giveon, 1.2.840.1 [id number] Methodi 00:00:00 00:00:[address] 3.430.2.7 Hospit a .3.911000 l .8 2022-11-26 2022-11-26 Telephone Giveon, 1.2.840.1 [id number] [id number] Methodi 00:00:00 00:00:[address] 3.430.2.7 Hospit a .3.595155 l .8 2022-11-17 2022-11-17 Office Younis, 1.2.840.1 [id number] 2100 451708 Methodi 14:00:00 15:10:26 Visit Zuleika Lim 78085.1.[address] 3.430.2.7 Hospit a .3.322123 l .8 2022-11-17 2022-11-17 Office Younis, 1.2.840.1 [id number] 2099 189479 Methodi 14:00:00 15:10:26 Visit Zuleika Lim 25577.1.[address] 3.430.2.7 Hospit a .3.571334 l .8 2022-11-17 2022-11-17 Travel 1.2.840.1 1.2.440.320 6373 035882 Methodi 00:00:00 00:00:[address] 3.430.2.7 0.2.7.3.698 Ho spita .3.436498 084.8 l .8 2022-11-17 2022-11-17 Telephone Giveon, 1.2.840.1 [id number] [id number] Methodi 00:00:00 00:00:[address] 3.430.2.7 Hospit a .3.831554 l .8 2022-11-17 2022-11-17 Telephone Giveon, 1.2.840.1 [id number] 21 78633997 Methodi 00:00:00 00:00:[address] 3.430.2.7 Hospit a .3.890831 l .8 2022-11-17 2022-11-17 Travel 1.2.840.1 1.2.182.826 9382 690371 Methodi 00:00:00 00:00:[address] 3.430.2.7 0.2.7.3.698 Ho spita .3.804545 084.8 l .8 2022-10-25 2022-10-25 Telephone Giveon, 1.2.840.1 [id number] 21 [id number] Methodi 00:00:00 00:00:[address] 3.430.2.7 Hospit a .3.347860 l .8 2022-10-25 2022-10-25 Telephone Giveon, 1.2.840.1 [id number] 21 [id number] Methodi 00:00:00 00:00:[address] 3.430.2.7 Hospit a .3.218222 l .8 2022-10-09 2022-10-09 Telephone Giveon, 1.2.840.1 [id number] 21 [id number] Methodi 00:00:00 00:00:[address] 3.430.2.7 Hospit a .3.156185 l .8 2022-10-09 2022-10-09 Telephone Giveon, 1.2.840.1 56010594983 21 50600691 Methodi 00:00:00 00:00:[address] 3.430.2.7 Hospit a .3.204505 l .8 2022-09-24 2022-09-24 Telephone Giveon, 1.2.840.1 [id number] 21 84333098 Methodi 00:00:00 00:00:[address] 3.430.2.7 Hospit a .3.754303 l .8 2022-09-24 2022-09-24 Telephone Giveon, 1.2.840.1 [id number] 64958769 Methodi 00:00:00 00:00:[address] 3.430.2.7 Hospit a .3.618888 l .8 2022-09-12 2022-09-12 Office [facility] [id number] [id number] 11:15:00 11:45:00 Visit [facility] 2022-09-12 2022-09-12 Office [facility] [id number] [id number] 11:15:00 11:45:00 Visit [facility] 2022-09-12 2022-09-12 [facility] [id number] [facility] 11:02:18 11:02:18 [facility] 2022-09-10 2022-09-10 Telephone Giveon, 1.2.840.1 [id number] Methodi 00:00:00 00:00:[address] 3.430.2.7 Hospit a .3.755955 l .8 2022-09-10 2022-09-10 Telephone Giveon, 1.2.840.1 [id number] [id number] Methodi 00:00:00 00:00:[address] 3.430.2.7 Hospit a .3.656686 l .8 2022-09-02 2022-09-03 [facility] [id number] [address] 05:06:00 10:30:00 Encounter Beau Gutiérrez [facility] 2022-09-02 2022-09-03 [facility] [id number] 05:06:00 10:30:00 Encounter Beau Gutiérrez [facility] 2022-09-02 2022-09-03 Outpatient [facility] Surgery [id number] [facility] 05:06:00 10:30:00 NAOMI GUTIÉRREZ 2022-09-02 2022-09-02 Surgery [facility] [id number] 07:35:00 10:49:00 [facility] 2022-09-02 2022-09-02 Surgery [facility] [id number] 07:35:00 10:49:00 [facility] 2022-09-02 2022-09-[address] [facility] [id number] [address] 00:00:00 00:00:00 Only [facility] 2022-09-02 2022-09-[address] [facility] [id number] [address] 00:00:00 00:00:00 Only [facility] 2022-08-26 2022-08-26 Refill Younis, 1.2.840.1 [id number] 2100 182812 Methodi 00:00:00 00:00:[address] 3.430.2.7 Hospit a .3.131873 l .8 2022-08-26 2022-08-26 Refill Younis, 1.2.840.1 [id number] 2100 [id number] Methodi 00:00:00 00:00:00 Zuleika Lim 59038.1.[address] 3.430.2.7 Hospit a .3.139507 l .8 2022-08-22 2022-08-22 Telephone Giveon, 1.2.840.1 [id number] Methodi 00:00:00 00:00:[address] 3.430.2.7 Hospit a .3.759488 l .8 2022-08-22 2022-08-22 Telephone Giveon, 1.2.840.1 [id number] 21 [id number] Methodi 00:00:00 00:00:[address] 3.430.2.7 Hospit a .3.927011 l .8 2022-08-15 2022-08-15 Telephone Rocio, 1.2.840.1 [id number] Methodi 00:00:00 00:00:[address] 3.430.2.7 Hospit a .3.524347 l .8 2022-08-15 2022-08-15 Telephone Rocio, 1.2.840.1 [id number] [id number] Methodi 00:00:00 00:00:[address] 3.430.2.7 Hospit a .3.975883 l .8 2022-08-14 2022-08-14 Telephone Zak, 1.2.840.1 [id number] Methodi 00:00:00 00:00:[address] 3.430.2.7 Hospit a .3.996718 l .8 2022-08-14 2022-08-14 Orders Younis, 1.2.840.1 [id number] 2099 [id number] Methodi 00:00:00 00:00:00 Only Zuleika Cole. 31743.1.[address] 3.430.2.7 Hospit a .3.218381 l .8 2022-08-14 2022-08-14 Telephone Zak, 1.2.840.1 [id number] [id number] Methodi 00:00:00 00:00:[address] 3.430.2.7 Hospit a .3.706328 l .8 2022-08-14 2022-08-14 Orders Younis, 1.2.840.1 [id number] 2099 [id number] Methodi 00:00:00 00:00:00 Only Zuleika Cole. 88773.1.[address] 3.430.2.7 Hospit a .3.011988 l .8 2022-08-13 2022-08-13 Office Younis, 1.2.840.1 495194196091000613 Methodi 11:20:00 12:00:14 Visit Zuleika Lim 45531.1.[address] 3.430.2.7 Hospit a .3.399903 l .8 2022-08-13 2022-08-13 Office Younandreea, 1.2.840.1 [id number] 2099 094573 Methodi 11:20:00 12:00:14 Visit Zuleika Lim 91108.1.[address] 3.430.2.7 Hospit a .3.323907 l .8 2022-08-13 2022-08-13 Travel 1.2.840.1 1.2.367.534 5718 125820 Methodi 00:00:00 00:00:[address] 3.430.2.7 0.2.7.3.698 Ho spita .3.711985 084.8 l .8 2022-08-13 2022-08-13 Travel 1.2.840.1 1.2.677.954 0131 799918 Methodi 00:00:00 00:00:[address] 3.430.2.7 0.2.7.3.698 Ho spita .3.779092 084.8 l .8 2022-08-13 2022-08-13 Outpatient [facility] [id number] [place] 00:00:00 00:00:[address] 2022-08-07 2022-08-07 Telephone Jackierory, 1.2.840.1 [id number] Methodi 00:00:00 00:00:[address] 3.430.2.7 Hospit a .3.567442 l .8 2022-08-07 2022-08-07 Telephone Rocio, 1.2.840.1 [id number] Methodi 00:00:00 00:00:[address] 3.430.2.7 Hospit a .3.619192 l .8 2022-08-05 2022-08-05 Orders Younis, 1.2.840.1 2099 968169 Methodi 00:00:00 00:00:00 Only Zuleika Cole. 28867.1.[address] 3.430.2.7 Hospit a .3.736351 l .8 2022-08-05 2022-08-05 Orders Younis, 1.2.840.1 [id number] Methodi 00:00:00 00:00:00 Only Zuleika Lim 96937.1.[address] 3.430.2.7 Hospit a .3.095561 l .8 2022-08-01 2022-08-01 Travel 1.2.840.1 1.2.857.386 5976 511175 Methodi 00:00:00 00:00:[address] 3.430.2.7 0.2.7.3.698 Ho spita .3.749179 084.8 l .8 2022-08-01 2022-08-01 Travel 1.2.840.1 1.2.954.375 2643 902682 Methodi 00:00:00 00:00:[address] 3.430.2.7 0.2.7.3.698 Ho spita .3.845496 084.8 l .8 2022-08-01 2022-08-01 Outpatient [facility] [id number] [place] 00:00:00 00:00:[address] 2022-07-29 2022-07-29 Telephone Giveon, 1.2.840.1 [id number] 21 [id number] Methodi 00:00:00 00:00:[address] 3.430.2.7 Hospit a .3.066223 l .8 2022-07-29 2022-07-29 Telephone Giveon, 1.2.840.1 [id number] 21 [id number] Methodi 00:00:00 00:00:[address] 3.430.2.7 Hospit a .3.606587 l .8 2022-07-18 2022-07-18 Office Younis, 1.2.840.1 [id number] 2099 614844 Methodi 14:40:00 15:55:20 Visit Zuleika Lim 15720.1.[address] 3.430.2.7 Hospit a .3.414363 l .8 2022-07-18 2022-07-18 Office Younis, 1.2.840.1 2099171 Methodi 14:40:00 15:55:20 Visit Zuleika Lim 15968.1.[address] 3.430.2.7 Hospit a .3.644580 l .8 2022-07-18 2022-07-18 Travel 1.2.840.1 1.2.710.546 6809 447213 Methodi 00:00:00 00:00:[address] 3.430.2.7 0.2.7.3.698 Ho spita .3.149428 084.8 l .8 2022-07-18 2022-07-18 Travel 1.2.840.1 1.2.062.128 2668 937953 Methodi 00:00:00 00:00:[address] 3.430.2.7 0.2.7.3.698 Ho spita .3.423631 084.8 l .8 2022-07-17 2022-07-17 Telephone Giveon, 1.2.840.1 [id number] 21 [id number] Methodi 00:00:00 00:00:[address] 3.430.2.7 Hospit a .3.524498 l .8 2022-07-17 2022-07-17 Telephone Giveon, 1.2.840.1 [id number] 21 [id number] Methodi 00:00:00 00:00:[address] 3.430.2.7 Hospit a .3.167317 l .8 2022-07-14 2022-07-14 Travel 1.2.840.1 1.2.431.453 6464 931658 Methodi 00:00:00 00:00:[address] 3.430.2.7 0.2.7.3.698 Ho spita .3.625581 084.8 l .8 2022-07-14 2022-07-14 Lisa Arora 1.2.840.1 [id number] Methodi 00:00:00 00:00:[address] 3.430.2.7 Hospit a .3.444092 l .8 2022-07-14 2022-07-14 Travel 1.2.840.1 1.2.445.402 [id number] Methodi 00:00:00 00:00:[address] 3.430.2.7 0.2.7.3.698 Ho spita .3.005769 084.8 l .8 2022-07-14 2022-07-14 Lisa Arora 1.2.840.1 [id number] Methodi 00:00:00 00:00:[address] 3.430.2.7 Hospit a .3.210168 l .8 2022-07-03 2022-07-03 Telephone Rocio, 1.2.840.1 [id number] Methodi 00:00:00 00:00:[address] 3.430.2.7 Hospit a .3.930524 l .8 2022-07-03 2022-07-03 Telephone Rocio, 1.2.840.1 [id number] 21 [id number] Methodi 00:00:00 00:00:[address] 3.430.2.7 Hospit a .3.155276 l .8 2022-06-17 2022-06-17 Telephone Giveon, 1.2.840.1 [id number] 21 [id number] Methodi 00:00:00 00:00:[address] 3.430.2.7 Hospit a .3.577578 l .8 2022-06-17 2022-06-17 Telephone Giveon, 1.2.840.1 [id number] 21 [id number] Methodi 00:00:00 00:00:[address] 3.430.2.7 Hospit a .3.734926 l .8 2022-06-03 2022-06-03 Telephone Giveon, 1.2.840.1 [id number] 21 [id number] Methodi 00:00:00 00:00:[address] 3.430.2.7 Hospit a .3.711254 l .8 2022-05-26 2022-05-26 Telephone Giveon, 1.2.840.1 [id number] 21 [id number] Methodi 00:00:00 00:00:[address] 3.430.2.7 Hospit a .3.765319 l .8 2022-05-13 2022-05-13 Telephone Giveon, 1.2.840.1 [id number] 21 [id number] Methodi 00:00:00 00:00:[address] 3.430.2.7 Hospit a .3.454278 l .8 2021-10-29 2021-10-29 Outpatient R LETICIA [facility] [id number] Univers 13:00:00 13:00:[address] [facility] 2021-10-29 2021-10-29 Imm/Inj Nurse, Adc Pob Immunization [facility] 1.2.840.114 [id number] Univers 13:00:00 13:00:00 Visit [facility].13 .[facility]686 Lesia PERALTA [id number] [address] 2021-09-30 2021-10-03 Hospital ER León Elmore [facility] [id number] 12:40:00 11:37:00 Encounter Marc Rodriguez [facility] 2021-09-30 2021-10-03 Inpatient ER PRINCESS RODRIGUEZ Emergency [id number] [facility] 12:40:00 [facility]:37:00 [facility]-09-[address] [facility] [id number] 00:00:00 00:00:00 Only [facility] 2021-09-30 2021-09-30 Travel [facility] [id number] [facility] 00[facility] 00:00[facility]00 [facility] 2020-12-04 2020-12-04 Outpatient Kervin CACERES [facility] [id number] Univers 10:20:00 10:20:00 MATEUSZ [facility] 2020-11-06 2020-11-06 Outpatient Kervin CACERES [facility] [id number] Univers 10:20:00 10:20:00 MATEUSZ [facility] 2020-10-25 2020-10-25 Laboratory Only, Adc Test [facility] 1.2.840. 114 [id number] Univers 09:35:36 09:50:36 Only Jacobo Hester 350.1.13.10 ity [facility] 4.2.7.2.686 [facility] [phone] [facility] [address] 2020-10-25 2020-10-25 Outpatient Kervin HESTER [facility] [id number] Univers 09:30:00 09:30:00 JACOBO [facility] 2020-10-25 2020-10-25 Orders Doctor L[place]ON 1.2.840.114 [id number] Univers 00:00:00 00:00:00 Only UnassignedFRANKIE 350.1.13.10 ity of [facility] 4.2.7.2.686 [facility] [id number] [facility] [address] 2020-10-16 2020-10-16 Outpatient Bui_Q VFP VFP [id number] 04:14:00 04:14:00 [id number] Family Practic e 2020-08-23 2020-08-23 Outpatient Ye_M_ VFP VFP [id number]- [facility] 09:49:00 09:49:00 [facility] [id number] Family Practic e 2020-02-14 2020-02-14 Outpatient DANNY, [facility] [id number] [address] [place] [address] 00:00:00 00:00:00 ZULE[address]A [address] 2019-11-26 2019-11-26 Outpatient Bui_Q_WAG VFP VFP [id number] [facility] 01:41:00 01:41:00 [id number] Family Practic e 2019-11-01 2019-11-01 Outpatient Bui_Q VFP VFP [id number] [facility] 01:59:00 01:59:00 95923 Family Practic e 2019-10-27 2019-10-27 Magui O Bui_Q_WAG VFP [place] - [id number] -[id number] [facility] 00:00:00 00:00:00 Ye, [facility] [address] Vianca ospina MD: [id number] Medical - Pract [facility], [facility] [address], ([facility]) [place] [address] , Ph. 2019-08-10 2019-08-10 Outpatient Bui_Q VFP VFP [id number]- [facility] 11:20:00 11:20:00 [id number] Family Practic e 2019-03-25 2019-03-25 Magui O VFP [place] - [id number] [place] [address] 00:00:00 00:00:00 Ye, [facility] [address] Vianca ospina MD: [id number] [facility] Practic [place], Practice - e [address], [facility] [place] [facility] [address] , Ph. Results Test Description Test Time Test Comments Results Result Comments Source Prothrombin time with INR 2023-04-29 07:54:00 Test Item Value Reference Range Interpretation Comme nts INR (test code = 1.2 H Reference R ramos 6301-6) 0.9-1.1Moderate -intensity Warfarin Therap y 2.0-3.0Higher-i ntensity Warfarin Therapy 3.0-4. 0 Prothrombin time (test 12.3 See_Comm H For a dditional information, code = 5902-2) ent please refer [email or web address] ion.[facility]/faq/FAQ1 04(This link is being provided for informational/e ducational purposes only.) [Automated message] The sy stem which generated this result transmitted reference range : 9.0 - 11.5 sec. The reference r ramos was not used to interpret th is result as normal/abnormal . RAC (test code = RAC) Performing Organization Information: Site ID: [facility] Name: [facility] Address: [address] [place] [id number] Director: Tesha Mann Lab Interpretation Abnormal (test code = 16896-1) [facility] with [id number] 07:54:00 Test Item Value Reference Range Interpretation Comments INR (test code = 1.2 H Reference R ramos 6301-6) 0.9-1.1Moderate -i ntensity Warfar in Therapy 2.0-3.0Higher-i nt ensity Warfarin Therapy 3.0-4.0 Prothrombin time 12.3 See_Comment H For additio nal (test code = 5902-2) informa tion, please refer tohttp://educat io n.ActionPlanner/faq/FAQ10 4( This link is being provided for informational/e du cational purpos es only.) [Automat ed message] The system which generated this result transmitted reference range : 9.0 - 11.5 sec. The reference range was not used to interpr et this result as normal/abnormal . RAC (test code = Performing RAC) Organization Information: Site ID: [facility]: [facility] Address: [address] [place] [address] Director: Tesha Mann Lab Interpretation Abnormal (test code = 10266-8) [facility] AntonioHEMOGLOBIN [id number] 20:02:43 Test Item Value Reference Range Interpretation Comments HEMOGLOBIN A1C 5.8 % See_Comment H [Automated m essage] ELECTROPHORESIS (BEAKER) The system which (test code = 3811) generated this result transmitted ref erence range: <=5.6%. The reference range was not used to int erpret this result as normal/abnormal . "The A1c is measured using a [facility]-certified method. HbA1c value equal to or greater than 6.5% as thediagnosis cutoff for diabetes. An HbA1c value of 5.7- 6.4% indicates increased risk for diabetes (prediabetes)."Soil Technologist ID - ADM TSH/FREE T4 IF [id number] 12:53:43 Test Item Value Reference Range Interpretation Comments THYROID STIMULATING HORMONE 1.506 uIU/mL 0.350-4.940 (BEAKER) (test code = 772) Soil Technologist ID - MARCOCOMPREHENSIVE METABOLIC [id number] 12:34:20 Test Item Value Reference Range Interpretation [...] G3b Moderately to s everely 30-44 G4 Severl y decreased 15-29 G5 Kidney failure <15Reported eGF R is based on the CKD-EPI 2020 equation that d oes not use a race coefficientEsti mated GFR is not as accur ate as Creatinine Radha renee in predicting glom erular filtration rate . Estimated GFR is not appl icable for dialysis patien ts Soil Technologist ID - MARCOURIC [id number] 12:34:20 Test Item Value Reference Range Interpretation Comments URIC ACID (BEAKER) (test code = 8.9 mg/dL 2.6-7.2 H 773) Soil Technologist ID - MARCOLIPID [id number] 12:34:20 Test Item Value Reference Range Interpretation [...] Borderline 130-159 High 160-189 Very High >=190 Soil Technologist ID - MARCOCBC W/PLT COUNT & AUTO [id number] 12:15:33 Test Item Value Reference Range Interpretation [...] = 2801) RAD, CHEST, 1 VIEW, NON [id number] 09:51:00Reason for exam:->icdShould this be performed at the bedside?->Yes [facility] 1950 Sex: [...] Lindsay Verified Date/Time: 09/03/2022 09:51:18 Reading Location: [address] Reading Room Electronically signed by: Rdaha SANCHEZ 09/03/2022 09:51 AMRAD, CHEST, 1 VIEW, NON [id number] 10:54:00Reason for exam:->icdShould this be performed at the bedside?->[facility] : 1950 Sex: MFINAL REPORT Chest, 1 [...] bilateral atelectasis are again noted. Signed: Chad Oliver Verified Date/Time: 09/02/2022 10:54:38 Reading Location: [facility] Radiology Reading Room PROTHROMBIN TIME/[id number] 06:27:28 Test Item Value Reference Range Interpretation Comments PROTIME (BEAKER) 18.5 seconds 11.9-14.2 H (test code = 759) INR (BEAKER) (test 1.58 See_Comment [Automat ed message] code = 370) The system [employer] generated this result transmitted ref erence range: <=5.90. The reference range was not used to int erpret this result as normal/abnormal . RECOMMENDED COUMADIN/WARFARIN INR THERAPY RANGESSTANDARD DOSE: 2.0 - 3.0 Includes: PROPHYLAXIS for venous thrombosis, systemic embolization; TREATMENT for venous thrombosis and/or pulmonary embolus.HIGH RISK: Target INR is 2.5-3.5 for patients with mechanical heart valves.Lipid [id number] 04:17:00 Test Item Value Reference Range Interpretation Comments Cholesterol, total 98 mg/dL See_Comment [Automat ed (test code = 2093-3) message ] The system which generated this result transmitted reference range : <=200. The reference range was not used to interpret this result as normal/abnormal . HDL cholesterol 31 mg/dL See_Comment L [Automated (test code = 2085-9) message ] The system which generated this result transmitted reference range : > OR = 40. The reference range was not used to interpret this result as normal/abnormal . Triglycerides (test 56 mg/dL See_Comment [Automa gabrielle code = 2571-8) message] The system which generated this result transmitted reference range : <=150. The reference range was not used to interpret this result as normal/abnormal . LDL cholesterol 53 mg/dL (calc) Reference ra nge: calculated (test <100 Desira ble code = 03548-9) range <100 m g/dL for primary prevention; <70 mg/dL for patients with C HD or diabetic patients with > or = 2 CHD risk factors. LDL-C is now calculated using the Praneeth-Nemo calculation, which is a validated novel method providin g better accuracy than the Friedewald equation in the estimation of LDL-C. Praneeth S S et al. GISSELLE. 2013;310(19): 1518-4190 (http://educati on .[employer] .com/faq/LMU885 ) Cholesterol/HDL 3.2 See_Comment [Automated ratio (test code = message] The 9830-1) system which generated this result transmitted reference range : <5.0 (calc). Th e reference range was not used to interpret this result as normal/abnormal . Non-HDL cholesterol 67 See_Comment For trung ents with (test code = diabetes plus 1 34276-6) major ASCVD ris k factor, treatin g [...] RAC) Organization Information: Site ID: [facility] Name: [facility] Lab Address: [address] [place] [address] Director: Stas Loco Lab Interpretation Abnormal (test code = 62076-6) [facility] [id number] 04:17:00 Test Item Value Reference Range Interpretation Comments WBC (test code = 5.3 See_Comment [Automated 6616-) message] The system which generated this result transmit gabrielle reference range : 3.8 - 10.8 Thousand/uL. Th e reference range was not used to interpret this result as normal/abnormal . RBC (test code = 4.80 See_Comment [Automated 789-8) message] The system which generated this result [...] RAC) Organization Information: Site ID: [facility]: [facility] Address: [address] [place] [address] Director: Stas Loco [facility] metabolic panel w/o [id number] 04:17:00 Test Item Value Reference Interpretation Comments Range Glucose (test code 108 mg/dL 65-99 H Fasting reference = 2345-7) interval For so meone without known diabetes, a glu cose valuebetween 10 0 and 125 mg/dL is consistent withprediabetes and should be confi rmed with afollow-up test. BUN (test code = 19 mg/dL - 3094-0) Creatinine (test 0.99 mg/dL 0.70-1.28 code = 2160-0) BUN/creatinine NOT APPLICABLE See_Comment [Automated message] ratio (test code = The syste m which 3097-3) generated this result transmit gabrielle reference range : 6 - 22 (calc). The reference range was not used to interpret this result as normal/abnormal . Sodium (test code = 144 mmol/L 152-040 7401-2) Potassium (test 4.7 mmol/L 3.5-5.3 code = 2823-3) Chloride (test code 110 mmol/L 98-110 = 5-0) CO2 (test code = 27 mmol/L 20-32 2028-06) Calcium (test code 9.5 mg/dL 8.6-10.3 = 74988-7) PAWAN (test code = FASTING:YES PAWAN) FASTING: YES RAC (test code = Performing RAC) Organization Information: Site ID: [facility] Name: [facility] Lab Address: [address] [place] [address] Director: Stas Loco Lab Interpretation Abnormal (test code = 64150-7) [facility] Antonio[facility]id [id number] 04:17:00 Test Item Value Reference Range Interpretation Comments Cholesterol, total 98 mg/dL <=200 (test code = 2092-3) HDL cholesterol 31 mg/dL See_Comment L [Automated (test code = 2085-06) message ] The system which generated this result transmitted reference range : > OR = 40. The reference range was not used to interpret this result as normal/abnormal . Triglycerides (test 56 mg/dL <=150 code = 2571-8) LDL cholesterol 53 mg/dL (calc) Reference ra nge: calculated (test <100 Desira ble code = 04505-8) range <100 m g/dL for primary prevention; <70 mg/dL for patients with C HD or diabetic patients with > or = 2 CHD risk factors. LDL-C is now calculated using the Praneeth-Nemo calculation, which is a validated novel method levin g better accuracy than the Friedewald equation in the estimation of LDL-C. Praneeth S S et al. GISSELLE. 2013;310(19): 4488-1327 (http://educati on .[employer] .com/faq/QMI171 ) Cholesterol/HDL 3.2 See_Comment [Automated ratio (test code = message] The 5130-) system which generated this result transmitted reference range : <5.0 (calc). Th e reference range was not used to interpret this result as normal/abnormal . Non-HDL cholesterol 67 See_Comment For trung ents with (test code = diabetes plus 1 11916-3) major ASCVD ris k factor, treatin g [...] RAC) Organization Information: Site ID: [facility] Name: [facility] Lab Address: [address] [place] [address] Director: Stas Loco Lab Interpretation Abnormal (test code = 31179-0) [facility] [id number] 04:17:00 Test Item Value Reference Range Interpretation Comments WBC (test code = 5.3 See_Comment [Automated 7743-2) message] The system which generated this result transmit gabrielle reference range : 3.8 - 10.8 Thousand/uL. Th e reference range was not used to interpret this result as normal/abnormal . RBC (test code = 4.80 See_Comment [Automated 246-8) message] The system which generated this result [...] = Performing RAC) Organization Information: Site ID: [facility] Name: [facility] Lab Address: [address] [place] [address] Director: Stas Loco [facility] metabolic panel w/o [id number] 04:17:00 Test Item Value Reference Interpretation Comments [...] . Sodium (test code = 144 mmol/L 335-127 3933-2) Potassium (test 4.7 mmol/L 3.5-5.3 code = 2823-3) Chloride (test code 110 mmol/L 98-110 = 2075-0) CO2 (test code = 27 mmol/L 20-32 2028-9) Calcium (test code 9.5 mg/dL 8.6-10.3 = 40621-3) PAWAN (test code = FASTING:YES PAWAN) FASTING: YES RAC (test code = Performing RAC) Organization Information: Site ID: [facility] Name: [facility] Lab Address: [address] [place] [address] Director: Stas Loco Lab Interpretation Abnormal (test code = 53847-5) [facility] AntonioCT, [id number] 09:54:00Unlisted Reason for Exam - Click Yes and Enter Reason Below->NoIs this for enterography?->NoWill this procedure require oral contrast?->Yes [facility] : 1950 [...] abdomen or pelvis. Cholelithiasis. Prostatomegaly. Signed: Jasson Dow Verified Date/Time: 10/03/2021 09:54:17 Reading Location: [facility] Diagnostic Imaging Reading Room - [place] [address] [address] [facility] 2021-10-03 05:55:06 Test Item Value Reference Range Interpretation Comments Sodium (test code = 139 meq/L 524-408 7368-2) Potassium (test code = 4.2 meq/L 3.5-5.1 2823-3) Chloride (test code = 100 meq/L 98-107 2075-0) CO2 (test code = 30 meq/L 22-29 H 2027-) BUN (test code = 29 mg/dL 7-21 H 3094-0) Creatinine (test code 1.13 mg/dL 0.57-1.25 = 2160-0) Glucose (test code = 164 mg/dL 70-105 H 2345-7) Calcium (test code = 9.6 mg/dL 8.4-10.2 65267-7) EGFR (test code = 64 mL/min/1.73 [place] [address]-6) NOT ACCURATE CREATININE CLEARANCE IN PREDICTING GLOMERULAR FILTRATION RATE . ESTIMATED GFR I S NOT APPLICABLE FOR DIALYSIS PATIENTS. PAWAN (test code = PAWAN) Soil Technologist ID - PIAYA L Lab Interpretation Abnormal (test code = 01428-6) [facility] Met[facility] [id number] 05:55:06 Test Item Value Reference Range Interpretation Comments Sodium (test code = 139 meq/L 418-043 1337-2) Potassium (test code = 4.2 meq/L 3.5-5.1 2823-3) Chloride (test code = 100 meq/L 98-107 2075-0) CO2 (test code = 30 meq/L 22-29 H 2027-9) BUN (test code = 29 mg/dL 7-21 H 3094-0) Creatinine (test code 1.13 mg/dL 0.57-1.25 = 2160-0) Glucose (test code = 164 mg/dL 70-105 H 2345-7) Calcium (test code = 9.6 mg/dL 8.4-10.2 49939-6) EGFR (test code = 64 mL/min/1.73 [place] [address]-0) NOT ACCURATE CREATININE CLEARANCE IN PREDICTING GLOMERULAR FILTRATION RATE . ESTIMATED GFR I S NOT APPLICABLE FOR DIALYSIS PATIENTS. PAWAN (test code = PAWAN) Soil Technologist ID - PIAYA L Lab Interpretation Abnormal (test code = 60924-5) [facility] Metabolic [id number] 05:55:06 Test Item Value Reference Range Interpretation Comments Sodium (test code = 139 meq/L 147-415 9092-2) Potassium (test code = 4.2 meq/L 3.5-5.1 2823-3) Chloride (test code = 100 meq/L 98-107 2075-0) CO2 (test code = 30 meq/L 22-29 H 2027-9) BUN (test code = 29 mg/dL 7-21 H 3094-0) Creatinine (test code 1.13 mg/dL 0.57-1.25 = 2160-0) Glucose (test code = 164 mg/dL 70-105 H 2345-7) Calcium (test code = 9.6 mg/dL 8.4-10.2 07222-6) EGFR (test code = 64 mL/min/1.73 [place] [address]-7) NOT ACCURATE CREATININE CLEARANCE IN PREDICTING GLOMERULAR FILTRATION RATE . ESTIMATED GFR I S NOT APPLICABLE FOR DIALYSIS PATIENTS. PAWAN (test code = PAWAN) Soil Technologist ID - PIAYA L Lab Interpretation Abnormal (test code = 54346-6) [facility]abolic [id number] 05:55:06 Test Item Value Reference Range Interpretation Comments Sodium (test code = 139 meq/L 772-458 9433-2) Potassium (test code = 4.2 meq/L 3.5-5.1 2823-3) Chloride (test code = 100 meq/L 98-107 2075-0) CO2 (test code = 30 meq/L 22-29 H 2027-9) BUN (test code = 29 mg/dL 7-21 H 3094-0) Creatinine (test code 1.13 mg/dL 0.57-1.25 = 2160-0) Glucose (test code = 164 mg/dL 70-105 H 2345-7) Calcium (test code = 9.6 mg/dL 8.4-10.2 05159-1) EGFR (test code = 64 mL/min/1.73 [place] [address]-9) NOT ACCURATE CREATININE CLEARANCE IN PREDICTING GLOMERULAR FILTRATION RATE . ESTIMATED GFR I S NOT APPLICABLE FOR DIALYSIS PATIENTS. PAWAN (test code = PAWAN) Soil Technologist ID - PIAYA L Lab Interpretation Abnormal (test code = 45516-7) [facility]abolic [id number] 05:55:06 Test Item Value Reference Range Interpretation Comments Sodium (test code = 139 meq/L 271-368 5490-2) Potassium (test code = 4.2 meq/L 3.5-5.1 2823-3) Chloride (test code = 100 meq/L 98-107 2075-0) CO2 (test code = 30 meq/L 22-29 H 8-9) BUN (test code = 29 mg/dL 7-21 H 3094-0) Creatinine (test code 1.13 mg/dL 0.57-1.25 = 2160-0) Glucose (test code = 164 mg/dL 70-105 H 2345-7) Calcium (test code = 9.6 mg/dL 8.4-10.2 79019-2) EGFR (test code = 64 mL/min/1.73 [place] [address]-3) NOT ACCURATE CREATININE CLEARANCE IN PREDICTING GLOMERULAR FILTRATION RATE . ESTIMATED GFR I S NOT APPLICABLE FOR DIALYSIS PATIENTS. PAWAN (test code = PAWAN) Soil Technologist ID - PIAYA L Lab Interpretation Abnormal (test code = 46085-0) [facility] METABOLIC [id number] 05:55:06 Test Item Value Reference Range Interpretation [...] mg/dL 8.4-10.2 (test code = 697) EGFR (HARIS) (test 64 mL/min/1.73 ESTIMA GABRIELLE GFR IS code = 1092) sq m NOT ACCURATE CREATININE CLEARANCE IN PREDICTING GLOMERULAR FILTRATION RATE . ESTIMATED GFR I S NOT APPLICABLE FOR DIALYSIS PATIEN TS. Soil Technologist ID - PIAYA Kiesha Prothrombin time/INR while on [id number] 05:22:35 Test Item Value Reference Interpretation Comments [...] valves. Lab Interpretation Abnormal (test code = 44399-4) [facility] Prothrombin time/INR while on warfarin 2021-10-03 05:22:35 [...] valves. Lab Interpretation Abnormal (test code = 33331-6) [facility] Prothrombin time/INR while on warfarin 2021-10-03 05:22:35 [...] valves. Lab Interpretation Abnormal (test code = 31881-6) [facility] Prothrombin time/INR while on warfarin 2021-10-03 05:22:35 [...] valves. Lab Interpretation Abnormal (test code = 65379-0) [facility] CenterPROTHROMBIN TIME/[id number] 05:22:35 Test Item Value Reference Range Interpretation Comments PROTIME (BEAKER) 26.7 seconds 11.9-14.2 H (test code = 759) INR (HARIS) (test 2.50 See_Comment [Automat ed message] code = 370) The system [employer] generated this result transmitted ref erence range: <=5.90. The reference range was not used to int erpret this result as normal/abnormal . RECOMMENDED COUMADIN/WARFARIN INR THERAPY RANGESSTANDARD DOSE: 2.0 - 3.0 Includes: PROPHYLAXIS for venous thrombosis, systemic embolization; TREATMENT for venous thrombosis and/or pulmonary embolus.HIGH RISK: Target INR is 2.5-3.5 for patients with mechanical heart valves.U/S, ABDOMINAL, [id number] 13:17:00Reason for exam:->post-prandial abdominal discomfort, bloating, in morbidly obese man [facility] 1950 Sex: MFINAL REPORT TECHNIQUE: Grayscale [...] sonographic eviden ce of acute cholecystitis.. Signed: Gómez Hernandezeport Verified Date/Time: 10/02/2021 13:17:45 PROTHROMBIN TIME/[id number] 04:52:29 Test Item Value Reference Range Interpretation Comments PROTIME (BEAKER) 22.3 seconds 11.9-14.2 H (test code = 759) INR (BEAKER) (test 1.99 See_Comment [Automat ed message] code = 370) The system [employer] generated this result transmitted ref erence range: <=5.90. The reference range was not used to int erpret this result as normal/abnormal . RECOMMENDED COUMADIN/WARFARIN INR THERAPY RANGESSTANDARD DOSE: 2.0 - 3.0 Includes: PROPHYLAXIS for venous thrombosis, systemic embolization; TREATMENT for venous thrombosis and/or pulmonary embolus.HIGH RISK: Target INR is 2.5-3.5 for patients with mechanical heart valves.BASIC METABOLIC [id number] 19:34:20 Test Item Value Reference Range Interpretation [...] mg/dL 8.4-10.2 (test code = 697) EGFR (HARIS) (test 56 mL/min/1.73 ESTIMA GABRIELLE GFR IS code = 1092) sq m NOT ACCURATE CREATININE CLEARANCE IN PREDICTING GLOMERULAR FILTRATION RATE . ESTIMATED GFR I S NOT APPLICABLE FOR DIALYSIS PATIEN TS. Soil Technologist ID - BSRAD, ABDOMEN/KUB, 1 VIEW [id number] 12:20:00Reason for exam:- >abdominal bloating [facility] : 1950 Sex: MFINAL REPORT RAD, ABDOMEN/KUB, 1 VIEW AP CLINICAL INDICATION: abdominal bloating COMPARISON: None TECHNIQUE: Single, frontal radiograph of the abdomen. IMPRESSION: The bowel gas pattern is nonspecific, but nonobstructive. Moderate colonic stool burden. No visible pneumatosis. The regional skeleton is intact. Signed: JR Garay Robert MDReport Verified Date/Time: 10/01/2021 12: 20:31 Reading Location: [facility] Radiology Reading Room Uric [id number] 11:54:13 Test Item Value Reference Range Interpretation Comments Uric Acid (test code = 9.7 mg/dL 2.6-7.2 H 3084-1) PAWAN (test code = PAWAN) Soil Technologist ID - PIAYA LSpecimen slightly icteric Lab Interpretation (test Abnormal code = 11561-0) [facility] [id number] 11:54:13 Test Item Value Reference Range Interpretation Comments Uric Acid (test code = 9.7 mg/dL 2.6-7.2 H 3084-1) PAWAN (test code = PAWAN) Soil Technologist ID - KAILA Garzonpop slightly icteric Lab Interpretation (test Abnormal code = 65592-7) [facility] [id number] 11:54:13 Test Item Value Reference Range Interpretation Comments Uric Acid (test code = 9.7 mg/dL 2.6-7.2 H 3084-1) PAWAN (test code = APWAN) Soil Technologist ID - KAIAL MARIEcoral slightly icteric Lab Interpretation (test Abnormal code = 16448-1) [facility] [id number] 11:54:13 Test Item Value Reference Range Interpretation Comments Uric Acid (test code = 9.7 mg/dL 2.6-7.2 H 3084-1) PAWAN (test code = PAWAN) Soil Technologist ID - KAILA MARIEcoral slightly icteric Lab Interpretation (test Abnormal code = 01797-6) [facility] [id number] 11:54:13 Test Item Value Reference Range Interpretation Comments Uric Acid (test code = 9.7 mg/dL 2.6-7.2 H 3084-1) PAWAN (test code = PAWAN) Soil Technologist ID - KAILA MARIEsarahn slightly icteric Lab Interpretation (test Abnormal code = 66925-4) [facility] [id number] 11:54:13 Test Item Value Reference Range Interpretation Comments URIC ACID (BEAKER) (test code = 9.7 mg/dL 2.6-7.2 H 773) Soil Technologist ID - KAILA Garzonaryan slightly ictericBASIC METABOLIC [id number] 07:15:06 Test Item Value Reference Range Interpretation [...] S NOT APPLICABLE FOR DIALYSIS PATIEN TS. Soil Technologist ID - PIAYA LSpecimen slightly ictericCBC with platelet count + automated [id number] 04:56:53 Test Item Value Reference Range Interpretation Comments WBC (test code = 6690-2) 6.6 See_Comment [A utomated message] The system [employer] generated this result transmitted ref erence range: 3.5 - 10 .5 K/L. The refe rence range was not u sed to interpret this result as normal/abnor mal. RBC (test code = 789-8) 4.07 See_Comment L [Au tomated message] The system [employer] generated this result transmitted ref erence range: 4.63 - 6 .08 M/L. The refe rence range was not u sed to interpret this result as normal/abnor mal. MCHC (test code = 786-4) 32.3 See_Comment L [A utomated message] The system [employer] generated this result transmitted ref erence range: [...] See_Comment [Aut omated message] 777-3) The system [employer] generated this result transmitted ref erence range: 150 - 45 0 K/CU MM. The referen ce range was not u sed to interpret this result as normal/abnor mal. MPV (test code = 11.2 fL 9.4-12.4 90472-3) nRBC (test code = 413) 0 See_Comment [Aut omated message] The system [employer] generated this result transmitted ref erence range: [...] See_Comment [Aut omated message] 670) The system [employer] generated this result transmitted ref erence range: 1.78 - 5 .38 K/L. The refe rence range was not u sed to interpret this result as normal/abnor mal. # Lymphs (test code = 1.25 See_Comment L [Auto mated message] 414) The system [employer] generated this result transmitted ref erence range: 1.32 - 3 .57 K/L. The refe rence range was not u sed to interpret this result as normal/abnor mal. # Monos (test code = 0.90 See_Comment H [Autom ated message] 415) The system [employer] generated this result transmitted ref erence range: 0.30 - 0 .82 K/L. The refe rence range was not u sed to interpret this result as normal/abnor mal. # Eos (test code = 416) 0.36 See_Comment [Au tomated message] The system [employer] generated this result transmitted ref erence range: 0.04 - 0 .54 K/L. The refe rence range was not u sed to interpret this result as normal/abnor mal. # Baso (test code = 417) 0.02 See_Comment [A utomated message] The system [employer] generated this result transmitted ref erence range: 0.01 - 0 .08 K/L. The refe rence range was not u sed to interpret this result as normal/abnor mal. Immature 0 % 0-1 Granulocytes-Relative (test code = 2801) Lab Interpretation (test Abnormal code = 34233-9) [facility] + automated [id number] 04:56:53 Test Item Value Reference Range Interpretation Comments WBC (test code = 6690-2) 6.6 See_Comment [A utomated message] The system [employer] generated this result transmitted ref erence range: 3.5 - 10 .5 K/L. The refe rence range was not u sed to interpret this result as normal/abnor mal. RBC (test code = 789-8) 4.07 See_Comment L [Au tomated message] The system [employer] generated this result transmitted ref erence range: 4.63 - 6 .08 M/L. The refe rence range was not u sed to interpret this result as normal/abnor mal. MCHC (test code = 786-4) 32.3 See_Comment L [A utomated message] The system [employer] generated this result transmitted ref erence range: [...] See_Comment [Aut omated message] 777-3) The system [employer] generated this result transmitted ref erence range: 150 - 45 0 K/CU MM. The referen ce range was not u sed to interpret this result as normal/abnor mal. MPV (test code = 11.2 fL 9.4-12.4 75358-0) nRBC (test code = 413) 0 See_Comment [Aut omated message] The system [employer] generated this result transmitted ref erence range: [...] See_Comment [Aut omated message] 670) The system [employer] generated this result transmitted ref erence range: 1.78 - 5 .38 K/L. The refe rence range was not u sed to interpret this result as normal/abnor mal. # Lymphs (test code = 1.25 See_Comment L [Auto mated message] 414) The system [employer] generated this result transmitted ref erence range: 1.32 - 3 .57 K/L. The refe rence range was not u sed to interpret this result as normal/abnor mal. # Monos (test code = 0.90 See_Comment H [Autom ated message] 415) The system [employer] generated this result transmitted ref erence range: 0.30 - 0 .82 K/L. The refe rence range was not u sed to interpret this result as normal/abnor mal. # Eos (test code = 416) 0.36 See_Comment [Au tomated message] The system [employer] generated this result transmitted ref erence range: 0.04 - 0 .54 K/L. The refe rence range was not u sed to interpret this result as normal/abnor mal. # Baso (test code = 417) 0.02 See_Comment [A utomated message] The system [employer] generated this result transmitted ref erence range: 0.01 - 0 .08 K/L. The refe rence range was not u sed to interpret this result as normal/abnor mal. Immature 0 % 0-1 Granulocytes-Relative (test code = 2801) Lab Interpretation (test Abnormal code = 81270-6) [facility] with platelet count + automated [id number] 04:56:53 Test Item Value Reference Range Interpretation Comments WBC (test code = 6690-2) 6.6 See_Comment [A utomated message] The system [employer] generated this result transmitted ref erence range: 3.5 - 10 .5 K/L. The refe rence range was not u sed to interpret this result as normal/abnor mal. RBC (test code = 789-8) 4.07 See_Comment L [Au tomated message] The system [employer] generated this result transmitted ref erence range: 4.63 - 6 .08 M/L. The refe rence range was not u sed to interpret this result as normal/abnor mal. MCHC (test code = 786-4) 32.3 See_Comment L [A utomated message] The system [employer] generated this result transmitted ref erence range: [...] See_Comment [Aut omated message] 777-3) The system [employer] generated this result transmitted ref erence range: 150 - 45 0 K/CU MM. The referen ce range was not u sed to interpret this result as normal/abnor mal. MPV (test code = 11.2 fL 9.4-12.4 50895-3) nRBC (test code = 413) 0 See_Comment [Aut omated message] The system [employer] generated this result transmitted ref erence range: [...] See_Comment [Aut omated message] 670) The system [employer] generated this result transmitted ref erence range: 1.78 - 5 .38 K/L. The refe rence range was not u sed to interpret this result as normal/abnor mal. # Lymphs (test code = 1.25 See_Comment L [Auto mated message] 414) The system [employer] generated this result transmitted ref erence range: 1.32 - 3 .57 K/L. The refe rence range was not u sed to interpret this result as normal/abnor mal. # Monos (test code = 0.90 See_Comment H [Autom ated message] 415) The system [employer] generated this result transmitted ref erence range: 0.30 - 0 .82 K/L. The refe rence range was not u sed to interpret this result as normal/abnor mal. # Eos (test code = 416) 0.36 See_Comment [Au tomated message] The system [employer] generated this result transmitted ref erence range: 0.04 - 0 .54 K/L. The refe rence range was not u sed to interpret this result as normal/abnor mal. # Baso (test code = 417) 0.02 See_Comment [A utomated message] The system [employer] generated this result transmitted ref erence range: 0.01 - 0 .08 K/L. The refe rence range was not u sed to interpret this result as normal/abnor mal. Immature 0 % 0-1 Granulocytes-Relative (test code = 2801) Lab Interpretation (test Abnormal code = 33763-5) [facility] with platelet count + automated [id number] 04:56:53 Test Item Value Reference Range Interpretation Comments WBC (test code = 6690-2) 6.6 See_Comment [A utomated message] The system [employer] generated this result transmitted ref erence range: 3.5 - 10 .5 K/L. The refe rence range was not u sed to interpret this result as normal/abnor mal. RBC (test code = 789-8) 4.07 See_Comment L [Au tomated message] The system [employer] generated this result transmitted ref erence range: 4.63 - 6 .08 M/L. The refe rence range was not u sed to interpret this result as normal/abnor mal. MCHC (test code = 786-4) 32.3 See_Comment L [A utomated message] The system [employer] generated this result transmitted ref erence range: [...] See_Comment [Aut omated message] 777-3) The system [employer] generated this result transmitted ref erence range: 150 - 45 0 K/CU MM. The referen ce range was not u sed to interpret this result as normal/abnor mal. MPV (test code = 11.2 fL 9.4-12.4 70693-0) nRBC (test code = 413) 0 See_Comment [Aut omated message] The system [employer] generated this result transmitted ref erence range: [...] See_Comment [Aut omated message] 670) The system [employer] generated this result transmitted ref erence range: 1.78 - 5 .38 K/L. The refe rence range was not u sed to interpret this result as normal/abnor mal. # Lymphs (test code = 1.25 See_Comment L [Auto mated message] 414) The system [employer] generated this result transmitted ref erence range: 1.32 - 3 .57 K/L. The refe rence range was not u sed to interpret this result as normal/abnor mal. # Monos (test code = 0.90 See_Comment H [Autom ated message] 415) The system [employer] generated this result transmitted ref erence range: 0.30 - 0 .82 K/L. The refe rence range was not u sed to interpret this result as normal/abnor mal. # Eos (test code = 416) 0.36 See_Comment [Au tomated message] The system [employer] generated this result transmitted ref erence range: 0.04 - 0 .54 K/L. The refe rence range was not u sed to interpret this result as normal/abnor mal. # Baso (test code = 417) 0.02 See_Comment [A utomated message] The system [employer] generated this result transmitted ref erence range: 0.01 - 0 .08 K/L. The refe rence range was not u sed to interpret this result as normal/abnor mal. Immature 0 % 0-1 Granulocytes-Relative (test code = 2801) Lab Interpretation (test Abnormal code = 87427-0) [facility] with platelet count + automated [id number] 04:56:53 Test Item Value Reference Range Interpretation Comments WBC (test code = 6690-2) 6.6 See_Comment [A utomated message] The system [employer] generated this result transmitted ref erence range: 3.5 - 10 .5 K/L. The refe rence range was not u sed to interpret this result as normal/abnor mal. RBC (test code = 789-8) 4.07 See_Comment L [Au tomated message] The system [employer] generated this result transmitted ref erence range: 4.63 - 6 .08 M/L. The refe rence range was not u sed to interpret this result as normal/abnor mal. MCHC (test code = 786-4) 32.3 See_Comment L [A utomated message] The system [employer] generated this result transmitted ref erence range: [...] See_Comment [Aut omated message] 777-3) The system [employer] generated this result transmitted ref erence range: 150 - 45 0 K/CU MM. The referen ce range was not u sed to interpret this result as normal/abnor mal. MPV (test code = 11.2 fL 9.4-12.4 84935-0) nRBC (test code = 413) 0 See_Comment [Aut omated message] The system [employer] generated this result transmitted ref erence range: [...] See_Comment [Aut omated message] 670) The system [employer] generated this result transmitted ref erence range: 1.78 - 5 .38 K/L. The refe rence range was not u sed to interpret this result as normal/abnor mal. # Lymphs (test code = 1.25 See_Comment L [Auto mated message] 414) The system [employer] generated this result transmitted ref erence range: 1.32 - 3 .57 K/L. The refe rence range was not u sed to interpret this result as normal/abnor mal. # Monos (test code = 0.90 See_Comment H [Autom ated message] 415) The system [employer] generated this result transmitted ref erence range: 0.30 - 0 .82 K/L. The refe rence range was not u sed to interpret this result as normal/abnor mal. # Eos (test code = 416) 0.36 See_Comment [Au tomated message] The system [employer] generated this result transmitted ref erence range: 0.04 - 0 .54 K/L. The refe rence range was not u sed to interpret this result as normal/abnor mal. # Baso (test code = 417) 0.02 See_Comment [A utomated message] The system [employer] generated this result transmitted ref erence range: 0.01 - 0 .08 K/L. The refe rence range was not u sed to interpret this result as normal/abnor mal. Immature 0 % 0-1 Granulocytes-Relative (test code = 2801) Lab Interpretation (test Abnormal code = 53441-8) [facility] W/PLT COUNT & AUTO [id number] 04:56:53 Test Item Value Reference Range Interpretation [...] SARS-Co V-2 (test code = target nucleic 17600-6) acids are not detected in thi s [...] (test code = This test has been PAAWN) authorized by FDA under an EUA for [...] revoked sooner. Fact Sheet for Healthcare Providers: https://www.[employer].com/Documents/Xp ert%20Xpress%20SAR S%20CoV-2/Fact%20S heets/302-3802%20S ARS-COV-2%20HEALTH CARE%20PROVIDERS%2 0FACT%20SHEET.pdf Fact Sheet for Healthcare Patients: https://www.[employer]/Documents/Xp ert%20Xpress%20SAR S%20CoV-2/Fact%20S heets/3023801%20S ARS-COV-2%20PATIEN T%20FACT%20SHEET.p df Lab Interpretation Normal (test code = 05192-5) [facility] 19:37:19 Test Item Value Reference Interpretation Comments Range SARS-COV2/RT-PCR Negative Negative The SARS-Co V-2 (test code = target nucleic 68818-8) acids are not detected in thi s [...] revoked sooner. Fact Sheet for Healthcare Providers: https://www.[employer]/Documents/Xp ert%20Xpress%20SAR S%20CoV-2/Fact%20S heets/3023802%20S ARS-COV-2%20HEALTH CARE%20PROVIDERS%2 0FACT%20SHEET.pdf Fact Sheet for Healthcare Patients: https://www.[employer]/Documents/Xp ert%20Xpress%20SAR S%20CoV-2/Fact%20S heets/302-3801%20S ARS-COV-2%20PATIEN T%20FACT%20SHEET.p df Lab Interpretation Normal (test code = 00849-8) [facility]21[facility]30 19:37:19 Test Item Value Reference Interpretation Comments Range SARS-COV2/RT-PCR Negative Negative The SARS-Co V-2 (test code = target nucleic 02472-8) acids are not detected in thi s [...] revoked sooner. Fact Sheet for Healthcare Providers: https://www.[employer]/Documents/Xp ert%20Xpress%20SAR S%20CoV-2/Fact%20S heets/3023802%20S ARS-COV-2%20HEALTH CARE%20PROVIDERS%2 0FACT%20SHEET.pdf Fact Sheet for Healthcare Patients: https://www.[employer]/Documents/Xp ert%20Xpress%20SAR S%20CoV-2/Fact%20S heets/302-3801%20S ARS-COV-2%20PATIEN T%20FACT%20SHEET.p df Lab Interpretation Normal (test code = 83265-6) [facility]21-[facility]-30 19:37:19 Test Item Value Reference Interpretation Comments Range SARS-COV2/RT-PCR Negative Negative The SARS-Co V-2 (test code = target nucleic 52581-5) acids are not detected in thi s [...] revoked sooner. Fact Sheet for Healthcare Providers: https://www.[employer]/Documents/Xp ert%20Xpress%20SAR S%20CoV-2/Fact%20S heets/302-3802%20S ARS-COV-2%20HEALTH CARE%20PROVIDERS%2 0FACT%20SHEET.pdf Fact Sheet for Healthcare Patients: https://www.[employer]/Documents/Xp ert%20Xpress%20SAR S%20CoV-2/Fact%20S heets/302-3801%20S ARS-COV-2%20PATIEN T%20FACT%20SHEET.p df Lab Interpretation Normal (test code = 28761-7) [facility]21-[facility]-30 19:37:19 Test Item Value Reference Interpretation Comments Range SARS-COV2/RT-PCR Negative Negative The SARS-Co V-2 (test code = target nucleic 37923-9) acids are not detected in thi s [...] revoked sooner. Fact Sheet for Healthcare Providers: https://www.[employer]/Documents/Xp ert%20Xpress%20SAR S%20CoV-2/Fact%20S heets/3023802%20S ARS-COV-2%20HEALTH CARE%20PROVIDERS%2 0FACT%20SHEET.pdf Fact Sheet for Healthcare Patients: https://www.[employer]/Documents/Xp ert%20Xpress%20SAR S%20CoV-2/Fact%20S heets/3023801%20S ARS-COV-2%20PATIEN T%20FACT%20SHEET.p df Lab Interpretation Normal (test code = 79993-2) [facility])2021-09-30 19:37:19 Test Item Value Reference Range Interpretation Comments SARS-COV2/RT-PCR Negative Negative The SARS-Co V-2 target (test code = nucleic acids a re not 7836453) detected in thi s specimen. Negative result [...] revoked sooner. Fact Sheet for Healthcare Providers: https://www.[employer]co m/Documents/Xpert%20Xpress%20SARS%20CoV-2/Fact%20Sheets/302-8122%07HLLS-XMR-4%20 HEALTHCARE%20PROVIDERS%20FACT%20SHEET.pdf Fact Sheet for Healthcare Patients: https://www.[employer]Documents/Xpert%20Xp ress%20SARS%20CoV-2/Fact%20Sheets/3023801%86QZYE-LVX-3%20PATIENT%20FACT%20SHEET .pdfHigh Sens Trop I ([facility] [facility]2021-09-30 16:07:03 Test Item Value Reference Range Interpretation Comments Troponin I HS (test 12 pg/ml See_Comment [Automa gabrielle code = 84722-0) message] The system which generated this result transmitted reference range : <=35. The reference range was not used to interpret this result as normal/abnormal . PAWAN (test code = Soil Technologist ID - PAWAN) FSEThe HAND DRAWER IN HELPER STAT High Sensitivity Troponin-I results should be used in conjunction with other diagnostic information such as ECG, clinical observations and information, and patient symptoms to aid in the diagnosis of [place]. Lab Interpretation Normal (test code = 13902-9) [facility] [facility]30 16:07:03 Test Item Value Reference Range Interpretation Comments Troponin I HS (test 12 pg/ml See_Comment [Automa gabrielle code = 00683-5) message] The system which generated this result transmitted reference range : <=35. The reference range was not used to interpret this result as normal/abnormal . PAWAN (test code = Soil Technologist ID - PAWAN) FSEThe HAND DRAWER IN HELPER STAT High Sensitivity Troponin-I results should be used in conjunction with other diagnostic information such as ECG, clinical observations and information, and patient symptoms to aid in the diagnosis of TX. Lab Interpretation Normal (test code = 12286-9) [facility] [facility]21-[facility]-30 16:07:03 Test Item Value Reference Range Interpretation Comments Troponin I HS (test 12 pg/ml See_Comment [Automa gabrielle code = 19324-6) message] The system which generated this result transmitted reference range : <=35. The reference range was not used to interpret this result as normal/abnormal . PAWAN (test code = Soil Technologist ID - PAWAN) FSEThe HAND DRAWER IN HELPER STAT High Sensitivity Troponin-I results should be used in conjunction with other diagnostic information such as ECG, clinical observations and information, and patient symptoms to aid in the diagnosis of TX. Lab Interpretation Normal (test code = 94123-3) [facility] [facility]21-[facility]-30 16:07:03 Test Item Value Reference Range Interpretation Comments Troponin I HS (test 12 pg/ml See_Comment [Automa gabrielle code = 10139-1) message] The system which generated this result transmitted reference range : <=35. The reference range was not used to interpret this result as normal/abnormal . PAWAN (test code = Soil Technologist ID - PAWAN) FSEThe HAND DRAWER IN HELPER STAT High Sensitivity Troponin-I results should be used in conjunction with other diagnostic information such as ECG, clinical observations and information, and patient symptoms to aid in the diagnosis of TX. Lab Interpretation Normal (test code = 26505-7) [facility] [facility]2021-09-30 16:07:03 Test Item Value Reference Range Interpretation Comments Troponin I HS (test 12 pg/ml See_Comment [Automa gabrielle code = 49716-0) message] The system which generated this result transmitted reference range : <=35. The reference range was not used to interpret this result as normal/abnormal . PAWAN (test code = Soil Technologist ID - PAWAN) FSEThe HAND DRAWER IN HELPER STAT High Sensitivity Troponin-I results should be used in conjunction with other diagnostic information such as ECG, clinical observations and information, and patient symptoms to aid in the diagnosis of TX. Lab Interpretation Normal (test code = 98599-3) [facility]IN [id number] 16:07:03 Test Item Value Reference Range Interpretation Comments HIGH SENSITIVITY 12 pg/ml See_Comment [Automated message] TROPONIN I (test code = The system which 7451792) generated this result transmitted ref erence range: <=35. Th e reference range was not used to int erpret this result as normal/abnormal . Soil Technologist ID - FSEThe HAND DRAWER IN HELPER STAT High Sensitivity Troponin-I results should be used in conjunction with other diagnostic information such as ECG, clinical observations and information, and patient symptoms to aid in the diagnosis of TX.B-type Natriuretic Factor (BNP)2021-09-30 16:06:38 Test Item Value Reference Range Interpretation Comments BNP (test code = 50336-1) 232 pg/mL 0-100 H PAWAN (test code = PAWAN) Soil Technologist ID - FSE Lab Interpretation (test Abnormal code = 26831-4) [facility]30 16:06:38 Test Item Value Reference Range Interpretation Comments BNP (test code = 33620-9) 232 pg/mL 0-100 H PAWAN (test code = PAWAN) Soil Technologist ID - FSE Lab Interpretation (test Abnormal code = 83750-3) [facility]21-[facility]-30 16:06:38 Test Item Value Reference Range Interpretation Comments BNP (test code = 11176-5) 232 pg/mL 0-100 H PAWAN (test code = PAWAN) Soil Technologist ID - FSE Lab Interpretation (test Abnormal code = 60864-7) [facility]21-[facility]-30 16:06:38 Test Item Value Reference Range Interpretation Comments BNP (test code = 18496-3) 232 pg/mL 0-100 H PAWAN (test code = PAWAN) Soil Technologist ID - FSE Lab Interpretation (test Abnormal code = 10020-2) [facility]21-[facility]-30 16:06:38 Test Item Value Reference Range Interpretation Comments BNP (test code = 12175-8) 232 pg/mL 0-100 H PAWAN (test code = PAWAN) Soil Technologist ID - FSE Lab Interpretation (test Abnormal code = 22306-9) [facility] (BNP)2021-09-30 16:06:38 Test Item Value Reference Range Interpretation Comments B-TYPE NATRIURETIC PEPTIDE (BEAKER) 232 pg/mL 0-100 H (test code = 700) Soil Technologist ID - FSEPROTHROMBIN TIME/[id number] 16:04:38 Test Item Value Reference Range Interpretation Comments PROTIME (BEAKER) 23.8 seconds 11.9-14.2 H (test code = 759) INR (BEAKER) (test 2.16 See_Comment [Automat ed message] code = 370) The system [employer] generated this result transmitted ref erence range: <=5.90. The reference range was not used to int erpret this result as normal/abnormal . RECOMMENDED COUMADIN/WARFARIN INR THERAPY RANGESSTANDARD DOSE: 2.0 - 3.0 Includes: PROPHYLAXIS for venous thrombosis, systemic embolization; TREATMENT for venous thrombosis and/or pulmonary embolus.HIGH RISK: Target INR is 2.5-3.5 for patients with mechanical heart valves.Lnmxwc5418-55-01 16:04:00 Test Item Value Reference Range Interpretation Comments Lipase (test code = 3040-3) 60 U/L 8-78 PAWAN (test code = PAWAN) Soil Technologist ID - FSE Lab Interpretation (test Normal code = 45388-2) [facility] 16:04:00 Test Item Value Reference Range Interpretation Comments Lipase (test code = 3040-3) 60 U/L 8-78 PAWAN (test code = PAWAN) Soil Technologist ID - FSE Lab Interpretation (test Normal code = 32647-5) [facility] 16:04:00 Test Item Value Reference Range Interpretation Comments Lipase (test code = 3040-3) 60 U/L 8-78 PAWAN (test code = PAWAN) Soil Technologist ID - FSE Lab Interpretation (test Normal code = 85409-6) [facility] 16:04:00 Test Item Value Reference Range Interpretation Comments Lipase (test code = 3040-3) 60 U/L 8-78 PAWAN (test code = PAWAN) Soil Technologist ID - FSE Lab Interpretation (test Normal code = 04133-8) [facility] 16:04:00 Test Item Value Reference Range Interpretation Comments Lipase (test code = 3040-3) 60 U/L 8-78 PAWAN (test code = PAWAN) Soil Technologist ID - FSE Lab Interpretation (test Normal code = 08329-9) [facility] 16:04:00 Test Item Value Reference Range Interpretation Comments LIPASE (BEAKER) (test code = 749) 60 U/L 8-78 Soil Technologist ID - FSEComprehensive metabolic [id number] 16:03:59 Test Item Value Reference Range Interpretation Comments Protein, Total (test 7.7 See_Comment Specime n code = 2885-2) moderately hemolyzed [Automated message] The system which generated this result transmit gabrielle reference range : 6.0 - 8.3 gm/dL . The reference range was not u sed to interpret th is result as normal/abnormal . Albumin (test code = 4.0 g/dL 3.5-5.0 [place] n [address]-4) moderately hemolyzed Alkaline Phosphatase 20 U/L 40-150 L (test code = 6768-6) Total Bilirubin (test 1.4 mg/dL 0.2-1.2 H Specim en code = 1975-2) moderately hemolyzed Sodium (test code = 142 meq/L 082-164 4040-2) Potassium (test code 5.1 meq/L 3.5-5.1 Specime [...] Calcium (test code = 9.2 mg/dL 8.4-10.2 74784-2) AST (test code = 29 U/L 5-34 Specimen 1920-8) moderately hemolyzed ALT (test code = 23 U/L 6-55 Specimen 1742-6) moderately hemolyzed EGFR (test code = 56 mL/min/1.73 sq m [facility] [place] [address]-5) NOT ACCURATE CREATININE CLEARANCE IN PREDICTING GLOMERULAR FILTRATION RATE . ESTIMATED GFR I S NOT APPLICABLE FOR DIALYSIS PATIEN TS. PAWAN (test code = PAWAN) Soil Technologist ID - FSE Lab Interpretation Abnormal (test code = 54758-4) [facility] 16:03:59 Test Item Value Reference Range Interpretation Comments Magnesium (test code = 2.3 mg/dL 1.6-2.6 Speci men 23449-8) moderately hemolyzed PAWAN (test code = PAWAN) Soil Technologist ID - FSE Lab Interpretation Normal (test code = 82566-8) [facility] [id number] 16:03:59 Test Item Value Reference Range Interpretation Comments Protein, Total (test 7.7 See_Comment Specime n code = 0325-2) moderately hemolyzed [Automated message] The system which generated this result transmit gabrielle reference range : 6.0 - 8.3 gm/dL . The reference range was not u sed to interpret th is result as normal/abnormal . Albumin (test code = 4.0 g/dL 3.5-5.0 [place] n [address]-4) moderately hemolyzed Alkaline Phosphatase 20 U/L 40-150 L (test code = 6768-6) Total Bilirubin (test 1.4 mg/dL 0.2-1.2 H Specim en code = 1974-2) moderately hemolyzed Sodium (test code = 142 meq/L 071-464 5039-2) Potassium (test code 5.1 meq/L 3.5-5.1 Specime [...] Calcium (test code = 9.2 mg/dL 8.4-10.2 90321-9) AST (test code = 29 U/L 5-34 Specimen 1920-8) moderately hemolyzed ALT (test code = 23 U/L 6-55 Specimen 1742-6) moderately hemolyzed EGFR (test code = 56 mL/min/1.73 sq m [facility] [place] [address]-2) NOT ACCURATE CREATININE CLEARANCE IN PREDICTING GLOMERULAR FILTRATION RATE . ESTIMATED GFR I S NOT APPLICABLE FOR DIALYSIS PATIEN TS. PAWAN (test code = PAWAN) Soil Technologist ID - FSE Lab Interpretation Abnormal (test code = 81961-2) [facility] 16:03:59 Test Item Value Reference Range Interpretation Comments Magnesium (test code = 2.3 mg/dL 1.6-2.6 Speci men 62020-7) moderately hemolyzed PAWAN (test code = PAWAN) Soil Technologist ID - FSE Lab Interpretation Normal (test code = 37036-3) [facility] [id number] 16:03:59 Test Item Value Reference Range Interpretation Comments Protein, Total (test 7.7 See_Comment Specime n code = 2885-2) moderately hemolyzed [Automated message] The system which generated this result transmit gabrielle reference range : 6.0 - 8.3 gm/dL . The reference range was not u sed to interpret th is result as normal/abnormal . Albumin (test code = 4.0 g/dL 3.5-5.0 [place] [address]-5) moderately hemolyzed Alkaline Phosphatase 20 U/L 40-150 L (test code = 6768-6) Total Bilirubin (test 1.4 mg/dL 0.2-1.2 H Specim en code = 1975-2) moderately hemolyzed Sodium (test code = 142 meq/L 253-351 6057-2) Potassium (test code 5.1 meq/L 3.5-5.1 Specime [...] Calcium (test code = 9.2 mg/dL 8.4-10.2 27374-4) AST (test code = 29 U/L 5-34 Specimen 1920-8) moderately hemolyzed ALT (test code = 23 U/L 6-55 Specimen 1742-6) moderately hemolyzed EGFR (test code = 56 mL/min/1.73 [place] [address]-6) NOT ACCURATE CREATININE CLEARANCE IN PREDICTING GLOMERULAR FILTRATION RATE . ESTIMATED GFR I S NOT APPLICABLE FOR DIALYSIS PATIEN TS. PAWAN (test code = PAWAN) Soil Technologist ID - FSE Lab Interpretation Abnormal (test code = 83544-6) [facility] 16:03:59 Test Item Value Reference Range Interpretation Comments Magnesium (test code = 2.3 mg/dL 1.6-2.6 Speci men 51030-0) moderately hemolyzed PAWAN (test code = PAWAN) Soil Technologist ID - FSE Lab Interpretation Normal (test code = 13272-1) [facility] [id number] 16:03:59 Test Item Value Reference Range Interpretation Comments Protein, Total (test 7.7 See_Comment Specime n code = 2885-2) moderately hemolyzed [Automated message] The system which generated this result transmit gabrielle reference range : 6.0 - 8.3 gm/dL . The reference range was not u sed to interpret th is result as normal/abnormal . Albumin (test code = 4.0 g/dL 3.5-5.0 [place] [address]-2) moderately hemolyzed Alkaline Phosphatase 20 U/L 40-150 L (test code = 6768-6) Total Bilirubin (test 1.4 mg/dL 0.2-1.2 H Specim en code = 1975-2) moderately hemolyzed Sodium (test code = 142 meq/L 238-898 6492-2) Potassium (test code 5.1 meq/L 3.5-5.1 Specime [...] Calcium (test code = 9.2 mg/dL 8.4-10.2 39590-7) AST (test code = 29 U/L 5-34 Specimen 1920-8) moderately hemolyzed ALT (test code = 23 U/L 6-55 Specimen 1742-6) moderately hemolyzed EGFR (test code = 56 mL/min/1.73 [place] [address]-8) NOT ACCURATE CREATININE CLEARANCE IN PREDICTING GLOMERULAR FILTRATION RATE . ESTIMATED GFR I S NOT APPLICABLE FOR DIALYSIS PATIEN TS. PAWAN (test code = PAWAN) Soil Technologist ID - FSE Lab Interpretation Abnormal (test code = 71542-6) [facility] 16:03:59 Test Item Value Reference Range Interpretation Comments Magnesium (test code = 2.3 mg/dL 1.6-2.6 Speci men 55126-1) moderately hemolyzed PAWAN (test code = PAWAN) Soil Technologist ID - FSE Lab Interpretation Normal (test code = 87758-7) [facility] [id number] 16:03:59 Test Item Value Reference Range Interpretation Comments Protein, Total (test 7.7 See_Comment Specime n code = 2885-2) moderately hemolyzed [Automated message] The system which generated this result transmit gabrielle reference range : 6.0 - 8.3 gm/dL . The reference range was not u sed to interpret th is result as normal/abnormal . Albumin (test code = 4.0 g/dL 3.5-5.0 [place]ime n 63314-4) moderately hemolyzed Alkaline Phosphatase 20 U/L 40-150 L (test code = 6768-6) Total Bilirubin (test 1.4 mg/dL 0.2-1.2 H Specim en code = 1974-2) moderately hemolyzed Sodium (test code = 142 meq/L 033-313 6909-2) Potassium (test code 5.1 meq/L 3.5-5.1 Specime [...] Calcium (test code = 9.2 mg/dL 8.4-10.2 62125-1) AST (test code = 29 U/L 5-34 Specimen 1920-8) moderately hemolyzed ALT (test code = 23 U/L 6-55 Specimen 1742-6) moderately hemolyzed EGFR (test code = 56 mL/min/1.73 [place] [address]-3) NOT ACCURATE CREATININE CLEARANCE IN PREDICTING GLOMERULAR FILTRATION RATE . ESTIMATED GFR I S NOT APPLICABLE FOR DIALYSIS PATIEN TS. PAWAN (test code = PAWAN) Soil Technologist ID - FSE Lab Interpretation Abnormal (test code = 98100-5) [facility] 16:03:59 Test Item Value Reference Range Interpretation Comments Magnesium (test code = 2.3 mg/dL 1.6-2.6 Speci men 76755-6) moderately hemolyzed PAWAN (test code = PAWAN) Soil Technologist ID - FSE Lab Interpretation Normal (test code = 01159-3) [id number] 16:03:59 Test Item Value Reference Range Interpretation Comments MAGNESIUM (BEAKER) 2.3 mg/dL 1.6-2.6 Specimen moderately (test code = 627) hemolyzed Soil Technologist ID - FSECOMPREHENSIVE METABOLIC [id number] 16:03:59 Test Item Value Reference Range Interpretation [...] S NOT APPLICABLE FOR DIALYSIS PATIEN TS. Soil Technologist ID - FSECBC W/PLT COUNT & AUTO [id number] 15:46:55 Test Item Value Reference Range Interpretation [...] = 2801) RAD, FOOT, MIN 3 VIEWS, [id number] 13:41:00Reason for exam:->[facility] : 1950 Sex: MFINAL REPORT RAD, FOOT, MIN 3 VIEWS, LEFT CLINICAL INDICATION: Left foot pain COMPARISON: None FINDINGS: Frontal, oblique and lateral views of the left foot. No fracture is identified.The joint spaces appear preserved. Surrounding soft tissues are unremarkable. IMPRESSION: No acute abnormality of the left foot. Signed: JR Garay Robert MDReport Verified Date/Time: 09/30/2021 13:41:30 Reading Location: [facility] Radiology Reading Room RAD, CHEST, 1 VIEW, NON [id number] 13:40:00Reason for exam:->Abdominal bloatingShould this be performed at the bedside?->Yes [facility] 1950 Sex: MFINAL REPORT INDICATION: Abdominal bloating COMPARISON: None TECHNIQUE: Single frontal view of the chest. IMPRESSION:Lungs and pleura: Scattered interstitial congestion. No lobar consolidation. No effusion.Heart and mediastinum: Prominent cardiac size. Sternotomy wires are intact.Osseous structures: No acute abnormality.Other: None. Signed: JR Garay Robert MDReport Verified Date/Time: 09/30/2021 13:40:51 Reading Location: [facility] Radiology Reading Room POCT-GLUCOSE [id number] 11:51:00 Test Item Value Reference Range Interpretation Comments POC-GLUCOSE METER 113 mg/dL 70-110 H : TESTED A T [facility] 6720 (BEAKER) (test code [facility], = 1538) 35406: Soil Technologist/Techni caden ID = [id number] for LEWI S, LATANDRI[place] POCT-GLUCOSE [id number] 07:37:00 Test Item Value Reference Range Interpretation Comments POC-GLUCOSE METER 100 mg/dL 70-110 : TESTED A T [facility] 6720 (BEAKER) (test code [facility], = 1538) 54408: Soil Technologist/Techni caden ID = [id number] for LEWI S, [place] COMPREHENSIVE METABOLIC [id number] 06:13:00 Test Item Value Reference Range Interpretation [...] S NOT APPLICABLE FOR DIALYSIS PATIEN TS. Soil Technologist ID - ENDUOQVYXTBYSE6487-14-17 06:13:00 Test Item Value Reference Range Interpretation Comments MAGNESIUM (BEAKER) (test code = 2.2 mg/dL 1.6-2.6 627) Soil Technologist ID - EDASIPROTHROMBIN TIME/[id number] 06:04:00 Test Item Value Reference Range Interpretation [...] mechanical heart valves.CBC W/PLT COUNT & AUTO [id number] 05:52:00 Test Item Value Reference Range Interpretation [...] PERCENT (BEAKER) (test code = 2801) POCT-GLUCOSE [id number] 02:31:00 Test Item Value Reference Range Interpretation Comments POC-GLUCOSE METER 146 mg/dL 70-110 H : TESTED A T [facility] 6720 (BEAKER) (test code = [facility], 153) 98282: Soil Technologist/Techni caden ID = [id number] for ELIF SANCHEZ POCT-GLUCOSE [id number] 16:26:00 Test Item Value Reference Range Interpretation Comments POC-GLUCOSE METER 109 mg/dL 70-110 : TESTED A T [facility] 6720 (BEAKER) (test code = [facility], 1538) 92692: Soil Technologist/Techni caden ID = [id number] for ST OJV, NADA POCT-GLUCOSE [id number] 10:56:00 Test Item Value Reference Range Interpretation Comments POC-GLUCOSE METER 128 mg/dL 70-110 H : TESTED A T [facility] 6720 (BEAKER) (test code = [facility], 1538) 57730: Soil Technologist/Techni caden ID = [id number] for ST OJCIC, NADA POCT-GLUCOSE [id number] 07:27:00 Test Item Value Reference Range Interpretation Comments POC-GLUCOSE METER 102 mg/dL 70-110 : TESTED A T [facility] 6720 (BEAKER) (test code = [facility], 1538) 73805: Soil Technologist/Techni caden ID = [id number] for COLEEN AYOUB COMPREHENSIVE METABOLIC [id number] 05:14:00 Test Item Value Reference Range Interpretation [...] S NOT APPLICABLE FOR DIALYSIS PATIEN TS. Soil Technologist ID - EMJETYJMLDRZVD4889-73-28 05:09:00 Test Item Value Reference Range Interpretation Comments MAGNESIUM (BEAKER) (test code = 2.1 mg/dL 1.6-2.6 627) Soil Technologist ID - EDASIPROTHROMBIN TIME/[id number] 04:54:00 Test Item Value Reference Range Interpretation [...] 2.5-3.5 for patients wiht mechanical heart valves.PROTHROMBIN TIME/[id number] 04:49:00 Test Item Value Reference Range Interpretation [...] valves.While on warfarin.CBC W/PLT COUNT & AUTO [id number] 04:38:00 Test Item Value Reference Range Interpretation [...] PERCENT (BEAKER) (test code = 2801) POCT-GLUCOSE [id number] 22:37:00 Test Item Value Reference Range Interpretation Comments POC-GLUCOSE METER 165 mg/dL 70-110 H : TESTED A T [facility] 6720 (BEAKER) (test code = [facility], 1538) 85902: Soil Technologist/Techni caden ID = [id number] for ELIF SANCHEZ POCT-GLUCOSE [id number] 16:29:00 Test Item Value Reference Range Interpretation Comments POC-GLUCOSE METER 101 mg/dL 70-110 : TESTED A T [facility] 6720 (BEAKER) (test code = [facility], 1538) 25660: Soil Technologist/Techni caden ID = [id number] for OJCIC, NADA POCT-GLUCOSE [id number] 11:06:00 Test Item Value Reference Range Interpretation Comments POC-GLUCOSE METER 166 mg/dL 70-110 H : TESTED A T [facility] 6720 (BEAKER) (test code = [facility], 1538) 74040: Soil Technologist/Techni caden ID = [id number] for COLEEN AYOUB POCT-GLUCOSE [id number] 08:31:00 Test Item Value Reference Range Interpretation Comments POC-GLUCOSE METER 91 mg/dL 70-110 : TESTED A T [facility] 6720 (BEAKER) (test code = [facility], 1538) 75519: Soil Technologist/Techni caden ID = [id number] for BIANCA WEBSTER, NADA COMPREHENSIVE METABOLIC [id number] 07:07:00 Test Item Value Reference Range Interpretation [...] S NOT APPLICABLE FOR DIALYSIS PATIEN TS. Soil Technologist ID - [id number] 07:07:00 Test Item Value Reference Range Interpretation Comments MAGNESIUM (BEAKER) (test code = 2.1 mg/dL 1.6-2.6 627) Soil Technologist ID - EDASICBC W/PLT COUNT & AUTO [id number] 06:50:00 Test Item Value Reference Range Interpretation [...] PERCENT (BEAKER) (test code = 2801) PROTHROMBIN TIME/[id number] 06:24:00 Test Item Value Reference Range Interpretation [...] H : TESTED A T [facility] 6720 ([employer]) (test code = [facility], 1538) 13739: Soil Technologist/Techni caden ID = [id number] for Lam beltran (contract)Janae ghazala POCT-GLUCOSE [id number] 17:02:00 Test Item Value Reference Range Interpretation Comments POC-GLUCOSE METER 102 mg/dL 70-110 : TESTED A T [facility] 6720 ([employer]) (test code = [facility], 1538) 22774: Soil Technologist/Techni caden ID = [id number] for Eli Houston POCT-GLUCOSE [id number] 12:11:00 Test Item Value Reference Range Interpretation Comments POC-GLUCOSE METER 153 mg/dL 70-110 H : TESTED A T [facility] 6720 (BEAKER) (test code = [facility] [place], 1538) 13330: Soil Technologist/Techni caden ID = [id number] for Eli Houston PROTHROMBIN TIME/[id number] 10:16:00 Test Item Value Reference Range Interpretation [...] wiht mechanical heart valves.While on warfarin.COMPREHENSIVE METABOLIC [id number] 09:54:00 Test Item Value Reference Range Interpretation [...] S NOT APPLICABLE FOR DIALYSIS PATIEN TS. Soil Technologist ID - NICOLAS [id number] 09:54:00 Test Item Value Reference Range Interpretation Comments MAGNESIUM (BEAKER) (test code = 2.1 mg/dL 1.6-2.6 627) Soil Technologist ID - NICOLAS MLACTIC ACID, [id number] 09:40:00 Test Item Value Reference Range Interpretation Comments LACTATE BLOOD VENOUS 2.01 mmol/L 0.50-2.20 Specime n markedly (2) (BEAKER) (test hemolyzed code = 2872) Soil Technologist ID - NICOLAS MPOCT-GLUCOSE [id number] 07:39:00 Test Item Value Reference Range Interpretation Comments POC-GLUCOSE METER 97 mg/dL 70-110 : TESTED A T [facility] 6720 (BEAKER) (test code = [facility] [place], 1538) 48688: Soil Technologist/Techni caden ID = [id number] for Eli Martinez PROTHROMBIN TIME/[id number] 07:04:00 Test Item Value Reference Range Interpretation [...] mechanical heart valves.CBC W/PLT COUNT & AUTO [id number] 06:59:00 Test Item Value Reference Range Interpretation [...] ed to code = 753) previous, clini kristni correlation required. MEAN CORPUSCULAR 29.7 pg 25.7-32.2 [...] PERCENT (BEAKER) (test code = 2801) POCT-GLUCOSE [id number] 20:21:00 Test Item Value Reference Range Interpretation Comments POC-GLUCOSE METER 105 mg/dL 70-110 : TESTED A T [facility] 6720 (BEAKER) (test code = [facility], 1538) 09018: Soil Technologist/Techni caden ID = [id number] for Lam beltran (contract)Janae POCT-GLUCOSE [id number] 15:30:00 Test Item Value Reference Range Interpretation Comments POC-GLUCOSE METER 164 mg/dL 70-110 H : TESTED A T [facility] 6720 (BEAKER) (test code [facility], = 1538) 16847: Soil Technologist/Techni caden ID = [id number] for LEWI S, LATANDRI[place] POCT-GLUCOSE [id number] 13:06:00 Test Item Value Reference Range Interpretation Comments POC-GLUCOSE METER 105 mg/dL 70-110 : TESTED A T [facility] 6720 (BEAKER) (test code [facility], = 1538) 55234: Soil Technologist/Techni caden ID = [id number] for LEWI S, [place] POCT-GLUCOSE [id number] 09:38:00 Test Item Value Reference Range Interpretation Comments POC-GLUCOSE METER 95 mg/dL 70-110 : TESTED A T [facility] 6720 (BEAKER) (test code = [facility], 1538) 91086: Soil Technologist/Techni caden ID = [id number] for LEWI S, [place] COMPREHENSIVE METABOLIC [id number] 06:01:00 Test Item Value Reference Range Interpretation [...] S NOT APPLICABLE FOR DIALYSIS PATIEN TS. Soil Technologist ID - NICOLAS [id number] 06:01:00 Test Item Value Reference Range Interpretation Comments MAGNESIUM (BEAKER) (test code = 2.1 mg/dL 1.6-2.6 627) Soil Technologist ID - NICOLAS MPROTHROMBIN TIME/[id number] 05:40:00 Test Item Value Reference Range Interpretation [...] mechanical heart valves.CBC W/PLT COUNT & AUTO [id number] 05:33:00 Test Item Value Reference Range Interpretation [...] PERCENT (BEAKER) (test code = 2801) POCT-GLUCOSE [id number] 23:19:00 Test Item Value Reference Range Interpretation Comments POC-GLUCOSE METER 96 mg/dL 70-110 : TESTED A T [facility] 6720 (BEAKER) (test code = [facility], 1538) 05046: Soil Technologist/Techni caden ID = [id number] for EVELYN TRISTAN POCT-GLUCOSE [id number] 16:51:00 Test Item Value Reference Range Interpretation Comments POC-GLUCOSE METER 83 mg/dL 70-110 : TESTED A T [facility] 6720 (BEAKER) (test code = [facility], 1538) 33666: Soil Technologist/Techni caden ID = [id number] for Eli Martinez POCT-GLUCOSE [id number] 12:47:00 Test Item Value Reference Range Interpretation Comments POC-GLUCOSE METER 90 mg/dL 70-110 : TESTED A T [facility] 6720 (BEAKER) (test code = [facility], 1538) 82059: Soil Technologist/Techni caden ID = [id number] for Kala Higgins RAD, CHEST, 1 VIEW, NON [id number] 12:32:00Reason for exam:->respiratory failure, covidShould this be performed at the bedside?->Yes [facility] 1950 Sex: [...] MDReport Verified Date/Time: 10/09/2020 12:32:40 Reading Location: [facility] Radiology Reading Room POCT-GLUCOSE [id number] 12:10:00 Test Item Value Reference Range Interpretation Comments POC-GLUCOSE METER 74 mg/dL 70-110 : TESTED A T [facility] 6720 (BEAKER) (test code = [facility] [place], 1538) 85113: Soil Technologist/Techni caden ID = [id number] for Kala Higgins [id number] 05:39:00 Test Item Value Reference Range Interpretation Comments MAGNESIUM (BEAKER) 2.0 mg/dL 1.6-2.6 Specimen slightly (test code = 627) hemolyzed Soil Technologist ID - VANESSA WCOMPREHENSIVE METABOLIC [id number] 05:39:00 Test Item Value Reference Range Interpretation [...] S NOT APPLICABLE FOR DIALYSIS PATIEN TS. Soil Technologist ID - VANESSA WCBC (HEMOGRAM ONLY)2020-10-09 03:35:00 Test Item Value Reference [...] 0-0 (BEAKER) (test code = 413) PROTHROMBIN TIME/[id number] 03:21:00 Test Item Value Reference Range Interpretation [...] 2.5-3.5 for patients wiht mechanical heart valves.POCT-GLUCOSE [id number] 21:41:00 Test Item Value Reference Range Interpretation Comments POC-GLUCOSE METER 105 mg/dL 70-110 : TESTED A T [facility] 6720 ([employer]) (test code = [facility] [employer] [facility], 1538) 01140: Soil Technologist/Techni caden ID = [id number] for INOCENCIA MCCAULEY POCT-GLUCOSE [id number] 16:41:00 Test Item Value Reference Range Interpretation Comments POC-GLUCOSE METER 103 mg/dL 70-110 : TESTED A T [facility] 6720 ([employer]) (test code = [facility] [employer] [facility], 1538) 44624: Soil Technologist/Techni caden ID = [id number] for GISELLA ENGLISH [id number] 14:12:00 Test Item Value Reference Range Interpretation Comments PROCALCITONIN (BEAKER) (test code = < ng/mL <0.05 3036) SEPSIS RISK (ng/mL)Low: 0.05-0.50Intermediate: 0.51-2.00High: >=2.01FERRITIN 2020-10-08 14:11:00 Test Item Value Reference Range Interpretation Comments FERRITIN (BEAKER) (test code = 586.08 ng/mL 5.00-275.00 H 361) Soil Technologist ID - PIAYA [id number] 13:49:00 Test Item Value Reference Range Interpretation Comments D-DIMER QUANTITATIVE ([employer] GuidesAK[employer]) 19.66 MG/L FEU <0.50 H (test code [...] Range Interpretation Comments LACTATE DEHYDROGENASE (BEAKER) (test 312 U/L 125-220 H code = 635) Soil Technologist ID - NICOLAS MPROTHROMBIN TIME/[id number] 13:40:00 Test Item Value Reference Range Interpretation [...] H : TESTED A T [facility] 6720 ([employer]) (test code = [facility] [employer] [facility], 1538) 73160: Soil Technologist/Techni caden ID = [id number] for LO SOCO, GISELLA POCT-GLUCOSE [id number] 09:02:00 Test Item Value Reference Range Interpretation Comments POC-GLUCOSE METER 114 mg/dL 70-110 H : TESTED A T [facility] 6720 (BEAKER) (test code = [facility] [employer] [facility], 1538) 89470: Soil Technologist/Techni caden ID = [id number] for LO SOCO, GISELLA POCT-GLUCOSE [id number] 07:30:00 Test Item Value Reference Range Interpretation Comments POC-GLUCOSE METER 113 mg/dL 70-110 H : TESTED A T [facility] 6720 (BEAKER) (test code = [facility] [facility], 1538) 84361: Soil Technologist/Techni caden ID = [id number] for Dahiana morrison (contract), Nos johna COMPREHENSIVE METABOLIC [id number] 06:05:00 Test Item Value Reference Range Interpretation [...] S NOT APPLICABLE FOR DIALYSIS PATIEN TS. Soil Technologist ID - KAILA [id number] 06:05:00 Test Item Value Reference Range Interpretation Comments MAGNESIUM (BEAKER) (test code = 2.0 mg/dL 1.6-2.6 627) Soil Technologist ID - KAILA LCBC W/PLT COUNT & AUTO [id number] 04:32:00 Test Item Value Reference Range Interpretation [...] PERCENT (BEAKER) (test code = 2801) PROTHROMBIN TIME/[id number] 04:25:00 Test Item Value Reference Range Interpretation Comments PROTIME (BESPENCER) (test code = 27.4 seconds 11.9-14.2 H 759) INR (BEAKER) (test code = 370) 2.62 <=5.90 Effective 03/02/2019: PT Reference Range ChangeNew: 11.9-14.2 Previous: 11.7- 14.7RECOMMENDED COUMADIN/WARFARIN INR THERAPY RANGESSTANDARD DOSE: 2.0-3.0 Includes: PROPHYLAXIS for venous thrombosis, systemic embolization; TREATMENT for venous thrombosis and/or pulmonary embolus.HIGH RISK: Target INR is 2.5-3.5 for patients wiht mechanical heart valves.POCT-GLUCOSE [id number] 22:38:00 Test Item Value Reference Range Interpretation Comments POC-GLUCOSE METER 120 mg/dL 70-110 H : TESTED A T [facility] 6720 ([employer]) (test code = [facility], 153) 55057: Soil Technologist/Techni caden ID = [id number] for ROBERT-EZ, LYNDON-SAMMYL POCT-GLUCOSE [id number] 17:00:00 Test Item Value Reference Range Interpretation Comments POC-GLUCOSE METER 101 mg/dL 70-110 : TESTED A T [facility] 6720 (BEAKER) (test code = [facility], 1538) 67877: Soil Technologist/Techni caden ID = [id number] for Hernan gentile Vannesa POCT-GLUCOSE [id number] 12:27:00 Test Item Value Reference Range Interpretation Comments POC-GLUCOSE METER 149 mg/dL 70-110 H : TESTED A T [facility] 6720 (BEAKER) (test code = [facility], 1538) 42441: Soil Technologist/Techni caden ID = [id number] for Hernan gentile, Vannesa POCT-GLUCOSE [id number] 08:48:00 Test Item Value Reference Range Interpretation Comments POC-GLUCOSE METER 110 mg/dL 70-110 : TESTED A T [facility] 6720 (BEAKER) (test code = [facility], 1538) 84645: Soil Technologist/Techni caden ID = [id number] for Vannesa Osman COMPREHENSIVE METABOLIC [id number] 04:32:00 Test Item Value Reference Range Interpretation [...] S NOT APPLICABLE FOR DIALYSIS PATIEN TS. Soil Technologist ID - NICOLAS [id number] 04:32:00 Test Item Value Reference Range Interpretation Comments MAGNESIUM (BEAKER) (test code = 2.1 mg/dL 1.6-2.6 627) Soil Technologist ID - NICOLAS MPROTHROMBIN TIME/[id number] 04:25:00 Test Item Value Reference Range Interpretation [...] for patients wiht mechanical heart valves.BLOOD GAS, [id number] 04:18:00 Test Item Value Reference Range Interpretation [...] (BEAKER) (test 37.0 code = 1818) POCT-GLUCOSE [id number] 21:21:00 Test Item Value Reference Range Interpretation Comments POC-GLUCOSE METER 167 mg/dL 70-110 H : TESTED A T [facility] 6720 (BEAKER) (test code = [facility] [place], 1538) 19061: Soil Technologist/Techni caden ID = [id number] for CATHLEEN SCHERER [id number] 19:51:00 Test Item Value Reference Range Interpretation Comments PROCALCITONIN (BEAKER) (test code = < ng/mL <0.05 3036) SEPSIS RISK (ng/mL)Low: 0.05-0.50Intermediate: 0.51-2.00High: >=2.01FERRITIN 2020-10-06 19:09:00 Test Item Value Reference Range Interpretation Comments FERRITIN (BEAKER) (test code = 708.08 ng/mL 5.00-275.00 H 361) Soil Technologist ID - [id number]-[id number] 18:55:00 Test Item Value Reference Range Interpretation Comments D-DIMER QUANTITATIVE ([employer]) > MG/L FEU <0.50 H (test code [...] 538 U/L 125-220 H Specim en moderately (BEAKER) (test code = hemoly zed 635) Soil Technologist ID - DBPOCT-GLUCOSE [id number] 18:12:00 Test Item Value Reference Range Interpretation Comments POC-GLUCOSE METER 94 mg/dL 70-110 : TESTED A T [facility] 6720 (BEAKER) (test code = [facility], 1538) [address]: Soil Technologist/Techni caden ID = [id number] for DENZELQU LALY ZIMMERMANNDEN POCT-GLUCOSE [id number] 14:30:00 Test Item Value Reference Range Interpretation Comments POC-GLUCOSE METER 128 mg/dL 70-110 H : TESTED A T [facility] 6720 (BEAKER) (test code = [facility], 1538) [address]: Soil Technologist/Techni caden ID = [id number] for [facility] BERTO, SKYLA POCT-GLUCOSE [id number] 10:02:00 Test Item Value Reference Range Interpretation Comments POC-GLUCOSE METER 92 mg/dL 70-110 : TESTED A T [facility] 6720 (BEAKER) (test code = [facility], 1538) [address]: Soil Technologist/Techni caden ID = [id number] for MCQU AY, SKYLA [id number] 04:44:00 Test Item Value Reference Range Interpretation Comments MAGNESIUM (BEAKER) 2.2 mg/dL 1.6-2.6 Specimen slightly (test code = 627) hemolyzed Soil Technologist ID - EDASICOMPREHENSIVE METABOLIC [id number] 04:44:00 Test Item Value Reference Range Interpretation [...] S NOT APPLICABLE FOR DIALYSIS PATIEN TS. Soil Technologist ID - EDASICBC W/PLT COUNT & AUTO [id number] 04:43:00 Test Item Value Reference Range Interpretation [...] PERCENT (BEAKER) (test code = 2801) PROTHROMBIN [id number] 04:29:00 Test Item Value Reference Range Interpretation Comments PROTIME (BEAKER) (test code = 21.4 seconds 11.9-14.2 H 759) INR (BEAKER) (test code = 370) 1.93 <=5.90 Effective 03/02/2019: PT Reference Range ChangeNew: 11.9-14.2 Previous: 11.7- 14.7RECOMMENDED COUMADIN/WARFARIN INR THERAPY RANGESSTANDARD DOSE: 2.0-3.0 Includes: PROPHYLAXIS for venous thrombosis, systemic embolization; TREATMENT for venous thrombosis and/or pulmonary embolus.HIGH RISK: Target INR is 2.5-3.5 for patients wiht mechanical heart valves.POCT-GLUCOSE [id number] 19:27:00 Test Item Value Reference Range Interpretation Comments POC-GLUCOSE METER 101 mg/dL 70-110 : TESTED A T [facility] 6720 (HARIS) (test code = [employer] [facility], 1538) [address]: Soil Technologist/Techni caden ID = [id number] for ROBB JACKSON POCT-GLUCOSE [id number] 13:51:00 Test Item Value Reference Range Interpretation Comments POC-GLUCOSE METER 147 mg/dL 70-110 H : TESTED A T [facility] 6720 (ABELAKER) (test code = [facility] [employer] [facility], 1538) [address]: Soil Technologist/Techni caden ID = [id number] for ROBB JACKSON PROTHROMBIN [id number] 06:05:00 Test Item Value Reference Range Interpretation Comments PROTIME (BEAKER) (test code = 19.8 seconds 11.9-14.2 H 759) INR (BEAKER) (test code = 370) 1.73 <=5.90 Effective [...] S NOT APPLICABLE FOR DIALYSIS PATIEN TS. Soil Technologist ID - VANESSA [id number] 05:41:00 Test Item Value Reference Range Interpretation Comments MAGNESIUM (BEAKER) (test code = 2.1 mg/dL 1.6-2.6 627) Soil Technologist ID - VANESSA WCBC W/PLT COUNT & AUTO [id number] 05:40:00 Test Item Value Reference Range Interpretation [...] = 2801) RAD, CHEST, 1 VIEW, NON [id number] 04:18:00Reason for exam:->COVID changesShould this be performed at the bedside?->Yes [facility]ENTER[facility]: ALFONZO DY[facility] : 1950 Sex: MFINAL REPORT CLINICAL INDICATION: "COVID" Comparison: 10/03/2020 The cardiomediastinal contours are stable. The lung volumes remain low. Bilateral parenchymal opacities are unchanged. There is no pneumothorax. Signed: Zulma Watkins Verified Date/Time: 10/05/2020 04:18:55 POCT-GLUCOSE [id number] 22:23:00 Test Item Value Reference Range Interpretation Comments POC-GLUCOSE METER 104 mg/dL 70-110 : TESTED A T [facility] 6720 (Nomad Mobile GuidesAKER) (test code = [facility], 153) [address]: Soil Technologist/Techni caden ID = [id number] for Jose (co ntract), Ene POCT-GLUCOSE [id number] 17:40:00 Test Item Value Reference Range Interpretation Comments POC-GLUCOSE METER 118 mg/dL 70-110 H : TESTED A T [facility] 6720 (BEAKER) (test code = [facility], 153) 918[address]: Soil Technologist/Techni caden ID = [id number] for Sadaf smith (contract), Tammy mbola THROMBOELASTOGRAPH (TEG)2020-10-04 14:46:00 Test Item Value Reference Range Interpretation Comments TEG ACTIVATED CLOTTING TIME 4.6 minutes 4.0-7.0 (BEAKER) (test code = 1407) TEG FIBRINOGEN ACTIVITY (BEAKER) 65.6 degrees 61.0-73.0 (test code = 1408) TEG PLT. AGGREGATION (BEAKER) 66.2 MM 55.0-65.0 H (test code = 1409) TGH ACTIVATED CLOTTING TIME 4.6 minutes 4.0-7.0 (BEAKER) (test code = 1411) TGH FIBRINOGEN ACTIVITY (BEAKER) 67.3 degrees 61.0-73.0 (test code = 1412) TGH PLT. AGGREGATION (BEAKER) 60.9 MM 55.0-65.0 (test code = 1413) PROTHROMBIN [id number] 14:16:00 Test Item Value Reference Range Interpretation [...] 2.5-3.5 for patients wiht mechanical heart valves.POCT-GLUCOSE [id number] 13:07:00 Test Item Value Reference Range Interpretation Comments POC-GLUCOSE METER 176 mg/dL 70-110 H : TESTED A T [facility] 6720 (BEAKER) (test code = [facility] Kervin [facility], 1538) 60[address]: Soil Technologist/Techni caden ID = [id number] for Dahiana an (contract), Nos haba POCT-GLUCOSE [id number] 07:35:00 Test Item Value Reference Range Interpretation Comments POC-GLUCOSE METER 122 mg/dL 70-110 H : TESTED A T [facility] 6720 (BEAKER) (test code [facility], = 1538) [address]: Soil Technologist/Techni caden ID = [id number] for MARIANELA ARREDONDO BASIC METABOLIC [id number] 07:04:00 Test Item Value Reference Range Interpretation [...] S NOT APPLICABLE FOR DIALYSIS PATIEN TS. Soil Technologist ID - KAILA [id number] 07:04:00 Test Item Value Reference Range Interpretation Comments MAGNESIUM (BEAKER) (test code = 1.9 mg/dL 1.6-2.6 627) Soil Technologist ID - KAILA LLACTATE DEHYDROGENASE (LDH)2020-10-04 07:04:00 Test Item Value Reference Range Interpretation Comments LACTATE DEHYDROGENASE (BEAKER) (test 552 U/L 125-220 H code = 635) Soil Technologist ID - KAILA LC-REACTIVE [id number] 07:04:00 Test Item Value Reference Range Interpretation Comments C-REACTIVE PROTEIN (BEAKER) (test 9.81 mg/dL 0.00-0.50 H code = 676) Soil Technologist ID - KAILA LCBC W/PLT COUNT & AUTO [id number] 05:51:00 Test Item Value Reference Range Interpretation [...] 0-1 PERCENT (BEAKER) (test code = 2801) [id number] 05:33:00 Test Item Value Reference Range Interpretation [...] exclusion of thrombosis is within 95-100% range. [id number] 05:15:00 Test Item Value Reference Range Interpretation Comments FIBRINOGEN LEVEL (BEAKER) (test 408 mg/dl 225-434 code = 658) BLOOD GAS, [id number] 04:42:00 Test Item Value Reference Range Interpretation [...] FIO2 (BEAKER) (test code = 1819) 80.0 [id number] 03:11:00 Test Item Value Reference Range Interpretation Comments FERRITIN (BEAKER) (test code = 900.87 ng/mL 5.00-275.00 H 361) Soil Technologist ID - NICOLAS MB-TYPE NATRIURETIC FACTOR (BNP)2020-10-04 00:34:00 Test Item Value Reference Range Interpretation Comments B-TYPE NATRIURETIC PEPTIDE (BEAKER) 291 pg/mL 0-100 H (test code = 700) TROPONIN [id number] 23:42:00 Test Item Value Reference Range Interpretation [...] failure, acidosis, acute neurological disease, and persistent tachyarrhythmia.Soil Technologist ID - PIAYA LPROTHROMBIN TIME/[id number] 23:42:00 Test Item Value Reference Range Interpretation [...] 2.5-3.5 for patients wiht mechanical heart valves.C-REACTIVE [id number] 23:33:00 Test Item Value Reference Range Interpretation Comments C-REACTIVE PROTEIN (BEAKER) (test 9.25 mg/dL 0.00-0.50 H code = 676) Soil Technologist ID - PIAYA LRAD, CHEST, 1 VIEW, NON [id number] 22:48:00Reason for exam:->increased dyspnea and increased O2 requirement in covid-19 pnaShould this be performed at the bedside?->Yes [facility] 1950 Sex: [...] MDReport Verified Date/Time: 10/03/2020 22:48:45 LACTIC ACID, [id number] 22:13:00 Test Item Value Reference Range Interpretation Comments LACTATE BLOOD 1.2 mmol/L 0.5-2.2 Specimen moder ately ARTERIAL (2) (BEAKER) hemoly zed (test code = 2874) Soil Technologist ID - BSPOCT-BLOOD GASES, [id number] 21:41:00 Test Item Value Reference Range Interpretation [...] EXCESS, 3.0 meq/L -2.0-3.0 : TESTED AT [facility] 6720 ARTERIAL-POC [facility], (BEAKER) (test code 10238: = 1841) Soil Technologist/Techni caden ID = [id number] for URCI A, FAMELA [id number] 21:41:00 Test Item Value Reference Range Interpretation Comments POC-SODIUM (BEAKER) 136 meq/L 135-148 : TESTED AT [facility] 6720 (test code = 1542) [facility], [address]: Soil Technologist/Techni caden ID = [id number] for URCI A, FAMELA [id number] 21:41:00 Test Item Value Reference Range Interpretation Comments POC-POTASSIUM 4.3 meq/L 3.6-5.5 : TESTED AT [place] [address] ([facility]) (test code [facility], = 1540) [address]: Soil Technologist/Techni caden ID = [id number] for URCI A, FAMELA [id number] 21:41:00 Test Item Value Reference Range Interpretation Comments POC-HEMOGLOBIN 13.6 g/dL 13.0-16.8 : TESTED AT [place] [address] ([facility]) (test code [facility], = 1856) [address]: Soil Technologist/Techni caden ID = [id number] for URCI A, FAMELA [id number] 21:41:00 Test Item Value Reference Range Interpretation Comments POC-HEMATOCRIT 40 % 40-50 : Soil Technologist/Te chnician ID = ([facility]) (test code = 323839 for URCIA, FAMELA 1857) POCT-CALCIUM [id number] 21:41:00 Test Item Value Reference Range Interpretation Comments POC-CALCIUM IONIZED 1.18 mmol/L 1.12-1.27 : TESTED AT [facility] ([facility]) (test code = [facility] 1536) [place], [address]: Soil Technologist/Techni caden ID = [id number] for URCIA, FAMELA [id number] 21:41:00 Test Item Value Reference Range Interpretation Comments POC-GLUCOSE ([facility]) 99 mg/dL 70-110 : TESTE D AT [place] [address] (test code = 1855) [place], [address]: Soil Technologist/Techni caden ID = [id number] for URCI A, FAMELA POCT-GLUCOSE [id number] 20:55:00 Test Item Value Reference Range Interpretation Comments POC-GLUCOSE METER 113 mg/dL 70-110 H : TESTED A T [place] [address] ([facility]) (test code = [facility] Galeana [facility], 1538) [address]: Soil Technologist/Techni caden ID = [id number] for ALEJANDROSofiya ANIKA POCT-GLUCOSE [id number] 14:57:00 Test Item Value Reference Range Interpretation Comments POC-GLUCOSE METER 101 mg/dL 70-110 : TESTED A T [place] [address] ([facility]) (test code [facility], = 1538) [address]: Soil Technologist/Techni caden ID = [id number] for MARIANELA ARREDONDO POCT-GLUCOSE [id number] 07:40:00 Test Item Value Reference Range Interpretation Comments POC-GLUCOSE METER 126 mg/dL 70-110 H : TESTED A T [facility] 6720 (BEAKER) (test code [facility], = 1538) [address]: Soil Technologist/Techni caden ID = [id number] for MARIANELA ARREDONDO BASIC METABOLIC [id number] 06:45:00 Test Item Value Reference Range Interpretation [...] S NOT APPLICABLE FOR DIALYSIS PATIEN TS. Soil Technologist ID - BSCBC W/PLT COUNT & AUTO [id number] 06:30:00 Test Item Value Reference Range Interpretation [...] PERCENT (BEAKER) (test code = 2801) POCT-GLUCOSE [id number] 21:34:00 Test Item Value Reference Range Interpretation Comments POC-GLUCOSE METER 129 mg/dL 70-110 H : TESTED Kelsey Low [facility] 6720 (BEAKER) (test code = [place], 1538) [address]: Soil Technologist/Techni caden ID = [id number] for DE SIRJENNIFERI POCT-GLUCOSE [id number] 15:36:00 Test Item Value Reference Range Interpretation Comments POC-GLUCOSE METER 142 mg/dL 70-110 H : TESTED A T [facility] 6720 (BEAKER) (test code [facility], = 1538) [address]: Soil Technologist/Techni caden ID = [id number] for TANGELAI S LATMARIRIA POCT-GLUCOSE [id number] 11:56:00 Test Item Value Reference Range Interpretation Comments POC-GLUCOSE METER 162 mg/dL 70-110 H : TESTED A T [facility] 6720 (BEAKER) (test code [facility], = 1538) [address]: Soil Technologist/Techni caden ID = [id number] for LEWI S, LATANDRIA POCT-GLUCOSE [id number] 07:42:00 Test Item Value Reference Range Interpretation Comments POC-GLUCOSE METER 110 mg/dL 70-110 : TESTED A T [facility] 6720 (BEAKER) (test code [facility], = 1538) [address]: Soil Technologist/Techni caden ID = [id number] for LEWI S, LATANDRIA BASIC METABOLIC [id number] 05:39:00 Test Item Value Reference Range Interpretation [...] S NOT APPLICABLE FOR DIALYSIS PATIEN TS. Soil Technologist ID - NICOLAS MCBC W/PLT COUNT & AUTO [id number] 05:03:00 Test Item Value Reference Range Interpretation [...] PERCENT (BEAKER) (test code = 2801) POCT-GLUCOSE [id number] 20:58:00 Test Item Value Reference Range Interpretation Comments POC-GLUCOSE METER 123 mg/dL 70-110 H : TESTED A T [facility] 6720 (BEAKER) (test code = [facility], 153) [address]: Soil Technologist/Techni caden ID = [id number] for ELIF SANCHEZ POCT-GLUCOSE [id number] 17:25:00 Test Item Value Reference Range Interpretation Comments POC-GLUCOSE METER 119 mg/dL 70-110 H : TESTED A T [facility] 6720 (BEAKER) (test code = [facility], 1538) [address]: Soil Technologist/Techni caden ID = [id number] for Mayi balbir (contract), Rosalie ma POCT-GLUCOSE [id number] 12:16:00 Test Item Value Reference Range Interpretation Comments POC-GLUCOSE METER 156 mg/dL 70-110 H : TESTED A T [facility] 6720 (BEAKER) (test code = [facility], 1538) [address]: Soil Technologist/Techni caden ID = [id number] for DU SUZANNE, UDAY POCT-GLUCOSE [id number] 08:20:00 Test Item Value Reference Range Interpretation Comments POC-GLUCOSE METER 114 mg/dL 70-110 H : TESTED A T [facility] 6720 (BEAKER) (test code = [facility], 1538) [address]: Soil Technologist/Techni caden ID = [id number] for FREDDIE PIA ISA BASIC METABOLIC [id number] 05:35:00 Test Item Value Reference Range Interpretation [...] S NOT APPLICABLE FOR DIALYSIS PATIEN TS. Soil Technologist ID - EDASICBC W/PLT COUNT & AUTO [id number] 05:29:00 Test Item Value Reference Range Interpretation [...] PERCENT (BEAKER) (test code = 2801) POCT-GLUCOSE [id number] 20:12:00 Test Item Value Reference Range Interpretation Comments POC-GLUCOSE METER 162 mg/dL 70-110 H : TESTED A T [facility] 6720 (BEAKER) (test code = [facility], 1538) [address]: Soil Technologist/Techni caden ID = [id number] for HUGO DANNYSOPHIA ELIF POCT-GLUCOSE [id number] 16:21:00 Test Item Value Reference Range Interpretation Comments POC-GLUCOSE METER 135 mg/dL 70-110 H : TESTED A T [facility] 6720 (BEAKER) (test code [facility], = 1538) [address]: Soil Technologist/Techni caden ID = [id number] for LEWI S, LATANDRIA POCT-GLUCOSE [id number] 13:33:00 Test Item Value Reference Range Interpretation Comments POC-GLUCOSE METER 187 mg/dL 70-110 H : TESTED A T [facility] 6720 (BEAKER) (test code [facility], = 1538) [address]: Soil Technologist/Techni caden ID = [id number] for LEWI S, LATANDRIA HEPATIC FUNCTION [id number] 10:52:00 Test Item Value Reference Range Interpretation [...] Specimen slightly (test code = 347) hemolyzed Soil Technologist ID - EDASICHOLESTEROL, [id number] 10:51:00 Test Item Value Reference Range Interpretation Comments CHOLESTEROL (BEAKER) 99 mg/dL Specime n slightly (test code = 631) hemolyzed Cholesterol Reference Range: Low Risk <200 Borderline 200-239 High Risk >240 Soil Technologist ID - EDASIPOCT-GLUCOSE [id number] 08:58:00 Test Item Value Reference Range Interpretation Comments POC-GLUCOSE METER 124 mg/dL 70-110 H : TESTED A T [facility] 6720 (BEAKER) (test code [facility], = 1538) [address]: Soil Technologist/Techni caden ID = [id number] for MARIANELA ARREDONDO CBC W/PLT COUNT & AUTO [id number] 06:34:00 Test Item Value Reference Range Interpretation [...] (BEAKER) (test code = 2801) BASIC METABOLIC [id number] 06:22:00 Test Item Value Reference Range Interpretation [...] hemolyzed GLUCOSE RANDOM 127 mg/dL 70-105 H (HARIS) (test code = 652) CALCIUM (HARIS) 8.5 mg/dL 8.4-10.2 (test code = 697) EGFR (HARIS) (test 99 mL/min/1.73 ESTIMA GABRIELLE GFR IS code = 1092) sq m NOT ACCURATE CREATININE CLEARANCE IN PREDICTING GLOMERULAR FILTRATION RATE . ESTIMATED GFR I S NOT APPLICABLE FOR DIALYSIS PATIEN TS. Soil Technologist ID - EDASILACTIC ACID, [id number] 06:06:00 Test Item Value Reference Range Interpretation Comments LACTATE BLOOD VENOUS 1.40 mmol/L 0.50-2.20 Specime n slightly (2) (HARIS) (test hemolyzed code = 2872) Soil Technologist ID - NICOLAS MRAD, CHEST, 1 VIEW, NON [id number] 05:43:00Reason for exam:->SOBShould this be performed at the bedside?->Yes [facility] Ruben : 1950 Sex: MFINAL REPORT RAD, CHEST, 1 VIEW, NON DEPT INDICATION: SOB COMPARISON: September 15, 2019 FINDINGS: Portable frontal view of the chest. IMPRESSION: Support Lines: None Lungs and pleura: Bilateral fluffy and nodular opacities most suggestive of pulmonary edema but underlying lesions not excluded. Follow- up to ensure resolution or correlation with CT chest recommended. No large effusion.No pneumothorax.Heart and mediastinum: Magnified by technique with suggestion of cardiomegaly, similar to prior examination.Additional findings: None. Signed: Kj Mendoza MDReport Verified Date/Time: 09/30/2020 05:43:22 POCT- BLOOD GASES, [id number] 05:12:00 Test Item Value Reference Range Interpretation [...] EXCESS, 0.0 meq/L -2.0-3.0 : TESTED AT [facility] 6720 ARTERIAL-POC [facility], (BEAKER) (test code 01156: = 1841) Soil Technologist/Techni caden ID = [id number] for RUMB AOA, IVANA [id number] 05:12:00 Test Item Value Reference Range Interpretation Comments POC-SODIUM (BEAKER) 138 meq/L 135-148 : TESTED AT [place] [address] (test code = 1542) [place] [facility], [address]: Soil Technologist/Techni caden ID = [id number] for RUMB AOA, IVANA [id number] 05:12:00 Test Item Value Reference Range Interpretation Comments POC-POTASSIUM 4.6 meq/L 3.6-5.5 : TESTED AT [place] [address] (BEAKER) (test code [facility], = 1540) [address]: Soil Technologist/Techni caden ID = [id number] for RUMB AOA, IVANA [id number] 05:12:00 Test Item Value Reference Range Interpretation Comments POC-HEMOGLOBIN 12.9 g/dL 13.0-16.8 L : TESTED [place] [address] ([facility]) (test code [facility], = 1856) [address]: Soil Technologist/Techni caden ID = [id number] for CHONG AOA, IVANA [id number] 05:12:00 Test Item Value Reference Range Interpretation Comments POC-HEMATOCRIT 38 % 40-50 L : Soil Technologist/Te chnician ID = ([facility]) (test code = 615576 for RUMBAKENDALL, IVANA 1857) POCT-CALCIUM [id number] 05:12:00 Test Item Value Reference Range Interpretation Comments POC-CALCIUM IONIZED 1.19 mmol/L 1.12-1.27 : TESTED AT [facility] ([facility]) (test code = [facility] 1536) [place], [address]: Soil Technologist/Techni caden ID = [id number] for DONNA, IVANA [id number] 05:12:00 Test Item Value Reference Range Interpretation Comments POC-GLUCOSE ([facility]) 132 mg/dL 70-110 H : TESTE D AT [place] [address] (test code = 1855) PAIGE [facility] [place], [address]: Soil Technologist/Techni caden ID = [id number] for RUMB AOA, IVANA POCT-GLUCOSE [id number] 17:05:00 Test Item Value Reference Range Interpretation Comments POC-GLUCOSE METER 176 mg/dL 70-110 H : TESTED A T [place] [address] ([facility]) (test code = [facility]NERJAR[facility] Galeana [facility], 1538) [address]: Soil Technologist/Techni caden ID = [id number] for Mary Edmond SARS-COV2/RT-PCR ([facility])2020-09-29 13:22:00 Test Item Value Reference Range Interpretation Comments SARS-COV2/RT-PCR (test Positive Not Detected, Negative, AA code = 6559262) See external report for linked test SARS-COV-2 PERFORMING LAB [facility] NISSA (test code = 0022076) Results are for the detection of SARS-CoV-2 RNA. The SARS-CoV-2 RNA is generally detectable in nasopharyngeal swab specimens during the acute phase of infection. Positive results are indicative of active infection with SARS-CoV-2 and the patient is presumed to be contagious. Laboratory test results should always be considered in the clinical correlation with patient history and other epidemiologicaland diagnostic information that is necessary to determine patient infection status. Patient management decisions should follow current CDC guidelines. Positive results do not rule out bacterial infection or co-infection with other viruses. The agent detected may not be the definite cause of disease. The limit of detection for this assay is 800 copies/mL.This SARS CoV-2 test is a real-time RT-PCR testintended for the qualitative detection of nucleic acid from SARS-CoV-2 in a nasopharyngeal swab specimen collected from individuals suspected of COVID-19 by their healthcare provider.This test has not been Food and Drug Administration (FDA) cleared or approved. This is a modified version of an approved Emergency Use Authorization (EUA) and is in the process of review by the FDA. Once authorized by the FDA, the issued EUA will be effective until the declaration that circumstances exist justifying theauthorization of the emergency use of in vitro diagnostic tests for detection and/or diagnosis of COV ID-19 is terminated under Section 564(b)(2) of the Act or the EUA is revoked under Section 564(g) ofthe Act.Fact Sheet for Healthcare Providers:https://www.[employer].imgScrimmage/sites/default/files/product/docume nts/Vvgi_Hprqt_HF_Jwzikbrdx_Glxp_CYZC-PbY-5.pdfFact Sheet for Healthcare Patients:https://www.[employer]. imgScrimmage/sites/default/files/product/documents/Rfoh_Taqoe_Tmgcowfh_Slsk_BEQD-QfI-5.pd fPerforming Laboratory:[facility] [place], [place] [id number] 12:14:00 Test Item Value Reference Range Interpretation Comments FERRITIN (BEAKER) (test code = 3144.93 ng/mL 5.00-275.00 H 361) Soil Technologist ID - EDASIOperator ID - EDASIPROTHROMBIN TIME/[id number] 11:54:00 Test Item Value Reference Range Interpretation [...] for patients wiht mechanical heart valves.HEPATIC FUNCTION [id number] 11:20:00 Test Item Value Reference Range Interpretation [...] (test code = 43 U/L 6-55 347) Soil Technologist ID - EDASIIRON, TIBC, % SAT. (WITHOUT FERRITIN)2020-09-29 11:15:00 Test Item Value Reference Range Interpretation Comments IRON (BEAKER) (test code = 547) 29.0 ug/dL 40.0-160.0 L TOTAL IRON BINDING CAPACITY 169 ug/dL 250-450 L (BEAKER) (test code = 769) IRON % SATURATION (2) (BEAKER) 17 % 20-55 L (test code = 2590) Soil Technologist ID - EDASIHEMOGLOBIN [id number] 10:34:00 Test Item Value Reference Range Interpretation Comments HEMOGLOBIN A1C (BEAKER) (test code = 6.8 % 4.3-6.1 H 368) BASIC METABOLIC [id number] 07:25:00 Test Item Value Reference Range Interpretation [...] S NOT APPLICABLE FOR DIALYSIS PATIEN TS. Soil Technologist ID - EDASICBC W/PLT COUNT & AUTO [id number] 07:24:00 Test Item Value Reference Range Interpretation [...] (BEAKER) (test code = 2801) LACTIC ACID, [id number] 07:21:00 Test Item Value Reference Range Interpretation Comments LACTATE BLOOD VENOUS 1.12 mmol/L 0.50-2.20 Specime n moderately (2) (BEAKER) (test hemolyzed code = 6063) Soil Technologist ID - EDASIPOCT-GLUCOSE [id number] 07:01:00 Test Item Value Reference Range Interpretation Comments POC-GLUCOSE METER 136 mg/dL 70-110 H : TESTED A T [facility] 6720 (BEAKER) (test code = [facility], 1538) [address]: Soil Technologist/Techni caden ID = [id number] for An yablou (contract), Danny [facility] POCT-GLUCOSE [id number] 05:34:00 Test Item Value Reference Range Interpretation Comments POC-GLUCOSE METER 154 mg/dL 70-110 H : TESTED A T [facility] 6720 (BEAKER) (test code = [facility], 1538) [id number]: Soil Technologist/Techni caden ID = [id number] for An yablou (contract), Danny nna BASIC METABOLIC [id number] 06:16:00 Test Item Value Reference Range Interpretation [...] NOT APPLICABLE FOR DIALYSIS PATIEN TS. TROPONIN [id number] 15:39:00 Test Item Value Reference Range Interpretation [...] acute neurological disease, and persistent tachyarrhythmia.BASIC METABOLIC [id number] 15:32:00 Test Item Value Reference Range Interpretation [...] NOT APPLICABLE FOR DIALYSIS PATIEN TS. TROPONIN [id number] 18:20:00 Test Item Value Reference Range Interpretation [...] (BEAKER) (test code = 2801) BASIC METABOLIC [id number] 11:51:00 Test Item Value Reference Range Interpretation [...] NOT APPLICABLE FOR DIALYSIS PATIEN TS. TROPONIN [id number] 10:55:00 Test Item Value Reference Range Interpretation [...] pg/mL 0-100 H (test code = 700) [id number] 10:47:00 Test Item Value Reference Range Interpretation Comments MAGNESIUM (BEAKER) (test code = 2.0 mg/dL 1.6-2.6 627) RAD, CHEST, 1 VIEW, NON [id number] 10:37:00Reason for exam:->chest pain FINAL REPORT INDICATION: chest pain COMPARISON: October 15, 2016 TECHNIQUE: Single frontal view of the chest. FINDINGS: Lungs and pleura: Lungs are hypoinflated. Mild basilar atelectasis. No effusion.Heart and mediastinum: Normal heart size. Unremarkable mediastinal contours.Osseous structures: No acute abnormality.Other: None. IMPRESSION: Lungs are hypoinflated. Mild basilar atelectasis Signed: Rena Riley MDReport Verified Date/Time: 09/15/2019 10:37:09 Reading Location: [facility] Radiology Reading Room [id number] 09:48:00 Test Item Value Reference Range Interpretation [...] mechanical heart valves.CBC W/PLT COUNT & AUTO [id number] 09:37:00 Test Item Value Reference Range Interpretation [...]
[2023-06-05] MEDS ORDERED: KETOROLAC 30 MG/ML INJ ONE (10:21)
[2023-06-05] MEDS ORDERED: COLCHICINE 0.6 MG TAB ONE (10:21)
--- NOTE | 2023-06-05 10:36 | ER ---
Nurse's Notes [facility] Name: Juan Carlos Wilson Age: 72 yrs Sex: Male : 1950 Arrival Date: 06/05/2023 Time: 09:40 Bed 8 Private MD: Diagnosis: Gout, unspecified Presentation: 06/05 09:48 Chief complaint: Patient states: Left elbow pain since 3 am. Pt believes it is his nj1 gout, has had same issue in the past, ran out of her gout medicine. 09:48 Method Of Arrival: Ambulatory [facility] 09:48 Coronavirus screen: Vaccine status: Patient reports receiving the 2nd dose of the covid nj1 vaccine. Ebola Screen: Patient denies travel to an Ebola-affected area in the 21 days before illness onset. Initial Sepsis Screen: Does the patient meet any 2 criteria? HR > 90 bpm. No. Patient's initial sepsis screen is negative. Does the patient have a suspected source of infection? No. Patient's initial sepsis screen is negative. Risk Assessment: Do you want to hurt yourself or someone else? Patient reports no desire to harm self or others. Onset of symptoms was June 05, 2023 at 03:00. 09:48 Acuity: BLANCA 3 nj1 Historical: - Allergies: 10:01 No Known Allergies; nj1 - PMHx: 10:01 CAD; High Cholesterol; Hypertension; Myocardial infarction; Gout; nj1 - PSHx: 10:01 Coronary artery bypass graft; Pacemaker; nj1 - Immunization history:: Client reports receiving the 2nd dose of the Covid vaccine. - Social history:: Smoking status: Patient denies any tobacco usage or history of. - Family history:: not pertinent. - Hospitalizations: : No recent hospitalization is reported. Screenin:[address] [facility] ED Fall Risk Assessment (Adult) Score/Fall Risk Level. Abuse screen: Denies iw threats or abuse. Denies injuries from another. Nutritional screening: No deficits noted. Tuberculosis screening: No symptoms or risk factors identified. Assessment: 10:05 General: Appears in no apparent distress. Behavior is calm, cooperative. Pain: iw Complains of pain in left elbow. Neuro: Level of Consciousness is awake, alert, obeys commands, Oriented to person, place, time, situation, Moves all extremities. Full function. Cardiovascular: Patient's skin is warm and dry. Respiratory: Respiratory effort is even, unlabored, Respiratory pattern is regular. Derm: Skin is intact. Musculoskeletal: Range of motion: Swelling present in left elbow. Vital Signs: 09:48 BP 150 / 103; Pulse 91; Resp 18; Temp 98.3(O); Pulse Ox 97% on R/A; Weight 99.79 kg; nj1 Height 5 ft. 7 in. ; Pain 10/10; 09:52 BP 150 / 103; Pulse 84; Resp 16; Pulse Ox 98% on R/A; iw 09:48 Body Mass Index 34.46 (99.79 kg, 170.18 cm) nj 09:48 Pain Scale: Adult [facility] ED Course: 09:42 Patient arrived in ED. im 09:52 Deonna Hebert RN is Primary Nurse. iw 10:01 Triage completed. nj1 10:01 Luke Ascencio MD is Attending Physician. rn 10:02 Arm band placed on. nj1 10:48 Patient has correct armband on for positive identification. Provided Education on: pain iw meds. 10:48 No provider procedures requiring assistance completed. Patient did not have IV access iw during this emergency room visit. Administered Medications: 10:15 Drug: Ketorolac IM 30 mg Route: IM; Site: right deltoid; iw 10:30 Follow up: Response: No adverse reaction iw 10:15 Drug: Colcrys PO 1.2 mg Route: PO; iw 11:19 Follow up: Response: No adverse reaction iw Medication: 10:05 VIS not applicable for this client. iw Outcome: 10:36 Discharge ordered by . rn 10:48 Discharged to home ambulatory, with family. iw 10:48 Condition: good 10:48 Discharge instructions given to patient, family, Instructed on discharge instructions, follow up and referral plans. medication usage, Demonstrated understanding of instructions, follow-up care, medications, Prescriptions given X 3. 10:48 Patient left the ED. iw Signatures: Deonna Hebert RN RN Luke Ascencio MD MD rn Jaco, Norma, RN RN nj Melia Woodall im Corrections: (The following items were deleted from the chart) 10:02 10:01 PSHx: Pacemaker in situ; [facility] nj
--- NOTE | 2023-06-05 10:36 | EDPHYS ---
Physician Documentation [facility] Name: Juan Carlos Wilson Age: 72 yrs Sex: Male : 1950 Arrival Date: 06/05/2023 Time: 09:40 Bed 8 Private MD: ED Physician Luke Ascencio HPI: 06/05 10:20 This 72 yrs old Male presents to ER via Ambulatory with complaints of Arm Pain rn - left. 10:20 The patient or guardian complains of pain, that is acute. The complaints affect the rn left elbow. 10:20 Onset: The symptoms/episode began/occurred this morning. Modifying factors: The rn symptoms are alleviated by nothing. the symptoms are aggravated by movement. Severity of symptoms: At their worst the symptoms were moderate, in the emergency department the symptoms are unchanged. The patient has experienced similar episodes in the past. Patient reports pain in left elbow. Denies trauma or injury. Denies fever. Pain with range of motion. Patient reports history of gout and has run out of his medication, states gets gout attacks in same elbow as well as feet. No history of DVT or PE.. Historical: - Allergies: 10:01 No Known Allergies; nj1 - PMHx: 10:01 CAD; High Cholesterol; Hypertension; Myocardial infarction; Gout; nj1 - PSHx: 10:01 Coronary artery bypass graft; Pacemaker; nj1 - Immunization history:: Client reports receiving the 2nd dose of the Covid vaccine. - Social history:: Smoking status: Patient denies any tobacco usage or history of. - Family history:: not pertinent. - Hospitalizations: : No recent hospitalization is reported. ROS: 10:20 Constitutional: Negative for fever, chills, and weight loss, Cardiovascular: Negative rn for chest pain, palpitations, and edema, Respiratory: Negative for shortness of breath, cough, wheezing, and pleuritic chest pain, MS/Extremity: Positive for left elbow pain Exam: 10:20 Constitutional: This is a well developed, well nourished patient who is awake, alert, rn and in no acute distress. MS/ Extremity: Pulses equal, no cyanosis. Neurovascular intact. Painful range of motion left elbow without redness or warmth. No signs of bursitis. No tenderness of forearm or proximal arm. No streaking. No lymphadenopathy. Vital Signs: 09:48 BP 150 / 103; Pulse 91; Resp 18; Temp 98.3(O); Pulse Ox 97% on R/A; Weight 99.79 kg; nj1 Height 5 ft. 7 in. ; Pain 10; 09:52 BP 150 / 103; Pulse 84; Resp 16; Pulse Ox 98% on R/A; iw 09:48 Body Mass Index 34.46 (99.79 kg, 170.18 cm) nj1 09:48 Pain Scale: Adult nj1 MDM: 10:02 Patient medically screened. rn 10:35 Differential diagnosis: gout, arthritis. Data reviewed: vital signs, nurses notes, old rn medical records, and as a result, I will discharge patient. Counseling: I had a detailed discussion with the patient and/or guardian regarding the historical points, exam findings, and any diagnostic results supporting the discharge/admit diagnosis, the need for outpatient follow up, to return to the emergency department if symptoms worsen or persist or if there are any questions or concerns that arise at home. 10:35 Care significantly affected by the following chronic conditions: gout. Special rn discussion: I discussed with the patient/guardian in detail that at this point there is no indication for admission to the hospital. It is understood, however, that if the symptoms persist or worsen the patient needs to return immediately for re-evaluation. Administered Medications: 10:15 Drug: Ketorolac IM 30 mg Route: IM; Site: right deltoid; iw 10:30 Follow up: Response: No adverse reaction iw 10:15 Drug: Colcrys PO 1.2 mg Route: PO; iw 11:19 Follow up: Response: No adverse reaction iw Disposition Summary: 06/05/23 10:36 Discharge Ordered Location: Home rn Problem: an acute exacerbation rn Symptoms: have improved rn Condition: Stable rn Diagnosis - Gout, unspecified rn Followup: rn - With: Private Physician - When: As needed - Reason: Recheck today's complaints, Re-evaluation by your physician Discharge Instructions: - Discharge Summary Sheet rn - Gout rn Forms: - Medication Reconciliation Form rn - Thank You Letter rn - Antibiotic architect internship - Prescription Opioid Use rn - Patient Portal Instructions rn - Leadership Thank You Letter rn Prescriptions: - colchicine (gout) 0.6 mg Oral tablet - take 1 tablet by ORAL route daily; 30 tablet; Refills: 0, Product Selection rn Permitted - Allopurinol 100 mg Oral Tablet - take 1 tablet by ORAL route once daily; 60 tablet; Refills: 0, Product rn Selection Permitted - Tramadol 50 mg Oral Tablet - take 1 tablet by ORAL route every 8 hours as needed; 12 tablet; Refills: 0, rn Product Selection Permitted Signatures: Deonna Hebert RN RN iw Luke Ascencio MD MD rn Jaco, Norma, RN RN nj1 Corrections: (The following items were deleted from the chart) 10:02 10:01 PSHx: Pacemaker in situ; nj1 nj1
[2023-06-05 11:11] VITALS: BP 150/103; TEMP 98.3; O2SAT 98
== END 2023-06-05 10:48 | disposition home or self-care (01) ==
LOC: ER 09:40
DX: M10.9 Gout, unspecified (principal); Z95.0 Presence of cardiac pacemaker
CPT/HCPCS: 96372; 99284

== ENCOUNTER 2023-09-21 12:50 | Inpatient (IN) | payer OTHER ==
--- NOTE | 2023-09-21 13:49 | RAD REPORT ---
EXAM DESCRIPTION: RAD - Chest Single View - 09/21/2023 1:37 pm CLINICAL HISTORY: DYSPNEA Chest pain. COMPARISON: No comparisons FINDINGS: Portable technique limits examination quality. Mild interstitial pulmonary edema. The heart is enlarged in size with a single lead pacer/ defibrilla tor device. No displaced fractures.Sternotomy wires. IMPRESSION: Mild CHF.
[2023-09-21 14:00] LABS: Absolute Lymphocytes (CBC) 0.9 K/uL (0.7-4.9); Hematocrit 43.9 % (39.6-49.0); Lymphocytes % 18.8 % (15.3-44.8); MCV 96.5 fL (80-100); MPV 9.2 fL (7.6-11.3); Platelets 150 thou/uL (152-406); RBC Red Blood Cell Count 4.55 M/uL (4.33-5.43)
[2023-09-21 14:01] LABS: Protime INR 2.15
[2023-09-21] MEDS ORDERED: NA CHLORIDE 0.9% 1,000 ML ONE (14:03)
[2023-09-21 14:17] LABS: Albumin 3.7 g/dL (3.4-5.0); Bilirubin Direct 0.7 mg/dL (0-0.2); Bilirubin Total 1.7 mg/dL (0.2-1.0); Magnesium 2.1 mg/dL (1.6-2.4); Potassium 3.6 mEq/L (3.5-5.1); Protein, Total 7.7 g/dL (6.4-8.2); Troponin High Sensitivity 26.8 pg/mL (<58.9)
[2023-09-21 14:50] LABS: SARS-COV-2 RT PCR NEGATIVE (NEGATIVE)
--- NOTE | 2023-09-21 15:56 | ER ---
Nurse's Notes [facility] Name: Juan Carlos Wilson Age: 72 yrs Sex: Male : 1950 Arrival Date: 09/21/2023 Time: 12:50 Bed 15 Private MD: Diagnosis: Respiratory syncytial virus as the cause of diseases classified elsewhere;Acute bronchitis due to respiratory syncytial virus;Combined systolic (congestive) and diastolic (congestive) heart failure;Dyspnea, unspecified;Essential (primary) hypertension;Obesity, unspecified Presentation: 09/21 13:05 Chief complaint: Patient states: feels like there is wheezing and fluid in his lungs, ko1 gets real short of breath when laying down. This is day 4. Coronavirus screen: At this time, the client does not indicate any symptoms associated with coronavirus-19. Ebola Screen: No symptoms or risks identified at this time. Initial Sepsis Screen: Does the patient meet any 2 criteria? No. Patient's initial sepsis screen is negative. Does the patient have a suspected source of infection? No. Patient's initial sepsis screen is negative. Risk Assessment: Do you want to hurt yourself or someone else? Patient reports no desire to harm self or others. Onset of symptoms is unknown. 13:05 Method Of Arrival: Ambulatory ko1 13:05 Acuity: BLANCA 3 ko1 Triage Assessment: 13:07 General: Appears in no apparent distress. comfortable, Behavior is calm, cooperative, ko1 appropriate for age. Pain: Denies pain. Respiratory: Reports shortness of breath cough that is productive, Onset: The symptoms/episode began/occurred 4 days ago, the patient has moderate shortness of breath. Historical: - Allergies: 13:07 No Known Allergies; ko1 - PMHx: 13:07 CAD; Gout; High Cholesterol; Hypertension; Myocardial infarction; ko1 - PSHx: 13:07 Coronary artery bypass graft; pacemaker; ko1 - Immunization history:: Adult Immunizations unknown. - Social history:: Smoking status: Patient denies any tobacco usage or history of. Screenin:53 [facility] ED Fall Risk Assessment (Adult) History of falling in the last 3 months, cm10 including since admission No falls in past 3 months (0 pts) Confusion or Disorientation No (0 pts) Intoxicated or Sedated No (0 pts) Impaired Gait No (0 pts) Mobility Assist Device Used No (0 pt) Altered Elimination No (0 pt) Score/Fall Risk Level 0 - 2 = Low Risk Oriented to surroundings, Maintained a safe environment, Hourly rounding (assess needs \T\ fall precautionary measures) done. Abuse screen: Denies threats or abuse. Denies injuries from another. Nutritional screening: No deficits noted. Tuberculosis screening: No symptoms or risk factors identified. Assessment: 13:54 General: Appears in no apparent distress. comfortable, Behavior is calm, cooperative. cm10 Neuro: No deficits noted. [place]ver Agitation-Sedation Scale (RASS): 0 - Alert and Calm Level of Consciousness is awake, alert, obeys commands, Oriented to person, place, time, situation. Cardiovascular: Patient's skin is warm and dry. Rhythm is atrial fibrillation. Respiratory: No deficits noted. Reports shortness of breath on exertion Airway is patent Respiratory effort is even, unlabored, Respiratory pattern is regular, symmetrical. GI: No deficits noted. No signs and/or symptoms were reported involving the gastrointestinal system. : No deficits noted. No signs and/or symptoms were reported regarding the genitourinary system. EENT: No deficits noted. No signs and/or symptoms were reported regarding the EENT system. Derm: No deficits noted. No signs and/or symptoms reported regarding the dermatologic system. Skin is intact, Skin is pink, warm \T\ dry. Musculoskeletal: No deficits noted. Range of motion: intact in all extremities. 18:25 Respiratory: tl4 19:35 Reassessment: Attempted to call report. Per nurse, they are not able to take report at [facility] this time and will call back in 5 minutes. 19:46 Reassessment: Attempting to call report again at this time. Phone line rings busy [facility] multiple times. supervisor sample preparation made aware. Vital Signs: 13:05 BP 116 / 67; Pulse 98; Resp 15; Temp 97.3; Pulse Ox 97% ; ko1 14:00 BP 119 / 67; Pulse 84; Resp 18; Pulse Ox 96% on R/A; Pain 0/10; tl4 14:30 BP 129 / 93; Pulse 86; Resp 17; Pulse Ox 95% on R/A; Pain 0/10; tl4 15:00 BP 123 / 76; Pulse 82; Resp 20; Pulse Ox 95% on R/A; tl4 16:00 BP 131 / 84; Pulse 84; Resp 22; Pulse Ox 95% on R/A; tl4 17:00 BP 142 / 93; Pulse 89; Resp 21; Pulse Ox 96% on R/A; tl4 18:00 BP 132 / 82; Pulse 88; Resp 23; Pulse Ox 98% on R/A; tl4 19:06 BP 116 / 77; Pulse 95; Resp 20; Pulse Ox 96% on R/A; tl4 14:00 Pain Scale: Adult tl4 14:30 Pain Scale: Adult tl4 ED Course: 12:53 Patient arrived in ED. mg5 13:07 Triage completed. ko1 13:07 Arm band placed on right wrist. Patient placed in waiting room, Patient notified of ko1 wait time. 13:12 Jarrett Pickett MD is Attending Physician. luna 13:35 Marlen Avalos, ALEAH is Primary Nurse. cm10 13:39 XRAY Chest (1 view) In Process Unspecified. EDMS 13:40 Initial lab(s) drawn, by me, sent to lab. First set of blood cultures drawn by me. cm10 13:53 Basic Metabolic Panel Sent. cm10 13:53 CBC with Diff Sent. cm10 13:53 LFT's Sent. cm10 13:53 Magnesium Sent. cm10 13:53 NT PRO-BNP Sent. cm10 13:53 PT-INR Sent. cm10 13:53 Troponin HS Sent. cm10 13:53 COVID-19/FLU A+B/RSV Sent. cm10 13:53 Lipase Sent. cm10 13:54 Patient has correct armband on for positive identification. Placed in gown. Bed in low cm10 position. Call light in reach. Side rails up X2. Provided Education on: ER process and procedures. . Client placed on continuous cardiac and pulse oximetry monitoring. NIBP monitoring applied. 13:54 Inserted saline lock: 20 gauge in right forearm, using aseptic technique. Blood cm10 collected. 15:54 Jennifer Aragon MD is Hospitalizing Provider. luna 16:45 initiated transfer to [facility],pt declined due to no capacity at this time,per ALLAN Robison. 18:16 Attempt to call report. Cherie BULLARD will call back. Room is not clean. tl4 18:25 No provider procedures requiring assistance completed. tl4 18:27 Attempt to call report. Per [facility]ola [facility]ger they will not take report due to room not being tl4 clean. 19:01 Elias Cruz is Primary Nurse. tl4 20:06 Patient admitted, IV remains in place. cm10 Administered Medications: 15:46 Discontinued: ns 0.9% 1000 ml IV at 75 ml/hr continuous luna 14:19 Drug: NS 0.9% IV 1000 ml IV at 75 ml/hr continuous Route: IV; Rate: 75 ml/hr; Site: tl4 right antecubital; 16:54 Follow up: Response: No adverse reaction; IV Status: Order to discontinue infusion tl4 17:43 Drug: Rocephin IV 1 grams IV at per protocol once; Given slow IV push per pharmacy tl4 instructions Route: IV; Rate: per protocol; Site: right forearm; 18:08 Follow up: Response: No adverse reaction; IV Status: Completed infusion; IV Intake: [id number] 17:44 Drug: Furosemide IVP 40 mg IVP once; give over 2 minutes Route: IVP; Site: right tl4 forearm; 18:08 Follow up: Response: No adverse reaction cm10 17:44 Drug: MethylPrednisoLONE IVP 125 mg IVP once Route: IVP; Site: right forearm; tl4 18:08 Follow up: Response: No adverse reaction cm10 17:44 Drug: Levalbuterol Inhalation 2.5 mg Inhalation once Route: Inhalation; tl4 17:44 Drug: Ipratropium Inhalation Aerosol 0.5 mg Inhalation once Route: Inhalation; tl4 17:44 Drug: AZITHromycin PO 500 mg PO once Route: PO; tl4 18:07 Follow up: Response: No adverse reaction cm10 Medication: 13:53 VIS not applicable for this client. cm10 Intake: 18:08 IV: 50ml; Total: 50ml. cm10 Output: 17:45 Urine: 475ml (Voided); Total: 475ml. cm10 18:11 Urine: 450ml (Voided); Total: 925ml. cm10 19:37 Urine: 775ml (Voided); Total: 1700ml. cm10 Outcome: 15:56 Decision to Hospitalize by Provider. luna 20:05 Admitted to Med/surg accompanied by nurse, via wheelchair, room 211, Report called to cm10 bedside report will be given. 20:05 Condition: good 20:05 Instructed on the need for admit, 20:06 Patient left the ED. cm10 Signatures: Dispatcher [employer] EDMS Bethany Ortiz Corey, MD MD cha Oliver, Kathy, RN RN dima1 Marlen Avalos RN RN cm10 Colleen Luevano5 Elias Cruz 4
--- NOTE | 2023-09-21 15:56 | EDPHYS ---
Physician Documentation [facility] Name: Juan Carlos Wilson Age: 72 yrs Sex: Male : 1950 Arrival Date: 09/21/2023 Time: 12:50 Bed 15 Private MD: ED Physician Jarrett Pickett HPI: 09/21 15:48 This 72 yrs old Male presents to ER via Ambulatory with complaints of luna Breathing Difficulty. Historical: - Allergies: 13:07 No Known Allergies; ko1 - PMHx: 13:07 CAD; Gout; High Cholesterol; Hypertension; Myocardial infarction; ko1 - PSHx: 13:07 Coronary artery bypass graft; pacemaker; ko1 - Immunization history:: Adult Immunizations unknown. - Social history:: Smoking status: Patient denies any tobacco usage or history of. ROS: 15:49 Constitutional: Negative for fever, chills, and weight loss, Eyes: Negative for injury, luna pain, redness, and discharge, ENT: Negative for injury, pain, and discharge, Neck: Negative for injury, pain, and swelling, Abdomen/GI: Negative for abdominal pain, nausea, vomiting, diarrhea, and constipation, Back: Negative for injury and pain, : Negative for injury, bleeding, discharge, and swelling, MS/Extremity: Negative for injury and deformity, Skin: Negative for injury, rash, and discoloration, Neuro: Negative for headache, weakness, numbness, tingling, and seizure, Psych: Negative for depression, anxiety, suicide ideation, homicidal ideation, and hallucinations, Allergy/Immunology: Negative for hives, rash, and allergies, Endocrine: Negative for neck swelling, polydipsia, polyuria, polyphagia, and marked weight changes, Hematologic/Lymphatic: Negative for swollen nodes, abnormal bleeding, and unusual bruising, 15:49 Cardiovascular: Positive for orthopnea, palpitations, 15:49 Respiratory: Positive for cough, orthopnea, shortness of breath, wheezing, inspiratory, expiratory, Exam: 15:50 Constitutional: This is a well developed, well nourished patient who is awake, alert, luna and in no acute distress. Head/Face: Normocephalic, atraumatic. Eyes: Pupils equal round and reactive to light, extra-ocular motions intact. Lids and lashes normal. Conjunctiva and sclera are non-icteric and not injected. Cornea within normal limits. Periorbital areas with no swelling, redness, or edema. ENT: Nares patent. No nasal discharge, no septal abnormalities noted. Tympanic membranes are normal and external auditory canals are clear. Oropharynx with no redness, swelling, or masses, exudates, or evidence of obstruction, uvula midline. Mucous membranes moist. Neck: Trachea midline, no thyromegaly or masses palpated, and no cervical lymphadenopathy. Supple, full range of motion without nuchal rigidity, or vertebral point tenderness. No Meningismus. Chest/axilla: Normal chest wall appearance and motion. Nontender with no deformity. No lesions are appreciated. Abdomen/GI: Soft, non-tender, with normal bowel sounds. No distension or tympany. No guarding or rebound. No evidence of tenderness throughout. Back: No spinal tenderness. No costovertebral tenderness. Full range of motion. Male : Normal genitalia with no discharge or lesions. Skin: Warm, dry with normal turgor. Normal color with no rashes, no lesions, and no evidence of cellulitis. MS/ Extremity: Pulses equal, no cyanosis. Neurovascular intact. Full, normal range of motion. Neuro: Awake and alert, GCS 15, oriented to person, place, time, and situation. Cranial nerves II-XII grossly intact. Motor strength 5/5 in all extremities. Sensory grossly intact. Cerebellar exam normal. Normal gait. Psych: Awake, alert, with orientation to person, place and time. Behavior, mood, and affect are within normal limits. 15:50 Cardiovascular: Rate: normal, Rhythm: irregularly irregular, Pulses: Pulses are 4+ in bilateral radial, brachial, femoral, popliteal, posterior tibial and and dorsalis pedis arteries.. Heart sounds: normal, Edema: is not appreciated, JVD: is noted bilaterally, to 3 cm, 15:50 ECG was reviewed by the Attending Physician. Vital Signs: 13:05 BP 116 / 67; Pulse 98; Resp 15; Temp 97.3; Pulse Ox 97% ; ko1 14:00 BP 119 / 67; Pulse 84; Resp 18; Pulse Ox 96% on R/A; Pain 0/10; tl4 14:30 BP 129 / 93; Pulse 86; Resp 17; Pulse Ox 95% on R/A; Pain 0/10; tl4 15:00 BP 123 / 76; Pulse 82; Resp 20; Pulse Ox 95% on R/A; tl4 16:00 BP 131 / 84; Pulse 84; Resp 22; Pulse Ox 95% on R/A; tl4 17:00 BP 142 / 93; Pulse 89; Resp 21; Pulse Ox 96% on R/A; tl4 18:00 BP 132 / 82; Pulse 88; Resp 23; Pulse Ox 98% on R/A; tl4 19:06 BP 116 / 77; Pulse 95; Resp 20; Pulse Ox 96% on R/A; tl4 14:00 Pain Scale: Adult tl4 14:30 Pain Scale: Adult tl4 MDM: 13:12 Patient medically screened. luna 15:52 Differential diagnosis: Anemia Anxiety Reaction asthma, CHF exacerbation, Chronic luna Obstructive Pulmonary Disease pneumonia, Pneumothorax pulmonary edema, reactive airway disease, Sepsis Unstable Angina. Antibiotic administration: Rocephin and Zithromax given. Immunization status: Pneumococcal vaccine: within last 5 years. Influenza vaccine: within last 5 years. Data reviewed: vital signs, nurses notes, lab test result(s), EKG, radiologic studies, plain films. I considered the following discharge prescriptions or medication management in the emergency department Medications were administered in the Emergency Department. See MAR. Independent interpretation of the following test(s) in the Emergency Department EKG: See my EKG interpretation above. Test considered but Not performed: CT: no ct chest. Historians other than the Patient: Family Member: daughter. Care significantly affected by the following chronic conditions: Hypertension, Congestive Heart Failure, Obesity, mi, cad, high chlesterol. 15:54 Consideration of Admission/Observation Patient was admitted/placed on observation. [facility] Escalation of care including admission/observation considered. 09/21 13:14 Order name: Basic Metabolic Panel; Complete Time: 15:45 [facility] 09/21 13:14 Order name: CBC with Diff; Complete Time: 15:45 [facility] 09/21 13:14 Order name: LFT's; Complete Time: 15:45 [facility] 09/21 13:14 Order name: Magnesium; Complete Time: 15:45 [facility] 09/21 13:14 Order name: NT PRO-BNP; Complete Time: 15:45 [facility] 09/21 13:14 Order name: PT-INR; Complete Time: 15:45 [facility] 09/21 13:14 Order name: Troponin HS; Complete Time: 15:45 [facility] 09/21 13:14 Order name: Urinalysis w/ reflexes [facility] 09/21 13:14 Order name: Lipase; Complete Time: 15:45 [facility] 09/21 13:14 Order name: COVID-19/FLU A+B/RSV; Complete Time: 15:45 [facility] 09/21 15:48 Order name: Blood Culture Adult (2) [facility] 09/21 15:48 Order name: Lactate w/ 2H reflex if indic. [facility] 09/21 17:14 Order name: D-Dimer EDMS 09/21 17:14 Order name: Basic Metabolic Panel EDMS 09/21 17:14 Order name: Basic Metabolic Panel EDMS 09/21 17:14 Order name: Basic Metabolic Panel EDMS 09/21 17:14 Order name: Basic Metabolic Panel EDMS 09/21 17:14 Order name: CBC with Automated Diff EDMS 09/21 17:14 Order name: CBC with Automated Diff EDMS 09/21 17:14 Order name: CBC with Automated Diff EDMS 09/21 17:14 Order name: CBC with Automated Diff EDMS 09/21 17:14 Order name: Lipid Profile EDMS 09/21 17:14 Order name: Lipid Profile EDMS 09/21 17:14 Order name: Magnesium EDMS 09/21 17:14 Order name: Magnesium EDMS 09/21 17:14 Order name: Magnesium EDMS 09/21 17:14 Order name: Magnesium EDMS 09/21 17:14 Order name: Phosphorus EDMS 09/21 17:14 Order name: Phosphorus EDMS 09/21 17:14 Order name: Phosphorus EDMS 09/21 17:14 Order name: Phosphorus EDMS 09/21 13:14 Order name: XRAY Chest (1 view); Complete Time: 15:45 [facility] 09/21 16:55 Order name: Echo with Doppler EDMS 09/21 13:14 Order name: EKG; Complete Time: 13:14 [facility] 09/21 13:14 Order name: Cardiac monitoring; Complete Time: 13:52 [facility] 09/21 13:14 Order name: EKG - Nurse/Tech; Complete Time: 13:52 [facility] 09/21 13:14 Order name: IV Saline Lock; Complete Time: 13:52 [facility] 09/21 13:14 Order name: Labs collected and sent; Complete Time: 13:53 [facility] 09/21 13:14 Order name: O2 Per Protocol; Complete Time: 13:53 luna 09/21 13:14 Order name: O2 Sat Monitoring; Complete Time: 13:53 luna EC:50 Rate is 90 beats/min. Rhythm is irregularly irregular. QRS [place] is Normal. MS interval luna is normal. QRS interval is normal. QT interval is normal. No Q waves. T waves are Normal. No ST changes noted. Clinical impression: Atrial Fibrillation and No evidence of ischemia. Interpreted by me. Reviewed by me. Administered Medications: 15:46 Discontinued: ns 0.9% 1000 ml IV at 75 ml/hr continuous luna 14:19 Drug: NS 0.9% IV 1000 ml IV at 75 ml/hr continuous Route: IV; Rate: 75 ml/hr; Site: tl4 right antecubital; 16:54 Follow up: Response: No adverse reaction; IV Status: Order to discontinue infusion tl4 17:43 Drug: Rocephin IV 1 grams IV at per protocol once; Given slow IV push per pharmacy tl4 instructions Route: IV; Rate: per protocol; Site: right forearm; 18:08 Follow up: Response: No adverse reaction; IV Status: Completed infusion; IV Intake: [id number] 17:44 Drug: Furosemide IVP 40 mg IVP once; give over 2 minutes Route: IVP; Site: right tl4 forearm; 18:08 Follow up: Response: No adverse reaction cm10 17:44 Drug: MethylPrednisoLONE IVP 125 mg IVP once Route: IVP; Site: right forearm; tl4 18:08 Follow up: Response: No adverse reaction cm10 17:44 Drug: Levalbuterol Inhalation 2.5 mg Inhalation once Route: Inhalation; tl4 17:44 Drug: Ipratropium Inhalation Aerosol 0.5 mg Inhalation once Route: Inhalation; tl4 17:44 Drug: AZITHromycin PO 500 mg PO once Route: PO; tl4 18:07 Follow up: Response: No adverse reaction cm10 Disposition Summary: 09/21/23 15:56 Hospitalization Ordered Notes: Hospitalization Status: Observation luna Provider: Jennifer Aragon cha Location: Telemetry/MedSurg (observation) luna Condition: Fair luna Problem: new luna Symptoms: have improved luna Bed/Room Type: Standard luna Room Assignment: 211(09/21/23 17:34) bd Diagnosis - Respiratory syncytial virus as the cause of diseases classified elsewhere luna - Acute bronchitis due to respiratory syncytial virus luna - Combined systolic (congestive) and diastolic (congestive) heart failure luna - Dyspnea, unspecified luna - Essential (primary) hypertension luna - Obesity, unspecified luna Forms: - Medication Reconciliation Form luna - SBAR form luna - Leadership Thank You Letter luna Signatures: Dispatcher [employer] Bethany Ballard Corey, MD MD cha Oliver, Kathy, RN RN ko1 Elias Cruz4 Marlen Avalos RN cm10 Corrections: (The following items were deleted from the chart) 17:34 15:56 luna bd
[2023-09-21] MEDS ORDERED: ALBUTEROL 2.5 MG/3 ML NEB SOL NEB PRN (17:07)
[2023-09-21] MEDS ORDERED: ACETAMINOPHEN 500 MG TAB PO PRN (17:07)
[2023-09-21] MEDS ORDERED: CEFTRIAXONE 1000 MG/VIAL ONE (17:12)
[2023-09-21] MEDS ORDERED: METHYLPREDNISOLONE 125 MG INJ ONE (17:13)
[2023-09-21] MEDS ORDERED: LEVALBUTEROL 1.25 MG/3 ML NEB ONE (17:13)
[2023-09-21] MEDS ORDERED: AZITHROMYCIN 250 MG TAB ONE (17:13)
[2023-09-21] MEDS ORDERED: NA CHLORIDE 0.9% 50 ML ONE (17:14)
--- NOTE | 2023-09-21 17:18 | P.HP ---
Certification for Inpatient With expected LOS: <2 Midnights Patient will require the following post-hospital care: None Practitioner: I am a practitioner with admitting privileges, knowledge of patient current condition, hospital course, and medical plan of care. Services: Services provided to patient in accordance with Admission requirements found in Title 42 Section 412.3 of the Code of Federal Regulations <Ynes Cruz - Last Filed: 09/21/23 18:46> Patient History Date of Service: 09/21/23 Reason for admission: chfm Dyspnea History of Present Illness: This 72 yrs old Male with primary history of CAD; Gout; High Cholesterol; Hypertension; Myocardial infarction; presents to ER via Ambulatory with complaints of Breathing Difficulty. Symptoms started almost 1 week ago, shortness of breath associated with increased coughing . Patient denies fever chills, patient denies chest pain abdominal pain, nausea or vomiting. No aggravating or relieving factors, severity is 3 out of 10, patient's son and [id number] giving history at bedside, ED course Vital Signs: 13:05 BP 116 / 67; Pulse 98; Resp 15; Temp 97.3; Pulse Ox 97. EKG A-fib at the rate 102/min Note initial labs significant for elevated BNP 2084, CBC and BMP reassuring. Chest x-ray mild pulmonary edema. Patient tested positive for RSV. Admitting the patient the diagnosis of acute bronchitis due to respiratory syncytial virus, combined systolic and diastolic congestive heart failure, dyspnea, and hypertension. Home medications list reviewed: Yes - Past Medical/Surgical History -: CAD -: GOUT -: HLD -: HTN -: ME -: CABG 10 YEARS AGO -: PACEMAKER <Ynes Cruz - Last Filed: 09/21/23 18:46> Date of Service: 09/21/23 <Jennifer Aragon - Last Filed: 09/21/23 18:56> Allergies No Known Allergies Allergy (Unverified 03/29/17 06:51) Review of Systems 10-point ROS is otherwise unremarkable <Ynes Cruz - Last Filed: 09/21/23 18:46> Physical Examination - Physical Exam General: Alert, Oriented x3 HEENT: Atraumatic, Normocephalic Neck: Supple, 2+ carotid pulse no bruit Respiratory: Clear to auscultation bilaterally, Normal air movement Cardiovascular: No edema, Normal pulses, Irregular heart rate/rhythm (AFIB) Capillary refill: <2 Seconds Gastrointestinal: Normal bowel sounds, Soft and benign Musculoskeletal: No clubbing, No swelling Integumentary: No rashes, No breakdown Neurological: Normal speech, Normal tone, Normal affect - Studies Laboratory Data (last 24 hrs) 09/21/23 09/21/23 09/21/23 13:40 13:40 13:40 WBC 4.80 Hgb 14.6 Hct 43.9 Plt Count 150 L PT 23.1 H INR 2.15 Sodium 142 Potassium 3.6 BUN 17 Creatinine 1.21 Glucose 118 H Magnesium 2.1 Total Bilirubin 1.7 H AST 25 ALT 32 Alkaline Phosphatase 45 Lipase 38 <Ynes Cruz - Last Filed: 09/21/23 18:46> - Studies Laboratory Data (last 24 hrs) 09/21/23 09/21/23 09/21/23 13:40 13:40 13:40 WBC 4.80 Hgb 14.6 Hct 43.9 Plt Count 150 L PT 23.1 H INR 2.15 Sodium 142 Potassium 3.6 BUN 17 Creatinine 1.21 Glucose 118 H Magnesium 2.1 Total Bilirubin 1.7 H AST 25 ALT 32 Alkaline Phosphatase 45 Lipase 38 <Jennifer Aragon - Last Filed: 09/21/23 18:56> Assessment and Plan - Problems (Diagnosis) (1) RSV (acute bronchiolitis due to respiratory syncytial virus) Current Visit: Yes Status: Acute (2) Combined systolic and diastolic heart failure Current Visit: Yes Status: Acute (3) Dyspnea Current Visit: Yes Status: Acute (4) HTN (hypertension) Current Visit: Yes Status: Acute (5) HLD (hyperlipidemia) Current Visit: Yes Status: Acute (6) CAD (coronary artery disease) Current Visit: Yes Status: Acute (7) History of coronary artery bypass graft Current Visit: Yes Status: Acute - Plan * Patient came in with complaints of breathing difficulty started for almost 1 week, SOB with increased coughing, no fever no leukocytosis * Patient positive for RSV,Vital Signs: BP 116 / 67; Pulse 98; Resp 15; Temp 97.3; Pulse Ox 97. * Acute on Chronic Systolic/Diastolic Congestive Heart Failure * presents with symptoms of shortness of breath, dyspnea on exertion, no lower extremity edema, and orthopnea. * On exam, mildly short of breath, not in distress bilateral air entry is good * - Consult Cardiology -Dr. Carey * - Ordered transthoracic echocardiogram * - Diuresis with Lasix for today * - Hold home Furosemide/Torsemide/Bumetanide * -Reconcile home medication and resume as appropriate * - Daily weights * - Strict I/O * - Cardiac diet, 2 L fluid restriction, 2 g Na restriction * CODE STATUS full code * Diet cardiac * DVT prophylaxis Lovenox Discharge Plan: Home Plan to discharge in: 24 Hours - Advance Directives Does patient have a Living Will: No Does patient have a Durable POA for Healthcare: No - Code Status/Comfort Care Code Status Assessed: No Code Status: Full Code Physician Review: Patient Assessed, Agree with Above Assessment and Plan Critical Care: No Time Spent Managing Pts Care (In Minutes): 55 (MINUTES) <Ynes Cruz - Last Filed: 09/21/23 18:46> - Plan Pt seen and examined. I agree with the note by the DISHWASHER PREPARER. Pt is a 72 yo male with past medical history of CAD s/p CABG, gout, HLD, and Htn who presents with SOB. His family memebers brought him to the ER for evaluation. On admission, lab studies show BNP 2084, troponin 26.8, Cr 1.21, Hgb 14.6, RSV positive. At bedside, pt is in NAD. A/P: Hx of CHF exacerbation: Will continue lasix 40mg iv BID, strict I/O and daily weight. BNP is 2084. Will consult Cardiology and follow up Echo. RSV: Will continue prn oxygen and duoneb. Will add solumedrol. Htn: Continue home med Hx of CAD s/p CABG. Will continue home med. DVT ppx: SCD <Jennifer Aragon - Last Filed: 09/21/23 18:56>
[2023-09-21] MEDS: IPRATROPIUM BROM 0.5MG/2.5ML NEB SCH ×2 (19:00→23:28)
[2023-09-21] MEDS: METOPROLOL TAR 50 MG TAB PO SCH (22:00)
[2023-09-22] MEDS ORDERED: METHYLPREDNISOLONE 40 MG INJ IV SCH (01:00)
[2023-09-22 02:56] LABS: Specific Gravity 1.018 (1.005-1.030); Urine Bilirubin NEGATIVE (Negative); Urine Blood Negative (Negative); Urine Clarity Clear (Clear); Urine Color Light-Yellow (Yellow); Urine Glucose 4+ (Over) (Negative); Urine Protein NEGATIVE (Negative); Urine Urobilinogen 1+ (Normal); Urine pH 5.5 (5.0-7.0)
[2023-09-22] MEDS: IPRATROPIUM BROM 0.5MG/2.5ML NEB SCH ×4 (03:22→19:40)
[2023-09-22 04:17] LABS: Absolute Lymphocytes (CBC) 0.4 K/uL (0.7-4.9); Hematocrit 41.4 % (39.6-49.0); Lymphocytes % 9.9 % (15.3-44.8); MCV 95.7 fL (80-100); MPV 9.5 fL (7.6-11.3); Platelets 150 thou/uL (152-406); RBC Red Blood Cell Count 4.32 M/uL (4.33-5.43)
[2023-09-22 04:40] LABS: Magnesium 2.2 mg/dL (1.6-2.4); Phosphorus 1.9 mg/dL (2.5-4.9); Potassium 3.4 mEq/L (3.5-5.1)
[2023-09-22 06:32] LABS: Blood Morphology Comment NOT SEEN (NOT SEEN); Platelet Estimate DECR; Platelets, Giant PRESENT
[2023-09-22] MEDS ORDERED: POTASSIUM CL SA 10 MEQ TAB PO ONE (08:00)
[2023-09-22] MEDS: INSULIN GLARGINE 100 UNIT/ML SQ SCH (09:00)
[2023-09-22] MEDS: METHYLPREDNISOLONE 40 MG INJ IV SCH ×2 (09:51→20:53)
[2023-09-22] MEDS: FUROSEMIDE 40 MG/4 ML VIAL IV SCH ×2 (09:51→16:21)
[2023-09-22] MEDS: ENOXAPARIN 40 MG/0.4 ML SQ SCH (09:51)
[2023-09-22] MEDS: METOPROLOL TAR 50 MG TAB PO SCH ×2 (09:52→20:53)
--- NOTE | 2023-09-22 10:24 | P.PN ---
Subjective Date of Service: 09/22/23 Chief Complaint: chfm Dyspnea Subjective: No new changes, Improving, Doing well Alert oriented x 3 NAD Breathing normally on room air Denies any pain or discomfort Vital signs stable <Ynes Cruz - Last Filed: 09/22/23 10:20> Date of Service: 09/23/23 <Jennifer Aragon - Last Filed: 09/23/23 15:19> Review of Systems 10-point ROS is otherwise unremarkable <Ynes Cruz - Last Filed: 09/22/23 10:20> Physical Examination - Vital Signs Temperature: 97.3 F Blood Pressure: 128/72 Pulse: 80 Respirations: 18 Pulse Ox (%): 93 - Physical Exam General: Alert, Oriented x3 HEENT: Atraumatic, PERRLA Neck: Supple, 2+ carotid pulse no bruit Respiratory: Clear to auscultation bilaterally, Normal air movement Cardiovascular: No edema, Normal pulses, Normal S1 S2, Irregular heart rate/rhythm Capillary refill: <2 Seconds Gastrointestinal: Normal bowel sounds, Soft and benign, Non-distended Musculoskeletal: No clubbing, No contractures Integumentary: No rashes Neurological: Normal gait, Normal speech, Normal tone, Normal affect - Studies Laboratory Data (last 24 hrs) 09/21/23 09/21/23 09/21/23 13:40 13:40 13:40 WBC 4.80 Hgb 14.6 Hct 43.9 Plt Count 150 L PT 23.1 H INR 2.15 Sodium 142 Potassium 3.6 BUN 17 Creatinine 1.21 Glucose 118 H Magnesium 2.1 Total Bilirubin 1.7 H AST 25 ALT 32 Alkaline Phosphatase 45 Lipase 38 <Ynes Cruz - Last Filed: 09/22/23 10:20> Assessment And Plan - Current Problems (Diagnosis) (1) RSV (acute bronchiolitis due to respiratory syncytial virus) Current Visit: Yes Status: Acute (2) Combined systolic and diastolic heart failure Current Visit: Yes Status: Acute (3) Dyspnea Current Visit: Yes Status: Acute (4) HTN (hypertension) Current Visit: Yes Status: Acute (5) HLD (hyperlipidemia) Current Visit: Yes Status: Acute (6) CAD (coronary artery disease) Current Visit: Yes Status: Acute (7) History of coronary artery bypass graft Current Visit: Yes Status: Acute - Plan * Patient came in with complaints of breathing difficulty started for almost 1 week, SOB with increased coughing, no fever no leukocytosis * Patient positive for RSV * Acute on Chronic Systolic/Diastolic Congestive Heart Failure * presents with symptoms of shortness of breath, dyspnea on exertion, no lower extremity edema, and orthopnea. * On exam, mildly short of breath, not in distress bilateral air entry is good * - Consult Cardiology -Dr. Carey * - Ordered transthoracic echocardiogram * - Diuresis with Lasix for today * - Hold home Furosemide * -Reconcile home medication and resume as appropriate * - Daily weights * - Strict I/O * - Cardiac diet, 2 L fluid restriction, 2 g Na restriction * CODE STATUS full code * Diet cardiac * DVT prophylaxis Lovenox Discharge Plan: Home Plan to discharge in: 24 Hours - Code Status/Comfort Care Code Status Assessed: Yes Code Status: Full Code (Code) Physician Review: Patient Assessed, Agree with Above Assessment and Plan Critical Care: No Time Spent Managing PTS Care (In Minutes): 35 (Minutes) <Ynes Cruz - Last Filed: 09/22/23 10:20> - Plan Pt seen and examined. I agree with the note by the DIRECTOR NEW PRODUCT. Will continue steroid and diuretic. Pt is feeling better. <Jennifer Aragon - Last Filed: 09/23/23 15:19>
[2023-09-22] MEDS ORDERED: PNEUMOCOCCAL VACCINE 0.5 ML IMVAC ONE (11:00)
[2023-09-22] MEDS ORDERED: INFLUENZA VACCINE (for 6+ mo) 0.5 ML DOSE IMVAC ONE (11:00)
--- NOTE | 2023-09-22 11:49 | EKG ---
Test Date: 2023-09-21 Test Time: 13:33:40 Pipe Welder: PEG MEASUREMENT RESULTS: Intervals: Rate: 90 UT: QRSD: 102 QT: 384 QTc: 469 [place]: P: UT: QRS: 107 T: 90 INTERPRETIVE STATEMENTS: Atrial fibrillation Rightward axis Nonspecific ST abnormality Abnormal ECG Compared to ECG 06/08/2009 10:02:12 Right-axis deviation now present ST (T wave) deviation now present Sinus rhythm no longer present Electronically Signed On 09-22-23 11:46:51 LEAD MASSAGE THERAPIST by Antolin Medel
--- NOTE | 2023-09-22 12:01 | ECHO ---
HEIGHT: 5 ft 6 in WEIGHT: 219 lb 4.8 oz DATE OF STUDY: 09/22/[address]: Jarrett Pickett MD 2-DIMENSIONAL: YES M.MODE: YES DOPPLER: YES COLOR FLOW: YES TDS: PORTABLE: YES DEFINITY: BUBBLE STUDY: DIAGNOSIS: DIFFICULTY BREATHING CARDIAC HISTORY: CATHERIZATION: YES SURGERY: YES PROSTHETIC VALVE: NO PACEMAKER: YES MEASUREMENTS (cm) DIASTOLIC (NORMALS) SYSTOLIC (NORMALS) IVSd 1.2 (0.6-1.2) LA Diam 4.2 (1.9-4.0) LVEF 50-55% LVIDd 6.1 (3.5-5.7) LVIDs 5.1 (2.0-3.5) %FS 17% LVPWd 1.4 (0.6-1.2) Ao Diam 3.2 (2.0-3.7) 2 DIMENSIONAL ASSESSMENT: RIGHT ATRIUM: NORMAL LEFT ATRIUM: ENLARGED RIGHT VENTRICLE: PACEMAKER LEFT VENTRICLE: NORMAL TRICUSPID VALVE: MILD TRICUSPID REGURGITATION MITRAL VALVE: MILD MITRAL REGURGITATION PULMONIC VALVE: NORMAL AORTIC VALVE: MILD AORTIC INSUFFICIENCY PERICARDIAL EFFUSION: NONE AORTIC ROOT: NORMAL LEFT VENTRICULAR WALL MOTION: MILD GLOBAL HYPOKINESIS DOPPLER/COLOR FLOW: SEE BELOW COMMENTS: 1. LOW NORMAL LEFT VENTRICULAR EJECTION FRACTION 50% WITH MILD GLOBAL HYPOKINESIS 2. DIASTOLIC DYSFUNCTION 3. LEFT ATRIAL ENLARGEMENT 4. MILD MITRAL REGURGITATION, TRICUSPID REGURGITATION, AORTIC INSUFFICIENCY 5. RIGHT VENTRICULAR SYSTOLIC PRESSURE IS 45-50 mmHg, MODERATELY ELEVATED TECHNOLOGIST: RAMYA KNIGHT
[2023-09-22] MEDS ORDERED: ALBUTEROL 2.5 MG/3 ML NEB SOL NEB PRN (16:54)
[2023-09-22 19:25] VITALS: BMI 35.3
[2023-09-23] MEDS: IPRATROPIUM BROM 0.5MG/2.5ML NEB SCH ×3 (01:46→13:00)
[2023-09-23 04:00] LABS: Absolute Lymphocytes (CBC) 0.8 K/uL (0.7-4.9); Hematocrit 44.3 % (39.6-49.0); Lymphocytes % 5.4 % (15.3-44.8); MCV 96.2 fL (80-100); MPV 9.2 fL (7.6-11.3); Platelets 165 thou/uL (152-406)
[2023-09-23 04:04] LABS: Magnesium 2.4 mg/dL (1.6-2.4); Phosphorus 3.6 mg/dL (2.5-4.9); Potassium 4.1 mEq/L (3.5-5.1)
[2023-09-23 04:47] LABS: Blood Morphology Comment NOT SEEN (NOT SEEN); Platelet Estimate ADEQ
[2023-09-23] MEDS: INSULIN GLARGINE 100 UNIT/ML SQ SCH (08:58)
[2023-09-23] MEDS: METHYLPREDNISOLONE 40 MG INJ IV SCH ×2 (08:58→20:04)
[2023-09-23] MEDS: FUROSEMIDE 40 MG/4 ML VIAL IV SCH ×2 (08:58→16:30)
[2023-09-23] MEDS: ENOXAPARIN 40 MG/0.4 ML SQ SCH (08:58)
[2023-09-23] MEDS: METOPROLOL TAR 50 MG TAB PO SCH ×2 (08:58→20:04)
[2023-09-23] MEDS ORDERED: BENZONATATE 100 MG CAP PO PRN (09:29)
--- NOTE | 2023-09-23 09:35 | P.PN ---
Subjective Date of Service: 09/23/23 Chief Complaint: chfm Dyspnea Subjective: No new changes, Improving Alert oriented x 3 NAD Breathing normally on room air c/o increased cough Vital signs stable <Ynes Cruz - Last Filed: 09/23/23 09:30> Date of Service: 09/26/23 <Jennifer Aragon - Last Filed: 09/26/23 17:17> Review of Systems 10-point ROS is otherwise unremarkable <Ynes Cruz - Last Filed: 09/23/23 09:30> Physical Examination - Vital Signs Temperature: 97.1 F Blood Pressure: 139/81 Pulse: 85 Respirations: 14 Pulse Ox (%): 94 - Physical Exam General: Alert, Oriented x3 HEENT: Atraumatic, Normocephalic Neck: Supple, 2+ carotid pulse no bruit Respiratory: Clear to auscultation bilaterally, Normal air movement, Other (increased cough) Cardiovascular: No edema, Normal pulses, Normal S1 S2 Capillary refill: <2 Seconds Gastrointestinal: Normal bowel sounds, Soft and benign Musculoskeletal: No clubbing, No swelling Neurological: Normal gait, Normal speech, Normal tone <Ynes Cruz - Last Filed: 09/23/23 09:30> Assessment And Plan - Current Problems (Diagnosis) (1) RSV (acute bronchiolitis due to respiratory syncytial virus) Status: Acute (2) Combined systolic and diastolic heart failure Status: Acute (3) Dyspnea Status: Acute (4) HTN (hypertension) Status: Acute (5) HLD (hyperlipidemia) Status: Acute (6) CAD (coronary artery disease) Status: Acute (7) History of coronary artery bypass graft Status: Acute (8) Leucocytosis Status: Acute - Plan * Patient came in with complaints of breathing difficulty started for almost 1 week, SOB with increased coughing, no fever no leukocytosis * Patient positive for RSV, increasing cough today, started tessonlon pearls prn cough. * Acute on Chronic Systolic/Diastolic Congestive Heart Failure * presents with symptoms of shortness of breath, dyspnea on exertion, no lower extremity edema, and orthopnea. * On exam, mildly short of breath, not in distress bilateral air entry is good * Consult Cardiology -Dr. Carey * Ordered transthoracic echocardiogram * Diuresis with Lasix for today * Hold home Furosemide * Reconcile home medication and resume as appropriate * Daily weights * Strict I/O * Cardiac diet, 2 L fluid restriction, 2 g Na restriction * Leucocytosis WBC 14.3 likely due to steroids, patient is afebrile. Will continue to monitor * CODE STATUS full code * Diet cardiac * DVT prophylaxis Lovenox Discharge Plan: Home Plan to discharge in: 24 Hours - Code Status/Comfort Care Code Status Assessed: Yes (full code) Code Status: Full Code Physician Review: Patient Assessed, Agree with Above Assessment and Plan Critical Care: No Time Spent Managing PTS Care (In Minutes): 35 (minutes) <Ynes Cruz - Last Filed: 09/23/23 09:30> - Plan Pt seen and examined. I agree with the note by the JUNIOR LEGAL SECRETARY. Will continue low salt diet, strict I/O , daily weight and follow up Echo. Physician Review Additional Text: 09/26/23 17:16 Pt seen and examined. I agree with the note by the JUNIOR LEGAL SECRETARY. <Jennifer Aragon - Last Filed: 09/26/23 17:17>
[2023-09-23] MEDS ORDERED: GUAIFENESIN/CODEINE 5ML UCUP PO PRN (11:42)
--- NOTE | 2023-09-23 13:12 | P.CNS ---
Date of Consult: 09/23/23 Reason for Consult: mixed CHF, RSV Requesting Physician: Braxton Levine Chief Complaint: chf Dyspnea History of Present Illness: Mr. Wilson is a 72 yo with a past medical history of CAD with bypass and pacemaker (2yr ago), HTN, CHF, and atrial fibrillation who presented to the Emergency Department with c/o SOB, cough, pleuritic chest pain. Troponin trend negative, BNP elevated at 2084. + RSV. Allergies No Known Allergies Allergy (Unverified 03/29/17 06:51) Home medications list reviewed: No (please compile medication list) - Past Medical/Surgical History -: CAD -: GOUT -: HLD -: HTN -: PA -: CABG 10 YEARS AGO -: PACEMAKER Psychosocial/ Personal History: lives at home - Social History Smoking Status: Unknown if ever smoked Alcohol use: No CD- Drugs: No Caffeine use: Yes Place of Residence: Home Review of Systems 10-point ROS is otherwise unremarkable Respiratory: Cough, Shortness of Breath Cardiovascular: As per HPI Physical Examination Temp Pulse Resp BP Pulse Ox 97.5 F 73 14 109/71 95 09/23/23 12:00 09/23/23 12:00 09/23/23 12:00 09/23/23 12:00 09/23/23 12:00 General: Alert, In no apparent distress, Oriented x3 HEENT: Atraumatic, Normocephalic, PERRLA Neck: Supple, 2+ carotid pulse no bruit Respiratory: Diminished, Expiratory wheezes Cardiovascular: No edema Capillary refill: <2 Seconds Gastrointestinal: Normal bowel sounds, Soft and benign Musculoskeletal: No clubbing Integumentary: No rashes Neurological: Normal speech, Normal tone Lymphatics: No axilla or inguinal lymphadenopathy External genitalia: Deferred Rectal: Deferred - Problems (1) HTN (hypertension) Current Visit: Yes Status: Acute Plan: Trend vital signs continue home medications (2) HLD (hyperlipidemia) Current Visit: Yes Status: Acute Plan: Continue home medications Low fat diet (3) History of coronary artery bypass graft Current Visit: Yes Status: Acute Plan: Outpatient follow up with cardiology
[2023-09-23] MEDS ORDERED: IPRATROPIUM BROM 0.5MG/2.5ML NEB PRN (16:59)
[2023-09-24 02:54] LABS: Absolute Lymphocytes (CBC) 0.7 K/uL (0.7-4.9); Hematocrit 43.3 % (39.6-49.0); Lymphocytes % 4.6 % (15.3-44.8); MCV 95.5 fL (80-100); Platelets 172 thou/uL (152-406); RBC Red Blood Cell Count 4.54 M/uL (4.33-5.43)
[2023-09-24 03:01] LABS: Magnesium 2.4 mg/dL (1.6-2.4); Phosphorus 4.1 mg/dL (2.5-4.9); Potassium 3.9 mEq/L (3.5-5.1)
[2023-09-24 07:07] VITALS: BP 148/81; TEMP 97.2
[2023-09-24] MEDS: INSULIN GLARGINE 100 UNIT/ML SQ SCH (08:48)
[2023-09-24] MEDS: METHYLPREDNISOLONE 40 MG INJ IV SCH (08:48)
[2023-09-24] MEDS: FUROSEMIDE 40 MG/4 ML VIAL IV SCH (08:48)
[2023-09-24] MEDS: METOPROLOL TAR 50 MG TAB PO SCH (08:48)
[2023-09-24] MEDS: ENOXAPARIN 40 MG/0.4 ML SQ SCH (08:52)
--- NOTE | 2023-09-24 09:04 | P.PN ---
Subjective Date of Service: 09/24/23 Chief Complaint: chf Dyspnea Subjective: Improving Review of Systems 10-point ROS is otherwise unremarkable Respiratory: Cough, Other (chest discomfort only with cough, feeling better), As per HPI Cardiovascular: Other (rate controlled a. fib) Physical Examination - Vital Signs Temperature: 97.2 F Blood Pressure: 148/81 Pulse: 79 Respirations: 17 Pulse Ox (%): 94 - Physical Exam General: Alert, In no apparent distress, Oriented x3 HEENT: Atraumatic, Normocephalic, PERRLA Neck: Supple, 2+ carotid pulse no bruit, JVD not distended Respiratory: Normal air movement, Expiratory wheezes Cardiovascular: No edema, Normal pulses, Irregular heart rate/rhythm, Systolic murmur Capillary refill: <2 Seconds Gastrointestinal: Normal bowel sounds, Soft and benign Musculoskeletal: No clubbing Integumentary: No rashes Neurological: Normal speech, Normal tone Lymphatics: No axilla or inguinal lymphadenopathy External genitalia: Deferred Rectal: Deferred Assessment And Plan - Current Problems (Diagnosis) (1) HTN (hypertension) Current Visit: Yes Status: Acute Plan: Trend vital signs continue home medications Follow up cardiology (2) HLD (hyperlipidemia) Current Visit: Yes Status: Acute Plan: Continue home medications Low fat diet (3) History of coronary artery bypass graft Current Visit: Yes Status: Acute Plan: Outpatient follow up with cardiology Cardiology will sign off Physician Review: Patient Assessed, Agree with Above Assessment and Plan
[2023-09-24 09:47] VITALS: O2SAT 96
--- NOTE | 2023-09-24 10:44 | P.DS ---
Admission Date: 09/21/23 Discharge Date: 09/24/23 Reason for Admission: chf Dyspnea - Problems (1) RSV (acute bronchiolitis due to respiratory syncytial virus) Status: Acute (2) Combined systolic and diastolic heart failure Status: Acute (3) Dyspnea Status: Acute (4) HTN (hypertension) Status: Acute (5) HLD (hyperlipidemia) Status: Acute (6) CAD (coronary artery disease) Status: Acute (7) History of coronary artery bypass graft Status: Acute (8) Leucocytosis Status: Acute Brief History of Present Illness: This 72 yrs old Male with primary history of CAD; Gout; High Cholesterol; Hypertension; Myocardial infarction; presents to ER via Ambulatory with complaints of Breathing Difficulty. Symptoms started almost 1 week ago, shortness of breath associated with increased coughing . Patient denies fever chills, patient denies chest pain abdominal pain, nausea or vomiting. No aggravating or relieving factors, severity is 3 out of 10, patient's son and [id number] giving history at bedside, ED course Vital Signs: 13:05 BP 116 / 67; Pulse 98; Resp 15; Temp 97.3; Pulse Ox 97. EKG A-fib at the rate 102/min Note initial labs significant for elevated BNP 2084, CBC and BMP reassuring. Chest x-ray mild pulmonary edema. Patient tested positive for RSV. Admitting the patient the diagnosis of acute bronchitis due to respiratory syncytial virus, combined systolic and diastolic congestive heart failure, dyspnea, and hypertension. Hospital Course: Mr. Wilson is a pleasant 72-year-old male with a past medical history significant for CAD, gout, high cholesterol, hypertension, who was admitted to the [facility] on 09/21/2020 for breathing difficulty patient was admitted with RSV positive and combined systolic and diastolic congestive heart failure.. The hospital patient was treated with diuretics, steroids and cough medicine. On 09/24/2023, patient was seen on morning rounds and deemed medically stable for discharge. Patient was discharged with instructions to schedule follow-up appointments with PCP and transfer pumper. Patient was given the opportunity to ask questions and reported no further questions Please call and schedule a follow-up appointment with your PCP in 3-5 days 2. Please call and schedule a follow-up appointment with transfer pumper Dr. Carey in 2 weeks - Please follow-up with your PCP for medication refills/adjustments <Ynes Cruz - Last Filed: 09/24/23 10:43> Admission Date: 09/21/23 Discharge Date: 09/25/23 Hospital Course: Pt seen and examined. I agree with the note by the BEEF BREAKER. Ok to discharge pt. <MaheshLaurogaston Espino - Last Filed: 09/25/23 17:40> Disposition: ROUTINE DISCHARGE Discharge Condition: GOOD Vital Signs/Physical Exam: Temp Pulse Resp BP Pulse Ox 97.2 F 79 17 148/81 H 94 09/24/23 09:04 09/24/23 09:04 09/24/23 09:04 09/24/23 09:04 09/24/23 09:04 General: Alert, Oriented x3 HEENT: Atraumatic, Normocephalic Neck: Supple, 2+ carotid pulse no bruit Respiratory: Clear to auscultation bilaterally, Normal air movement Cardiovascular: No edema, Normal pulses Capillary refill: <2 Seconds Gastrointestinal: Normal bowel sounds, Non-distended Musculoskeletal: No clubbing, No swelling Integumentary: No rashes, No breakdown Neurological: Normal speech, Normal tone, Normal affect Laboratory Data at Discharge: WBC 14.50 thou/uL (4.3-10.9) H 09/24/23 02:13 Hgb 14.4 g/dL (13.6-17.9) 09/24/23 02:13 Hct 43.3 % (39.6-49.0) 09/24/23 02:13 Plt Count 172 thou/uL (152-406) 09/24/23 02:13 PT 23.1 SECONDS (9.5-12.5) H 09/21/23 13:40 INR 2.15 09/21/23 13:40 Sodium 137 mEq/L (136-145) 09/24/23 02:13 Potassium 3.9 mEq/L (3.5-5.1) 09/24/23 02:13 BUN 35 mg/dL (7-18) H 09/24/23 02:13 Creatinine 1.25 mg/dL (0.70-1.30) 09/24/23 02:13 Glucose 151 mg/dL (74-106) H 09/24/23 02:13 Phosphorus 4.1 mg/dL (2.5-4.9) 09/24/23 02:13 Magnesium 2.4 mg/dL (1.6-2.4) 09/24/23 02:13 Total Bilirubin 1.7 mg/dL (0.2-1.0) H 09/21/23 13:40 AST 25 U/L (15-37) 09/21/23 13:40 ALT 32 U/L (16-61) 09/21/23 13:40 Alkaline Phosphatase 45 U/L (45-117) 09/21/23 13:40 Triglycerides 40 mg/dL (<150) 09/22/23 03:15 Cholesterol 91 mg/dL (<200) 09/22/23 03:15 HDL Cholesterol 38 mg/dL (40-60) L 09/22/23 03:15 Cholesterol/HDL Ratio 2.39 09/22/23 03:15 Lipase 38 U/L (13-75) 09/21/23 13:40 <Ynes Cruz - Last Filed: 09/24/23 10:43> Vital Signs/Physical Exam: Temp Pulse Resp BP Pulse Ox 97.2 F 79 17 148/81 H 94 09/24/23 09:04 09/24/23 09:04 09/24/23 09:04 09/24/23 09:04 09/24/23 09:04 Laboratory Data at Discharge: WBC 14.50 thou/uL (4.3-10.9) H 09/24/23 02:13 Hgb 14.4 g/dL (13.6-17.9) 09/24/23 02:13 Hct 43.3 % (39.6-49.0) 09/24/23 02:13 Plt Count 172 thou/uL (152-406) 09/24/23 02:13 PT 23.1 SECONDS (9.5-12.5) H 09/21/23 13:40 INR 2.15 09/21/23 13:40 Sodium 137 mEq/L (136-145) 09/24/23 02:13 Potassium 3.9 mEq/L (3.5-5.1) 09/24/23 02:13 BUN 35 mg/dL (7-18) H 09/24/23 02:13 Creatinine 1.25 mg/dL (0.70-1.30) 09/24/23 02:13 Glucose 151 mg/dL (74-106) H 09/24/23 02:13 Phosphorus 4.1 mg/dL (2.5-4.9) 09/24/23 02:13 Magnesium 2.4 mg/dL (1.6-2.4) 09/24/23 02:13 Total Bilirubin 1.7 mg/dL (0.2-1.0) H 09/21/23 13:40 AST 25 U/L (15-37) 09/21/23 13:40 ALT 32 U/L (16-61) 09/21/23 13:40 Alkaline Phosphatase 45 U/L (45-117) 09/21/23 13:40 Triglycerides 40 mg/dL (<150) 09/22/23 03:15 Cholesterol 91 mg/dL (<200) 09/22/23 03:15 HDL Cholesterol 38 mg/dL (40-60) L 09/22/23 03:15 Cholesterol/HDL Ratio 2.39 09/22/23 03:15 Lipase 38 U/L (13-75) 09/21/23 13:40 <Jennifer Aragon - Last Filed: 09/25/23 17:40> Diet: Regular Activity: Ad amari <Ynes Cruz - Last Filed: 09/24/23 10:43> <Jennifer Aragon - Last Filed: 09/25/23 17:40> Home Medications: Guaifenesin [Mucinex] 600 mg PO BID 10 Days #20 tab 09/24/23 Prednisone [Sterapred Ds] 10 mg PO DAILY 10 Days #30 tab 09/24/23 New Medications: Guaifenesin [Mucinex] 600 mg PO BID 10 Days #20 tab Prednisone [Sterapred Ds] 10 mg PO DAILY 10 Days #30 tab Physician Discharge Instructions: Mr. Wilson is a pleasant 72-year-old male with a past medical history significant for CAD, gout, high cholesterol, hypertension, who was admitted to the [facility] on 09/21/2020 for breathing difficulty patient was admitted with RSV positive and combined systolic and diastolic congestive heart failure.. The hospital patient was treated with diuretics, steroids and cough medicine. On 09/24/2023, patient was seen on morning rounds and deemed medically stable for discharge. Patient was discharged with instructions to schedule follow-up appointments with PCP and transfer pumper. Prescriptions given for Prednisone and Mucinex. Patient was given the opportunity to ask questions and reported no further questions Please call and schedule a follow-up appointment with your PCP in 3-5 days Please call and schedule a follow-up appointment with transfer pumper Dr. Medel in 2 weeks Please follow-up with your PCP for medication refills/adjustments Followup: Antolin Medel MD [ACTIVE - CAN ADMIT] - 1-2 Weeks ZULEIKA DELGADO [Primary Care Provider] - 2-3 Days
== END 2023-09-24 13:06 | disposition home or self-care (01) | DRG 291 ==
LOC: ER 12:50 → ERHOLD 17:23 → 2ND 19:58
PROVIDERS: ADMIT Hospitalist; ATTEND Hospitalist
DX: I11.0 Hypertensive heart disease with heart failure (principal); I50.43 Acute on chronic combined systolic (congestive) and diastolic (congestive) heart failure; J20.5 Acute bronchitis due to respiratory syncytial virus; E78.00 Pure hypercholesterolemia, unspecified; M10.9 Gout, unspecified; E66.9 Obesity, unspecified; I25.2 Old myocardial infarction; I25.10 Atherosclerotic heart disease of native coronary artery without angina pectoris; Z95.0 Presence of cardiac pacemaker; Z95.1 Presence of aortocoronary bypass graft; Z68.35 Body mass index [BMI] 35.0-35.9, adult; Z11.52 Encounter for screening for COVID-19
CPT/HCPCS: 0241U; 36415; 71045; 80048; 80061; 80076; 81003; 82947; 83605; 83690; 83735; 83880; 84100; 84484; 85025; 85379; 85610; 87040; 93005; 93306; 94640; 96361; 96365; 96375; 99285; J0696; J1650; J1940; J2920; J2930; J7030; J7613; J7614; J7644

== ENCOUNTER → 2023-11-03 | Emergency (ER) | payer OTHER ==
[~2023-11-03] MED LIST: COLCHICINE 0.6 MG TAB ONE; FENTANYL CITR 100 MCG/2 ML ONE; KETOROLAC 30 MG/ML INJ ONE; METHYLPREDNISOLONE 125 MG INJ ONE; NA CHLORIDE 0.9% 500 ML ONE; ONDANSETRON 4 MG/2 ML VIAL ONE; predniSONE 20 MG TAB ONE
--- NOTE | 2023-11-03 09:45 | RAD REPORT ---
EXAM DESCRIPTION: RAD - Elbow Left 3 View - 11/03/2023 9:37 am CLINICAL HISTORY: PAIN COMPARISON: No comparisons TECHNIQUE: Left elbow, 3 views. FINDINGS: No evidence of acute fracture or dislocation. Cortical irregularity along the capitellum, may relate to ongoing degenerative changes. Elevation of the anterior and posterior fat pad, suggesting an effusion. There is no dislocation or periosteal reaction noted. Irregularity along the lateral epicondyle is also noted, may reflect long-standing sequelae of No for eign body or other soft tissue abnormality. IMPRESSION: Large elbow joint effusion, may indicate an occult fracture, although no discrete fractu re line is identified. Cortical irregularity along the capitellum, may relate to degenerative changes.
[2023-11-03 10:13] LABS: Absolute Lymphocytes (CBC) 1.2 K/uL (0.7-4.9); Hematocrit 46.3 % (39.6-49.0); Lymphocytes % 11.7 % (15.3-44.8); MCV 94.6 fL (80-100); MPV 8.8 fL (7.6-11.3); Platelets 183 thou/uL (152-406); RBC Red Blood Cell Count 4.89 M/uL (4.33-5.43)
[2023-11-03 10:29] LABS: Albumin 3.9 g/dL (3.4-5.0); Bilirubin Total 1.3 mg/dL (0.2-1.0); Potassium 3.5 mEq/L (3.5-5.1); Protein, Total 7.9 g/dL (6.4-8.2); Uric Acid 11.3 mg/dL (3.5-7.2)
--- NOTE | 2023-11-03 10:43 | EDPHYS ---
Physician Documentation [facility] Name: Juan Carlos Wilson Age: 72 yrs Sex: Male : 1950 Arrival Date: 11/03/2023 Time: 08: Bed 6 Private MD: Jarrett Crisostomo HPI: 11/03 09:59 This 72 yrs old Male presents to ER via Ambulatory with complaints of Arm Pain luna - Swelling. 09:59 The patient or guardian complains of decreased range of motion, pain. The complaints luna affect the left elbow. Context: The problem was sustained at an unknown location. Onset: The symptoms/episode began/occurred 3 day(s) ago. Treatment prior to arrival includes: no previous treatment. Modifying factors: The symptoms are alleviated by remaining still, the symptoms are aggravated by movement, bending arm. Historical: - Allergies: 09:10 No Known Allergies; ap3 - PMHx: 09:10 CAD; Gout; High Cholesterol; Hypertension; Myocardial infarction; ap3 - Immunization history:: Adult Immunizations up to date, Client reports receiving the 2nd dose of the Covid vaccine, Last tetanus immunization: up to date. - Social history:: Smoking status: Patient denies any tobacco usage or history of. ROS: 10:00 Constitutional: Negative for fever, chills, and weight loss, Eyes: Negative for injury, luna pain, redness, and discharge, ENT: Negative for injury, pain, and discharge, Neck: Negative for injury, pain, and swelling, Cardiovascular: Negative for chest pain, palpitations, and edema, Respiratory: Negative for shortness of breath, cough, wheezing, and pleuritic chest pain, Abdomen/GI: Negative for abdominal pain, nausea, vomiting, diarrhea, and constipation, Back: Negative for injury and pain, : Negative for injury, bleeding, discharge, and swelling, Skin: Negative for injury, rash, and discoloration, Neuro: Negative for headache, weakness, numbness, tingling, and seizure, Psych: Negative for depression, anxiety, suicide ideation, homicidal ideation, and hallucinations, Allergy/Immunology: Negative for hives, rash, and allergies, Endocrine: Negative for neck swelling, polydipsia, polyuria, polyphagia, and marked weight changes, Hematologic/Lymphatic: Negative for swollen nodes, abnormal bleeding, and unusual bruising, 10:00 MS/extremity: Positive for decreased range of motion, pain, swelling, tenderness, of the left elbow, Exam: 10:00 Constitutional: This is a well developed, well nourished patient who is awake, alert, luna and in no acute distress. Head/Face: Normocephalic, atraumatic. Eyes: Pupils equal round and reactive to light, extra-ocular motions intact. Lids and lashes normal. Conjunctiva and sclera are non-icteric and not injected. Cornea within normal limits. Periorbital areas with no swelling, redness, or edema. ENT: Nares patent. No nasal discharge, no septal abnormalities noted. Tympanic membranes are normal and external auditory canals are clear. Oropharynx with no redness, swelling, or masses, exudates, or evidence of obstruction, uvula midline. Mucous membranes moist. Neck: Trachea midline, no thyromegaly or masses palpated, and no cervical lymphadenopathy. Supple, full range of motion without nuchal rigidity, or vertebral point tenderness. No Meningismus. Chest/axilla: Normal chest wall appearance and motion. Nontender with no deformity. No lesions are appreciated. Cardiovascular: Regular rate and rhythm with a normal S1 and S2. No gallops, murmurs, or rubs. Normal PMI, no JVD. No pulse deficits. Respiratory: Lungs have equal breath sounds bilaterally, clear to auscultation and percussion. No rales, rhonchi or wheezes noted. No increased work of breathing, no retractions or nasal flaring. Abdomen/GI: Soft, non-tender, with normal bowel sounds. No distension or tympany. No guarding or rebound. No evidence of tenderness throughout. Back: No spinal tenderness. No costovertebral tenderness. Full range of motion. Male : Normal genitalia with no discharge or lesions. Skin: Warm, dry with normal turgor. Normal color with no rashes, no lesions, and no evidence of cellulitis. Neuro: Awake and alert, GCS 15, oriented to person, place, time, and situation. Cranial nerves II-XII grossly intact. Motor strength 5/5 in all extremities. Sensory grossly intact. Cerebellar exam normal. Normal gait. Psych: Awake, alert, with orientation to person, place and time. Behavior, mood, and affect are within normal limits. 10:00 Musculoskeletal/extremity: ROM: limited active range of motion due to pain, limited passive range of motion due to pain, in the left antecubital area and left elbow, Circulation is intact in all extremities. Sensation intact. Compartment Syndrome exam of affected extremity: is normal. Joints: All joints are normal except the left elbow displays limited range of motion, pain at rest, painful range of motion, swelling, tenderness, Vital Signs: 09:06 Pulse 78; Resp 20; Temp 98.2; Pulse Ox 96% ; Weight 99.79 kg; Height 5 ft. 8 in. ; Pain ap3 10/10; 10:56 BP 101 / 71; Pulse 71; Resp 18; Pulse Ox 97% ; ko1 09:06 Body Mass Index 33.45 (99.79 kg, 172.72 cm) ap3 09:06 Pain Scale: Adult ap3 MDM: 09:09 Patient medically screened. [facility] 10:01 Differential diagnosis: closed fracture, contusion, tendonitis. Data reviewed: vital luna signs, nurses notes, lab test result(s), radiologic studies, plain films. Consideration of Admission/Observation Escalation of care including admission/observation considered. I considered the following discharge prescriptions or medication management in the emergency department Medications were administered in the Emergency Department. See MAR. Independent interpretation of the following test(s) in the Emergency Department X-Ray: My interpretation is left elbow. Test considered but Not performed: CT: no ct left elbow. Historians other than the Patient: Family Member: son , well informed. Care significantly affected by the following chronic conditions: Hypertension, cad, gout, high cholesterol. Counseling: I had a detailed discussion with the patient and/or guardian regarding the historical points, exam findings, and any diagnostic results supporting the discharge/admit diagnosis, lab results, radiology results, the need for outpatient follow up, for definitive care, a family practitioner, a orthopedic surgeon. 11/03 09:26 Order name: CBC with Diff; Complete Time: 10:41 [facility] 11/03 09:26 Order name: Comprehensive Metabolic Panel; Complete Time: 10:41 luna 11/03 09:26 Order name: Uric Acid; Complete Time: 10:41 [facility] 11/03 09:26 Order name: Elbow Left 3 View XRAY; Complete Time: 09:58 [facility] Administered Medications: 09:53 Drug: predniSONE PO 40 mg PO once Route: PO; ko1 10:46 Follow up: Response: No adverse reaction ko1 09:54 Drug: Colcrys PO 1.2 mg PO once Route: PO; ko1 10:46 Follow up: Response: No adverse reaction ko1 10:00 Drug: NS 0.9% IV 500 ml IV at bolus once Route: IV; Rate: bolus; Site: right ko1 antecubital; 10:46 Follow up: Response: No adverse reaction; IV Status: Completed infusion; IV Intake: ko1 500ml 10:00 Drug: fentaNYL (PF) IVP 50 mcg IVP once Route: IVP; Site: right antecubital; ko1 10:46 Follow up: Response: Pain is decreased ko1 10:00 Drug: Ondansetron IVP 4 mg IVP once; over 2 minutes Route: IVP; Site: right antecubital;ko1 10:45 Follow up: Response: No adverse reaction ko1 10:03 Drug: Ketorolac IVP 15 mg IVP once Route: IVP; Site: right antecubital; ko1 10:47 Follow up: Response: No adverse reaction ko1 10:07 Drug: MethylPrednisoLONE IVP 125 mg IVP once Route: IVP; Site: right antecubital; ko1 10:46 Follow up: Response: No adverse reaction ko1 10:47 Drug: Colcrys PO 0.6 mg PO once; in one hour after 1.2 mg dose Route: PO; ko1 11:04 Follow up: Response: No adverse reaction ko1 Disposition Summary: 11/03/23 10:42 Discharge Ordered Notes: Location: Home luna Problem: new luna Symptoms: have improved luna Condition: Stable luna Diagnosis - Idiopathic gout, left elbow luna - Effusion, left elbow luna Followup: luna - With: Private Physician - When: 2 - 3 days - Reason: Recheck today's complaints, Continuance of care, Re-evaluation by your physician Followup: luna - With: Mervin Luke DO - When: 2 - 3 days - Reason: Recheck today's complaints, Re-evaluation by your physician Followup: luna - With: Asim Price MD - When: 2 - 3 days - Reason: Recheck today's complaints, Re-evaluation by your physician Discharge Instructions: - Discharge Summary Sheet luna - Gout luna - Low-Purine Eating Plan luna - Gout, [id number] luna Forms: - Medication Reconciliation Form luna - Thank You Letter luna - Antibiotic Education luna - Prescription Opioid Use luna - Patient Portal Instructions luna - Leadership Thank You Letter luna Prescriptions: - acetaminophen-codeine 300-30 mg Oral tablet - take 2 tablet ORAL route every 6 hours as needed for pain; 20 tablet; Refills: luna 0, Product Selection Permitted - colchicine 0.6 mg Oral tablet - take 2 tablet ORAL route as directed 2 tabs daily as needed, then 1 in one hour luna after 1.2 mg dose; 12 tablet; Refills: 0, Product Selection Permitted - diclofenac sodium 50 mg Oral tablet, delayed release (enteric coated) - take 1 tablet ORAL route every 8 hours as needed for pain; 30 tablet; Refills: luna 0, Product Selection Permitted - Prednisone 20 mg Oral Tablet - take 2 tablets ORAL route once daily for 5 days; 10 tablet; Refills: 0, Product luna Selection Permitted Signatures: Dispatcher [employer] Jarrett Lobato MD MD cha Prokisch, Amanda RN RN ap3 Mnii Brewer RN RN ko1
--- NOTE | 2023-11-03 10:43 | ER ---
Nurse's Notes [facility] Name: Juan Carlos Wilson Age: 72 yrs Sex: Male : 1950 Arrival Date: 11/03/2023 Time: 08:27 Bed 6 Private MD: Diagnosis: Idiopathic gout, left elbow;Effusion, left elbow Presentation: 11/03 09:06 Chief complaint: Patient states: Gout to left elbow since yesterday. Ran out of ap3 Allopurinol a few days ago. Coronavirus screen: Vaccine status: Patient reports receiving the 2nd dose of the covid vaccine. Client denies travel out of the [place] in the last 14 days. Ebola Screen: Patient negative for fever greater than or equal to 101.5 degrees Fahrenheit, and additional compatible Ebola Virus Disease symptoms Patient denies exposure to infectious person. Patient denies travel to an Ebola-affected area in the 21 days before illness onset. Initial Sepsis Screen: Does the patient meet any 2 criteria? No. Patient's initial sepsis screen is negative. Does the patient have a suspected source of infection? No. Patient's initial sepsis screen is negative. Risk Assessment: Do you want to hurt yourself or someone else? Patient reports no desire to harm self or others. Onset of symptoms was November 02, 2023. 09:06 Method Of Arrival: Ambulatory ap3 09:06 Acuity: BLANCA 3 ap3 Triage Assessment: 09:10 General: Appears in no apparent distress. uncomfortable, Behavior is calm, cooperative. ap3 Pain: Complains of pain in left elbow. Historical: - Allergies: 09:10 No Known Allergies; ap3 - PMHx: 09:10 CAD; Gout; High Cholesterol; Hypertension; Myocardial infarction; ap3 - Immunization history:: Adult Immunizations up to date, Client reports receiving the 2nd dose of the Covid vaccine, Last tetanus immunization: up to date. - Social history:: Smoking status: Patient denies any tobacco usage or history of. Screenin:45 [facility] ED Fall Risk Assessment (Adult) History of falling in the last 3 months, ko1 including since admission No falls in past 3 months (0 pts) Confusion or Disorientation No (0 pts) Intoxicated or Sedated No (0 pts) Impaired Gait No (0 pts) Mobility Assist Device Used No (0 pt) Altered Elimination No (0 pt) Score/Fall Risk Level 0 - 2 = Low Risk Oriented to surroundings, Maintained a safe environment, Educated pt \T\ family on fall prevention, incl call for assistance when getting out of bed, Assessed \T\ reinforced patient's understanding of fall precautions, Provided non-skid footwear, Hourly rounding (assess needs \T\ fall precautionary measures) done, Used ambulatory aids as needed (educated on \T\ assisted with), Used gait belt as appropriate. Abuse screen: Denies threats or abuse. Denies injuries from another. Nutritional screening: No deficits noted. Tuberculosis screening: No symptoms or risk factors identified. Assessment: 09:45 General: Appears in no apparent distress. Behavior is calm, cooperative, appropriate ko1 for age. Pain: Complains of pain in left antecubital area and left arm and left elbow. Neuro: No deficits noted. Cardiovascular: No deficits noted. Respiratory: No deficits noted. GI: No deficits noted. : No deficits noted. EENT: No deficits noted. Derm: No deficits noted. Musculoskeletal: No deficits noted. Vital Signs: 09:06 Pulse 78; Resp 20; Temp 98.2; Pulse Ox 96% ; Weight 99.79 kg; Height 5 ft. 8 in. ; Pain ap3 10/10; 10:56 BP 101 / 71; Pulse 71; Resp 18; Pulse Ox 97% ; ko1 09:06 Body Mass Index 33.45 (99.79 kg, 172.72 cm) ap3 09:06 Pain Scale: Adult ap3 ED Course: 08:32 Patient arrived in ED. mg5 09:09 Jarrett Pickett MD is Attending Physician. luna 09:10 Triage completed. ap3 09:10 Arm band placed on right wrist. ap3 09:39 Elbow Left 3 View XRAY In Process Unspecified. EDMS 09:39 Mini Brewer, ALEAH is Primary Nurse. ko1 09:45 Patient has correct armband on for positive identification. Placed in gown. Bed in low ko1 position. Call light in reach. Side rails up X2. Provided Education on: na. Pulse ox on. NIBP on. Door closed. Noise minimized. Lights dimmed. Warm blanket given. 09:45 No provider procedures requiring assistance completed. Inserted saline lock: 20 gauge ko1 in right antecubital area, using aseptic technique. Blood collected. 10:41 Mervin Luke DO is Referral Physician. [facility] 10:41 Asim Price MD is Referral Physician. [facility] 10:56 IV discontinued, intact, bleeding controlled, No redness/swelling at site. Pressure ko1 dressing applied. Administered Medications: 09:53 Drug: predniSONE PO 40 mg PO once Route: PO; ko1 10:46 Follow up: Response: No adverse reaction ko1 09:54 Drug: Colcrys PO 1.2 mg PO once Route: PO; ko1 10:46 Follow up: Response: No adverse reaction ko1 10:00 Drug: NS 0.9% IV 500 ml IV at bolus once Route: IV; Rate: bolus; Site: right ko1 antecubital; 10:46 Follow up: Response: No adverse reaction; IV Status: Completed infusion; IV Intake: ko1 500ml 10:00 Drug: fentaNYL (PF) IVP 50 mcg IVP once Route: IVP; Site: right antecubital; ko1 10:46 Follow up: Response: Pain is decreased ko1 10:00 Drug: Ondansetron IVP 4 mg IVP once; over 2 minutes Route: IVP; Site: right antecubital;ko1 10:45 Follow up: Response: No adverse reaction ko1 10:03 Drug: Ketorolac IVP 15 mg IVP once Route: IVP; Site: right antecubital; ko1 10:47 Follow up: Response: No adverse reaction ko1 10:07 Drug: MethylPrednisoLONE IVP 125 mg IVP once Route: IVP; Site: right antecubital; ko1 10:46 Follow up: Response: No adverse reaction ko1 10:47 Drug: Colcrys PO 0.6 mg PO once; in one hour after 1.2 mg dose Route: PO; ko1 11:04 Follow up: Response: No adverse reaction ko1 Medication: 09:45 VIS not applicable for this client. ko1 Intake: 10:46 IV: 500ml; Total: 500ml. ko1 Outcome: 10:42 Discharge ordered by . [facility] 11:03 Discharged to home ambulatory, with family, ko1 11:03 Condition: improved 11:03 Discharge instructions given to patient, family, Instructed on discharge instructions, follow up and referral plans. medication usage, Demonstrated understanding of instructions, follow-up care, medications, Prescriptions given X 4, 11:04 Patient left the ED. ko1 Signatures: Dispatcher [employer] EDMS Jarrett Pickett MD MD cha Prokisch, Amanda RN RN ap3 Mini Brewer RN RN ko1 Colleen Luevano mg5 Corrections: (The following items were deleted from the chart) 10:56 09:45 BP 101 / 71; Pulse 71bpm; Resp 18bpm; Pulse Ox 97%; ko1 ko1
[2023-11-03 16:20] VITALS: TEMP 98.2; O2SAT 97
[2023-11-03 16:21] VITALS: BP 101/71
== END ==
LOC: ER 08:27
DX: M10.022 Idiopathic gout, left elbow (principal); M25.422 Effusion, left elbow
CPT/HCPCS: 85025; 36415; 84550; 80053; 73080; J7512; J3010; J2930; J2405; J7040

== ENCOUNTER → 2023-12-30 | Emergency (ER) | payer OTHER ==
[~2023-12-30] MED LIST changes: +AMIODARONE HCL 150 MG/3 ML INJ IV ONE; +AMIODARONE IN DEXTROSE,ISO-OSM 360 MG/200 ML BAG IV ONE; -COLCHICINE 0.6 MG TAB ONE; +D5W 100 ML IV ONE; -FENTANYL CITR 100 MCG/2 ML ONE; -KETOROLAC 30 MG/ML INJ ONE; -METHYLPREDNISOLONE 125 MG INJ ONE; -NA CHLORIDE 0.9% 500 ML ONE; -ONDANSETRON 4 MG/2 ML VIAL ONE; -predniSONE 20 MG TAB ONE
[2023-12-30 22:30] LABS: PT Prothrombin Time 15.5 SECONDS (9.5-12.5); Protime INR 1.42
[2023-12-30 22:37] LABS: Absolute Eosinophils 0.3 K/uL (0-0.5); Absolute Lymphocytes (CBC) 1.7 K/uL (0.7-4.9); Absolute Monocytes 0.9 K/uL (0.1-1.3); Absolute Neutrophil 3.7 K/uL (1.8-8.0); Basophils % 0.5 % (0-1.3); Eosinophils % 5.1 % (0-4.4); Hematocrit 45.1 % (39.6-49.0); Hemoglobin 15.1 g/dL (13.6-17.9); Lymphocytes % 25.7 % (15.3-44.8); MCH 31.6 pg (27.0-35.0); MCHC 33.5 g/dL (32.0-36.0); MCV 94.5 fL (80-100); MPV 9.5 fL (7.6-11.3); Monocytes % 13.8 % (3.3-12.3); Neutrophils % 54.9 % (41.7-73.7); Nucleated Red Blood Cells % 0.1 % (0-0); Platelets 190 thou/uL (152-406); RBC Red Blood Cell Count 4.77 M/uL (4.33-5.43); Red Cell Distribution Width 14.7 % (12.1-15.2)
[2023-12-30 22:45] LABS: Albumin 3.7 g/dL (3.4-5.0); Albumin/Globulin Ratio 0.9 (1.1-1.8); Anion Gap 8.2 mEq/L (5.0-15.0); Bilirubin Direct 0.4 mg/dL (0-0.2); Bilirubin Indirect, Calculated 0.9 mg/dL (0.2-0.8); Bilirubin Total 1.3 mg/dL (0.2-1.0); Globulin 3.9 g/dL (2.3-3.5); Magnesium 2.1 mg/dL (1.6-2.4); Potassium 3.2 mEq/L (3.5-5.1); Protein, Total 7.6 g/dL (6.4-8.2)
[2023-12-30 22:48] LABS: Troponin High Sensitivity 1364.1 pg/mL (<58.9)
--- NOTE | 2023-12-30 22:49 | EDPHYS ---
Physician Documentation [facility] Name: Juan Carlos Lorenzo Age: 73 yrs Sex: Male : 1950 Arrival Date: 12/30/2023 Time: 21:47 Bed 5 Private MD: ED Physician Dick Hurley HPI: 12/29 22:00 This 73 yrs old Male presents to ER via Unassigned with complaints of sp4 pacemaker problem. 22:09 Patient is here because his defibrillator has shocked him at approximately 3 PM today. sp4 Patient denies any symptoms at this time. Patient's compliance representative is Dr. Cinthia Campos at [facility] also Dr. Brett Schaefer at [facility]. Patient's compliance representative advised patient to go to closest emergency room. . Historical: - Allergies: 21:50 No Known Allergies; vc1 - Home Meds: 21:50 Eliquis oral [Active]; vc1 - PMHx: 21:50 CAD; Gout; High Cholesterol; Hypertension; Myocardial infarction; vc1 - PSHx: 21:50 pacemaker; and defib/ Medtronic (September 02, 2022); Coronary artery bypass graft; vc1 - Immunization history:: Client reports having NOT received the Covid vaccine. - Social history:: Smoking status: Patient denies any tobacco usage or history of. - Family history:: not pertinent. ROS: 22:09 Constitutional: Negative for fever, chills, and weight loss, positive defibrillator sp4 discharge 22:09 All other systems are negative, Exam: 22:09 Constitutional: This is a well developed, well nourished patient who is awake, alert, sp4 and in no acute distress. Head/Face: Normocephalic, atraumatic. Eyes: Pupils equal round and reactive to light, extra-ocular motions intact. Lids and lashes normal. Conjunctiva and sclera are not injected. Cornea within normal limits. Periorbital areas with no swelling, redness, or edema. ENT: Nares patent. No nasal discharge, no septal abnormalities noted. Tympanic membranes are normal and external auditory canals are clear. Oropharynx with no redness, swelling, or masses, exudates, or evidence of obstruction, uvula midline. Mucous membranes moist. Neck: Trachea midline, no thyromegaly or masses palpated, and no cervical lymphadenopathy. Supple, full range of motion without nuchal rigidity, or vertebral point tenderness. Chest/axilla: Normal chest wall appearance and motion. Nontender with no deformity. No lesions are appreciated. Cardiovascular: Regular rate and rhythm with a normal S1 and S2. No gallops, murmurs, or rubs. Normal PMI, no JVD. No pulse deficits. Respiratory: Lungs have equal breath sounds bilaterally, clear to auscultation and percussion. No rales, rhonchi or wheezes noted. No increased work of breathing, no retractions or nasal flaring. Abdomen/GI: Soft, with normal bowel sounds. No distension or tympany. No guarding or rebound. No evidence of tenderness throughout. Back: No spinal tenderness. No costovertebral tenderness. Skin: Warm, dry with normal turgor. Normal color with no rashes, no lesions, and no evidence of cellulitis. MS/ Extremity: Pulses equal, no cyanosis. Neurovascular intact. Full, normal range of motion. Neuro: Awake and alert, GCS 15, oriented to person, place, time, and situation. Cranial nerves II-XII grossly intact. Motor strength 5/5 in all extremities. Sensory grossly intact. Psych: Awake, alert, with orientation to person, place and time. Behavior, mood, and affect are within normal limits 22:42 ECG was reviewed by the Attending Physician. EKG at 2105 atrial fibrillation at rate sp4 of 96, with prolonged QT Vital Signs: 22:13 BP 120 / 70; Pulse 87; Resp 24; Pulse Ox 97% on R/A; Pain 0/10; tm6 22:30 BP 125 / 80; Pulse 87; Resp 17 S; Pulse Ox 98% on R/A; rv1 23:24 BP 128 / 70; Pulse 76; Resp 17 S; Pulse Ox 96% on R/A; rv1 23:30 BP 105 / 78; Pulse 97; Resp 19 S; Pulse Ox 97% on R/A; rv1 23:30 BP 105 / 78; Pulse 72; Resp 22; Pulse Ox 97% on R/A; jb4 23:52 Weight 104.33 kg; Height 5 ft. 8 in. ; rv1 12/30 00:16 BP 116 / 66; Pulse 65; Resp 20; Pulse Ox 97% on R/A; jb4 01:00 BP 105 / 64; Pulse 86; Resp 21; Pulse Ox 100% on R/A; jb4 12/29 23:52 Body Mass Index 34.97 (104.33 kg, 172.72 cm) rv1 12/29 22:13 Pain Scale: Adult tm6 MDM: 12/29 22:09 Patient medically screened. sp4 22:42 ED course: Report from [employer] - device assessment arrhythmia summary 12/30/2023 sp4 ventricular fibrillation episodes at 1345 treated with ATP x 1 and 5 shocks. Device classified terminations all events arrhythmia appears to continue beneath detection rate. 8 monitored SVT episodes most recent on 12/30/2023. 30 monitored AT AF episodes most recent ongoing since 12/28/2023. Device appears to be currently functioning as programmed. . 22:48 Differential Diagnosis altered mental status, sepsis, flu, Ventricular arrhythmia. Data sp4 reviewed: vital signs, nurses notes, lab test result(s), EKG, radiologic studies, plain films. 23:22 ED course: Patient was discussed with Dr. Vicente and accepted to CCU . sp4 23:47 ED course: EXAM DESCRIPTION: Chest Single View CLINICAL HISTORY:73 years Male, CHEST sp4 PAIN Comparison: Chest radiograph dated 09/21/2023 IMPRESSION: No focal consolidation. No pleural effusion. No pneumothorax. Prior median sternotomy with cardiomegaly and left chest AICD. No acute osseous abnormality. . 12/29 22:09 Order name: Basic Metabolic Panel; Complete Time: 22:50 [facility] 12/29 22:09 Order name: CBC with Diff; Complete Time: 22:50 [facility] 12/29 22:09 Order name: LFT's; Complete Time: 22:50 4 12/29 22:09 Order name: Magnesium; Complete Time: 22:50 [facility] 12/29 22:09 Order name: NT PRO-BNP; Complete Time: 22:50 [facility] 12/29 22:09 Order name: PT-INR; Complete Time: 22:50 [facility] 12/29 22:09 Order name: Troponin HS; Complete Time: 22:50 [facility] 12/29 22:09 Order name: XRAY Chest (1 view) [facility] 12/29 22:09 Order name: EKG; Complete Time: 22:09 sp4 12/29 22:09 Order name: Cardiac monitoring; Complete Time: 22:13 sp4 12/29 22:09 Order name: EKG - Nurse/Tech; Complete Time: 22:13 sp4 12/29 22:09 Order name: IV Saline Lock; Complete Time: 22:17 sp4 12/29 22:09 Order name: Labs collected and sent; Complete Time: 22:17 sp4 12/29 22:09 Order name: O2 Per Protocol; Complete Time: : sp4 12/29 22:09 Order name: O2 Sat Monitoring; Complete Time: 22:13 sp4 EC:42 Rate is 96 beats/min. Rhythm is regular, A fib. QRS [place] is Normal. QRS interval is sp4 normal. T waves are Inverted in leads V2, V3. Interpreted by me. Reviewed by me. Administered Medications: 23:50 Drug: amiodarone IVPB 150 mg 100 ml IVPB once over 10 mins; (mix in D5W) Volume: 100 jb4 ml; Route: IVPB; Infused Over: 10 mins; Site: right antecubital; 12/30 00:00 Follow up: Response: No adverse reaction; IV Status: Completed infusion; IV Intake: jb4 100ml 00:00 Drug: amiodarone IVPB 900 mg, D5W IV 500 ml IVPB at 1 mg/min continuous; for 6 hrs, jb4 then change to 0.5 mg/min Route: IVPB; Rate: 1 mg/min; Site: right antecubital; 01:25 Follow up: Response: No adverse reaction; IV Status: Infusion continued upon transfer jb4 Disposition Summary: 12/30/23 22:48 Transfer Ordered Notes: Transfer Location: [facility] sp4 Reason: Higher level of care sp4 Condition: Stable sp4 Problem: new sp4 Symptoms: have improved sp4 Accepting Physician: [facility]'s hospitalist(12/31/23 01:25) jb4 Diagnosis - Ventricular tachycardia sp4 - Ventricular arrhythmia with defibrillator discharge sp4 Forms: - Medication Reconciliation Form sp4 - SBAR form sp4 Signatures: Dispatcher [employer] Zak López RN RN jb4 Mariaelena Villarreal RN RN vc1 Dick Hurley MD MD sp4 Corrections: (The following items were deleted from the chart) 01:25 12/29 22:48 [facility] sp4 jb4
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
[2023-12-31 01:57] VITALS: BP 105/64; O2SAT 100
--- NOTE | 2023-12-31 11:07 | RAD REPORT ---
EXAM DESCRIPTION: Chest Single View CLINICAL HISTORY: 3 years Male, CHEST PAIN COMPARISON: Chest radiograph dated 09/21/2023 IMPRESSION: No focal consolidation. No pleural effusion. No pneumothorax. Prior median sternotomy with cardiomegaly and left chest AICD. No acute osseous abnormality. Electronically signed by: Eddie Valero DO 12/30/2023 11:06 PM CDT Due to temporary technical issues with the PACS/Fluency reporting system, reports are being signed by the in house radiologist without review as a courtesy to ensure prompt reporting. The interpreting r adiologist is fully responsible for the content of the report.
== END ==
LOC: ER 21:47
DX: I47.20 Ventricular tachycardia, unspecified (principal); I47.0 Re-entry ventricular arrhythmia; Z95.810 Presence of automatic (implantable) cardiac defibrillator; I10 Essential (primary) hypertension; I25.2 Old myocardial infarction; Z95.1 Presence of aortocoronary bypass graft; Z79.01 Long term (current) use of anticoagulants
CPT/HCPCS: 85025; 80048; 36415; 83735; 85610; 80076; 84484; 83880; 71045; J0282 ×2; 93005

== ENCOUNTER 2024-11-30 15:44 | Inpatient (IN) | payer OTHER ==
[2024-11-30] MEDS ORDERED: FUROSEMIDE 40 MG/4 ML VIAL ONE (16:56)
[2024-11-30 17:23] LABS: Absolute Eosinophils 0.2 K/uL (0-0.5); Absolute Lymphocytes (CBC) 0.8 K/uL (0.7-4.9); Absolute Monocytes 1.1 K/uL (0.1-1.3); Absolute Neutrophil 4.2 K/uL (1.8-8.0); Basophils % 0.3 % (0-1.3); Eosinophils % 3.3 % (0-4.4); Hematocrit 41.1 % (39.6-49.0); Hemoglobin 13.9 g/dL (13.6-17.9); Lymphocytes % 12.8 % (15.3-44.8); MCH 31.9 pg (27.0-35.0); MCHC 33.8 g/dL (32.0-36.0); MCV 94.6 fL (80-100); MPV 9.1 fL (7.6-11.3); Monocytes % 17.5 % (3.3-12.3); Neutrophils % 66.1 % (41.7-73.7); Nucleated Red Blood Cells % 0.1 % (0-0); Platelets 158 thou/uL (152-406); RBC Red Blood Cell Count 4.35 M/uL (4.33-5.43); Red Cell Distribution Width 14.8 % (12.1-15.2)
--- NOTE | 2024-11-30 17:28 | RAD REPORT ---
EXAMINATION: ONE VIEW CHEST XR CLINICAL INDICATION: COUGH TECHNIQUE: Frontal chest projection is submitted. Examination is limited by patient positioning and t echnique. COMPARISON: 12/30/2023 FINDINGS: Mild bilateral pulmonary edema is suspected. The heart is moderately enlarged in size. No displaced f ractures identified. Pacer/fibrillator device. Sternotomy wires. IMPRESSION: Mild CHF versus volume overload pattern is suspected.
[2024-11-30 17:41] LABS: Albumin 3.6 g/dL (3.4-5.0); Anion Gap 9.3 mEq/L (5.0-15.0); Bilirubin Direct 0.3 mg/dL (0-0.2); Bilirubin Indirect, Calculated 0.8 mg/dL (0.2-0.8); Bilirubin Total 1.1 mg/dL (0.2-1.0); Globulin 3.7 g/dL (2.3-3.5); Potassium 3.3 mEq/L (3.5-5.1); Protein, Total 7.3 g/dL (6.4-8.2); Troponin High Sensitivity 33.6 pg/mL (<58.9)
--- NOTE | 2024-11-30 18:14 | RAD REPORT ---
EXAMINATION: CT ABDOMEN AND PELVIS WITH CONTRAST CLINICAL INDICATION: edema, abd pain TECHNIQUE: CT abdomen and pelvis was performed, after the administration of IV contrast, as per [facility] protocol. Axial, sagittal and coronal reconstructions were obtained. One or more of the following dose reduction techniques were used: Automated exposure control, adjustment of the mA and k V according to patient size, and iterative reconstruction. Unless otherwise specified, incidental findings do not require dedicated imaging follow-up. COMPARISON: No prior exam. FINDINGS: LOWER CHEST: The visualized lung bases are clear. Cardiac size is prominent with pacer wires present. LIVER: Normal in size and contour. No focal lesion. Numerous stones are present in the gallbladder. SPLEEN: Normal size. No focal lesion. PANCREAS: No mass, ductal dilation, or chas-pancreatic fluid. ADRENALS: Normal; no mass. KIDNEYS: Normal size and contour. No hydronephrosis. GASTROINTESTINAL TRACT: No evidence of free air, significant intra-abdominal free fluid, bowel obstru ction or abscess. Moderate stool is retained throughout the colon. APPENDIX: Normal appendix. LYMPH NODES: No lymphadenopathy. MUSCULOSKELETAL: Moderate lower lumbar degenerative changes. ADDITIONAL FINDINGS: Small fat-containing umbilical hernia. IMPRESSION: No acute or concerning abnormalities seen in the abdomen or pelvis. Cholelithiasis.
--- NOTE | 2024-11-30 18:56 | ER ---
Nurse's Notes [facility] Name: Juan Carlos Lorenzo Age: 73 yrs Sex: Male : 1950 Arrival Date: 11/30/2024 Time: 15:44 Bed 13 Private MD: Diagnosis: CHF exacerbation;Hypoxia Presentation: 11/30 15:58 Chief complaint: Patient states: ABD SWELLING WITH COUGH WORSE TODAY. TAKES "WATER db PILL" NOT HELPING. HEART PROCEDURE TOMORROW SCHEDULED. Coronavirus screen: Client denies travel out of the [place] in the last 14 days. At this time, the client does not indicate any symptoms associated with coronavirus-19. Ebola Screen: Patient negative for fever greater than or equal to 101.5 degrees Fahrenheit, and additional compatible Ebola Virus Disease symptoms Patient denies exposure to infectious person. Patient denies travel to an Ebola-affected area in the 21 days before illness onset. No symptoms or risks identified at this time. Initial Sepsis Screen: Does the patient meet any 2 criteria? No. Patient's initial sepsis screen is negative. Does the patient have a suspected source of infection? No. Patient's initial sepsis screen is negative. Risk Assessment: Do you want to hurt yourself or someone else? Patient reports no desire to harm self or others. Onset of symptoms was November 30, 2024. 15:58 Method Of Arrival: Ambulatory db 15:58 Acuity: BLANCA 3 db Triage Assessment: 15:59 General: Appears in no apparent distress. comfortable, Behavior is calm, cooperative. db Pain: Complains of pain in abdomen. Neuro: Level of Consciousness is awake, alert, obeys commands, Oriented to person, place, time, situation. Respiratory: Airway is patent. GI: Abdomen is distended. Historical: - Allergies: 15:59 No Known Allergies; db - PMHx: 15:59 CAD; High Cholesterol; Hypertension; Myocardial infarction; Gout; db - PSHx: 15:59 pacemaker; and defib/ [employer] (September 02); Coronary artery bypass graft; db - Immunization history:: Adult Immunizations unknown. - Infectious Disease History:: Denies. - Social history:: Smoking status: Patient denies any tobacco usage or history of. - Family history:: not pertinent. Screenin:00 [facility] ED Fall Risk Assessment (Adult) History of falling in the last 3 months, kj2 including since admission No falls in past 3 months (0 pts) Confusion or Disorientation No (0 pts) Intoxicated or Sedated No (0 pts) Impaired Gait No (0 pts) Mobility Assist Device Used No (0 pt) Altered Elimination No (0 pt) Score/Fall Risk Level 0 - 2 = Low Risk Maintained a safe environment, Hourly rounding (assess needs \\T\\ fall precautionary measures) done. Abuse screen: Denies threats or abuse. Denies injuries from another. Nutritional screening: No deficits noted. Tuberculosis screening: No symptoms or risk factors identified. Assessment: 17:00 General: Appears in no apparent distress. Behavior is calm, cooperative. Pain: Denies kj2 pain. Neuro: Level of Consciousness is awake, alert, obeys commands, Oriented to person, place, time, situation. Cardiovascular: Patient's skin is warm and dry. Respiratory: Reports shortness of breath at rest placed on 2.5 liters O2 due to desats on room air Airway is patent. GI: Bowel sounds present X 4 quads. Abd is non tender Reports abdominal swelling. : No signs and/or symptoms were reported regarding the genitourinary system. 18:00 Reassessment: Patient appears in no apparent distress at this time. Patient and/or kj2 family updated on plan of care and expected duration. Pain level reassessed. Patient is alert, oriented x 3, equal unlabored respirations, skin warm/dry/pink. Vital Signs: 15:58 BP 116 / 77; Pulse 93; Resp 18; Temp 98.6; Pulse Ox 92% on R/A; Weight 104.33 kg; db Height 5 ft. 6 in. ; 17:00 BP 118 / 64; Pulse 85; Resp 20; Pulse Ox 94% on 2.5 lpm NC; kj2 18:00 BP 113 / 77; Pulse 90; Resp 20; Pulse Ox 94% on 2.5 lpm NC; kj2 15:58 Body Mass Index 37.12 (104.33 kg, 167.64 cm) db 15:58 PLACED ON NC 2 L db ED Course: 15:46 Patient arrived in ED. mr 15:50 Yang Padilla MD is Attending Physician. rt 15:59 Triage completed. db 16:00 Arm band placed on Patient placed in an exam room. db 16:39 Holly Kapoor, RN is Primary Nurse. kj2 16:45 Radiology exam delayed due to lab results not completed at this time. IV insertion jc4 attempt and/or patient not having appropriate IV at this time. 17:05 Inserted saline lock: 20 gauge in right antecubital area, using aseptic technique. kj2 Blood collected. Flushed with 10 mL NS. 17:10 Patient has correct armband on for positive identification. Bed in low position. Call kj2 light in reach. Side rails up X 1. Adult w/ patient. Provided Education on: call light. 17:11 Radiology exam delayed due to lab results not completed at this time. IV insertion nj attempt and/or patient not having appropriate IV at this time. 17:20 XRAY Chest (1 view) In Process Unspecified. EDMS 18:08 CT Abd/Pelvis - IV Contrast Only In Process Unspecified. EDMS 18:55 Prince Jane MD is Hospitalizing Provider. rt 21:55 IV discontinued, intact, bleeding controlled, No redness/swelling at site. Pressure kj2 dressing applied. 22:33 No provider procedures requiring assistance completed. kj2 Administered Medications: 17:05 Drug: Furosemide IVP 40 mg IVP once; give over 2 minutes Route: IVP; Site: right kj2 antecubital; 19:03 Follow up: Response: No adverse reaction kj2 Outcome: 18:55 Decision to Hospitalize by Provider. rt 21:55 AMA AMA form signed kj2 21:55 Condition: stable 21:55 Discharge instructions given to patient, 22:20 Patient left the ED. vc1 Signatures: Dispatcher [employer] EDIN Clair Byrd, Reg Reg mr Vinny Kapoor nj Mariaelena Villarreal, RN RN vc1 Chikis Hernandez RN RN Yang Griffith MD MD rt Juan Loving jc4 Holly Kapoor, ALEAH RN kj2
--- NOTE | 2024-11-30 18:56 | EDPHYS ---
Physician Documentation [facility] Name: Juan Carlos Lorenzo Age: 73 yrs Sex: Male : 1950 Arrival Date: 11/30/2024 Time: 15:44 Bed 13 Private MD: ED Physician Yang Padilla HPI: 11/30 16:21 This 73 yrs old Male presents to ER via Ambulatory with complaints of rt Abdominal Swelling. 16:21 Patient with history of congestive heart failure on torsemide 20 mg twice daily rt presents to the ED with cough, worsening abdominal swelling since yesterday. States that his torsemide is not working as well as it typically would. Denies other acute complaints at this time, symptoms are moderate in severity, no other aggravating or alleviating factors.. Historical: - Allergies: 15:59 No Known Allergies; db - PMHx: 15:59 CAD; High Cholesterol; Hypertension; Myocardial infarction; Gout; db - PSHx: 15:59 pacemaker; and defib/ [employer] (September 02); Coronary artery bypass graft; db - Immunization history:: Adult Immunizations unknown. - Infectious Disease History:: Denies. - Social history:: Smoking status: Patient denies any tobacco usage or history of. - Family history:: not pertinent. ROS: 16:21 Constitutional: Negative for fever, chills, and weight loss, Cardiovascular: Negative rt for chest pain, palpitations, and edema, MS/Extremity: Negative for injury and deformity, Skin: Negative for injury, rash, and discoloration, Neuro: Negative for headache, weakness, numbness, tingling, and seizure, 16:21 Respiratory: Positive for cough, shortness of breath, 16:21 Abdomen/GI: Negative for abdominal pain, nausea and vomiting, Exam: 16:21 Constitutional: This is a well developed, well nourished patient who is awake, alert, rt and in no acute distress. Head/Face: Normocephalic, atraumatic. Chest/axilla: Normal chest wall appearance and motion. Nontender with no deformity. No lesions are appreciated. Cardiovascular: Regular rate and rhythm with a normal S1 and S2. No gallops, murmurs, or rubs. Normal PMI, no JVD. No pulse deficits. Skin: Warm, dry with normal turgor. Normal color with no rashes, no lesions, and no evidence of cellulitis. MS/ Extremity: Pulses equal, no cyanosis. Neurovascular intact. Full, normal range of motion. Neuro: Awake and alert, GCS 15, oriented to person, place, time, and situation. Cranial nerves II-XII grossly intact. Motor strength 5/5 in all extremities. Sensory grossly intact. Cerebellar exam normal. Normal gait. 16:21 Respiratory: Bibasilar crackles, no respiratory distress, 16:21 Abdomen/GI: Mild distention, no tenderness noted, 17:53 ECG was reviewed by the Attending Physician. rt Vital Signs: 15:58 BP 116 / 77; Pulse 93; Resp 18; Temp 98.6; Pulse Ox 92% on R/A; Weight 104.33 kg; db Height 5 ft. 6 in. ; 17:00 BP 118 / 64; Pulse 85; Resp 20; Pulse Ox 94% on 2.5 lpm NC; kj2 18:00 BP 113 / 77; Pulse 90; Resp 20; Pulse Ox 94% on 2.5 lpm NC; kj2 15:58 Body Mass Index 37.12 (104.33 kg, 167.64 cm) db 15:58 PLACED ON NC 2 L db MDM: 15:58 Medical Screening Exam initiated rt 20:14 Differential Diagnosis CHF, pneumonia, anasarca. Data reviewed: vital signs, nurses rt notes, lab test result(s), EKG, radiologic studies. Consideration of Admission/Observation Patient was admitted/placed on observation. Management of patient was discussed with the following: Hospitalist: Agrees to admit. I considered the following discharge prescriptions or medication management in the emergency department Medications were administered in the Emergency Department. See MAR. Independent interpretation of the following test(s) in the Emergency Department X-Ray: My interpretation is Pulmonary edema syndrome interpretation of x-ray images. Test considered but Not performed: CT: Low suspicion for PE, CT angiogram not indicated. Care significantly affected by the following chronic conditions: Congestive Heart Failure. Counseling: I had a detailed discussion with the patient and/or guardian regarding the historical points, exam findings, and any diagnostic results supporting the discharge/admit diagnosis, lab results, radiology results, the need for further work-up and treatment in the hospital. Response to treatment: the patient's symptoms have mildly improved after treatment. 11/30 16:05 Order name: Basic Metabolic Panel; Complete Time: 17:50 rt 11/30 16:05 Order name: CBC with Diff; Complete Time: 17:29 rt 11/30 16:05 Order name: LFT's; Complete Time: 17:50 rt 11/30 16:05 Order name: NT PRO-BNP; Complete Time: 17:50 rt 11/30 16:05 Order name: Troponin HS; Complete Time: 17:50 rt 11/30 19:15 Order name: Magnesium EDMS 11/30 19:15 Order name: Phosphorus EDMS 11/30 19:15 Order name: Protime (+INR) EDMS 11/30 19:15 Order name: PTT, Activated Partial Thromb EDMS 11/30 19:15 Order name: Basic Metabolic Panel EDMS 11/30 19:15 Order name: Basic Metabolic Panel EDMS 11/30 19:15 Order name: CBC with Automated Diff EDMS 11/30 19:15 Order name: CBC with Automated Diff EDMS 11/30 19:15 Order name: Lipid Profile EDMS 11/30 19:15 Order name: Lipid Profile EDMS 11/30 19:15 Order name: NT PRO-BNP EDMS 11/30 19:15 Order name: NT PRO-BNP EDMS 11/30 19:15 Order name: Troponin High Sensitivity EDMS 11/30 19:15 Order name: Troponin High Sensitivity EDMS 11/30 19:15 Order name: Troponin High Sensitivity EDMS 11/30 19:24 Order name: Troponin High Sensitivity EDMS 11/30 19:28 Order name: COVID-19 Ag + Flu A+B Ag EDMS 11/30 16:05 Order name: XRAY Chest (1 view); Complete Time: 17:29 rt 11/30 16:05 Order name: CT Abd/Pelvis - IV Contrast Only; Complete Time: 18:15 rt 11/30 19:15 Order name: Echo with Doppler EDMS 11/30 19:28 Order name: Respiratory Therapy Consult EDMS 11/30 16:05 Order name: Cardiac monitoring; Complete Time: 17:57 rt 11/30 16:05 Order name: EKG - Nurse/Tech; Complete Time: 17:57 rt 11/30 16:05 Order name: IV Saline Lock; Complete Time: 17:57 rt 11/30 16:05 Order name: Labs collected and sent; Complete Time: 17:57 rt 11/30 16:05 Order name: O2 Per Protocol; Complete Time: 17:57 rt 11/30 16:05 Order name: O2 Sat Monitoring; Complete Time: 17:57 rt EC:53 Rate is 83 beats/min. Rhythm is irregularly irregular, A fib with No ectopy. QRS [place] rt is Normal. QRS interval is normal. QT interval is normal. No Q waves. Administered Medications: 17:05 Drug: Furosemide IVP 40 mg IVP once; give over 2 minutes Route: IVP; Site: right kj2 antecubital; 19:03 Follow up: Response: No adverse reaction kj2 Disposition Summary: 11/30/24 18:55 Hospitalization Ordered Notes: Hospitalization Status: Observation rt Provider: Prince Buck rt Condition: Stable rt Problem: new rt Symptoms: have improved rt Bed/Room Type: Standard rt Location: [facility] ER HOLD(11/30/24 21:40) sp Room Assignment: ERHOLD-(11/30/24 21:40) sp Diagnosis - CHF exacerbation rt - Hypoxia rt Forms: - Medication Reconciliation Form rt - SBAR form rt - Leadership Thank You Letter rt Signatures: Dispatcher [employer] EDMS Griselda Aguilar sp Chikis Hernandez RN RN db Yang Padilla MD MD rt Holly Kapoor RN RN kj2 Corrections: (The following items were deleted from the chart) 16:05 16:05 BASIC METABOLIC PANEL+C.LAB.BRZ ordered. EDMS EDMS 16:05 16:05 CBC+H.LAB.BRZ ordered. EDMS EDMS 16:05 16:05 HEPATIC FUNCTION+C.LAB.BRZ ordered. EDMS EDMS 16:05 16:05 PROBNP+C.LAB.BRZ ordered. EDMS EDMS 16:05 16:05 Troponin High Sensitivity+C.LAB.BRZ ordered. EDMS EDMS 16:05 16:05 Chest Single View+RAD.RAD.BRZ ordered. EDMS EDMS 16:06 16:06 Abdomen Pelvis W Con+CT.RAD.BRZ ordered. EDMS EDMS 19:22 19:15 Troponin High Sensitivity ordered. EDMS EDMS 21:40 18:55 Telemetry/MedSurg (observation) rt sp 21:40 18:55 rt sp
[2024-11-30] MEDS ORDERED: ONDANSETRON 4 MG/2 ML VIAL IV PRN (19:09)
[2024-11-30] MEDS ORDERED: ACETAMINOPHEN 500 MG TAB PO PRN (19:09)
[2024-11-30] MEDS ORDERED: ALBUTEROL 2.5 MG/3 ML NEB SOL NEB PRN (19:09)
[2024-11-30] MEDS ORDERED: IPRATROPIUM BROM 0.5MG/2.5ML NEB PRN (19:09)
--- NOTE | 2024-11-30 19:21 | P.HP ---
Certification for Inpatient Patient admitted to: Inpatient With expected LOS: >2 Midnights Practitioner: I am a practitioner with admitting privileges, knowledge of patient current condition, hospital course, and medical plan of care. Services: Services provided to patient in accordance with Admission requirements found in Title 42 Section 412.3 of the Code of Federal Regulations Patient History Date of Service: 11/30/24 Reason for admission: shortness of breath History of Present Illness: Patient is a 73 year old Northern Irish-speaking male with a PMH of atrial fibrillation on systemic AC, diastolic CHF and HTN. He presents to the ER accompanied by son. He is complaining of acutely worsening shortness of breath ongoign for the past 24 hours. Associated symptoms include productive cough, generalized weakness. Denies lower extremitiy edema. EKG in the ER shows rate-controlled atrial fibrillation. CXR shows volume overload suggestive of CHF. BNP> 1900. He received a dose of IV lasix. He is now on 3L via NC. Allergies No Known Allergies Allergy (Unverified 03/29/17 06:51) Home Medications: Guaifenesin [Mucinex] 600 mg PO BID 10 Days #20 tab 09/24/23 Prednisone [Sterapred Ds] 10 mg PO DAILY 10 Days #30 tab 09/24/23 - Past Medical/Surgical History -: CAD -: GOUT -: HLD -: HTN -: NM -: CABG 10 YEARS AGO -: PACEMAKER Psychosocial/ Personal History: lives at home - Social History Alcohol use: No CD- Drugs: No Caffeine use: Yes Physical Examination - Physical Exam General: Acute distress HEENT: Atraumatic, Normocephalic Respiratory: Diminished Cardiovascular: No edema, Normal pulses, Normal S1 S2, Irregular heart rate/rhythm Neurological: Normal speech - Studies Laboratory Data (last 24 hrs) 11/30/24 11/30/24 17:05 17:05 WBC 6.30 Hgb 13.9 Hct 41.1 Plt Count 158 Sodium 142 Potassium 3.3 L BUN 19 H Creatinine 1.26 Glucose 100 Total Bilirubin 1.1 H AST 25 ALT 34 Alkaline Phosphatase 32 L Assessment and Plan - Problems (Diagnosis) (1) Acute on chronic diastolic CHF (congestive heart failure) Current Visit: Yes Status: Acute (2) Acute hypoxemic respiratory failure Current Visit: Yes Status: Acute (3) Atrial fibrillation Current Visit: Yes Status: Acute (4) CAD (coronary artery disease) Current Visit: No Status: Acute (5) HLD (hyperlipidemia) Current Visit: No Status: Acute (6) HTN (hypertension) Current Visit: No Status: Acute (7) History of coronary artery bypass graft Current Visit: No Status: Acute - Plan Assessment Patient is a 73 year old [place] Irish-speaking with atrial fbrillatio, CHF, CAD S/P CABG. He is being admitted for decopmensated CHF after he presented with rosemary rtness of breath, generalized weakness and cough. CXR is consistent with CHF. BNP > 1900. Acute hypoxemic respiratory failure Acute on chronic diastolic CHF Atrial fibrillation-due to ablation at [facility] soon HTN HLD CAD S/P CABG PLAN: Admit inpatient with telemetry Continue scheduled IV lasix Monitor I/O Replete electrolyte as needed including K+ and Mag++ Follow TTE Cardiology consulted. Patient is full code - Advance Directives Does patient have a Living Will: No Does patient have a Durable POA for Healthcare: No
[2024-11-30] MEDS ORDERED: KCL 20 MEQ/100 mL IVPB 20 MEQ/100 ML BAG IV SCH (20:00)
[2024-11-30 20:51] VITALS: BMI 37.1
[2024-11-30 20:53] LABS: PT Prothrombin Time 13.5 SECONDS (10.0-13.0); PTT, Activated Partial Thromb 35.6 SECONDS (24.3-36.9); Protime INR 1.19
[2024-11-30 21:02] LABS: Magnesium 2.5 mg/dL (1.6-2.4); Phosphorus 4.1 mg/dL (2.5-4.9); Troponin High Sensitivity 31.9 pg/mL (<58.9)
[2024-11-30 22:24] VITALS: TEMP 98.6
[2024-11-30 22:25] VITALS: O2SAT 94
[2024-11-30 22:27] VITALS: BP 113/77
[2024-12-01] MEDS ORDERED: FUROSEMIDE 40 MG/4 ML VIAL IV SCH (09:00)
--- NOTE | 2024-12-01 16:45 | EKG ---
Test Date: 2024-11-30 Test Time: 17:35:07 Salvage Machine Operator: TUSHAR MEASUREMENT RESULTS: Intervals: Rate: 83 NH: QRSD: 114 QT: 406 QTc: 477 [place]: P: NH: QRS: 103 T: 123 INTERPRETIVE STATEMENTS: Atrial fibrillation ST & T wave abnormality, consider anterior ischemia or digitalis effect Prolonged QT Abnormal ECG Compared to ECG 12/30/2023 21:05:40 ST (T wave) deviation now present Possible ischemia now present Myocardial infarct finding no longer present Electronically Signed On 12-01-24 16:43:34 SALES PROFESSIONAL by Abbe Camp
== END 2024-11-30 22:21 | disposition left against medical advice (07) | DRG 291 ==
LOC: ER 15:44 → ERHOLD 19:04
PROVIDERS: ADMIT Internal Medicine; ATTEND Internal Medicine
DX: I11.0 Hypertensive heart disease with heart failure (principal); I50.33 Acute on chronic diastolic (congestive) heart failure; J96.01 Acute respiratory failure with hypoxia; I48.91 Unspecified atrial fibrillation; E78.00 Pure hypercholesterolemia, unspecified; M10.9 Gout, unspecified; I25.2 Old myocardial infarction; I25.10 Atherosclerotic heart disease of native coronary artery without angina pectoris; Z95.1 Presence of aortocoronary bypass graft; Z11.52 Encounter for screening for COVID-19; Z79.52 Long term (current) use of systemic steroids; Z79.899 Other long term (current) drug therapy; Z95.810 Presence of automatic (implantable) cardiac defibrillator
CPT/HCPCS: 36415; 71045; 74177; 80048; 80076; 83735; 83880; 84100; 84484; 85025; 85610; 85730; 93005; 96374; 99284; G0378; J1940; Q9967